=== PATIENT | male | born 1975 | race Caucasian/White ===

== ENCOUNTER → 2020-03-12 18:41 | Outpatient (CLI) | payer OTHER, MEDICAID, SELFPAY ==
[2020-03-12 19:58] LABS: Basophils # 0.1 K/mm3 (0-0.2); Basophils % 0.8 % (0.1-2.0); Eosinophils # 0.2 K/mm3 (0.0-0.4); Eosinophils % 2.4 % (0.1-12.0); Hematocrit 49.5 % (42.0-52.0); Hemoglobin 16.1 g/dL (14.1-18.0); Lymphocytes # 1.9 K/mm3 (0.7-4.5); Lymphocytes % 19.6 % (10-50); Mean Corpuscular HGB Conc 32.4 g/dL (31.8-35.4); Mean Corpuscular Hemoglobin 30.1 pg (27.0-31.2); Mean Corpuscular Volume 92.9 fl (80-94); Mean Platelet Volume 9.6 fl (7.4-10.4); Monocytes # 0.4 K/mm3 (0.1-1.0); Monocytes % 4.1 % (1.7-9.3); Neutrophils # 6.9 K/mm3 (1.8-7.8); Neutrophils % 73.1 % (37.0-80.0); Platelet Count 373 K/mm3 (142-424); Red Blood Count 5.33 M/mm3 (4.60-6.20); Red Cell Distribution Width 14.4 % (11.5-17.5); White Blood Count 9.5 K/mm3 (4.8-10.8)
[2020-03-12 20:03] LABS: Alanine Aminotransferase 24 U/L (12-78); Albumin Level 4.4 g/dl (3.5-5.0); Albumin/Globulin Ratio 1.6 (1.1-1.8); Alkaline Phosphatase 79 U/L (38-126); Anion Gap 11.3 mEq/L (5-15); Aspartate Amino Transferase 31 U/L (17-59); Bilirubin,Total 0.5 mg/dl (0.2-1.3); Blood Urea Nitrogen 9 mg/dl (9-20); Calcium 9.7 mg/dl (8.4-10.2); Carbon Dioxide 27 mmol/L (22.0-30.0); Chloride 104 mmol/L (98-107); Chol/HDL Ratio 4.8 (1-3.5); Cholesterol 191 mg/dl (140-200); Estimated Glomerular Filt Rate 91 ml/min (>60); GFR (African American) 110 ML/MIN (>60); Globulin 2.8 g/dL (1.3-3.2); Glucose 129 mg/dl (74-100); HDL Cholesterol 40 mg/dl (40-60); Potassium 4.3 mmoL/L (3.5-5.1); Sodium 138 mmol/L (136-145); Total Protein,Serum 7.2 g/dl (6.3-8.2); Triglycerides 129 mg/dl (30-150); VLDL Cholesterol 26 mg/dL (0-40)
[2020-03-12 20:14] LABS: Direct LDL Cholesterol 137.99 mg/dL (100-129)
[2020-03-12 20:18] LABS: Free T4 (Free Thyroxine) 1.16 ng/dl (0.78-2.19)
[2020-03-12 20:20] LABS: 25-OH Vitamin D, Total 34.6 ng/mL (30-100)
[2020-03-12 20:35] LABS: Thyroid Stimulating Hormone 1.43 uIU/mL (0.465-4.68)
== END ==
PROVIDERS: Visit Provider Family Medicine
DX: Z00.00 Encounter for general adult medical examination without abnormal findings (principal)
CPT/HCPCS: 80053; 80061; 82306; 84439; 84443; 85025

== ENCOUNTER 2020-05-27 08:25 | Emergency (ER) | payer OTHER, MEDICAID, SELFPAY ==
[2020-05-27 08:26] VITALS: BP 165/99; PULSE 78; RESP 16; TEMP 36.8; O2SAT 98; BMI 36.6
--- NOTE | 2020-05-27 08:36 | XR_ITS ---
PROCEDURE: XR ACUTE ABDOMEN SERIES CLINICAL INDICATION: epigastric pain, free air? COMPARISON: CT CT ABDOMEN PELVIS WO CON from 05/27/2020 FINDINGS: Frontal view of the chest shows no acute finding. Upright and supine views of the abdomen show a nonspecific bowel gas. No obstruction or free air. There is a mild amount of retained colonic feces. The joint spaces are well-preserved. No significant degenerative/arthritic changes. No erosive changes evident. Other findings:None. IMPRESSION: No acute findings. Dictated by: Hudson Hyde MD 05/27/2020 12:30 Hudson Hyde MD in [place] 05/27/2020 12:30
--- NOTE | 2020-05-27 08:39 | HMH.EDABDPAI ---
ED Disposition Clinical Impression: Acute pancreatitis Qualifiers: Pancreatitis type: unspecified pancreatitis type Acute pancreatitis complication: no infection or necrosis Qualified Code(s): K85.90 - Acute pancreatitis without necrosis or infection, unspecified Disposition: Home, Self-Care Condition on Discharge: Good Instructions: DI for Pancreatitis Prescriptions: Hydrocodone/Acetaminophen [Hydrocodone-Acetamin 5-325 mg] 1 each PO Q4-6H PRN #15 tablet PRN Reason: pain Transmission Status: Received by [facility] 1960 Ondansetron [Zofran 4mg ODT] 4 mg PO TID PRN #15 tab PRN Reason: Nausea Transmission Status: Pending to [facility] 1960 Referrals: Isidro Roberts MD [Primary Care Provider] - 3 days - Critical Care Critical Care Time: No Attestation: On , the high probability of a clinically significant, sudden or life threatening deterioration of the following system(s) required my full and direct attention, intervention and personal management. The time I documented below is in addition to time spent performing reported procedures but includes the following listed in this critical care notation. Medical Decision Making - Medical Records Medical records reviewed: Yes: I reviewed the patient's medical records. - Adalberto Inquiry Pt receiving controlled substance: Yes Adalberto was queried for this patient: No Risks and benefits of using a controlled substance: were discussed with pt by me Vital Signs: 05/27/20 08:26 05/27/20 11:10 Temperature 98.2 F Temperature Source Oral Pulse Rate [Right] 78 86 Respiratory Rate 16 Blood Pressure [Right Arm] 165/99 H 139/69 Blood Pressure Mean [Right Arm] 121 92 Blood Pressure Source [Right Arm] Automatic Cuff Automatic Cuff Blood Pressure Position [Right Arm] Sitting Sitting 02 Sat by Pulse Oximetry 98 97 Oxygen Delivery Method Room Air Room Air - Lab Data Lab results reviewed: Yes: I reviewed the patient's lab results. Lab Results 05/27/20 10:01: Urine Color Yellow, Urine Appearance Clear, Urine pH 7.0, Ur Specific [place] 1.010, Urine Protein Negative, Urine Glucose (UA) Negative, Urine Ketones Negative, Urine Blood 1+, Urine Nitrate Negative, Urine Bilirubin Negative, Urine Urobilinogen 0.2, Ur Leukocyte Esterase Negative, Urine RBC 5-10, Urine WBC 3-5, Ur Squamous Epith Cells 3-5 05/27/20 10:01: WBC 15.2 H, RBC 5.36, Hgb 15.2, Hct 47.7 H, MCV 88.9, MCH 28.4, MCHC 32.0, RDW 13.4, Plt Count 332, MPV 7.3 L, Neut % (Auto) 74.3, Lymph % (Auto) 17.5, [place] % (Auto) 5.8, Eos % (Auto) 1.8, Baso % (Auto) 0.7, Neut # (Auto) 11.3 H, Lymph # (Auto) 2.7, [place] # (Auto) 0.9, Eos # (Auto) 0.3, Baso # (Auto) 0.1, Total Counted 100, Neutrophils % (Manual) 76, Lymphocytes % (Manual) 21, Monocytes % (Manual) 3, Platelet Estimate Normal, RBC Morphology Normal 05/27/20 10:01: Urine HCG, Qual Negative 05/27/20 10:01: Sodium 137, Potassium 4.0, Chloride 101, Carbon Dioxide 29, Anion Gap 11.0, BUN 13, Creatinine 0.80, Estimated Creat Clear 126, Estimated GFR 77, Est GFR ( Amer) 93, Glucose 127 H, Calcium 10.3 H, Total Bilirubin 0.4, AST 21, ALT 20, Alkaline Phosphatase 68, Troponin I < 0.01, Total Protein 7.9, Albumin 4.6, Globulin 3.3 H, Albumin/Globulin Ratio 1.4, Lipase 169 Result diagrams: 05/27/20 10:01 05/27/20 10:01 Orders (Tests/Meds): ED MEDICATIONS Discontinued Medications Generic Name Dose Route Start Last Admin Trade Name Aaron PRN Reason Stop Dose Admin Famotidine 20 mg 05/27/20 08:36 05/27/20 09:29 Famotidine 20mg/2ml Vial IV 05/27/20 08:37 20 mg ONCE ONE Administration Sodium Chloride 1,000 mls @ 999 mls/hr 05/27/20 10:45 05/27/20 10:53 Sod Chlor 0.9% 1000ml Bag IV 05/27/20 11:45 999 mls/hr .Q1H1M NADYA Administration Ketorolac Tromethamine 30 mg 05/27/20 08:36 05/27/20 09:29 Ketorolac 30mg/Ml Vial IV 05/27/20 08:37 30 mg ONCE ONE Administration - CT Data CT Scan: Abdomen, Pelvis Time Received: 12:35 E
--- NOTE | 2020-05-27 10:14 | ECG_ITS ---
APPROVED REPORT Exam: Resting ECG HR:89 bpm ECG Measurements Heart Rate 89 AXES IN 130 P 50 QRSd 86 QRS 79 QT 386 T 3 QTc 469 Conclusion Normal sinus rhythm Prolonged QT Abnormal ECG Electronically signed by : Daryl Moran, 05/28/2020 06:24:30
[2020-05-27 10:17] LABS: Appearance,Urine CLEAR (Clear); Bilirubin,Urine Negative (Negative); Blood, Urine 1+ (Negative); Color,Urine YELLOW (Yellow); Glucose,Urine (UA) Negative (Negative); Ketones,Urine Negative (Negative); Leukocyte Esterase,Urine Negative (Negative); Microscopic, Urine URINE MICROSCOPIC (MICROSCOPIC); Nitrate,Urine Negative (Negative); Protein,Urine Negative (Negative); Urobilinogen,Urine 0.2 EU/dl (0.2)
[2020-05-27 10:20] LABS: Urine Pregnancy, HCG Qual. Negative (Negative)
[2020-05-27 10:26] LABS: Basophils # 0.1 K/mm3 (0-0.2); Basophils % 0.7 % (0.1-2.0); Eosinophils # 0.3 K/mm3 (0.0-0.4); Eosinophils % 1.8 % (0.1-12.0); Hematocrit 47.7 % (37.0-47.0); Hemoglobin 15.2 g/dL (12.2-16.2); Lymphocytes # 2.7 K/mm3 (0.7-4.5); Lymphocytes % 17.5 % (10-50); Mean Corpuscular Hemoglobin 28.4 pg (27.0-31.2); Mean Corpuscular Volume 88.9 fl (81-99); Mean Platelet Volume 7.3 fl (7.4-10.4); Monocytes # 0.9 K/mm3 (0.1-1.0); Monocytes % 5.8 % (1.7-9.3); Neutrophils # 11.3 K/mm3 (1.8-7.8); Neutrophils % 74.3 % (37.0-80.0); Platelet Count 332 K/mm3 (142-424); Red Blood Count 5.36 M/mm3 (4.20-5.40); Red Cell Distribution Width 13.4 % (11.5-17.5); White Blood Count 15.2 K/mm3 (4.8-10.8)
[2020-05-27 10:27] LABS: MANUAL DIFFERENTIAL MANUAL DIFFERENTIAL (MANUAL DIFF)
[2020-05-27 10:28] LABS: Chloride 101 mmol/L (98-107); Sodium 137 mmol/L (136-145)
[2020-05-27 10:30] LABS: Alanine Aminotransferase 20 U/L (12-78); Aspartate Amino Transferase 21 U/L (14-36); Blood Urea Nitrogen 13 mg/dl (7-17); Creatinine Clearance Estimated 126 mL/min (50-200); Estimated Glomerular Filt Rate 77 ml/min (>60); GFR (African American) 93 ML/MIN (>60)
[2020-05-27 10:31] LABS: Albumin Level 4.6 g/dl (3.5-5.0); Albumin/Globulin Ratio 1.4 (1.1-1.8); Alkaline Phosphatase 68 U/L (38-126); Bilirubin,Total 0.4 mg/dl (0.2-1.3); Calcium 10.3 mg/dl (8.4-10.2); Carbon Dioxide 29 mmol/L (22.0-30.0); Globulin 3.3 g/dL (1.3-3.2); Glucose 127 mg/dl (74-100); Lipase 169 U/L (23-300); Total Protein,Serum 7.9 g/dl (6.3-8.2)
--- NOTE | 2020-05-27 10:46 | CT_ITS ---
PROCEDURE: CT ABDOMEN PELVIS WO CON CLINICAL INDICATION: epigastric pain COMPARISON: No exams were available for comparison TECHNIQUE: Axial images obtained with sagittal and coronal reformats. All CT scans at the facility use one or more dose reduction, viz: automated exposure control, ma/kV adjustment per patient size (including targeted exams where dose is matched to indication, i.e. head), or iterative reconstruction technique. FINDINGS: LOWER THORAX: No acute finding ABDOMEN & PELVIS: Fatty liver. The gallbladder, spleen, adrenal glands, and kidneys show no acute finding. There is mild haziness around the pancreatic head which appears slightly prominent raising the suspicion of mild acute pancreatitis. Please correlate with clinical and laboratory values. No intestinal obstruction or free air. No evidence of appendicitis. There are few colonic diverticula but no evidence of diverticulitis. There are few scattered small nodes in the inguinal regions. No acute bony findings. There is a small umbilical hernia containing fat and 2 tiny abdominal wall defects just superior to the umbilicus consistent with small hernias both containing fat. IMPRESSION: Suspect acute pancreatitis with mild stranding of the peripancreatic fat at the head of the pancreas and some low-density changes of the pancreatic head with fullness of the pancreatic head. Please correlate with clinical and laboratory parameters Dictated by: Hudson Hyde MD 05/27/2020 12:28 Hudson Hyde MD in [place] 05/27/2020 12:28
[2020-05-27 10:49] LABS: Troponin I < 0.01 ng/ml (0.00-0.034)
[2020-05-27 10:54] LABS: Lymphocytes % 21 % (10-50); Monocytes % 3 % (2-9); Neutrophils % 76 % (42-76); Platelet Estimate Normal; RBC Morphology Normal; Total Cells Counted 100
--- NOTE | 2020-05-27 11:04 | PC.NURSE ---
radiology notified of ct abd and pelvis
[2020-05-27 11:10] VITALS: BP 139/69; PULSE 86; O2SAT 97
[2020-05-27 12:00] VITALS: BP 136/69; PULSE 75; O2SAT 96
[2020-05-27 12:30] VITALS: BP 124/70; PULSE 76; O2SAT 96
[2020-05-27 13:06] VITALS: BP 124/73; PULSE 77; RESP 20; TEMP 36.8; O2SAT 97
== END 2020-05-27 13:06 | disposition home or self-care (01) ==
PROVIDERS: Emergency Provider Emergency Medicine; PCP Family Medicine
DX: K85.90 Acute pancreatitis without necrosis or infection, unspecified (principal); K21.9 Gastro-esophageal reflux disease without esophagitis; F41.8 Other specified anxiety disorders
CPT/HCPCS: 74021; 74176; 80053; 81001; 81025; 83690; 84484; 85007; 85025; 93005; 96365; 96375; 99283

== ENCOUNTER → 2020-05-29 07:40 | Outpatient (CLI) | payer OTHER, MEDICAID, SELFPAY ==
--- NOTE | 2020-05-29 07:40 | US_ITS ---
PROCEDURE: US ABDOMEN LIMITED CLINICAL INDICATION: pancreatitis COMPARISON: CT CT ABDOMEN PELVIS WO CON from 05/27/2020 FINDINGS: PANCREAS: Unremarkable. No obvious mass or abnormal fluid collection. No ductal dilatation LIVER: No focal liver lesions demonstrated. Homogeneous echogenicity. No intrahepatic biliary ductal dilatation evident. There is appropriate direction of blood flow within a non dilated portal vein RIGHT KIDNEY: Unremarkable. Normal size and echogenicity. No hydronephrosis GALLBLADDER: No gallstones, gallbladder wall thickening, pericholecystic fluid, or biliary dilatation. IMPRESSION: Unremarkable limited abdominal ultrasound as detailed above disc Dictated by: Hduson Hyde MD 05/29/2020 17:35 Hudson Hyde MD in [place] 05/29/2020 17:35
== END ==
PROVIDERS: PCP Family Medicine; Visit Provider Family Medicine
DX: R10.9 Unspecified abdominal pain (principal); K85.90 Acute pancreatitis without necrosis or infection, unspecified
CPT/HCPCS: 76705

== ENCOUNTER → 2020-10-01 18:03 | Outpatient (CLI) | payer OTHER, MEDICAID, SELFPAY | PROVIDERS: Visit Provider Family Medicine | DX: R05 Cough (principal) ==

== ENCOUNTER → 2020-10-06 12:18 | Outpatient (CLI) | payer OTHER, MEDICAID, SELFPAY ==
--- NOTE | 2020-10-06 12:28 | XR_ITS ---
PROCEDURE: XR COCCYX 2V CLINICAL INDICATION: pain COMPARISON: No exams were available for comparison FINDINGS: Normal alignment. No fracture or dislocation. No lytic or blastic change. SI joints have an unremarkable appearance. IMPRESSION: Negative coccyx Dictated by: Hudson Hyde MD 10/06/2020 13:51 Hudson Hyde MD in [place] 10/06/2020 13:51
--- NOTE | 2020-10-06 12:28 | XR_ITS ---
PROCEDURE: XR LUMBAR SPINE MIN 4V CLINICAL INDICATION: pain COMPARISON: No exams were available for comparison FINDINGS: There is normal alignment. There is minimal lumbar curvature convex right. The disc spaces are well preserved. No acute fracture or dislocation. Mild facet sclerosis L5-S1. SI joints are unremarkable. There is a mild amount retained colonic feces. No lytic or blastic change. IMPRESSION: No acute findings. Dictated by: Hudson Hyde MD 10/06/2020 13:50 Hudson Hyde MD in [place] 10/06/2020 13:50
--- NOTE | 2020-10-06 12:28 | XR_ITS ---
PROCEDURE: XR CHEST 2V CLINICAL HISTORY: cough COMPARISON: CT CT ABDOMEN PELVIS WO CON from 05/27/2020 FINDINGS: The cardiomediastinal silhouette and pulmonary vascularity are within normal limits. The lungs are clear without infiltrates, suspicious nodules, or pleural effusions. There is some hyper lucency in the lung apices consistent with paraseptal emphysematous changes or blebs. No acute bony abnormalities. IMPRESSION: COPD with emphysematous changes. No acute finding. Dictated by: Hudson Hyde MD 10/06/2020 14:01 Hudson Hyde MD in [place] 10/06/2020 14:01
== END ==
PROVIDERS: PCP Family Medicine; Visit Provider Family Medicine
DX: R05 Cough (principal); M54.9 Dorsalgia, unspecified; M54.5 Low back pain
CPT/HCPCS: 71046; 72110; 72220

== ENCOUNTER → 2020-11-05 14:02 | Outpatient (CLI) | payer OTHER, MEDICAID, SELFPAY ==
[2020-11-05 14:33] LABS: Lipase 126 U/L (23-300)
== END ==
PROVIDERS: Visit Provider Family Medicine
DX: K86.1 Other chronic pancreatitis (principal)
CPT/HCPCS: 83690

== ENCOUNTER 2020-11-06 13:28 | Observation (INO) | payer OTHER, MEDICAID, SELFPAY ==
[2020-11-06 13:29] VITALS: BP 100/66; PULSE 111; RESP 16; TEMP 36.7; O2SAT 98; BMI 36.2
--- NOTE | 2020-11-06 13:49 | ECG_ITS ---
APPROVED REPORT Exam: Resting ECG HR:101 bpm ECG Measurements Heart Rate 101 AXES [place] 124 P 51 QRSd 72 QRS 65 QT 326 T -36 QTc 422 Conclusion Sinus tachycardia with fusion complexes Possible Left atrial enlargement T wave abnormality, consider inferolateral ischemia Abnormal ECG Electronically signed by : Daryl Moran, 11/08/2020 13:50:58
[2020-11-06 13:54] LABS: Microscopic, Urine URINE MICROSCOPIC (MICROSCOPIC)
[2020-11-06 14:00] LABS: Appearance,Urine CLEAR (Clear); Blood, Urine 3+ (Negative); Color,Urine DK YELLOW (Yellow); Glucose,Urine (UA) Negative (Negative); Ketones,Urine Negative (Negative); Leukocyte Esterase,Urine Negative (Negative); Nitrate,Urine Negative (Negative); PH,Urine 5.5 (5.0-8.5); Protein,Urine 2+ (Negative); Specific Gravity, Urine >= 1.030 (1.005-1.030); Urobilinogen,Urine 0.2 EU/dl (0.2)
--- NOTE | 2020-11-06 14:00 | CT_ITS ---
PROCEDURE: CT ABDOMEN PELVIS W CON CLINICAL INDICATION: pancreatitis COMPARISON: CT CT ABDOMEN PELVIS WO CON from 05/27/2020 TECHNIQUE: IV Contrast: 75ML Isovue 370 Oral Contrast None Axial images obtained with sagittal and coronal reformats. All CT scans at the facility use one or more dose reduction, viz: automated exposure control, ma/kV adjustment per patient size (including targeted exams where dose is matched to indication, i.e. head), or iterative reconstruction technique. FINDINGS: Lung bases are clear. Mild fatty liver. No focal liver lesion evident. The spleen, and adrenal glands are unremarkable. No renal or ureteral calculi or hydronephrosis. There is mild scarring involving the left kidney superiorly and the right kidney inferiorly. The body and head of the pancreas are enlarged with stranding of the peripancreatic fat consistent with acute pancreatitis. No evidence of pancreatic necrosis. No abscess or peripancreatic fluid collection apparent. There is some slight increased density in the gallbladder may be related to small stones or sludge No intestinal obstruction or free air. Unremarkable appendix. Colonic diverticulosis noted. No evidence of diverticulitis. Low-density changes of the endometrium are somewhat prominent and is nonspecific. No acute bony findings.. Probable small bone island right femoral neck. IMPRESSION: Acute pancreatitis. No evidence of pancreatic necrosis or peripancreatic fluid collection. Possible cholelithiasis Dictated by: Hudson Hyde MD 11/06/2020 14:45 Hudson Hyde MD in [place] 11/06/2020 14:45
--- NOTE | 2020-11-06 14:03 | HMH.EDGENADL ---
ED Disposition Clinical Impression: Pancreatitis, acute Qualifiers: Pancreatitis type: unspecified pancreatitis type Acute pancreatitis complication: unspecified Qualified Code(s): K85.90 - Acute pancreatitis without necrosis or infection, unspecified Disposition: Admitted as Observation Condition on Discharge: Patient admitted to the hospital. - Critical Care Critical Care Time: No Attestation: On 11/06/20, the high probability of a clinically significant, sudden or life threatening deterioration of the following system(s) required my full and direct attention, intervention and personal management. The time I documented below is in addition to time spent performing reported procedures but includes the following listed in this critical care notation. Medical Decision Making - Medical Records Medical records reviewed: Yes: I reviewed the patient's medical records. - Adalberto Inquiry Pt receiving controlled substance: Yes Adalberto was queried for this patient: Yes Risks and benefits of using a controlled substance: were discussed with pt by me Vital Signs: 11/06/20 13:29 11/06/20 16:37 11/06/20 16:46 Temperature 98.1 F 98.3 F 98 F Temperature Source Oral Oral Oral Pulse Rate 75 Pulse Rate [Radial] 111 H 77 Respiratory Rate 16 19 16 Blood Pressure 123/85 Blood Pressure [Right Arm] 100/66 L 142/84 H Blood Pressure Mean [Right Arm] 77 103 Blood Pressure Source [Right Arm] Automatic Cuff Blood Pressure Position Sitting Blood Pressure Position [Right Arm] Sitting 02 Sat by Pulse Oximetry 98 95 Oxygen Delivery Method Room Air Room Air Room Air - Lab Data Lab results reviewed: Yes: I reviewed the patient's lab results. Lab Results 11/06/20 13:35: Urine Color Dk yellow, Urine Appearance Clear, Urine pH 5.5, Ur Specific [place] >= 1.030, Urine Protein 2+, Urine Glucose (UA) Negative, Urine Ketones Negative, Urine Blood 3+, Urine Nitrate Negative, Urine Bilirubin 1+ A, Urine Urobilinogen 0.2, Ur Leukocyte Esterase Negative, Urine RBC 10-20, Urine WBC 3-5, Ur Squamous Epith Cells 5-10, Amorphous Sediment 1+ 11/06/20 13:58: WBC 15.6 H, RBC 5.27, Hgb 16.0, Hct 45.2, MCV 85.8, MCH 30.4, MCHC 35.4, RDW 14.6, Plt Count 333, MPV 7.9, Neut % (Auto) 77.5, Lymph % (Auto) 14.9, [place] % (Auto) 4.5, Eos % (Auto) 2.3, Baso % (Auto) 0.8, Neut # (Auto) 12.0 H, Lymph # (Auto) 2.3, [place] # (Auto) 0.7, Eos # (Auto) 0.4, Baso # (Auto) 0.1, Total Counted 100, Neutrophils % (Manual) 71, Lymphocytes % (Manual) 20, Monocytes % (Manual) 8, Eosinophils % (Manual) 1, Platelet Estimate Normal, RBC Morphology Normal 11/06/20 13:58: Sodium 138, Potassium 4.2, Chloride 102, Carbon Dioxide 27, Anion Gap 13.2, BUN 9, Creatinine 0.90, Estimated Creat Clear 110, Estimated GFR 67, Est GFR ( Amer) 81, Glucose 145 H, Calcium 9.3, Total Bilirubin 0.6, AST 20, ALT 18, Alkaline Phosphatase 83, Troponin I < 0.01, Total Protein 7.7, Albumin 4.4, Globulin 3.3 H, Albumin/Globulin Ratio 1.3, Lipase 76 11/06/20 13:58: Serum HCG, Qual Negative Result diagrams: 11/06/20 13:58 11/06/20 13:58 Orders (Tests/Meds): ED MEDICATIONS Generic Name Dose Route Start Last Admin Trade Name Freq PRN Reason Stop Dose Admin Acetaminophen 650 mg 11/06/20 16:24 Acetaminophen 325mg Tab PO 12/06/20 16:23 Q4HP PRN Fever or Mild Pain Hydrocodone Bitart/Acetaminophen 2 tab 11/06/20 16:24 Hydrocodone/Apap 5/325 Mg Tablet PO 12/06/20 16:23 Q4HP PRN Moderate to Severe Pain Albuterol Sulfate puffs 11/06/20 16:24 Albuterol-Hfa 90mcg/Puff Inhaler 8gm IH 12/06/20 16:23 QID PRN cough Amitriptyline HCl 25 mg 11/06/20 16:24 Amitriptyline 25mg Tablet PO 12/06/20 16:23 DAILY NADYA Atorvastatin Calcium 20 mg 11/06/20 16:24 Atorvastatin 20mg Tablet PO 12/06/20 16:23 DAILY NADYA Lactated Ringer's 1,000 mls @ 100 mls/hr 11/06/20 16:24 Lactated Ringer's 1000 Ml Bag IV 12/06/20 16:23 .Q10H NADYA [place]
[2020-11-06 14:12] LABS: Basophils # 0.1 K/mm3 (0-0.2); Basophils % 0.8 % (0.1-2.0); Eosinophils # 0.4 K/mm3 (0.0-0.4); Eosinophils % 2.3 % (0.1-12.0); Hematocrit 45.2 % (37.0-47.0); Lymphocytes # 2.3 K/mm3 (0.7-4.5); Lymphocytes % 14.9 % (10-50); Mean Corpuscular HGB Conc 35.4 g/dL (31.8-35.4); Mean Corpuscular Hemoglobin 30.4 pg (27.0-31.2); Mean Corpuscular Volume 85.8 fl (81-99); Mean Platelet Volume 7.9 fl (7.4-10.4); Monocytes # 0.7 K/mm3 (0.1-1.0); Monocytes % 4.5 % (1.7-9.3); Neutrophils % 77.5 % (37.0-80.0); Platelet Count 333 K/mm3 (142-424); Red Blood Count 5.27 M/mm3 (4.20-5.40); Red Cell Distribution Width 14.6 % (11.5-17.5); White Blood Count 15.6 K/mm3 (4.8-10.8)
[2020-11-06 14:14] LABS: Chloride 102 mmol/L (98-107); MANUAL DIFFERENTIAL MANUAL DIFFERENTIAL (MANUAL DIFF)
[2020-11-06 14:15] LABS: Potassium 4.2 mmoL/L (3.5-5.1); Sodium 138 mmol/L (136-145)
[2020-11-06 14:17] LABS: Alanine Aminotransferase 18 U/L (12-78); Alkaline Phosphatase 83 U/L (38-126); Aspartate Amino Transferase 20 U/L (14-36); Bilirubin,Total 0.6 mg/dl (0.2-1.3); Blood Urea Nitrogen 9 mg/dl (7-17); Creatinine Clearance Estimated 110 mL/min (50-200); Estimated Glomerular Filt Rate 67 ml/min (>60); GFR (African American) 81 ML/MIN (>60)
[2020-11-06 14:18] LABS: Albumin Level 4.4 g/dl (3.5-5.0); Albumin/Globulin Ratio 1.3 (1.1-1.8); Anion Gap 13.2 mEq/L (5-15); Calcium 9.3 mg/dl (8.4-10.2); Carbon Dioxide 27 mmol/L (22.0-30.0); Globulin 3.3 g/dL (1.3-3.2); Glucose 145 mg/dl (74-100); Lipase 76 U/L (23-300); Total Protein,Serum 7.7 g/dl (6.3-8.2)
[2020-11-06 14:23] LABS: Eosinophils % 1 % (0-3); Lymphocytes % 20 % (10-50); Monocytes % 8 % (2-9); Neutrophils % 71 % (42-76); Platelet Estimate Normal; RBC Morphology Normal; Total Cells Counted 100
[2020-11-06 14:35] LABS: Troponin I < 0.01 ng/ml (0.00-0.034)
[2020-11-06 14:47] LABS: Bilirubin,Urine 1+ (Negative)
[2020-11-06 14:54] LABS: Amorphous Sediment,Urine 1+ /lpf
--- NOTE | 2020-11-06 15:01 | US_ITS ---
PROCEDURE: US GALLBLADDER CLINICAL INDICATION: cholelithiasis COMPARISON: CT CT ABDOMEN PELVIS W CON from 11/06/2020 FINDINGS: Pancreas: Mildly prominent pancreas with ill-defined margins consistent with acute pancreatitis. No peripancreatic fluid collections. Liver: Diffuse increased echogenicity of the liver with poor through transmission of sound consistent with hepatic steatosis. No focal liver lesion demonstrated. There is appropriate direction of blood flow within non dilated portal vein.There is appropriate direction of blood flow within a non dilated portal vein. Right kidney: Unremarkable appearing. No hydronephrosis. Gallbladder: No gallstones were demonstrated. IMPRESSION: No gallstones apparent. Mildly prominent pancreas with ill-defined margins consistent with acute pancreatitis Dictated by: Hudson Hyde MD 11/06/2020 15:59 Hudson Hyde MD in [place] 11/06/2020 15:59
[2020-11-06 15:10] LABS: HCG Qualitative, Serum Negative (Negative)
--- NOTE | 2020-11-06 15:15 | PC.NURSE ---
pt to ultrasound
--- NOTE | 2020-11-06 15:33 | HMH.PHAINT ---
MEDICATION RECONCILIATION COMPLETE USING EXTERNAL PHARMACY FILL HISTORY.
[2020-11-06 15:49] LABS: Coronavirus 19, PCR Not Detected (NotDetected); Influenza A, PCR Not Detected (NotDetected); Influenza B, PCR Not Detected (NotDetected)
[2020-11-06 16:37] VITALS: BP 142/84; PULSE 77; RESP 19; TEMP 36.8; O2SAT 95; BMI 34.7
--- NOTE | 2020-11-06 16:45 | PC.NURSE ---
REPORT CALLED TO FLOOR
[2020-11-06 16:46] VITALS: BP 123/85; PULSE 75; RESP 16; TEMP 36.6; O2SAT 94
[2020-11-06 17:12] VITALS: O2SAT 95
--- NOTE | 2020-11-06 18:43 | HMH.HP ---
*Admission Date: 11/06/20 *Chief complaint: pancreatitis *History of present illness: Patient is a 45-year-old white female, known to me from the office. She was seen yesterday with mid epigastric abdominal pain that had worsened over the last 3 to 4 days. Labs were drawn in the office, lipase was normal. The called and relayed that her pain was ongoing, in fact worsening, and this prompted her visit to the emergency room. A CT of the abdomen was performed, this showed some stranding and inflammatory changes of the pancreas distant with pancreatitis. Her repeat lipase was still normal. CT report suggested Pres density in the gallbladder. An ultrasound of the gallbladder was ordered, the final reading is pending. Patient has a dyslipidemia, is on a statin but has not been taking it currently. We will measure fasting n.p.o. lipids, specifically looking at triglyceride elevation. Patient drank a single glass of wine over the holiday weekend. She is otherwise a nondrinker. Patient is accompanied by her . She is employed full-time and concerned about losing points at work. She actually tried to work but felt like she was unable to maintain adequate hydration, and the escalation of her pain precluded her full participation. [facility] History Medical History: Reports:: Anxiety, Hyperlipidemia, Myocardial Infarction Denies:: Cancer, Diabetes Mellitus Type 1, Diabetes Mellitus Type 2, MRSA *Have you ever received a pneumonia vaccine?: No *Have you received a flu vaccine this season?: No Other Medical History: Reports: Arthritis Laterality Cases: Bilateral: Carpal Tunnel Release Other Surgeries: Yes: , Other (ORAL SURGERY) Amputation: No Fractures: No - *Social History Last grade of school completed: High school graduate Smoking Status: Current every day smoker Tobacco Type: cigarettes # Packs/Day (cigarettes): 1 Alcohol Intake: never Alcohol Intake Frequency:: holidays/special occasions only Substance Use Type: denies use *Occupational Status:: employed Household Members: spouse *Travel in the last 8 weeks: None - Psychiatric History Pschychiatric History:: Reports:: Anxiety Family Hx:: Cancer, Diabetes, Heart Attack, Hypertension, Stroke, Mental illness Review of Systems - Constitutional Reports anorexia, Reports lack of energy, Reports weakness - Eyes Denies change in vision - ENT Denies abnormal hearing - *Cardiovascular Denies chest pain - *Respiratory Denies chest congestion - *Gastrointestinal Reports abdominal pain, Reports bloating, Reports cramping, Reports feeling full early, Reports heartburn, Reports nausea - *Genitourinary Denies painful urination - *Musculoskeletal Reports muscle weakness - Integumentary/Breasts Denies yellowing of the skin - *Neurologic Reports headache(s), Denies behavioral changes - Psychiatric Reports change in appetite - Endocrine Reports increased thirst - Hematologic/Lymphatic Denies easy bleeding - Allergic/Immunologic Denies hives Meds Home Medications Medication Instructions Recorded Confirmed Type albuterol sulfate 90 mcg/actuation 2 puff INHALATION QID PRN #8.5 g 10/01/20 11/06/20 Rx aerosol inhaler hydrocodone 5 mg-acetaminophen 325 1 tab PO Q4-6H PRN #15 tab 11/05/20 11/06/20 Rx mg tablet Amitriptyline HCl [Elavil 25mg 25 mg PO DAILY 11/06/20 11/06/20 History tablet] Atorvastatin Calcium [Lipitor 20mg 20 mg PO DAILY 11/06/20 11/06/20 History Tab] Fluticasone/Salmeterol [Advair 1 inh IH BID 11/06/20 11/06/20 History 250/50mcg Diskus] Ondansetron [Zofran 4mg ODT] 4 mg PO TIDP PRN 11/06/20 11/06/20 History Sertraline HCl [Zoloft] 100 mg PO BID 11/06/20 11/06/20 History Allergies Allergy/AdvReac Type Severity Reaction Status Date / Time No Known Allergies Allergy Unverified 11/05/20 10:00 Exam Vital signs and Labs for Last 24 Hours: Temp Pulse Resp BP Pulse Ox 98 F 75
--- NOTE | 2020-11-06 19:01 | XR_ITS ---
PROCEDURE INFORMATION: Exam: XR Chest Exam date and time: 11/06/20 07:01 PM Age: 45 years old Clinical indication: Other: Pancreatitis; Patient HX: No chest symptoms, smoker TECHNIQUE: Imaging protocol: XR of the chest. Views: 1 view. COMPARISON: CR XR CHEST 2V 10/06/20 12:46 PM FINDINGS: Lungs: Unremarkable. No consolidation. Pleural spaces: Unremarkable. No pleural effusion. No pneumothorax. Heart/Mediastinum: Unremarkable. No cardiomegaly. Bones/joints: Unremarkable. IMPRESSION: No acute findings.
[2020-11-06 23:59] VITALS: BP 104/68; PULSE 80; RESP 18; TEMP 36.7; O2SAT 90
--- NOTE | 2020-11-07 03:13 | PC.NURSE ---
shift summary pt is alert and oriented X4. pts lung sounds are clear with sats maintained 90% or above on room air. pt has complained of pain once during the shift which was relieved with prn pain meds. pt also had a complaint of nausea once that was that was relieved with prn antiemetic. pt is able to ambulate to restroom unassisted urine is clear and yellow in color. no acute changes will continue to monitor.
[2020-11-07 04:00] VITALS: BP 141/68; PULSE 81; RESP 18; TEMP 37; O2SAT 97
[2020-11-07 07:57] VITALS: BP 155/88; PULSE 89; RESP 16; TEMP 36.7; O2SAT 100
[2020-11-07 08:00] VITALS: PULSE 89; RESP 16; O2SAT 100
--- NOTE | 2020-11-07 08:40 | HMH.PHAVTE ---
[facility] Pharm[facility] VTE Monitoring - Patient Demographics Admission date: 11/07/20 Report Date: 11/07/20 Time: 08:40 Allergies/Adverse Reactions: Patient Allergies No Known Allergies Allergy (Unverified 11/05/20 10:00) Height: 1.57 m Weight: 86.296 kg Patient Problems: Current Active Problems Pancreatitis, acute (Acute) Hyperlipidemia (Chronic) COPD (chronic obstructive pulmonary disease) case management patient (Chronic) Tobacco abuse (Chronic) History of HI (myocardial infarction) (Chronic) History of stroke (Chronic) Mood disorder (Chronic) Migraine syndrome (Chronic) Erosive osteoarthritis of multiple sites (Chronic) - VTE Risk Labs: VTE Related Lab Results Hgb 16.0 g/dL (12.2-16.2) 11/06/20 13:58 Hct 45.2 % (37.0-47.0) 11/06/20 13:58 Plt Count 333 K/mm3 (142-424) 11/06/20 13:58 BUN 9 mg/dl (7-17) 11/06/20 13:58 Creatinine 0.90 mg/dl (0.52-1.04) 11/06/20 13:58 Estimated Creat Clear 110 mL/min (50-200) 11/06/20 13:58 Was VTE Risk Assessment Performed: Yes VTE Score: 2 VTE Risk Level: Low Risk Clinical Trial Participant: No - Prophylaxis VTE Prophylaxis Ordered?: Yes Types of VTE Prophylaxis: TEDS Knee High Location of Applied Device: Bilateral Lower Extremeties
--- NOTE | 2020-11-07 09:27 | HMH.ACPN2 ---
Internal Medicine - PN: Subj *Date: 11/08/20 *Time: 08:28 Interval history: doing better - still with some abd pain and labs pending and gb u/s report pending Exam Vital signs and Labs for Last 24 Hours: Temp Pulse Resp BP Pulse Ox 98.0 F 89 16 155/88 H 100 11/07/20 07:57 11/07/20 07:57 11/07/20 07:57 11/07/20 07:57 11/07/20 07:57 Laboratory Results - last 24 hr 11/06/20 13:35: Urine Color Dk yellow, Urine Appearance Clear, Urine pH 5.5, Ur Specific [place] >= 1.030, Urine Protein 2+, Urine Glucose (UA) Negative, Urine Ketones Negative, Urine Blood 3+, Urine Nitrate Negative, Urine Bilirubin 1+ A, Urine Urobilinogen 0.2, Ur Leukocyte Esterase Negative, Urine RBC 10-20, Urine WBC 3-5, Ur Squamous Epith Cells 5-10, Amorphous Sediment 1+ 11/06/20 13:58: WBC 15.6 H, RBC 5.27, Hgb 16.0, Hct 45.2, MCV 85.8, MCH 30.4, MCHC 35.4, RDW 14.6, Plt Count 333, MPV 7.9, Neut % (Auto) 77.5, Lymph % (Auto) 14.9, [place] % (Auto) 4.5, Eos % (Auto) 2.3, Baso % (Auto) 0.8, Neut # (Auto) 12.0 H, Lymph # (Auto) 2.3, [place] # (Auto) 0.7, Eos # (Auto) 0.4, Baso # (Auto) 0.1, Total Counted 100, Neutrophils % (Manual) 71, Lymphocytes % (Manual) 20, Monocytes % (Manual) 8, Eosinophils % (Manual) 1, Platelet Estimate Normal, RBC Morphology Normal 11/06/20 13:58: Sodium 138, Potassium 4.2, Chloride 102, Carbon Dioxide 27, Anion Gap 13.2, BUN 9, Creatinine 0.90, Estimated Creat Clear 110, Estimated GFR 67, Est GFR ( Amer) 81, Glucose 145 H, Calcium 9.3, Total Bilirubin 0.6, AST 20, ALT 18, Alkaline Phosphatase 83, Troponin I < 0.01, Total Protein 7.7, Albumin 4.4, Globulin 3.3 H, Albumin/Globulin Ratio 1.3, Lipase 76 11/06/20 13:58: Serum HCG, Qual Negative 11/06/20 15:40: SARS-CoV-2 (PCR) Not detected, Influenza A Untype (PCR) Not detected, Influenza Type B (PCR) Not detected I & O for Last 24 hours: Intake & Output 11/04/20 11/05/20 11/06/20 11/07/20 11:59 11:59 11:59 11:59 Intake Total 240 / 240 Balance 240 / 240 Weight 190 lb 4 oz - Constitutional no acute distress, obese - *Routine HEENT Exam Head: Present: normocephalic Eye: Present: EOMI, PERRL ENT: Present: mucous membranes dry - *Routine Neck Exam Present: supple. Absent: JVD - *Routine Respiratory Exam Present: CTA bilaterally - *Routine Cardiovascular Exam Present: RRR, murmur - *Routine Abdominal Exam Present: soft, tenderness - *Routine Extremities Exam Absent: calf tenderness - *Routine Skin Exam Present: intact - *Routine Neurological Exam Present: alert, CN II-XII intact - Routine Psychiatric Exam Present: normal affect Assessment and Plan (1) Pancreatitis, acute Status: Acute Qualifiers: Pancreatitis type: unspecified pancreatitis type Acute pancreatitis complication: unspecified Qualified Code(s): K85.90 - Acute pancreatitis without necrosis or infection, unspecified Category: Medical Code(s): K85.90 - Acute pancreatitis without necrosis or infection, unspecified (2) COPD (chronic obstructive pulmonary disease) case management patient Status: Chronic Category: Medical Code(s): J44.9 - Chronic obstructive pulmonary disease, unspecified (3) Erosive osteoarthritis of multiple sites Status: Chronic Category: Medical Code(s): M15.4 - Erosive (osteo)arthritis (4) History of MA (myocardial infarction) Status: Chronic Category: Medical Code(s): I25.2 - Old myocardial infarction (5) History of stroke Status: Chronic Category: Medical Code(s): Z86.73 - Personal history of transient ischemic attack (TIA), and cerebral infarction without residual deficits (6) Migraine syndrome Status: Chronic Category: Medical Code(s): G43.909 - Migraine, unspecified, not intractable, without status migrainosus (7) Mood disorder Status: Chronic Category: Medical Code(s): F39 - Unspecified mood [affective] disorder (8) Tobacco abuse Status: Chronic Category: Medical Code(s): Z72.0 - Tobac
[2020-11-07 11:03] LABS: Basophils # 0.1 K/mm3 (0-0.2); Basophils % 0.6 % (0.1-2.0); Eosinophils # 0.3 K/mm3 (0.0-0.4); Eosinophils % 2.9 % (0.1-12.0); Hematocrit 39.4 % (37.0-47.0); Lymphocytes # 2.4 K/mm3 (0.7-4.5); Mean Corpuscular HGB Conc 33.6 g/dL (31.8-35.4); Mean Corpuscular Hemoglobin 29.4 pg (27.0-31.2); Mean Corpuscular Volume 87.4 fl (81-99); Mean Platelet Volume 7.9 fl (7.4-10.4); Monocytes # 0.4 K/mm3 (0.1-1.0); Monocytes % 3.5 % (1.7-9.3); Neutrophils # 8.1 K/mm3 (1.8-7.8); Platelet Count 276 K/mm3 (142-424); Red Blood Count 4.51 M/mm3 (4.20-5.40); Red Cell Distribution Width 14.4 % (11.5-17.5); White Blood Count 11.3 K/mm3 (4.8-10.8)
[2020-11-07 11:10] LABS: Chloride 103 mmol/L (98-107); Sodium 136 mmol/L (136-145)
[2020-11-07 11:12] LABS: Blood Urea Nitrogen 10 mg/dl (7-17); Creatinine Clearance Estimated 118 mL/min (50-200); Estimated Glomerular Filt Rate 77 ml/min (>60); GFR (African American) 93 ML/MIN (>60)
[2020-11-07 11:13] LABS: Alanine Aminotransferase 16 U/L (12-78); Albumin Level 3.5 g/dl (3.5-5.0); Albumin/Globulin Ratio 1.2 (1.1-1.8); Alkaline Phosphatase 62 U/L (38-126); Aspartate Amino Transferase 22 U/L (14-36); Bilirubin,Total 0.5 mg/dl (0.2-1.3); Calcium 8.7 mg/dl (8.4-10.2); Carbon Dioxide 29 mmol/L (22.0-30.0); Chol/HDL Ratio 4.2 (1-3.5); Cholesterol 142 mg/dl (140-200); Globulin 2.9 g/dL (1.3-3.2); Glucose 151 mg/dl (74-100); HDL Cholesterol 34 mg/dl (40-60); Magnesium 1.7 mg/dl (1.6-2.3); Total Protein,Serum 6.4 g/dl (6.3-8.2); Triglycerides 112 mg/dl (30-150); VLDL Cholesterol 22 mg/dL (0-40)
[2020-11-07 11:15] LABS: Lipase 53 U/L (23-300)
[2020-11-07 11:22] LABS: Hemoglobin 13.2 g/dL (12.2-16.2)
[2020-11-07 11:24] LABS: Direct LDL Cholesterol 74.39 mg/dL (100-129)
[2020-11-07 16:00] VITALS: BP 126/75; PULSE 74; RESP 16; TEMP 36.9; O2SAT 96
--- NOTE | 2020-11-07 16:38 | PC.NURSE ---
Pt has been pleasant and cooperative this shift. A&O X4. No complaints of pain. Pt is on room air with sats. >90%. Lungs CTA. No edema noted. Abdomen is flat, soft, and tender. Appetite is good and pt eats the majority of all meals. Pt ambulates independently to/from the bathroom and throughout the room. Urine is clear and yellow. No BM this shift. 20 G peripheral IV in the RT AC is patent and infusing LR @ 175 ML/HR. VSS. Call light within reach. Will continue to monitor.
[2020-11-07 20:00] VITALS: BP 143/80; PULSE 86; RESP 16; TEMP 36.8; O2SAT 96
[2020-11-08 04:00] VITALS: BP 158/78; PULSE 80; RESP 18; TEMP 36.6; O2SAT 97
--- NOTE | 2020-11-08 04:37 | PC.NURSE ---
shift summary pt is alert and oriented X4. pts lung sounds are clear with sats maintained 90% or above on room air. pt denies pain, nausea, vomiting, and diarrhea pt has rested comfortably with no complaints. pt is able to ambulate to restroom unassisted urine is clear and yellow in color. no acute changes will continue to monitor.
[2020-11-08 05:23] VITALS: BMI 36.8
[2020-11-08 08:00] VITALS: BP 144/93; PULSE 74; RESP 15; TEMP 36.9; O2SAT 95
--- NOTE | 2020-11-08 09:52 | HMH.DCSUM ---
General - General Admission date:: 11/06/20 Discharge date: 11/08/20 HPI HPI: Patient is a 45-year-old white female, known to me from the office. She was seen yesterday with mid epigastric abdominal pain that had worsened over the last 3 to 4 days. Labs were drawn in the office, lipase was normal. The called and relayed that her pain was ongoing, in fact worsening, and this prompted her visit to the emergency room. A CT of the abdomen was performed, this showed some stranding and inflammatory changes of the pancreas distant with pancreatitis. Her repeat lipase was still normal. CT report suggested Pres density in the gallbladder. An ultrasound of the gallbladder was ordered, the final reading is pending. Patient has a dyslipidemia, is on a statin but has not been taking it currently. We will measure fasting n.p.o. lipids, specifically looking at triglyceride elevation. Patient drank a single glass of wine over the holiday weekend. She is otherwise a nondrinker. Patient is accompanied by her . She is employed full-time and concerned about losing points at work. She actually tried to work but felt like she was unable to maintain adequate hydration, and the escalation of her pain precluded her full participation. Hospital Course Hospital Course: pt has slowly improved with fluids and iv pain meds and bowel rest - gb u/s without stones but showed inflam--ed pancreas- pt has improved with stable labs and tolerating diet and activity - will d/c and continue eval as out pt Objective Vital signs: Temp Pulse Resp BP Pulse Ox 98.4 F 74 15 144/93 H 95 11/08/20 08:00 11/08/20 08:00 11/08/20 08:00 11/08/20 08:00 11/08/20 08:00 no acute distress, obese - *Routine HEENT Exam Head: Present: normocephalic Eye: Present: EOMI, PERRL ENT: Present: mucous membranes moist - *Routine Neck Exam Present: supple - *Routine Respiratory Exam Present: CTA bilaterally - *Routine Cardiovascular Exam Present: RRR - *Routine Abdominal Exam Present: soft. Absent: tenderness - *Routine Extremities Exam Absent: calf tenderness - *Routine Skin Exam Present: intact - *Routine Neurological Exam Present: alert, oriented X3, CN II-XII intact - Routine Psychiatric Exam Present: normal affect Results Labs on day of discharge: Labs from last 24 hours 11/07/20 11/07/20 11/07/20 10:55 10:55 10:55 WBC 11.3 H D RBC 4.51 Hgb 13.2 D Hct 39.4 MCV 87.4 MCH 29.4 MCHC 33.6 RDW 14.4 Plt Count 276 MPV 7.9 Neut % (Auto) 72.0 Lymph % (Auto) 21.0 [place] % (Auto) 3.5 Eos % (Auto) 2.9 Baso % (Auto) 0.6 Neut # (Auto) 8.1 H Lymph # (Auto) 2.4 [place] # (Auto) 0.4 Eos # (Auto) 0.3 Baso # (Auto) 0.1 Sodium 136 Potassium 4.0 Chloride 103 Carbon Dioxide 29 Anion Gap 8.0 BUN 10 Creatinine 0.80 Estimated Creat Clear 118 Estimated GFR 77 Est GFR ( Amer) 93 Glucose 151 H Calcium 8.7 Magnesium 1.7 Total Bilirubin 0.5 AST 22 ALT 16 Alkaline Phosphatase 62 Total Protein 6.4 Albumin 3.5 D Globulin 2.9 Albumin/Globulin Ratio 1.2 Triglycerides 112 Cholesterol 142 LDL Cholesterol Direct 74.39 L VLDL Cholesterol 22 HDL Cholesterol 34 L Cholesterol/HDL Ratio 4.2 H Lipase 53 DS: Diagnosis - Discharge Diagnosis (1) Pancreatitis, acute Status: Acute (2) COPD (chronic obstructive pulmonary disease) case management patient Status: Chronic (3) Erosive osteoarthritis of multiple sites Status: Chronic (4) History of CA (myocardial infarction) Status: Chronic (5) History of stroke Status: Chronic (6) Migraine syndrome Status: Chronic (7) Mood disorder Status: Chronic (8) Tobacco abuse Status: Chronic (9) Hyperlipidemia Status: Chronic (10) Obesity (BMI 30-39.9) Status: Acute Discha
== END 2020-11-08 10:45 | disposition home or self-care (01) ==
LOC: ER 14:07 → 2ND 11-07 08:03
PROVIDERS: Admitting Provider Family Medicine; Emergency Provider Emergency Medicine; PCP Family Medicine; Visit Provider Family Medicine
DX: K85.90 Acute pancreatitis without necrosis or infection, unspecified (principal); E86.0 Dehydration; F17.210 Nicotine dependence, cigarettes, uncomplicated; Z20.822 Contact with and (suspected) exposure to COVID-19; J44.9 Chronic obstructive pulmonary disease, unspecified; M15.4 Erosive (osteo)arthritis; G43.909 Migraine, unspecified, not intractable, without status migrainosus; F39 Unspecified mood [affective] disorder; I25.2 Old myocardial infarction; E78.5 Hyperlipidemia, unspecified; Z79.899 Other long term (current) drug therapy
CPT/HCPCS: 71045; 74177; 76705; 80053; 80061; 81001; 83690; 83735; 84484; 84703; 85007; 85025; 93005; 96365; 96375; 99284; 99291; G0378; J2405; Q9967; U0003

== ENCOUNTER → 2020-12-15 18:46 | Outpatient (CLI) | payer OTHER, MEDICAID, SELFPAY ==
[2020-12-15 19:43] LABS: Lipase 36 U/L (23-300)
== END ==
PROVIDERS: Visit Provider Family Medicine
DX: K85.90 Acute pancreatitis without necrosis or infection, unspecified (principal)
CPT/HCPCS: 83690

== ENCOUNTER → 2021-01-18 14:09 | Outpatient (CLI) | payer OTHER, MEDICAID, SELFPAY ==
[2021-01-18 14:30] LABS: Lipase 45 U/L (23-300)
== END ==
PROVIDERS: Visit Provider Family Medicine
DX: K85.90 Acute pancreatitis without necrosis or infection, unspecified (principal)
CPT/HCPCS: 83690

== ENCOUNTER → 2021-02-01 13:38 | Outpatient (CLI) | payer OTHER, MEDICAID, SELFPAY ==
[2021-02-01 13:55] LABS: Lipase 72 U/L (23-300)
[2021-02-01 15:06] LABS: Hemoglobin A1C 6.8 % (4.0-6.0)
== END ==
PROVIDERS: Visit Provider Family Medicine
DX: K85.90 Acute pancreatitis without necrosis or infection, unspecified (principal)
CPT/HCPCS: 83036; 83690

== ENCOUNTER → 2021-04-15 17:39 | Outpatient (CLI) | payer OTHER, MEDICAID, SELFPAY ==
[2021-04-15 19:33] LABS: Hemoglobin A1C 6.3 % (4.0-6.0)
== END ==
PROVIDERS: Visit Provider Family Medicine
DX: E11.9 Type 2 diabetes mellitus without complications (principal); B37.49 Other urogenital candidiasis
CPT/HCPCS: 83036; 87086

== ENCOUNTER 2021-04-30 03:56 | Emergency (ER) | payer OTHER, MEDICAID, SELFPAY ==
[2021-04-30 03:57] VITALS: BP 124/74; PULSE 95; RESP 16; TEMP 36.9; O2SAT 97; BMI 37.6
--- NOTE | 2021-04-30 04:12 | CT_ITS ---
PROCEDURE INFORMATION: Exam: CT Abdomen And Pelvis With Contrast Exam date and time: 04/30/2021 4:12 AM Age: 45 years old Clinical indication: Abdominal pain; Epigastric; Additional info: Abdominal pain epigastric TECHNIQUE: Imaging protocol: Computed tomography of the abdomen and pelvis with contrast. Radiation optimization: All CT scans at this facility use at least one of these dose optimization techniques: automated exposure control; mA and/or kV adjustment per patient size (includes targeted exams where dose is matched to clinical indication); or iterative reconstruction. Contrast material: ISOVUE; Contrast volume: 75 ml; Contrast route: IV; COMPARISON: CT ABDOMEN PELVIS W CON 11/06/2020 2:23 PM FINDINGS: Lungs: Minimal atelectasis/scarring. 0.3 cm RIGHT middle lobe nodule. Liver: Fatty infiltration. Gallbladder and bile ducts: No calcified stones. No ductal dilation. Pancreas: Unremarkable. No ductal dilation. Spleen: No splenomegaly. Adrenal glands: No mass. Kidneys and ureters: Unremarkable. No significant hydronephrosis. Stomach and bowel: Fluid/mild mucosal enhancement of small bowel. Few diverticula within sigmoid colon. No associated inflammatory stranding. No definite mural thickening. No obstruction. Appendix: Normal caliber. No inflammation. Intraperitoneal space: No significant fluid collection. No definite free air. Vasculature: Unremarkable. No aneurysm. Lymph nodes: No pathologically enlarged lymph nodes. Urinary bladder: Unremarkable. Reproductive: Unremarkable as visualized. Bones/joints: Probable bone islands. No acute fracture. Soft tissues: Unremarkable. IMPRESSION: 1. Possible mild enteritis. Clinical correlation is needed. 2. Pulmonary nodule. For patients at low risk (minimal or absent history of smoking and of other known risk factors), no routine follow-up is indicated. For patients at high risk (history of smoking or of other known risk factors), consider optional CT at 12 months. (anabella Cohen al., Fleischner Society, 2017)
--- NOTE | 2021-04-30 04:20 | HMH.EDABDPAI ---
ED Disposition Clinical Impression: UTI (urinary tract infection) Disposition: Home, Self-Care Condition on Discharge: Good Instructions: DI for Acute Abdominal Pain Additional Instructions: Finish the entire course of antibiotics and follow up with your primary care for further evaluation. Return to the ED for any new or worsening symptoms. Prescriptions: Cefdinir [Omnicef 300mg Capsule] 300 mg PO BID 10 Days #20 cap Transmission Status: Pending to [facility] 1960 Ondansetron [Zofran 4mg ODT] 4 mg PO TIDP PRN 3 Days #9 tab PRN Reason: Nausea Transmission Status: Pending to [facility] 1960 Referrals: Isidro Roberts MD [Primary Care Provider] - - Critical Care Critical Care Time: No Attestation: On 04/30/21, the high probability of a clinically significant, sudden or life threatening deterioration of the following system(s) required my full and direct attention, intervention and personal management. The time I documented below is in addition to time spent performing reported procedures but includes the following listed in this critical care notation. Medical Decision Making - Medical Records Medical records reviewed: Yes: I reviewed the patient's medical records. - Adalberto Inquiry Pt receiving controlled substance: No Vital Signs: 04/30/21 03:57 Temperature 98.4 F Temperature Source Oral Pulse Rate [Left] 95 H Respiratory Rate 16 Blood Pressure [Right Arm] 124/74 Blood Pressure Mean [Right Arm] 90 02 Sat by Pulse Oximetry 97 - Lab Data Lab Results 04/30/21 04:07: Urine Color Yellow, Urine Appearance Sl cloudy, Urine pH 6.0, Ur Specific [place] 1.020, Urine Protein Negative, Urine Glucose (UA) 3+, Urine Ketones Negative, Urine Blood 1+, Urine Nitrate Negative, Urine Bilirubin Negative, Urine Urobilinogen 0.2, Ur Leukocyte Esterase Negative, Urine RBC 3-5, Urine WBC 3-5, Ur Squamous Epith Cells 3-5, Urine Bacteria 1+, Urine Mucus 1+ 04/30/21 04:07: WBC 11.1 H, RBC 5.24, Hgb 15.5, Hct 48.5 H, MCV 92.4, MCH 29.6, MCHC 32.0, RDW 13.7, Plt Count 346, MPV 8.3, Neut % (Auto) 84.3 H, Lymph % (Auto) 6.1 L, [place] % (Auto) 5.1, Eos % (Auto) 2.7, Baso % (Auto) 1.8, Neut # (Auto) 9.4 H, Lymph # (Auto) 0.7, [place] # (Auto) 0.6, Eos # (Auto) 0.3, Baso # (Auto) 0.2 04/30/21 04:07: Urine HCG, Qual Negative 04/30/21 04:07: Sodium 135 L, Potassium 4.3, Chloride 98, Carbon Dioxide 28, Anion Gap 13.3, BUN 16, Creatinine 0.90, Estimated GFR 67, Est GFR ( Amer) 81, Glucose 106 H, Calcium 9.3, Total Bilirubin 0.3, AST 41 H, ALT 36, Alkaline Phosphatase 55, Total Protein 7.5, Albumin 4.5, Globulin 3.0, Albumin/Globulin Ratio 1.5, Amylase 52, Lipase 33 Result diagrams: 04/30/21 04:07 04/30/21 04:07 Orders (Tests/Meds): ED MEDICATIONS Generic Name Dose Route Start Last Admin Trade Name Freq PRN Reason Stop Dose Admin Sodium Chloride 1,000 mls @ 999 mls/hr 04/30/21 04:15 04/30/21 04:37 Sod Chlor 0.9% 1000ml Bag IV 04/30/21 05:15 999 mls/hr .Q1H1M NADYA Administration Morphine Sulfate 4 mg 04/30/21 04:13 Morphine 4mg/Ml Syringe IV 05/30/21 04:12 Q4HP PRN Mild to Moderate Pain Discontinued Medications Generic Name Dose Route Start Last Admin Trade Name Freq PRN Reason Stop Dose Admin Belladonna Alkaloids 60 ml 04/30/21 04:13 04/30/21 04:37 Gi Cocktail 60ml Udc PO 04/30/21 04:14 60 ml ONCE ONE Administration Iopamidol 75 ml 04/30/21 05:03 04/30/21 05:04 Iopamidol-370 (76%);100ml Bottle IV 04/30/21 05:04 75 ml ONCE ONE Administration Ondansetron HCl 4 mg 04/30/21 04:13 04/30/21 04:37 Ondansetron 4mg/2ml Vial IV 04/30/21 04:14 4 mg ONCE ONE Administration Simethicone 160 mg 04/30/21 04:13 04/30/21 04:37 Simethicone 80mg Chewable Tablet PO 04/30/21 04:14 160 mg ONCE ONE Administration Sodium Chloride 10 ml 04/30/21 05:03 04/30/21 05:04 Sodium Chloride 0.9% 10ml Syr (Rad Only) IV 04/30/21 05:04 10 ml ONCE ONE Ad
[2021-04-30 04:23] LABS: Microscopic, Urine URINE MICROSCOPIC (MICROSCOPIC)
[2021-04-30 04:25] LABS: Appearance,Urine SL CLOUDY (Clear); Basophils # 0.2 K/mm3 (0-0.2); Basophils % 1.8 % (0.1-2.0); Bilirubin,Urine Negative (Negative); Blood, Urine 1+ (Negative); Color,Urine YELLOW (Yellow); Eosinophils # 0.3 K/mm3 (0.0-0.4); Eosinophils % 2.7 % (0.1-12.0); Glucose,Urine (UA) 3+ (Negative); Hematocrit 48.5 % (37.0-47.0); Hemoglobin 15.5 g/dL (12.2-16.2); Ketones,Urine Negative (Negative); Leukocyte Esterase,Urine Negative (Negative); Lymphocytes # 0.7 K/mm3 (0.7-4.5); Lymphocytes % 6.1 % (10-50); Mean Corpuscular Hemoglobin 29.6 pg (27.0-31.2); Mean Corpuscular Volume 92.4 fl (81-99); Mean Platelet Volume 8.3 fl (7.4-10.4); Monocytes # 0.6 K/mm3 (0.1-1.0); Monocytes % 5.1 % (1.7-9.3); Neutrophils # 9.4 K/mm3 (1.8-7.8); Neutrophils % 84.3 % (37.0-80.0); Nitrate,Urine Negative (Negative); Platelet Count 346 K/mm3 (142-424); Protein,Urine Negative (Negative); Red Blood Count 5.24 M/mm3 (4.20-5.40); Red Cell Distribution Width 13.7 % (11.5-17.5); Urobilinogen,Urine 0.2 EU/dl (0.2); White Blood Count 11.1 K/mm3 (4.8-10.8)
[2021-04-30 04:27] LABS: Urine Pregnancy, HCG Qual. Negative (Negative)
[2021-04-30 04:32] LABS: Alanine Aminotransferase 36 U/L (12-78); Albumin Level 4.5 g/dl (3.5-5.0); Albumin/Globulin Ratio 1.5 (1.1-1.8); Alkaline Phosphatase 55 U/L (38-126); Amylase 52 U/L (30-110); Anion Gap 13.3 mEq/L (5-15); Aspartate Amino Transferase 41 U/L (14-36); Bilirubin,Total 0.3 mg/dl (0.2-1.3); Blood Urea Nitrogen 16 mg/dl (7-17); Calcium 9.3 mg/dl (8.4-10.2); Carbon Dioxide 28 mmol/L (22.0-30.0); Chloride 98 mmol/L (98-107); Estimated Glomerular Filt Rate 67 ml/min (>60); GFR (African American) 81 ML/MIN (>60); Glucose 106 mg/dl (74-100); Lipase 33 U/L (23-300); Potassium 4.3 mmoL/L (3.5-5.1); Sodium 135 mmol/L (136-145); Total Protein,Serum 7.5 g/dl (6.3-8.2)
[2021-04-30 04:34] LABS: Bacteria,Urine 1+ /lpf; Mucus,Urine 1+ /lpf
[2021-04-30 06:35] VITALS: BP 121/73; PULSE 90; RESP 16; TEMP 36.9; O2SAT 97
== END 2021-04-30 06:36 | disposition home or self-care (01) ==
PROVIDERS: Emergency Provider Student in an Organized Health Care Education/Training Program; PCP Family Medicine
DX: N30.00 Acute cystitis without hematuria (principal); E11.9 Type 2 diabetes mellitus without complications; E78.5 Hyperlipidemia, unspecified; I10 Essential (primary) hypertension; I25.2 Old myocardial infarction; F41.9 Anxiety disorder, unspecified; Z87.891 Personal history of nicotine dependence; Z79.899 Other long term (current) drug therapy
CPT/HCPCS: 74177; 80053; 81001; 81025; 82150; 83690; 85025; 96365; 96375; 99283; J2405; Q9967

== ENCOUNTER → 2021-09-28 11:46 | Outpatient (CLI) | payer MEDICAID, SELFPAY | PROVIDERS: PCP Family Medicine; Visit Provider Surgery | DX: Z01.812 Encounter for preprocedural laboratory examination (principal); Z20.822 Contact with and (suspected) exposure to COVID-19; L91.8 Other hypertrophic disorders of the skin | CPT/HCPCS: C9803; U0003; U0005 ==

== ENCOUNTER 2021-09-30 06:02 | Day surgery (SDC) | payer MEDICAID, SELFPAY ==
[2021-09-28 13:19] VITALS: BMI 35.8
[2021-09-30 06:24] VITALS: BP 142/86; PULSE 109; RESP 18; TEMP 36.2; O2SAT 98
--- NOTE | 2021-09-30 07:26 | HMH.OPNOTE ---
Date of procedure: 09/30/21 Pre-op Diagnosis:: Left lower back skin tags (5 mm and 9 mm) Post-op Diagnosis:: Same Procedure performed:: Excision of left lower back skin tags Surgeon:: Amauri Williamson MD Anesthesia: local Estimated blood loss (mL): 1 Operative findings:: 5 mm and 9 mm tags excised with cautery Operative note:: After informed consent was obtained the patient was taken to the procedure room and placed in the right lateral decubitus position. Her left lower back was prepped and draped in a sterile fashion. After infiltration with local anesthetic the 5 mm tag was carefully elevated and transected with electrocautery at its base. The 9 mm tag was then excised in the same manner. Dressings were applied and the patient was discharged in stable condition. Condition: stable Disposition: no change Specimens:: Left lower back skin tags (x2) Complications:: No immediate
[2021-09-30 07:31] VITALS: BP 146/78; PULSE 92; RESP 16; TEMP 36.7; O2SAT 95
[2021-09-30 07:40] VITALS: BP 146/78; PULSE 92; RESP 16; TEMP 36.7; O2SAT 95
[2021-10-01 14:05] LABS: POC Glucose,Bedside 119 (70-110)
== END 2021-09-30 07:40 | disposition home or self-care (01) ==
LOC: OUTP 06:04
PROVIDERS: PCP Family Medicine; Visit Provider Surgery
PROC: (CPT 11200; principal; 2021-09-30 07:30)
DX: D23.5 Other benign neoplasm of skin of trunk (principal); E11.9 Type 2 diabetes mellitus without complications; I10 Essential (primary) hypertension; E78.5 Hyperlipidemia, unspecified; Z79.84 Long term (current) use of oral hypoglycemic drugs; Z79.899 Other long term (current) drug therapy
CPT/HCPCS: 11200; 82962

== ENCOUNTER → 2021-11-05 13:59 | Outpatient (CLI) | payer MEDICAID, SELFPAY ==
[2021-11-05 13:12] LABS: Chloride 105 mmol/L (98-107); Potassium 4.4 mmoL/L (3.5-5.1); Sodium 138 mmol/L (136-145)
[2021-11-05 13:14] LABS: Blood Urea Nitrogen 15 mg/dl (7-17)
[2021-11-05 13:15] LABS: Alanine Aminotransferase 21 U/L (12-78); Albumin Level 4.2 g/dl (3.5-5.0); Albumin/Globulin Ratio 1.8 (1.1-1.8); Alkaline Phosphatase 61 U/L (38-126); Anion Gap 11.4 mEq/L (5-15); Aspartate Amino Transferase 28 U/L (14-36); Bilirubin,Total 0.3 mg/dl (0.2-1.3); Calcium 9.8 mg/dl (8.4-10.2); Carbon Dioxide 26 mmol/L (22.0-30.0); Estimated Glomerular Filt Rate 77 ml/min (>60); GFR (African American) 93 ML/MIN (>60); Globulin 2.4 g/dL (1.3-3.2); Glucose 90 mg/dl (74-100); Total Protein,Serum 6.6 g/dl (6.3-8.2)
== END ==
PROVIDERS: PCP Family Medicine; Visit Provider Family Medicine
DX: E16.2 Hypoglycemia, unspecified (principal)
CPT/HCPCS: 80053; 83036

== ENCOUNTER → 2022-02-21 11:12 | Outpatient (CLI) | payer MEDICAID, SELFPAY ==
[2022-02-21 15:37] LABS: Creatinine,Urine Random 24 mg/dL (Not Estab.)
[2022-02-21 15:41] LABS: Microalbumin/Creatinine Ratio 25.8
== END ==
PROVIDERS: PCP Family Medicine; Visit Provider Family Medicine
DX: M54.50 Low back pain, unspecified (principal)
CPT/HCPCS: 82043; 82570

== ENCOUNTER → 2022-03-09 15:01 | Outpatient (CLI) | payer MEDICAID, SELFPAY ==
--- NOTE | 2022-03-09 15:01 | CT_ITS ---
FINAL REPORT TECHNIQUE: Axial images were obtained through the chest without contrast. CLINICAL HISTORY: Shortness of air FINDINGS: The heart size is normal. There is a calcified right hilar lymph node. There is no pericardial or pleural effusion. There are moderate changes from central lobular and paraseptal emphysema. There is a calcified granuloma in the right upper lobe. Limited images of the upper abdomen demonstrate moderate fatty infiltration of the liver. IMPRESSION: No acute process. Moderate changes from central lobular and paraseptal emphysema. Moderate fatty liver. Reviewed, Interpreted and Dictated by Luis Barron MD Transcribed by Erma Mullen Authenticated and [facility]
== END ==
PROVIDERS: PCP Family Medicine; Visit Provider Family Medicine
DX: R06.02 Shortness of breath (principal)
CPT/HCPCS: 71250

== ENCOUNTER → 2022-03-15 12:57 | Outpatient (CLI) | payer MEDICAID, SELFPAY ==
--- NOTE | 2022-03-15 12:57 | MM_ITS ---
PROCEDURE INFORMATION: Exam: MG Bilateral Screening 3D Mammography Exam date and time: 03/15/2022 1:16 PM Age: 46 years old Clinical indication: Screening examination. Note related to right breast pain on her clinical history form. Her mother had breast cancer at age 70. TECHNIQUE: Imaging protocol: Bilateral Screening tomosynthesis and 2D mammography including computer-aided detection (CAD) when performed. COMPARISON: 1. MG MM MOBILE MAMMO DIGITAL SCREEN W CAD SUDEEP 03/02/2016 12:21 PM 2. MG MM MOBILE MAMMO DIGITAL SCREEN W CAD SUDEEP 03/05/2015 8:46 AM 3. MG MM MAMMO DIGITAL DIAGNOSTIC RIGHT 03/10/2014 1:48 PM 4. MG MM MOBILE MAMMO DIGITAL SCREEN W CAD SUDEEP 03/03/2014 9:08 AM FINDINGS: MAMMOGRAPHY: Breast composition: There are scattered areas of fibroglandular density. Mass: No suspicious mass. Architectural distortion: None. Calcifications: No suspicious calcifications. Asymmetric density: None. Skin thickening: None. Axillary adenopathy: None. IMPRESSION: See comment Note right breast pain, if focal or of clinical concern, sonography can be added.Further evaluation of a painful abnormality should be based on clinical grounds regardless of radiographic findings or lack thereof. No mammographic evidence of malignancy. Annual screening is recommended unless otherwise clinically indicated. ASSESSMENT: BI-RADS Category 1: Negative
== END ==
PROVIDERS: PCP Family Medicine; Visit Provider Family Medicine
DX: Z12.31 Encounter for screening mammogram for malignant neoplasm of breast (principal)
CPT/HCPCS: 77063; 77067

== ENCOUNTER 2022-03-15 14:05 | Emergency (ER) | payer MEDICAID, SELFPAY ==
[2022-03-15 14:08] VITALS: BP 157/90; PULSE 115; RESP 20; TEMP 36.8; O2SAT 97; BMI 42.0
--- NOTE | 2022-03-15 14:18 | ECG_ITS ---
APPROVED REPORT Exam: Resting ECG HR:99 bpm ECG Measurements Heart Rate 99 AXES MO 138 P 69 QRSd 83 QRS 91 QT 329 T -42 QTc 385 Conclusion SINUS RHYTHM BORDERLINE RIGHT AXIS DEVIATION [QRS AXIS > 90] MODERATE T-WAVE ABNORMALITY, CONSIDER LATERAL ISCHEMIA [-0.1+ mV T-WAVE IN I/aVL/V5/V6] MODERATE T-WAVE ABNORMALITY, CONSIDER INFERIOR ISCHEMIA [-0.1+ mV T-WAVE IN II/aVF] ABNORMAL ECG UNCONFIRMED REPORT Electronically signed by : Daryl Moran MD 03/15/2022 19:41:58
--- NOTE | 2022-03-15 14:30 | XR_ITS ---
FINAL REPORT CLINICAL HISTORY: syncope COMPARISON: 11/06/2020 FINDINGS: SINGLE-VIEW CHEST The heart is normal in size. The mediastinum is unremarkable. The lungs are clear. There is no pneumothorax. IMPRESSION: No acute process. Reviewed, Interpreted and Dictated by Luis Barron MD Transcribed by Corine Pollard Authenticated and [facility]
--- NOTE | 2022-03-15 14:30 | XR_ITS ---
FINAL REPORT CLINICAL HISTORY: fall, inj to left orbit/cheek FINDINGS: FACIAL BONES 3 views were obtained. No acute fracture or malalignment. The paranasal sinuses are symmetric. The patient is edentulous. IMPRESSION: No acute fracture or malalignment. Reviewed, Interpreted and Dictated by Luis Barron MD Transcribed by Corine Pollard Authenticated and . [facility]
[2022-03-15 14:38] LABS: Basophils # 0.2 K/mm3 (0-0.2); Basophils % 1.6 % (0.1-2.0); Eosinophils # 0.4 K/mm3 (0.0-0.4); Eosinophils % 3.5 % (0.1-12.0); Hematocrit 45.1 % (37.0-47.0); Lymphocytes # 2.5 K/mm3 (0.7-4.5); Lymphocytes % 21.6 % (10-50); Mean Corpuscular HGB Conc 33.1 g/dL (31.8-35.4); Mean Corpuscular Hemoglobin 30.5 pg (27.0-31.2); Mean Platelet Volume 7.6 fl (7.4-10.4); Monocytes # 0.4 K/mm3 (0.1-1.0); Monocytes % 3.4 % (1.7-9.3); Neutrophils # 7.9 K/mm3 (1.8-7.8); Neutrophils % 69.8 % (37.0-80.0); Platelet Count 394 K/mm3 (142-424); White Blood Count 11.4 K/mm3 (4.8-10.8)
--- NOTE | 2022-03-15 14:41 | HMH.EDGENADL ---
Discharge Plan Disposition Patient Disposition: Home, Self-Care Condition: Good Prescriptions Prescriptions: New azithromycin [Zithromax Z-Jairo] 250 mg tablet 250 mg PO DAILY 5 Days Qty: 5 0RF No Action hydrocodone-acetaminophen 5-325 mg tablet 1 tab PO BID PRN (Reason: pain) Qty: 20 0RF cyclobenzaprine 10 mg tablet 10 mg PO TID PRN (Reason: muscle spasm) Qty: 90 0RF amitriptyline 25 mg tablet 25 mg PO DAILY Qty: 90 3RF albuterol sulfate 90 mcg/actuation HFA aerosol inhaler 2 puff IH QID PRN (Reason: cough) Qty: 8.5 10RF torsemide 20 mg tablet 20 mg PO QD-BID PRN (Reason: edema) Qty: 60 3RF pantoprazole 40 mg tablet,delayed release (DR/EC) 40 mg PO DAILY Qty: 90 3RF fluticasone propion-salmeterol 28 PUFFS blister with device 1 inh IH BID ondansetron 4 MG tablet,disintegrating 4 mg PO TIDP PRN (Reason: Nausea) 3 Days Qty: 9 0RF sertraline 100 MG tablet 100 mg PO DAILY potassium chloride 10 MEQ tablet extended release 10 meq PO DAILY PRN (Reason: as needed with Torsemide) Rx Instructions: one with each torsemide losartan 100 MG tablet 100 mg PO DAILY Referrals Follow up/Referrals: Isidro Roberts MD [Primary Care Provider] - See instructions Activity Restrictions/Add. Instructions Additional Instructions/Restrictions: Apply ice to the areas of soreness as needed. Clinical Impressions Clinical Impression: Contusion of face, Acute bronchitis Discharge ED Provider: William Osorio General Adult HPI General Chief complaint: Syncope Stated complaint: syncope Time Seen by Provider: 03/15/22 14:40 Mode of Arrival: Wheelchair Source of Information: Patient Limitations: No Limitations Description of Symptoms (Recalled from ER Triage Doc. by RN): pt to ed as a rapid response. radiology staff states pt stood up for mamogram, started coughing and passed out. staff reports she fell face first and hit the left side of her face. pt states she does not recall the incident. History of Present Illness HPI narrative: Patient presents status post fall. She was in the hospital radiology department when after having completed a mammogram and was awaiting a right breast ultrasound she had a coughing episode and subsequently fainted. She fell striking her face. She denies additional injuries. She describes her pain as moderate to severe. She denies exacerbating or alleviating factors. Related Data Home Medications Medication Instructions Recorded Confirmed fluticasone 250 mcg-salmeterol 50 1 inh inhalation BID Breathing 11/06/20 02/21/22 mcg/dose blistr powdr for problems inhalation losartan 100 mg tablet 100 mg PO DAILY BP 09/28/21 02/21/22 potassium chloride 10 mEq 10 meq PO DAILY PRN as needed 09/28/21 02/21/22 tablet,extended release with Torsemide sertraline 100 mg tablet 100 mg PO DAILY mood 09/28/21 02/21/22 Previous Rx's Medication Instructions Recorded albuterol sulfate 90 mcg/actuation 2 puff inhalation QID PRN cough 10/01/20 aerosol inhaler #8.5 grams torsemide 20 mg tablet 20 mg PO QD-BID PRN edema #60 tabs 02/26/21 ondansetron 4 mg disintegrating 4 mg PO TIDP PRN Nausea 3 days #9 04/30/21 tablet tabs pantoprazole 40 mg tablet,delayed 40 mg PO DAILY acid reflux #90 tabs 11/05/21 release amitriptyline 25 mg tablet 25 mg PO DAILY migraines #90 tabs 02/21/22 cyclobenzaprine 10 mg tablet 10 mg PO TID PRN muscle spasm #90 02/21/22 tabs hydrocodone 5 mg-acetaminophen 325 1 tab PO BID PRN pain #20 tabs 02/21/22 mg tablet azithromycin 250 mg tablet 250 mg PO DAILY 5 days #5 tabs 03/15/22 (Zithromax Z-Jairo) Allergies Allergy/AdvReac Type Severity Reaction Status Date / Time glimepiride [From Amaryl] AdvReac Severe Verified 02/21/22 11:04 [facility] Social History Smoking Status: Never smoker alcohol intake: never substance use type: denies use current oc
[2022-03-15 14:49] LABS: Chloride 99 mmol/L (98-107); Sodium 137 mmol/L (136-145)
--- NOTE | 2022-03-15 14:49 | CT_ITS ---
FINAL REPORT TECHNIQUE: Axial imaging of the head was obtained without contrast. This study was performed with techniques to keep radiation doses as low as reasonably achievable, (ALARA). Individualized dose reduction techniques using automated exposure control or adjustment of mA and/or kV according to the patient''s size were employed. CLINICAL HISTORY: fall FINDINGS: The ventricles are normal in size. There is no evidence of hemorrhage. No masses are identified. No extra-axial fluid is seen. The sinuses are normal. There is no acute osseous abnormality. IMPRESSION: No acute intracranial abnormality. Reviewed, Interpreted and Dictated by Luis Barron MD Transcribed by Arturo Dc Authenticated and [facility]
--- NOTE | 2022-03-15 14:49 | CT_ITS ---
FINAL REPORT CLINICAL HISTORY: fall FINDINGS: CT CERVICAL SPINE Axial CT images were performed through the cervical spine. Coronal and sagittal reformats were submitted and reviewed. This study was performed with techniques to keep radiation doses as low as reasonably achievable (ALARA). Individualized dose reduction techniques using automated exposure control or adjustment of mA and/or kV according to the patient's size were employed. FINDINGS: There is no acute fracture or subluxation. The vertebral alignment is normal. The prevertebral soft tissues are unremarkable. There is mild anterior osteophyte formation at C4-5 and C5-6. There are posterior osteophytes at C2-C3. There is calcification or ossification of the posterior longitudinal ligament at C3-C4. A minimal disc bulge is seen at C5-C6. No significant spinal or neural foraminal canal stenosis is seen. The facets are normally aligned. Limited images of the lung apices are unremarkable. IMPRESSION: No acute fracture. Reviewed, Interpreted and Dictated by Luis Barron MD Transcribed by Arturo Dc Authenticated and [facility]
--- NOTE | 2022-03-15 14:49 | CT_ITS ---
FINAL REPORT TECHNIQUE: Axial CT images were obtained through the facial bones/sinuses. Coronal reformats were obtained. This study was performed with techniques to keep radiation doses as low as reasonably achievable (ALARA). Individualized dose reduction techniques using automated exposure control or adjustment of mA and/or kV according to the patient's size were employed. CLINICAL HISTORY: fall in to left side FINDINGS: There is no acute fracture. The orbits are intact. The globes are unremarkable. The visualized sinuses are clear. There is no soft tissue abnormality. IMPRESSION: No acute process. Reviewed, Interpreted and Dictated by Luis Barron MD Transcribed by Arturo Dc Authenticated and [facility]
[2022-03-15 14:50] LABS: Potassium 3.8 mmoL/L (3.5-5.1)
[2022-03-15 14:52] LABS: Alanine Aminotransferase 29 U/L (12-78); Alkaline Phosphatase 90 U/L (38-126); Anion Gap 11.8 mEq/L (5-15); Aspartate Amino Transferase 32 U/L (14-36); Bilirubin,Total 0.3 mg/dl (0.2-1.3); Blood Urea Nitrogen 13 mg/dl (7-17); Carbon Dioxide 30 mmol/L (22.0-30.0); Creatinine Clearance Estimated 68 mL/min (50-200); Estimated Glomerular Filt Rate 77 ml/min (>60); GFR (African American) 93 ML/MIN (>60)
[2022-03-15 14:53] LABS: Albumin Level 4.4 g/dl (3.5-5.0); Albumin/Globulin Ratio 1.4 (1.1-1.8); Calcium 9.7 mg/dl (8.4-10.2); Globulin 3.1 g/dL (1.3-3.2); Glucose 125 mg/dl (74-100); Total Protein,Serum 7.5 g/dl (6.3-8.2)
[2022-03-15 15:04] VITALS: BP 155/80; PULSE 90; RESP 14; O2SAT 95
[2022-03-15 15:07] LABS: Troponin I < 0.01 ng/ml (0.00-0.034)
[2022-03-15 15:30] VITALS: BP 148/87; PULSE 92; RESP 16; O2SAT 93
[2022-03-15 16:30] VITALS: BP 152/88; PULSE 100; O2SAT 96
[2022-03-15 17:32] VITALS: BP 114/75; PULSE 91; RESP 16; TEMP 36.8; O2SAT 95
== END 2022-03-15 17:34 | disposition home or self-care (01) ==
PROVIDERS: Emergency Provider Emergency Medicine; PCP Family Medicine
DX: J20.9 Acute bronchitis, unspecified (principal); S00.83XA Contusion of other part of head, initial encounter; W19.XXXA Unspecified fall, initial encounter; R55 Syncope and collapse; Z79.899 Other long term (current) drug therapy; Z88.8 Allergy status to other drugs, medicaments and biological substances
CPT/HCPCS: 70140; 70450; 70486; 71045; 72125; 80053; 84484; 85025; 93005; 96365; 99285

== ENCOUNTER → 2022-03-25 13:47 | Outpatient (CLI) | payer MEDICAID, SELFPAY ==
--- NOTE | 2022-03-25 13:47 | US_ITS ---
PROCEDURE INFORMATION: Exam: US Right Breast, Complete Exam date and time: 03/25/2022 2:30 PM Age: 46 years old Clinical indication: Right lateral breast pain. TECHNIQUE: Imaging protocol: Complete ultrasound of all four quadrants of the Right breast and the retroareolar regions, including ultrasound of the axilla when performed. COMPARISON: MG MM DIG SCREENING MAMM BI W/CAD 03/15/2022 1:16 PM FINDINGS: Breast: Sonography of all 4 quadrants, retroarolar and axilla, demonstrates no cystic or solid masses with particular attention to the area of pain at 8 o'clock. Sonographically unremarkable right axillary lymph node. IMPRESSION: No sonographic evidence of malignancy. No sonographic findings at area of patient's Further evaluation of a painful abnormality should be based on clinical grounds regardless of radiographic findings or lack thereof. Annual mammographic screening is recommended unless otherwise clinically indicated. ASSESSMENT: BI-RADS Category 1: Negative
== END ==
PROVIDERS: PCP Family Medicine; Visit Provider Family Medicine
DX: N64.4 Mastodynia (principal)
CPT/HCPCS: 76641

== ENCOUNTER → 2022-04-19 11:09 | Outpatient (CLI) | payer MEDICAID, SELFPAY ==
--- NOTE | 2022-04-19 11:34 | CT_ITS ---
FINAL REPORT TECHNIQUE: Thin section axial CT images were obtained from the lung apices to the upper abdomen. IV contrast was administered. MIP 3-D reformats were obtained. This study was performed with techniques to keep radiation doses as low as reasonably achievable (ALARA). Individualized dose reduction techniques using automated exposure control or adjustment of mA and/or kV according to the patient's size were employed. CLINICAL HISTORY: rule out PE, soa, cough COMPARISON: March 2022 FINDINGS: The heart size is normal. There is no adenopathy. There is no filling defect to suggest PE. There is no aortic dissection. There is no pericardial effusion. There is no suspicious infiltrate or nodule. There are moderate changes of emphysema. No pleural effusion. Limited images of the upper abdomen demonstrate the liver to be fatty infiltrated. The pancreatic neck and body are somewhat indistinct of uncertain significance. There is mild scarring of the left kidney. IMPRESSION: No pulmonary embolism or aortic dissection. Somewhat indistinct pancreatic neck and body of uncertain significance may be inflammatory or neoplastic. Follow-up pancreatic protocol CT may be helpful. Reviewed, Interpreted and Dictated by Nelson Jose III, MD Transcribed by Arturo Dc Authenticated and [facility]
[2022-04-19 11:39] LABS: Basophils # 0.2 K/mm3 (0-0.2); Basophils % 1.5 % (0.1-2.0); Eosinophils # 0.3 K/mm3 (0.0-0.4); Eosinophils % 3.1 % (0.1-12.0); Hematocrit 40.2 % (37.0-47.0); Hemoglobin 13.3 g/dL (12.2-16.2); Lymphocytes # 2.5 K/mm3 (0.7-4.5); Lymphocytes % 22.8 % (10-50); Mean Corpuscular HGB Conc 33.1 g/dL (31.8-35.4); Mean Corpuscular Hemoglobin 29.5 pg (27.0-31.2); Mean Corpuscular Volume 89.1 fl (81-99); Mean Platelet Volume 8.2 fl (7.4-10.4); Monocytes # 0.3 K/mm3 (0.1-1.0); Monocytes % 2.9 % (1.7-9.3); Neutrophils # 7.7 K/mm3 (1.8-7.8); Neutrophils % 69.7 % (37.0-80.0); Platelet Count 400 K/mm3 (142-424); Red Blood Count 4.51 M/mm3 (4.20-5.40); Red Cell Distribution Width 13.5 % (11.5-17.5); White Blood Count 11.1 K/mm3 (4.8-10.8)
[2022-04-19 11:57] LABS: Chloride 99 mmol/L (98-107)
[2022-04-19 11:58] LABS: Potassium 4.3 mmoL/L (3.5-5.1); Sodium 135 mmol/L (136-145)
[2022-04-19 12:00] LABS: Alanine Aminotransferase 37 U/L (12-78); Albumin Level 4.1 g/dl (3.5-5.0); Alkaline Phosphatase 85 U/L (38-126); Anion Gap 9.3 mEq/L (5-15); Aspartate Amino Transferase 37 U/L (14-36); Bilirubin,Direct 0.2 mg/dl (0.0-0.4); Bilirubin,Total 0.2 mg/dl (0.2-1.3); Blood Urea Nitrogen 16 mg/dl (7-17); Carbon Dioxide 31 mmol/L (22.0-30.0); Cholesterol 202 mg/dl (140-200); Estimated Glomerular Filt Rate 67 ml/min (>60); GFR (African American) 81 ML/MIN (>60); Glucose 277 mg/dl (74-100); Total Protein,Serum 6.9 g/dl (6.3-8.2); Triglycerides 263 mg/dl (30-150); VLDL Cholesterol 53 mg/dL (0-40)
[2022-04-19 12:01] LABS: Calcium 10.1 mg/dl (8.4-10.2); Chol/HDL Ratio 5.9 (1-3.5); HDL Cholesterol 34 mg/dl (40-60)
[2022-04-19 12:12] LABS: Direct LDL Cholesterol 115.59 mg/dL (100-129)
[2022-04-19 12:19] LABS: Free T4 (Free Thyroxine) 1.03 ng/dl (0.78-2.19)
[2022-04-19 12:34] LABS: Thyroid Stimulating Hormone 1.82 uIU/mL (0.465-4.68)
== END ==
PROVIDERS: PCP Family Medicine; Visit Provider Nurse Practitioner
DX: R06.00 Dyspnea, unspecified (principal); R55 Syncope and collapse; R00.0 Tachycardia, unspecified; I25.2 Old myocardial infarction; I11.9 Hypertensive heart disease without heart failure; E11.9 Type 2 diabetes mellitus without complications; E78.5 Hyperlipidemia, unspecified; E66.9 Obesity, unspecified; J44.9 Chronic obstructive pulmonary disease, unspecified; R05.9 Cough, unspecified; R94.31 Abnormal electrocardiogram [ECG] [EKG]; I63.9 Cerebral infarction, unspecified; Z72.0 Tobacco use; Z79.84 Long term (current) use of oral hypoglycemic drugs; Z68.41 Body mass index [BMI] 40.0-44.9, adult
CPT/HCPCS: 36415; 71275; 80048; 80061; 80076; 84439; 84443; 85025; 93225; Q9967

== ENCOUNTER → 2022-05-05 06:56 | Outpatient (CLI) | payer MEDICAID, SELFPAY ==
--- NOTE | 2022-05-05 06:58 | CA_ITS ---
APPROVED REPORT EXAM: Comprehensive 2D, Doppler, and color-flow Echocardiogram Art History Professor: Marleen Posada, RCS, RVS Ht: 5 ft 2 in Wt: 219lbs BSA: 1.99 BP: 133/85 mmHg Indications: CP, HLD, Smoker, DM, Syncope, Abn EKG-tachycardia,Obesity 2D Dimensions IVSd 0.94 cm F: 0.6-1.0 LVEF (Visual) 52.60 % PWd 0.91 cm F: 0.6 - 1.0 LA Volume 47.40 mL LVDd 5.05 cm F: 3.9 - 5.3 LA Volume Index 23.82 mL/m2 (M/F) 16-34 LVDs 3.68 cm F: 2.2 - 3.5 Aortic Root 3.05 cm F: 2.7 - 3.3 Left Atrium 2.68 cm F: 2.7 - 3.8 LVOT 2.11 cm (M/F) 1.5-2.5 M-Mode Dimensions RVDd 1.52 cm (0.9-2.6) LA Diam 3.27 cm (1.9-4.0) LVDd 5.66 cm (3.5-5.7) Ao Diam 2.86 cm (2.0-3.7) LVDs 4.51 cm (3.5-5.7) IVSd 0.95 cm (0.6-1.1) PWd 1.10 cm (0.6-1.1) EF (Teich) 38.80% EPSs 1.37 cm FS 19.00% EDV (Teich) 151.80 mL TAPSE 2.17 (<1.7) ESV (Teich) 92.90 mL LV Diastology E Decel Time 203.00 (160-240 msec) E/A Ratio 1.01 MED E' 9.10 (< 7 cm/sec) MED A' 7.40 cm/s E'/MED E' Ratio 8.15 (>14) LAT E' 7.90 (<10 cm/sec) LAT A' 6.50 cm/s E/LAT E' Ratio 9.39 (>14) Aortic Valve LVOT Max 89.00 (70-110 cm/s) LVOT VTI 18.38 cm AoV Peak Shahram. 145.00 (50-130 cm/s) AO Peak GR. 8.40 mmHg AO Mean GR. 4.20 (<5 mmHg) AO VTI 26.38 (18-25 cm) ANSELMO (VTI) 2.44 (2.5-4.5 cm2) Mitral Valve MV A Velocity 74.00 (40-130 cm/s) E/A Ratio 1.01 MV Decel. Time 203.00 (160-240 ms) MV PHT 57.00 ms Pulmonary Valve PV Peak Velocity 64.00 (50-150 cm/s) NY End VMAX 97.00 cm/s Tricuspid Valve TR P. Velocity 148.00 cm/s RAP Estimate 10.00 mmHg RVSP 18.80 mmHg Left Ventricle Left atrium is normal size, left ventricle is normal size, estimated ejection fraction 55% with no regional wall motion abnormality, diastolic parameters are within normal range. Right Ventricle Right atrium and right ventricle are normal size and contractility. Aortic Valve Aortic valve is grossly normal there is no aortic stenosis aortic insufficiency. Mitral Valve Mitral valve is grossly normal, there is trace mitral regurgitation. Tricuspid Valve Tricuspid grossly normal, there is trace tricuspid regurgitation, tricuspid regurgitation jet velocity is inadequate for calculation of the right ventricular systolic pressure. Pulmonic Valve Pulmonic valve is poorly visualized. Great Vessels Aortic root is normal size. Inferior vena cava is poorly visualized. Conclusion 1. Normal left ventricular size, estimated ejection fraction 55% with no regional wall motion abnormality, diastolic parameters are within normal range. 2. Trace mitral and tricuspid regurgitation. 3. No significant pericardial effusion. 4. Inferior vena cava is poorly visualized. Electronically signed by : Jorgito Parekh MD 05/06/2022 15:21:03
== END ==
PROVIDERS: PCP Family Medicine; Visit Provider Nurse Practitioner
DX: R55 Syncope and collapse (principal); R00.0 Tachycardia, unspecified; I25.2 Old myocardial infarction; E78.5 Hyperlipidemia, unspecified; E11.9 Type 2 diabetes mellitus without complications; E66.9 Obesity, unspecified; J44.9 Chronic obstructive pulmonary disease, unspecified; R05.9 Cough, unspecified; R94.31 Abnormal electrocardiogram [ECG] [EKG]; Z72.0 Tobacco use; Z68.41 Body mass index [BMI] 40.0-44.9, adult
CPT/HCPCS: 93306

== ENCOUNTER → 2022-05-12 12:47 | Outpatient (CLI) | payer MEDICAID, SELFPAY ==
--- NOTE | 2022-05-12 12:47 | US_ITS ---
FINAL REPORT CLINICAL HISTORY: cough/choking/syncope FINDINGS: THYROID ULTRASOUND Sonographic images of the thyroid was obtained. The right lobe of the thyroid measures 4.5 x 1.7 x 1.3 cm. The left lobe of the thyroid measures 4.3 x 1.9 x 1.6 cm. The isthmus measures 4 mm. There are nodules bilaterally as follows: 1. 13 x 8 x 7 mm right lobe nodule which is mostly solid and isoechoic, TI-RADS 3. 2. 3 x 3 x 2 mm right lobe nodule which is mostly cystic, TI-RADS 1. 3. 10 x 6 post 6 mm left lobe nodule which is solid and isoechoic, TI-RADS 3. IMPRESSION: Thyroid measures at the upper limits of normal with nodules as above. No follow-up is recommended. Reviewed, Interpreted and Dictated by Nelson Jose III, MD Transcribed by Corine Pollard Authenticated and [facility]
== END ==
PROVIDERS: PCP Family Medicine; Visit Provider Physician Assistant
DX: R55 Syncope and collapse (principal); R05.9 Cough, unspecified; R00.0 Tachycardia, unspecified; R09.89 Other specified symptoms and signs involving the circulatory and respiratory systems
CPT/HCPCS: 76536

== ENCOUNTER → 2022-05-16 07:13 | Outpatient (CLI) | payer MEDICAID, SELFPAY ==
[2022-05-16 07:39] LABS: Blood Urea Nitrogen 13 mg/dl (7-17); Estimated Glomerular Filt Rate 67 ml/min (>60); GFR (African American) 81 ML/MIN (>60)
== END ==
PROVIDERS: PCP Family Medicine; Visit Provider Family Medicine
DX: E11.9 Type 2 diabetes mellitus without complications (principal)
CPT/HCPCS: 36415; 82565; 84520

== ENCOUNTER → 2022-06-24 08:07 | Outpatient (CLI) | payer MEDICAID, SELFPAY ==
[2022-06-24 09:04] LABS: Blood Urea Nitrogen 19 mg/dl (7-17); Estimated Glomerular Filt Rate 67 ml/min (>60); GFR (African American) 81 ML/MIN (>60)
[2022-06-24 09:20] VITALS: BP 135/84; PULSE 72; RESP 18; O2SAT 95
[2022-06-24 09:55] VITALS: BP 123/72; PULSE 73; RESP 18; O2SAT 98
[2022-06-24 10:20] VITALS: BP 136/94; PULSE 73; RESP 18; O2SAT 99
[2022-06-24 10:30] VITALS: BP 137/84; PULSE 72; RESP 18; O2SAT 98
== END ==
PROVIDERS: PCP Family Medicine; Visit Provider Nurse Practitioner
DX: R55 Syncope and collapse (principal); E11.9 Type 2 diabetes mellitus without complications
CPT/HCPCS: 36415; 75574; 82565; 84520; Q9967

== ENCOUNTER 2022-07-03 18:18 | Observation (INO) | payer MEDICAID, SELFPAY ==
[2022-07-03] VITALS (7 sets, daily range): BP systolic 139–173; BP diastolic 78–103; PULSE 75–87; RESP 16–20; TEMP 36.7–37; O2SAT 90–97; BMI 38.3; BMI 35.5
--- NOTE | 2022-07-03 18:36 | ECG_ITS ---
APPROVED REPORT Exam: Resting ECG HR:83 bpm ECG Measurements Heart Rate 83 AXES NJ 157 P 60 QRSd 85 QRS 71 QT 408 T 31 QTc 447 Conclusion SINUS RHYTHM NONSPECIFIC T-WAVE ABNORMALITY BORDERLINE ECG UNCONFIRMED REPORT Electronically signed by : Daryl Moran MD 07/04/2022 21:03:27
--- NOTE | 2022-07-03 18:36 | CT_ITS ---
PROCEDURE INFORMATION: Exam: CT Abdomen And Pelvis With Contrast Exam date and time: 07/03/2022 7:24 PM Age: 46 years old Clinical indication: Abdominal pain; Additional info: Possible pancreatitis TECHNIQUE: Imaging protocol: Computed tomography of the abdomen and pelvis with contrast. Radiation optimization: All CT scans at this facility use at least one of these dose optimization techniques: automated exposure control; mA and/or kV adjustment per patient size (includes targeted exams where dose is matched to clinical indication); or iterative reconstruction. Contrast material: ISOVUE; Contrast volume: 75 ml; Contrast route: IV; REPORTING DATA: Count of CT and Cardiac NM exams in prior 12 months: This patient has received 6 known CTs and 0 known cardiac nuclear medicine studies in the 12 months prior to the current study. COMPARISON: CT ABDOMEN PELVIS W CON 04/30/2021 4:55 AM FINDINGS: Liver: Diffuse low-attenuation of the liver. No mass. Gallbladder and bile ducts: No calcified stones. No ductal dilation. Pancreas: Normal enhancement. No ductal dilation. Spleen: No splenomegaly. Adrenal glands: No mass. Kidneys and ureters: No hydronephrosis. Stomach and bowel: Diverticulosis coli without evidence for diverticulitis. Appendix: No evidence of appendicitis. Intraperitoneal space: No significant fluid collection. No free air. Vasculature: No abdominal aortic aneurysm. Lymph nodes: No enlarged lymph nodes. Urinary bladder: No acute abnormality. Reproductive: 2.1 cm left ovarian follicle. Bones/joints: No acute fracture. Soft tissues: Inflammatory stranding surrounding the head of the pancreas. IMPRESSION: Inflammatory stranding surrounding the head of the pancreas which would be compatible with the provided history of pancreatitis.
--- NOTE | 2022-07-03 18:40 | PC.NURSE ---
PT AMBULATED TO BR
--- NOTE | 2022-07-03 18:40 | HMH.EDGENADL ---
Discharge Plan Disposition Patient Disposition: Admitted As Inpatient Condition: Fair Clinical Impressions Clinical Impression: Acute pancreatitis Discharge ED Provider: Isauro Hi General Adult HPI General Chief complaint: Abdominal Pain Stated complaint: abd and back pain Time Seen by Provider: 07/03/22 18:30 Mode of Arrival: Ambulatory Source of Information: Patient and Spouse Limitations: No Limitations Description of Symptoms (Recalled from ER Triage Doc. by RN): pt comes in with c/o pancreatitis . pt states she has epigastric area that radiates into back and all over abdomen. symptoms began yesterday evening. pt reports having an episode like this before. History of Present Illness HPI narrative: Chief complaint is my pancreas . Patient states that she has epigastric pain in the subxiphoid area that started yesterday. Denies other symptoms. No vomiting, diarrhea, fever, urinary symptoms. States that she has had pancreatitis multiple times and the symptoms now are the same. She says the last time she had it was a few months ago. She is a nondrinker. She says they have not been able to figure out why she gets pancreatitis. She did see a specialist in [facility]. It is noted that she does have hyperlipidemia. No prior abdominal surgeries. Related Data Home Medications Medication Instructions Recorded Confirmed sertraline 100 mg tablet 100 mg PO DAILY mood 09/28/21 07/03/22 azelastine 137 mcg (0.1 %) nasal 2 spray intranasal HS allergies 06/24/22 07/03/22 spray aerosol fluticasone propionate 50 2 spray intranasal DAILY allergies 06/24/22 07/03/22 mcg/actuation nasal spray,suspension (Flonase Allergy Relief) montelukast 10 mg tablet 10 mg PO DAILY allergies 06/24/22 07/03/22 propranolol 60 mg capsule,24 60 mg PO DAILY heart rate 06/24/22 07/03/22 hr,extended release valsartan 160 1 tab PO DAILY High blood pressure 06/24/22 07/03/22 mg-hydrochlorothiazide 12.5 mg tablet fluticasone 250 mcg-salmeterol 50 1 inh inhalation BID COPD 07/03/22 07/03/22 mcg/dose blistr powdr for inhalation (Advair Diskus) hydrocodone 5 mg-acetaminophen 325 1 tab PO BID PRN pain/pancreatitis 03/05/23 03/05/23 mg tablet Previous Rx's Medication Instructions Recorded pantoprazole 40 mg tablet,delayed 40 mg PO DAILY acid reflux #90 tabs 11/05/21 release amitriptyline 25 mg tablet 25 mg PO DAILY migraines #90 tabs 02/21/22 meloxicam 15 mg tablet 15 mg PO DAILY PRN pain #30 tabs 04/04/22 Allergies Allergy/AdvReac Type Severity Reaction Status Date / Time glimepiride [From Amaryl] AdvReac Severe Verified 07/03/22 19:06 [facility] Disclaimer: The information contained in this section may have been updated after the patient was seen, as this information can be updated by other users. Medical History (Updated 07/03/22 @ 20:32 by Luis Conway DNP) Allergic rhinitis Arthritis Cough syncope CVA (cerebral vascular accident) Dyspnea on exertion History of COPD History of myocardial infarction History of smoking 30 or more pack years Hyperlipidemia Hypertension Syncope Surgical History History of section Family History Other Asthma Diabetes Emphysema of lung Family history of CVA Family history of myocardial infarction Hypertension Social History Smoking Status: Current every day smoker tobacco type: cigarettes packs per day: 1 alcohol intake: never substance use type: denies use current occupational status: unemployed Travel in the last 8 weeks: None household members: spouse caffeine: Yes ROS Obtained: Yes Systems reviewed as appropriate & no additional complaints except as documented Constitutional Constitutional: Denies fever(s), Denies headache(s) and Denies weakness EN
[2022-07-03 18:51] LABS: Microscopic, Urine URINE MICROSCOPIC (MICROSCOPIC)
[2022-07-03 18:54] LABS: Appearance,Urine SL CLOUDY (Clear); Bilirubin,Urine Negative (Negative); Blood, Urine 2+ (Negative); Color,Urine YELLOW (Yellow); Glucose,Urine (UA) Negative (Negative); Ketones,Urine Negative (Negative); Leukocyte Esterase,Urine Negative (Negative); Nitrate,Urine Negative (Negative); PH,Urine 6.5 (5.0-8.5); Protein,Urine Negative (Negative); Specific Gravity, Urine 1.025 (1.005-1.030); Urobilinogen,Urine 0.2 EU/dl (0.2)
[2022-07-03 18:56] LABS: Basophils # 0.2 K/mm3 (0-0.2); Eosinophils # 0.7 K/mm3 (0.0-0.4); Eosinophils % 4.1 % (0.1-12.0); Hematocrit 43.7 % (37.0-47.0); Hemoglobin 14.2 g/dL (12.2-16.2); Lymphocytes # 2.1 K/mm3 (0.7-4.5); Lymphocytes % 11.7 % (10-50); Mean Corpuscular HGB Conc 32.5 g/dL (31.8-35.4); Mean Corpuscular Hemoglobin 29.4 pg (27.0-31.2); Mean Corpuscular Volume 90.6 fl (81-99); Mean Platelet Volume 7.8 fl (7.4-10.4); Monocytes # 0.7 K/mm3 (0.1-1.0); Monocytes % 4.1 % (1.7-9.3); Neutrophils # 13.8 K/mm3 (1.8-7.8); Platelet Count 333 K/mm3 (142-424); Red Blood Count 4.82 M/mm3 (4.20-5.40); Red Cell Distribution Width 14.2 % (11.5-17.5); White Blood Count 17.4 K/mm3 (4.8-10.8)
[2022-07-03 18:57] LABS: MANUAL DIFFERENTIAL MANUAL DIFFERENTIAL (MANUAL DIFF)
[2022-07-03 19:00] LABS: Chloride 97 mmol/L (98-107); Potassium 4.1 mmoL/L (3.5-5.1); Sodium 134 mmol/L (136-145)
[2022-07-03 19:02] LABS: Alanine Aminotransferase 58 U/L (12-78); Alkaline Phosphatase 82 U/L (38-126); Aspartate Amino Transferase 37 U/L (14-36); Bilirubin,Total 0.5 mg/dl (0.2-1.3); Blood Urea Nitrogen 10 mg/dl (7-17); Creatinine Clearance Estimated 172 mL/min (50-200); Estimated Glomerular Filt Rate 89 ml/min (>60); GFR (African American) 108 ML/MIN (>60)
[2022-07-03 19:03] LABS: Albumin Level 4.1 g/dl (3.5-5.0); Albumin/Globulin Ratio 1.4 (1.1-1.8); Anion Gap 9.1 mEq/L (5-15); Calcium 8.8 mg/dl (8.4-10.2); Carbon Dioxide 32 mmol/L (22.0-30.0); Glucose 196 mg/dl (74-100); Lipase 239 U/L (23-300); Total Protein,Serum 7.1 g/dl (6.3-8.2)
[2022-07-03 19:15] LABS: Troponin I < 0.01 ng/ml (0.00-0.034)
[2022-07-03 19:16] LABS: Squamous Epithelial Cell,Urine 50-100 #/hpf (0-5); WBC,Urine Occasional #/hpf (0-3)
[2022-07-03 19:17] LABS: Bacteria,Urine 1+ /lpf
--- NOTE | 2022-07-03 19:20 | PC.NURSE ---
Pt gone to RAD via wheelchair
[2022-07-03 19:25] LABS: Eosinophils % 2 % (0-3); Lymphocytes % 17 % (10-50); Monocytes % 1 % (2-9); Neutrophils % 80 % (42-76); Platelet Estimate Normal; RBC Morphology Normal; Total Cells Counted 100
--- NOTE | 2022-07-03 19:32 | PC.NURSE ---
Pt back from RAD
--- NOTE | 2022-07-03 19:38 | PC.NURSE ---
Rounded on pt. Pt advised she was still in pain. RN notified. No other needs voiced. Call light within reach.
--- NOTE | 2022-07-03 20:02 | PC.NURSE ---
Dr. Hi at to update pt on scan results
--- NOTE | 2022-07-03 20:05 | PC.NURSE ---
Dr. Hi s/w hospitalist for admission
--- NOTE | 2022-07-03 20:07 | PC.NURSE ---
House notified for bed assignment
[2022-07-03 20:12] LABS: Coronavirus 19, PCR Not Detected (NotDetected); Influenza A, PCR Not Detected (NotDetected); Influenza B, PCR Not Detected (NotDetected)
--- NOTE | 2022-07-03 20:14 | PC.NURSE ---
Hospitalist, Luis, at BS
--- NOTE | 2022-07-03 20:23 | EXP.HP ---
History of Present Illness *Admission Date: 07/03/22 *Reason for visit:: Abdominal Pain *History of present illness: Ms. Pineda is a 46-year-old female with a past medical history of COPD, not home oxygen dependent, chronic tobacco use, Hyperlipidemia, HTN and reports borderline Diabetes Mellitus. She presents to [facility] through the ER due to a 1-day history of epigastric pain associated with back pain. She denies nausea, vomiting, diarrhea, fevers, body aches, chills or urinary frequency or urgency. She reports a history of prior Pancreatitis with similar pain and symptoms. In the ER she underwent a CT of the abdomen and pelvis that showed stranding around the pancreas with no definite abscess or fluid collections. Lipase was within normal range at 239. Total Bili was 0.5. AST was 37. Glucose on CMP was elevated at 196. The patient will be admitted with initial impression: Acute Pancreatitis She will be made NPO, given iv fluids, analgesics and antiemetics if needed. The plan of care was discussed with the patient and at bedside on admission. Both verbalized understanding and agreement with the plan of care. [facility] Disclaimer: The information contained in this section may have been updated after the patient was seen, as this information can be updated by other users. Medical History (Updated 07/03/22 @ 20:32 by Luis Conway DNP) Allergic rhinitis Arthritis Cough syncope CVA (cerebral vascular accident) Dyspnea on exertion History of COPD History of myocardial infarction History of smoking 30 or more pack years Hyperlipidemia Hypertension Syncope Surgical History History of section Family History Other Asthma Diabetes Emphysema of lung Family history of CVA Family history of myocardial infarction Hypertension Social History Smoking Status: Current every day smoker tobacco type: cigarettes packs per day: 1 alcohol intake: never substance use type: denies use current occupational status: unemployed Travel in the last 8 weeks: None household members: spouse caffeine: Yes Review of Systems Review of Systems Review of systems:: pertinent systems reviewed and negative unless documented below Constitutional Constitutional: Reports system reviewed and no additional complaints, except as documented Eyes Eyes: Reports system reviewed and no additional complaints, except as documented ENT Ears, Nose, Mouth, and Throat: Reports system reviewed and no additional complaints, except as documented *Cardiovascular Cardiovascular: Reports system reviewed and no additional complaints, except as documented *Respiratory Respiratory: Reports system reviewed and no additional complaints, except as documented *Gastrointestinal Gastrointestinal: Reports abdominal pain *Genitourinary Genitourinary: Reports system reviewed and no additional complaints, except as documented *Musculoskeletal Musculoskeletal: Reports back pain Integumentary/Breasts Skin/Breast: Reports system reviewed and no additional complaints, except as documented *Neurologic Neurologic: Reports system reviewed and no additional complaints, except as documented Psychiatric Psychiatric: Reports system reviewed and no additional complaints, except as documented Endocrine Endocrine: Reports system reviewed and no additional complaints, except as documented Hematologic/Lymphatic Hematologic/Lymphatic: Reports system reviewed and no additional complaints, except as documented Allergic/Immunologic Allergic/Immunologic: Reports system reviewed and no additional complaints, except as documented Meds Home Medications and Allergies Home Medications Medication Instructions Recorded Confirmed Type sertraline 100 mg tablet 100 mg PO DAILY mood 05
--- NOTE | 2022-07-03 20:27 | PC.NURSE ---
Attempted to call report, receiving RN will need to call back shortly.
[2022-07-03 20:30] LABS: Hemoglobin A1C 8.3 % (4.0-6.0)
--- NOTE | 2022-07-03 20:46 | PC.NURSE ---
called report to Lexy White RN on 2nd floor.
--- NOTE | 2022-07-03 20:56 | PC.NURSE ---
Pt arrived to floor wheelchair @ 2053
[2022-07-03 21:42] LABS: POC Glucose,Bedside 184 (70-110)
[2022-07-04 03:44] LABS: POC Glucose,Bedside 192 (70-110)
[2022-07-04 04:00] VITALS: BP 149/84; PULSE 83; RESP 20; TEMP 36.7; O2SAT 91; BMI 35.5
--- NOTE | 2022-07-04 06:23 | PC.NURSE ---
PT HAS RESTED INTERMITTENTLY SINCE ARRIVING TO THE FLOOR. PAIN TREATED PER MAR WITH ADEQUATE RELIEF. VSS. CALL [place] WITHIN REACH.
--- NOTE | 2022-07-04 07:19 | HMH.PHAINT1 ---
Pharmacy Intervention Comments: Medication reconciliation completed using external fill history
[2022-07-04 07:28] VITALS: BP 151/96; PULSE 78; RESP 18; TEMP 36.7; O2SAT 92
[2022-07-04 07:36] VITALS: BMI 35.5
[2022-07-04 09:40] LABS: POC Glucose,Bedside 188 (70-110)
--- NOTE | 2022-07-04 09:54 | EXP.DC.SUM ---
General Admission date:: 07/03/22 Discharge date: 07/04/22 HPI HPI HPI: Ms. Pineda is a 46-year-old female with a past medical history of COPD, not home oxygen dependent, chronic tobacco use, Hyperlipidemia, HTN and reports borderline Diabetes Mellitus. She presents to [facility] through the ER due to a 1-day history of epigastric pain associated with back pain. She denies nausea, vomiting, diarrhea, fevers, body aches, chills or urinary frequency or urgency. She reports a history of prior Pancreatitis with similar pain and symptoms. In the ER she underwent a CT of the abdomen and pelvis that showed stranding around the pancreas with no definite abscess or fluid collections. Lipase was within normal range at 239. Total Bili was 0.5. AST was 37. Glucose on CMP was elevated at 196. The patient will be admitted with initial impression: Acute Pancreatitis She will be made NPO, given iv fluids, analgesics and antiemetics if needed. The plan of care was discussed with the patient and at bedside on admission. Both verbalized understanding and agreement with the plan of care. Hospital Course Hospital Course Hospital Course: The patient was admitted to the Medr unit with IV fluid resuscitation, antiemetics and opioid therapy. CT abdomen identified fatty liver with normal enhancement of the pancreas with no ductal dilatation and inflammatory stranding surrounding the head of the pancreas. Her admission lipase was normal and her CBC identified a mild leukocytosis with a normal hemoglobin and platelet count. Her electrolytes and creatinine were normal. Her hemoglobin A1c was 8.3%. She identified improvement and inquired about discharge home. We will discharge the patient home to follow-up with her PCP and specialist as scheduled. We have recommended a few days of oral antibiotic therapy and continue antiemetic therapy as needed. She should advance her diet as tolerated. We have recommended a follow-up with a GI specialist to discuss her previous history of pancreatitis and current findings on CT scan of the abdomen. I spent 35 minutes in [id number] time with the patient and nursing staff concerning the discharge process. We discussed the admitting diagnoses and hospital course. We discussed identified improvement and the patient's desire to be discharged. We reviewed inpatient studies and imaging. The patient voiced understanding on the importance of follow-up with her primary care provider and GI specialist(s). The patient plans to be compliant with the medication regimen prescribed and follow-up appointments. She understands that she can return to the emergency department with any sudden changes or concerns. Exam Data for Last 24 hours Vital signs and Labs for Last 24 Hours: Temp Pulse Resp BP Pulse Ox 98.0 F 78 18 151/96 H 92 L 07/04/22 07:28 07/04/22 07:28 07/04/22 07:28 07/04/22 07:28 07/04/22 07:28 Laboratory Results - last 24 hr 07/03/22 18:40: Urine Color Yellow, Urine Appearance Sl cloudy, Urine pH 6.5, Ur Specific [place] 1.025, Urine Protein Negative, Urine Glucose (UA) Negative, Urine Ketones Negative, Urine Blood 2+, Urine Nitrate Negative, Urine Bilirubin Negative, Urine Urobilinogen 0.2, Ur Leukocyte Esterase Negative, Urine RBC 10-20, Urine WBC Occasional, Ur Squamous Epith Cells 50-100, Urine Bacteria 1+ 07/03/22 18:40: WBC 17.4 H, RBC 4.82, Hgb 14.2, Hct 43.7, MCV 90.6, MCH 29.4, MCHC 32.5, RDW 14.2, Plt Count 333, MPV 7.8, Neut % (Auto) 79.0, Lymph % (Auto) 11.7, [place] % (Auto) 4.1, Eos % (Auto) 4.1, Baso % (Auto) 1.0, Neut # (Auto) 13.8 H, Lymph # (Auto) 2.1, [place] # (Auto) 0.7, Eos # (Auto) 0.7 H, Baso # (Auto) 0.2, Total Counted 100, Neutrophils % (Manual) 80 H, Lymphocytes % (Manual) 17, Monocytes % (Manual) 1 L, Eosinophils % (Manual) 2, Platelet Estimate Normal, RBC Morphology Normal 07/03/22 18:40: Sodium 134 L, Potassium 4.1, Chloride 97 L, Carbon Dioxide 32 H, Anion
[2022-07-04 12:07] LABS: Amphetamine/Metha Screen,Urine Negative ng/ml (<1000)
[2022-07-04 12:08] LABS: Barbiturates Screen,Urine Negative ng/ml (<200); Benzodiazepines Screen,Urine Negative ng/ml (<200)
[2022-07-04 12:09] LABS: Cannabinoid Screen,Urine Negative ng/ml (<50)
[2022-07-04 12:10] LABS: Cocaine Screen,Urine Negative ng/ml (<300); Methadone Screen,Urine Negative ng/ml (<300)
[2022-07-04 12:11] LABS: Opiate Screen,Urine Positive ng/ml (<300)
[2022-07-04 12:12] LABS: Phencyclidine Screen,Urine Negative ng/ml (<25)
--- NOTE | 2022-07-05 14:57 | CARE MANAGER ---
Called and spoke with patient regarding recent discharge. She has started new medication and saw her PCP today. No concerns or complaints at time of call.
== END 2022-07-04 10:20 | disposition home or self-care (01) ==
LOC: ER 18:27 → 2ND 20:13
PROVIDERS: Nurse Practitioner Family; Admitting Provider Family Medicine; Emergency Provider Emergency Medicine; PCP Family Medicine; Visit Provider Family Medicine
DX: K85.90 Acute pancreatitis without necrosis or infection, unspecified (principal); R73.9 Hyperglycemia, unspecified; J44.9 Chronic obstructive pulmonary disease, unspecified; E78.5 Hyperlipidemia, unspecified; F17.210 Nicotine dependence, cigarettes, uncomplicated; Z79.899 Other long term (current) drug therapy; I10 Essential (primary) hypertension; E11.9 Type 2 diabetes mellitus without complications
CPT/HCPCS: 74177; 80053; 80305; 81001; 82962; 83036; 83690; 84484; 85007; 85025; 93005; 99285; C9803; G0378; J2405; Q9967; U0003; U0005

== ENCOUNTER 2022-08-01 19:36 | Inpatient (IN) | payer MEDICAID, SELFPAY ==
[2022-08-01 19:55] VITALS: BP 145/82; PULSE 101; RESP 22; TEMP 36.8; O2SAT 97; BMI 41.1
[2022-08-01 20:11] VITALS: BMI 41.1
[2022-08-01 20:21] VITALS: BP 141/83; PULSE 100; O2SAT 96
[2022-08-01 20:24] LABS: Microscopic, Urine URINE MICROSCOPIC (MICROSCOPIC)
--- NOTE | 2022-08-01 20:29 | PC.NURSE ---
Rounded on pt. Pt complains of severe pain. RN notified.
[2022-08-01 20:30] VITALS: BP 132/87; PULSE 100; O2SAT 94
--- NOTE | 2022-08-01 20:30 | HMH.EDABDPAI ---
Discharge Plan Disposition Patient Disposition: Admitted As Inpatient Chief Complaint: Abdominal Pain Prescriptions Prescriptions: No Action pantoprazole 40 mg tablet,delayed release (DR/EC) 40 mg PO DAILY Qty: 90 3RF meloxicam 15 mg tablet 15 mg PO DAILY PRN (Reason: pain) Qty: 30 3RF sertraline 100 mg tablet 100 mg PO BID amitriptyline 25 mg tablet 25 mg PO DAILY oxycodone 10 mg tablet 10 mg PO Q6H PRN (Reason: pancreatitis) Qty: 60 0RF torsemide 20 mg tablet 20 mg PO DAILY PRN (Reason: edema) Qty: 30 2RF propranolol 60 mg capsule,extended release 24 hr 60 mg PO DAILY valsartan-hydrochlorothiazide 160-12.5 mg tablet 1 tab PO DAILY montelukast 10 mg tablet 10 mg PO DAILY azelastine 137 mcg (0.1 %) aerosol,spray 2 spray intranasal HS Rx Instructions: administer into each nostril fluticasone propionate [Flonase Allergy Relief] 50 mcg/actuation spray,suspension 2 spray intranasal DAILY Rx Instructions: administer into each nostril fluticasone propion-salmeterol [Advair Diskus] 250-50 mcg/dose blister with device 1 inh INHALATION BID Label Comments: INHALE 1 DOSE BY MOUTH TWICE A DAY FOR 90 DAYS bupropion HCl 150 mg tablet extended release 24 hr 150 mg PO DAILY Label Comments: TAKE 1 TABLET BY MOUTH DAILY ondansetron 4 mg tablet,disintegrating 4 mg PO Q8H Qty: 20 0RF amoxicillin-pot clavulanate 875-125 mg tablet 1 tab PO BID Qty: 20 0RF Referrals Follow up/Referrals: Isidro Roberts MD [Primary Care Provider] - See instructions Clinical Impressions Clinical Impression: Pancreatitis Discharge ED Provider: Kalani (ED)Dano Abdominal Pain HPI General Chief Complaint: Abdominal Pain Stated Complaint: pain below chest bone Time Seen by Provider: 08/01/22 20:30 Mode of Arrival: Family Vehicle Source of Information: Patient, Spouse and Medical Record Limitations: No Limitations Description of Symptoms (Recalled from ER Triage Doc. by RN): Pt c/o upper abd pain that began suddenly after dinner @ 1800. She was recently admitted for pancreatitis. She denies any n/v/d. She is has a GI appt at in a few weeks to have them scope it all out . She does not know the name of the provider. History of Present Illness HPI narrative: pt with acute abd pain which started last pm with nausea - pt has hx of pancreatitis - has pending appt at gi- no fever MD complaint: abdominal pain Onset (ago): day(s) Consistency: constant Location: epigastric Severity: moderate Associated symptoms: denies other symptoms Related Data Home Medications Medication Instructions Recorded Confirmed azelastine 137 mcg (0.1 %) nasal 2 spray intranasal HS allergies 06/24/22 07/13/22 spray aerosol fluticasone propionate 50 2 spray intranasal DAILY allergies 06/24/22 07/13/22 mcg/actuation nasal spray,suspension (Flonase Allergy Relief) montelukast 10 mg tablet 10 mg PO DAILY allergies 06/24/22 07/13/22 propranolol 60 mg capsule,24 60 mg PO DAILY heart rate 06/24/22 07/13/22 hr,extended release valsartan 160 1 tab PO DAILY High blood pressure 06/24/22 07/13/22 mg-hydrochlorothiazide 12.5 mg tablet fluticasone 250 mcg-salmeterol 50 1 inh inhalation BID COPD 07/03/22 07/13/22 mcg/dose blistr powdr for inhalation (Advair Diskus) bupropion HCl 150 mg 24 hr tablet, 150 mg PO DAILY mood 07/04/22 07/13/22 extended release amitriptyline 25 mg tablet 25 mg PO DAILY 07/05/22 07/13/22 sertraline 100 mg tablet 100 mg PO BID 07/05/22 07/13/22 Previous Rx's Medication Instructions Recorded pantoprazole 40 mg tablet,delayed 40 mg PO DAILY acid reflux #90 tabs 11/05/21 release meloxicam 15 mg tablet 15 mg PO DAILY PRN pain #30 tabs 04/04/22 amoxicillin 875 mg-potassium 1 tab PO BID #20 tabs 07/04/22 clavulanate 125 mg tablet ondansetron 4 mg disintegrating 4 mg PO Q8H #20 tabs 07/04/22 tablet ox
[2022-08-01 20:33] LABS: Appearance,Urine CLEAR (Clear); Bilirubin,Urine Negative (Negative); Blood, Urine 2+ (Negative); Color,Urine YELLOW (Yellow); Glucose,Urine (UA) Negative (Negative); Ketones,Urine TRACE (Negative); Leukocyte Esterase,Urine Negative (Negative); Nitrate,Urine Negative (Negative); PH,Urine 6.5 (5.0-8.5); Protein,Urine TRACE (Negative); Specific Gravity, Urine 1.015 (1.005-1.030); Urobilinogen,Urine 0.2 EU/dl (0.2)
[2022-08-01 20:35] LABS: Acetone, Serum (Rapid) None Detected (None Detect); Urine Pregnancy, HCG Qual. Negative (Negative)
--- NOTE | 2022-08-01 20:38 | CT_ITS ---
PROCEDURE INFORMATION: Exam: CT Abdomen And Pelvis With Contrast Exam date and time: 08/01/2022 9:05 PM Age: 47 years old Clinical indication: Abdominal pain; Additional info: Upper abd pain, HX pancreatitis TECHNIQUE: Imaging protocol: Computed tomography of the abdomen and pelvis with contrast. Radiation optimization: All CT scans at this facility use at least one of these dose optimization techniques: automated exposure control; mA and/or kV adjustment per patient size (includes targeted exams where dose is matched to clinical indication); or iterative reconstruction. Contrast material: ISOVUE; Contrast volume: 75 ml; Contrast route: IV; REPORTING DATA: Count of CT and Cardiac NM exams in prior 12 months: This patient has received 7 known CTs and 0 known cardiac nuclear medicine studies in the 12 months prior to the current study. COMPARISON: CT ABDOMEN PELVIS W CON 07/03/2022 7:24 PM FINDINGS: Liver: Diffuse fatty liver infiltration. Liver measures 21 cm. Gallbladder and bile ducts: Normal. No calcified stones. No ductal dilation. Pancreas: Worsening diffuse perihepatic fat stranding with poorly defined pancreatic contour now affecting pancreatic body and tail. No ductal dilatation. No peripancreatic fluid collection. Spleen: Normal. No splenomegaly. Adrenal glands: Normal. No mass. Kidneys and ureters: Normal. No hydronephrosis. Stomach and bowel: Scattered sigmoid colonic diverticula without pericolonic fat stranding. Appendix: No evidence of appendicitis. Intraperitoneal space: See Pancreas finding. Vasculature: Unremarkable. No abdominal aortic aneurysm. Lymph nodes: Unremarkable. No enlarged lymph nodes. Urinary bladder: Unremarkable as visualized. Reproductive: Unremarkable as visualized. Bones/joints: Unremarkable. No acute fracture. Soft tissues: Periumbilical fascial defect measuring 1.8 cm with fat containing hernia. IMPRESSION: 1. Worsening diffuse pancreatitis without abscess or peripancreatic fluid collection. 2. Hepatomegaly with fatty liver infiltration. THIS REPORT CONTAINS FINDINGS THAT MAY BE CRITICAL TO PATIENT CARE. The findings were verbally communicated via telephone conference with Dano Uriarte (ED) at 9:58 PM EDT on 08/01/2022. The findings were acknowledged and understood.
[2022-08-01 20:40] LABS: Amylase 124 U/L (30-110); Lactic Acid 1.9 mmol/L (0.7-2.1)
[2022-08-01 20:41] LABS: Alanine Aminotransferase 35 U/L (12-78); Albumin Level 4.4 g/dl (3.5-5.0); Albumin/Globulin Ratio 1.4 (1.1-1.8); Alkaline Phosphatase 93 U/L (38-126); Anion Gap 12.9 mEq/L (5-15); Aspartate Amino Transferase 32 U/L (14-36); Bilirubin,Total 0.6 mg/dl (0.2-1.3); Blood Urea Nitrogen 11 mg/dl (7-17); Calcium 9.1 mg/dl (8.4-10.2); Carbon Dioxide 29 mmol/L (22.0-30.0); Chloride 95 mmol/L (98-107); Creatinine Clearance Estimated 157 mL/min (50-200); Estimated Glomerular Filt Rate 89 ml/min (>60); GFR (African American) 108 ML/MIN (>60); Globulin 3.1 g/dL (1.3-3.2); Glucose 220 mg/dl (74-100); Potassium 3.9 mmoL/L (3.5-5.1); Sodium 133 mmol/L (136-145); Total Protein,Serum 7.5 g/dl (6.3-8.2)
[2022-08-01 20:46] LABS: C-Reactive Protein 56.7 mg/L (0-4)
[2022-08-01 20:48] LABS: Lipase 656 U/L (23-300)
--- NOTE | 2022-08-01 20:48 | PC.NURSE ---
Lab called and reported lipase of 656, repeated and verified and notified MD. No new orders.
[2022-08-01 20:52] LABS: Basophils # 0.1 K/mm3 (0-0.2); Basophils % 0.5 % (0.1-2.0); Eosinophils # 0.2 K/mm3 (0.0-0.4); Eosinophils % 0.9 % (0.1-12.0); Hematocrit 46.8 % (37.0-47.0); Hemoglobin 14.9 g/dL (12.2-16.2); Lymphocytes # 1.8 K/mm3 (0.7-4.5); Lymphocytes % 8.4 % (10-50); Mean Corpuscular HGB Conc 31.9 g/dL (31.8-35.4); Mean Corpuscular Volume 90.8 fl (81-99); Mean Platelet Volume 7.6 fl (7.4-10.4); Monocytes % 4.6 % (1.7-9.3); Neutrophils # 17.7 K/mm3 (1.8-7.8); Neutrophils % 85.6 % (37.0-80.0); Platelet Count 360 K/mm3 (142-424); Red Blood Count 5.16 M/mm3 (4.20-5.40); White Blood Count 20.7 K/mm3 (4.8-10.8)
[2022-08-01 20:56] LABS: MANUAL DIFFERENTIAL MANUAL DIFFERENTIAL (MANUAL DIFF)
[2022-08-01 20:59] LABS: Procalcitonin 0.095 ng/mL (0.0-2.0)
[2022-08-01 21:47] LABS: Anisocytosis 1+; Lymphocytes % 10 % (10-50); Monocytes % 14 % (2-9); Neutrophils % 76 % (42-76); Platelet Estimate Normal; Total Cells Counted 100
[2022-08-01 21:48] LABS: Erythrocyte Sedimentation Rate 17 mm/hr (0-20); Hypochromasia 1+
--- NOTE | 2022-08-01 22:06 | PC.NURSE ---
Notified House of admission
[2022-08-01 22:14] VITALS: BP 114/71; PULSE 92; O2SAT 92
[2022-08-01 22:20] LABS: Coronavirus 19, PCR Not Detected (NotDetected); Influenza A, PCR Not Detected (NotDetected); Influenza B, PCR Not Detected (NotDetected)
[2022-08-01 22:24] VITALS: BP 114/71; PULSE 81; RESP 17; TEMP 36.6; O2SAT 95
--- NOTE | 2022-08-01 22:45 | EXP.HP ---
History of Present Illness *Admission Date: 08/01/22 *Reason for visit:: Abdominal Pain *History of present illness: This is a 47-year-old female with past medical history of HLD, COPD, migraines, tobacco abuse who presents emergency department today with recurrent pancreatitis. She reports epigastric pain started last night after dinner and had immediate severe pain of her epigastrium. She reports prior history of this. She has been worked up outpatient with her primary care doctor and now with a GI specialist at . She reports no known cause of her pancreatitis at this time. Prior triglycerides in the 200s, denies any alcohol abuse. She also reports multiple evaluations of her gallbladder without evidence of stone or biliary duct dilatation. She reports having follow-up with GI specialist at in a few weeks. She endorses nausea but no vomiting. She denies fever. Emergency department work-up significant for elevated lipase of 656, Mildly elevated amylase at 124, lactic acid negative. White blood cell count of 20. CT abdomen pelvis without pseudocyst or abscess but notable for worsening diffuse pancreatitis. Patient was medicated with IV fluids in the emergency department and parenteral pain medication with moderate leaf of pain. Admission discussed with emergency room physician and agree with admission and hospitalization. Spoke with patient prior to admission in regards to lack of GI services here. She is in agreement with hospitalization for pain management with the intent to discharge home for follow-up with later this month [facility] Disclaimer: The information contained in this section may have been updated after the patient was seen, as this information can be updated by other users. Medical History Allergic rhinitis Arthritis Chronic cough Cough syncope CVA (cerebral vascular accident) Dyspnea on exertion History of COPD History of myocardial infarction History of smoking 30 or more pack years Hyperlipidemia Hypertension Syncope Surgical History History of section Family History Other Asthma Diabetes Emphysema of lung Family history of CVA Family history of cancer Family history of myocardial infarction Hypertension Social History Smoking Status: Current every day smoker tobacco type: cigarettes packs per day: 1 alcohol intake: never substance use type: denies use current occupational status: unemployed Travel in the last 8 weeks: None household members: spouse caffeine: Yes Review of Systems Review of Systems Review of systems:: pertinent systems reviewed and negative unless documented below *Gastrointestinal Gastrointestinal: Reports as per [facility] Meds Home Medications and Allergies Home Medications Medication Instructions Recorded Confirmed Type pantoprazole 40 mg tablet,delayed 40 mg PO DAILY acid reflux #90 tabs 11/05/21 07/13/22 Rx release meloxicam 15 mg tablet 15 mg PO DAILY PRN pain #30 tabs 04/04/22 07/13/22 Rx azelastine 137 mcg (0.1 %) nasal 2 spray intranasal HS allergies 06/24/22 07/13/22 History spray aerosol fluticasone propionate 50 2 spray intranasal DAILY allergies 06/24/22 07/13/22 History mcg/actuation nasal spray,suspension (Flonase Allergy Relief) montelukast 10 mg tablet 10 mg PO DAILY allergies 06/24/22 07/13/22 History propranolol 60 mg capsule,24 60 mg PO DAILY heart rate 06/24/22 07/13/22 History hr,extended release valsartan 160 1 tab PO DAILY High blood pressure 06/24/22 07/13/22 History mg-hydrochlorothiazide 12.5 mg tablet fluticasone 250 mcg-salmeterol 50 1 inh inhalation BID COPD 07/03/22 07/13/22 History mcg/dose blistr powdr for inhalation (Advair Diskus) amoxicillin 875 mg-martha
--- NOTE | 2022-08-01 22:58 | PC.NURSE ---
PT ARRIVED TO FLOOR AT THIS TIME
--- NOTE | 2022-08-01 23:00 | PC.NURSE ---
pt admitted to 208 from ER via wheelchair, pt's at bedside with pt
[2022-08-01 23:05] VITALS: BP 124/78; PULSE 86; RESP 18; TEMP 36.6; O2SAT 96; BMI 41.5
--- NOTE | 2022-08-01 23:24 | PC.NURSE ---
pt's went home for the night, will come back tomorrow
--- NOTE | 2022-08-02 01:17 | EXP.PN ---
Subjective *Date: 08/02/22 *Time: 08:30 Interval history: No acute events overnight. Continues to have abdominal pain. She denies any history of alcoholism. She has never had a cholecystectomy. Exam Data for Last 24 hours Vital signs and Labs for Last 24 Hours: Temp Pulse Resp BP Pulse Ox 97.9 F 86 18 124/78 96 08/01/22 23:05 08/01/22 23:05 08/01/22 23:05 08/01/22 23:05 08/01/22 23:05 Laboratory Results - last 24 hr 08/01/22 20:00: ESR 17 08/01/22 20:00: C-Reactive Protein 56.7 H, Amylase 124 H, Procalcitonin 0.095 08/01/22 20:00: Urine Color Yellow, Urine Appearance Clear, Urine pH 6.5, Ur Specific [place] 1.015, Urine Protein Trace, Urine Glucose (UA) Negative, Urine Ketones Trace, Urine Blood 2+, Urine Nitrate Negative, Urine Bilirubin Negative, Urine Urobilinogen 0.2, Ur Leukocyte Esterase Negative, Urine RBC 10-20, Ur Squamous Epith Cells 10-20, Urine Bacteria None 08/01/22 20:00: WBC 20.7 H*, RBC 5.16, Hgb 14.9, Hct 46.8, MCV 90.8, MCH 29.0, MCHC 31.9, RDW 14.0, Plt Count 360, MPV 7.6, Neut % (Auto) 85.6 H, Lymph % (Auto) 8.4 L, [place] % (Auto) 4.6, Eos % (Auto) 0.9, Baso % (Auto) 0.5, Neut # (Auto) 17.7 H, Lymph # (Auto) 1.8, Nash # (Auto) 1.0, Eos # (Auto) 0.2, Baso # (Auto) 0.1, Total Counted 100, Neutrophils % (Manual) 76, Lymphocytes % (Manual) 10, Monocytes % (Manual) 14 H, Platelet Estimate Normal, Hypochromasia 1+, Anisocytosis 1+ 08/01/22 20:00: Sodium 133 L, Potassium 3.9, Chloride 95 L, Carbon Dioxide 29, Anion Gap 12.9, BUN 11, Creatinine 0.70, Estimated Creat Clear 157, Estimated GFR 89, Est GFR ( Amer) 108, Glucose 220 H, Calcium 9.1, Total Bilirubin 0.6, AST 32, ALT 35, Alkaline Phosphatase 93, Total Protein 7.5, Albumin 4.4, Globulin 3.1, Albumin/Globulin Ratio 1.4, Lipase 656 H 08/01/22 20:00: Lactate 1.9 08/01/22 20:00: Urine HCG, Qual Negative 08/01/22 20:00: Acetone Level None detected 08/01/22 21:15: SARS-CoV-2 (PCR) Not detected, Influenza A Untype (PCR) Not detected, Influenza Type B (PCR) Not detected I & O for Last 24 hours: Intake & Output 07/30/22 07/31/22 08/01/22 08/02/22 23:59 23:59 23:59 23:59 Intake Total 2024 Output Total 0 / 0 Balance 2024 Weight 102.421 kg Constitutional Constitutional: no acute distress *Routine HEENT Exam Head: Present normocephalic Eye: Present EOMI and PERRL ENT: Present mucous membranes moist *Routine Neck Exam Neck: Present supple; Absent lymphadenopathy *Routine Respiratory Exam Respiratory: Present CTA bilaterally *Routine Cardiovascular Exam Cardiovascular: Present RRR *Routine Abdominal Exam Abdominal: Present soft, tenderness (in epigastrium and periumbilical areas. ) and obese; Absent rebound *Routine Extremities Exam Extremities: Absent cyanosis, clubbing or edema *Routine Skin Exam Skin: Present warm; Absent rash *Routine Neurological Exam Neurological: Present alert and oriented X3 Assessment and Plan *Assessment and plan (1) Pancreatitis: Status: Acute Category: Medical Code(s): K85.90 - Acute pancreatitis without necrosis or infection, unspecified (2) COPD (chronic obstructive pulmonary disease): Status: Acute Qualifiers: COPD type: unspecified COPD Qualified Code(s): J44.9 - Chronic obstructive pulmonary disease, unspecified Category: Medical Code(s): J44.9 - Chronic obstructive pulmonary disease, unspecified (3) Tobacco abuse: Status: Chronic Category: Medical Code(s): Z72.0 - Tobacco use (4) Hyperlipidemia: Status: Acute Qualifiers: Hyperlipidemia type: unspecified Qualified Code(s): E78.5 - Hyperlipidemia, unspecified Category: Medical Code(s): E78.5 - Hyperlipidemia, unspecified Plan Ms. Pineda is a 47 year old female with a past medical history of obesity, HTN, HLD, T2DM, COPD who presented with abdominal pain and admitted on 08/01 with recurrent pancreatitis. Initial workup included
[2022-08-02 04:00] VITALS: BP 136/82; PULSE 86; RESP 22; TEMP 37; O2SAT 91; BMI 41.5
[2022-08-02 06:37] LABS: Chloride 102 mmol/L (98-107)
[2022-08-02 06:38] LABS: Potassium 3.7 mmoL/L (3.5-5.1); Sodium 135 mmol/L (136-145)
[2022-08-02 06:40] LABS: Alanine Aminotransferase 27 U/L (12-78); Alkaline Phosphatase 87 U/L (38-126); Anion Gap 7.7 mEq/L (5-15); Aspartate Amino Transferase 26 U/L (14-36); Bilirubin,Total 0.4 mg/dl (0.2-1.3); Blood Urea Nitrogen 11 mg/dl (7-17); Calcium 7.9 mg/dl (8.4-10.2); Carbon Dioxide 29 mmol/L (22.0-30.0); Creatinine Clearance Estimated 73 mL/min (50-200); Estimated Glomerular Filt Rate 89 ml/min (>60); GFR (African American) 108 ML/MIN (>60); Glucose 186 mg/dl (74-100)
[2022-08-02 06:41] LABS: Albumin Level 3.5 g/dl (3.5-5.0); Albumin/Globulin Ratio 1.3 (1.1-1.8); Chol/HDL Ratio 5.4 (1-3.5); Cholesterol 146 mg/dl (140-200); Globulin 2.7 g/dL (1.3-3.2); HDL Cholesterol 27 mg/dl (40-60); Magnesium 1.6 mg/dl (1.6-2.3); Total Protein,Serum 6.2 g/dl (6.3-8.2); Triglycerides 194 mg/dl (30-150); VLDL Cholesterol 39 mg/dL (0-40)
[2022-08-02 06:49] LABS: Lipase 2151 U/L (23-300)
--- NOTE | 2022-08-02 06:50 | PC.NURSE ---
notified TRISTAN Kee of pt's lipase of 2150, no new orders at this time
[2022-08-02 06:52] LABS: Direct LDL Cholesterol 88.45 mg/dL (100-129)
[2022-08-02 07:40] VITALS: BP 137/76; PULSE 85; RESP 17; TEMP 36.9; O2SAT 94
[2022-08-02 07:44] LABS: Basophils # 0.1 K/mm3 (0-0.2); Basophils % 0.5 % (0.1-2.0); Eosinophils # 0.3 K/mm3 (0.0-0.4); Hematocrit 41.4 % (37.0-47.0); Lymphocytes # 2.2 K/mm3 (0.7-4.5); Lymphocytes % 14.9 % (10-50); Mean Corpuscular HGB Conc 31.4 g/dL (31.8-35.4); Mean Corpuscular Hemoglobin 28.8 pg (27.0-31.2); Mean Corpuscular Volume 91.8 fl (81-99); Mean Platelet Volume 7.6 fl (7.4-10.4); Monocytes # 0.6 K/mm3 (0.1-1.0); Monocytes % 4.1 % (1.7-9.3); Neutrophils # 11.8 K/mm3 (1.8-7.8); Neutrophils % 78.5 % (37.0-80.0); Platelet Count 321 K/mm3 (142-424); Red Blood Count 4.51 M/mm3 (4.20-5.40); Red Cell Distribution Width 14.2 % (11.5-17.5)
[2022-08-02 07:46] LABS: MANUAL DIFFERENTIAL MANUAL DIFFERENTIAL (MANUAL DIFF)
[2022-08-02 08:07] LABS: Lymphocytes % 19 % (10-50); Monocytes % 3 % (2-9); Neutrophils % 78 % (42-76); Platelet Estimate Normal; RBC Morphology Normal; Total Cells Counted 100
--- NOTE | 2022-08-02 08:46 | HMH.PHAINT1 ---
Pharmacy Intervention Comments: Reconciled patient's home medications using pharmacy fill history.
--- NOTE | 2022-08-02 12:48 | PC.NURSE ---
Patient discharged to [place] with son. CPAP and dentures sent with son
[2022-08-02 14:35] VITALS: BP 117/77; PULSE 85; RESP 20; TEMP 37; O2SAT 92
--- NOTE | 2022-08-02 14:40 | PC.NURSE ---
Pt with continued complaints of abdominal pain despite prn morphine. Minimal oral intake of water only. Order received for IVP dilaudid.
--- NOTE | 2022-08-02 15:04 | DIET.NUTRFU ---
RD saw patient post lunch, she did not receive clear liquids. She reported she continues to be in too much pain to start liquids. She did have a menu and she felt like she might be ready tomorrow. This RD did review clear liquids items that are up on the floor at any point she could have. She did report she has had multiple episodes of pancreatitis over the past 2 years but does feel it has effecting her overall health. Wt has maintained over that time frame. Will continue to monitor diet tolerance.
[2022-08-02 15:08] VITALS: BMI 41.3
[2022-08-02 17:29] VITALS: BP 142/67; PULSE 87; RESP 16; TEMP 36.6; O2SAT 97
--- NOTE | 2022-08-02 17:34 | PC.NURSE ---
Patient alert and oriented. VSS. Minimal clear liquid intake with increase in discomfort with intake. Dilaudid IVP for abdominal pain. Up ad radha to BR for voids. IV fluids infusing per orders. Spouse at bedside throughout shift
[2022-08-02 19:49] VITALS: BP 130/76; PULSE 90; RESP 16; TEMP 37.1; O2SAT 91
[2022-08-03 04:00] VITALS: BP 142/85; PULSE 87; RESP 16; TEMP 37.2; O2SAT 93; BMI 41.7
[2022-08-03 05:57] LABS: POC Glucose,Bedside 158 (70-110)
--- NOTE | 2022-08-03 05:59 | PC.NURSE ---
Upon rounding patient noticed to be diaphoretic. Blood sugar checked, 158. Vital signs stable, pain controlled with prn dilaudid. Remains on continuous normal saline running at 150mL/hr. Cool washcloth offered and accepted, no further needs expressed. Patient resting with eyes closed, call light in reach.
[2022-08-03 06:05] LABS: Basophils # 0.1 K/mm3 (0-0.2); Basophils % 0.5 % (0.1-2.0); Eosinophils # 0.5 K/mm3 (0.0-0.4); Eosinophils % 2.9 % (0.1-12.0); Hematocrit 41.4 % (37.0-47.0); Hemoglobin 12.8 g/dL (12.2-16.2); Lymphocytes # 1.6 K/mm3 (0.7-4.5); Lymphocytes % 8.4 % (10-50); Mean Corpuscular HGB Conc 30.9 g/dL (31.8-35.4); Mean Corpuscular Hemoglobin 28.9 pg (27.0-31.2); Mean Corpuscular Volume 93.5 fl (81-99); Mean Platelet Volume 8.1 fl (7.4-10.4); Monocytes # 0.7 K/mm3 (0.1-1.0); Monocytes % 3.8 % (1.7-9.3); Neutrophils # 15.9 K/mm3 (1.8-7.8); Neutrophils % 84.4 % (37.0-80.0); Platelet Count 329 K/mm3 (142-424); Red Blood Count 4.43 M/mm3 (4.20-5.40); White Blood Count 18.9 K/mm3 (4.8-10.8)
[2022-08-03 06:07] LABS: Chloride 105 mmol/L (98-107); Sodium 135 mmol/L (136-145)
[2022-08-03 06:08] LABS: Potassium 3.8 mmoL/L (3.5-5.1)
[2022-08-03 06:09] LABS: MANUAL DIFFERENTIAL MANUAL DIFFERENTIAL (MANUAL DIFF)
[2022-08-03 06:10] LABS: Alanine Aminotransferase 24 U/L (12-78); Alkaline Phosphatase 73 U/L (38-126); Anion Gap 9.8 mEq/L (5-15); Aspartate Amino Transferase 27 U/L (14-36); Bilirubin,Total 0.5 mg/dl (0.2-1.3); Blood Urea Nitrogen 5 mg/dl (7-17); Calcium 8.1 mg/dl (8.4-10.2); Carbon Dioxide 24 mmol/L (22.0-30.0); Creatinine Clearance Estimated 86 mL/min (50-200); Estimated Glomerular Filt Rate 106 ml/min (>60); GFR (African American) 129 ML/MIN (>60); Glucose 160 mg/dl (74-100)
[2022-08-03 06:11] LABS: Albumin Level 3.6 g/dl (3.5-5.0); Albumin/Globulin Ratio 1.2 (1.1-1.8); Globulin 2.9 g/dL (1.3-3.2); Total Protein,Serum 6.5 g/dl (6.3-8.2)
[2022-08-03 06:16] LABS: C-Reactive Protein 142.1 mg/L (0-4)
[2022-08-03 06:20] LABS: Lipase 627 U/L (23-300)
--- NOTE | 2022-08-03 06:22 | PC.NURSE ---
Critical result recieved from Meme Pantoja in lab, lipase 627. Resulted called to Lexy Kee APRN.
[2022-08-03 07:01] LABS: Lymphocytes % 9 % (10-50); Monocytes % 3 % (2-9); Neutrophils % 88 % (42-76); Platelet Estimate Normal; RBC Morphology Normal; Total Cells Counted 100
[2022-08-03 07:31] VITALS: BP 131/73; PULSE 83; RESP 19; TEMP 37; O2SAT 90
--- NOTE | 2022-08-03 08:24 | EXP.PN ---
Subjective *Date: 08/03/22 *Time: 13:40 Interval history: She is saturating 90% on 2L NC. WBC count is 18.9K, up from 15K. Lipase is down from 2151 to 627. CRP is 142 She has barely had anything to drink She denies dyspnea but overnight was placed on NC. Her abdominal pain is subsiding but she continues to require IV narcotics frequently Exam Data for Last 24 hours Vital signs and Labs for Last 24 Hours: Temp Pulse Resp BP Pulse Ox 98.6 F 83 19 131/73 90 L 08/03/22 07:31 08/03/22 07:31 08/03/22 07:31 08/03/22 07:31 08/03/22 07:31 Laboratory Results - last 24 hr 08/03/22 05:48: POC Glucose 158 H 08/03/22 05:50: WBC 18.9 H D, RBC 4.43, Hgb 12.8, Hct 41.4, MCV 93.5, MCH 28.9, MCHC 30.9 L, RDW 14.0, Plt Count 329, MPV 8.1, Neut % (Auto) 84.4 H, Lymph % (Auto) 8.4 L, [place] % (Auto) 3.8, Eos % (Auto) 2.9, Baso % (Auto) 0.5, Neut # (Auto) 15.9 H, Lymph # (Auto) 1.6, [place] # (Auto) 0.7, Eos # (Auto) 0.5 H, Baso # (Auto) 0.1, Total Counted 100, Neutrophils % (Manual) 88 H, Lymphocytes % (Manual) 9 L, Monocytes % (Manual) 3, Platelet Estimate Normal, RBC Morphology Normal 08/03/22 05:50: Sodium 135 L, Potassium 3.8, Chloride 105, Carbon Dioxide 24, Anion Gap 9.8, BUN 5 L D, Creatinine 0.60, Estimated Creat Clear 86, Estimated GFR 106, Est GFR ( Amer) 129, Glucose 160 H, Calcium 8.1 L, Total Bilirubin 0.5, AST 27, ALT 24, Alkaline Phosphatase 73, C-Reactive Protein 142.1 H, Total Protein 6.5, Albumin 3.6, Globulin 2.9, Albumin/Globulin Ratio 1.2, Lipase 627 H I & O for Last 24 hours: Intake & Output 07/31/22 08/01/22 08/02/22 08/03/22 23:59 23:59 23:59 23:59 Intake Total 2024 Output Total 0 / 0 0 / 0 0 / 0 Balance 2024 Weight 102.421 kg 102 kg 102.875 kg Constitutional Constitutional: no acute distress *Routine HEENT Exam Head: Present normocephalic Eye: Present EOMI and PERRL ENT: Present mucous membranes moist *Routine Neck Exam Neck: Present supple; Absent lymphadenopathy *Routine Respiratory Exam Respiratory: Present CTA bilaterally *Routine Cardiovascular Exam Cardiovascular: Present RRR *Routine Abdominal Exam Abdominal: Present soft, tenderness (in epigastrium and periumbilical areas. ) and obese; Absent rebound *Routine Extremities Exam Extremities: Absent cyanosis, clubbing or edema *Routine Skin Exam Skin: Present warm; Absent rash *Routine Neurological Exam Neurological: Present alert and oriented X3 Assessment and Plan *Assessment and plan (1) Pancreatitis: Status: Acute Category: Medical Code(s): K85.90 - Acute pancreatitis without necrosis or infection, unspecified (2) COPD (chronic obstructive pulmonary disease): Status: Acute Qualifiers: COPD type: unspecified COPD Qualified Code(s): J44.9 - Chronic obstructive pulmonary disease, unspecified Category: Medical Code(s): J44.9 - Chronic obstructive pulmonary disease, unspecified (3) Tobacco abuse: Status: Chronic Category: Medical Code(s): Z72.0 - Tobacco use (4) Hyperlipidemia: Status: Acute Qualifiers: Hyperlipidemia type: unspecified Qualified Code(s): E78.5 - Hyperlipidemia, unspecified Category: Medical Code(s): E78.5 - Hyperlipidemia, unspecified Plan Ms. Pineda is a 47 year old female with a past medical history of obesity, HTN, HLD, T2DM, COPD who presented with abdominal pain and admitted on 08/01 with recurrent pancreatitis. Initial workup included lipase 656, amylase 124, 20K WBCs; CT abd/pel with worsening diffuse pancreatitis. #acute pancreatitis, recurrent #obesity #hypertension #type 2 diabetes mellitus #copd Obtain CXR Continue supplemental oxygen if it is needed Continue treating pain as needed Unclear etiology of pancreatitis; she is seeing Gastroenterology at [facility]. DVT ppx: Lovenox Full code CLD with NS @ 100mL/hr
--- NOTE | 2022-08-03 10:13 | XR_ITS ---
FINAL REPORT CLINICAL HISTORY: hypoxia COMPARISON: 03/15/2022 FINDINGS: The heart size is normal. The mediastinum is normal. The lungs are slightly underinflated. There is no focal infiltrate or edema. There are no pleural effusions. There is no pneumothorax. There is no osseous abnormality. IMPRESSION: No acute cardiopulmonary process Reviewed, Interpreted and Dictated by Luis Barron MD Transcribed by Kassandra Bryan Authenticated and [facility]
--- NOTE | 2022-08-03 13:16 | DIET.NUTRFU ---
Addendum entered by Marielle Harp RD, LD 08/03/22 13:18: diet is tolerated and able to discharge and follow-up with [facility] GI specialist as outpatient Original Note: Patient continues to have poor intake, continues to have abdominal pain with pain meds in place. Just taking sips in mainly for med pass. Will continue diet as tolerated. IVF in place for hydration. Lipase is improving at 627. goal is to manage pain until better
--- NOTE | 2022-08-03 14:18 | PC.NURSE ---
PT IS RESTING IN BED WITH FAMILY AT BEDSIDE. ALERT AND ORIENTED X4. AMBULATES TO THE BATHROOM. MEDICATED PER MAR FOR UPPER ABDOMINAL DISCOMFORT. PT IS TAKING IN VERY MINIMAL AMOUNT OF CLEAR LIQUIDS DUE TO ABDOMINAL PAIN. WILL CONTINUE TO MONITOR.
[2022-08-03 15:24] VITALS: BP 128/78; PULSE 93; RESP 18; TEMP 36.8; O2SAT 92
[2022-08-03 19:49] VITALS: BP 135/79; PULSE 102; RESP 20; TEMP 37.9; O2SAT 92
[2022-08-03 20:00] VITALS: O2SAT 92
[2022-08-04 04:00] VITALS: BP 100/76; PULSE 85; RESP 20; TEMP 37; O2SAT 93; BMI 41.7
--- NOTE | 2022-08-04 06:22 | PC.NURSE ---
NO ACUTE CHANGES SINCE PREVIOUS ASSESSMENT. PT HAS RESTED WELL. PT C/O PAIN X3 THIS SHIFT AND NAUSEA X1. MEDICATED WITH PRN MEDICATIONS WITH ADEQUATE RELIEF. STILL USING 2L NASAL CANNULA FOR COMFORT PRN. VSS.
[2022-08-04 06:24] LABS: Basophils # 0.1 K/mm3 (0-0.2); Basophils % 0.5 % (0.1-2.0); Eosinophils # 0.4 K/mm3 (0.0-0.4); Eosinophils % 1.6 % (0.1-12.0); Hematocrit 41.1 % (37.0-47.0); Lymphocytes # 1.6 K/mm3 (0.7-4.5); Mean Corpuscular HGB Conc 31.5 g/dL (31.8-35.4); Mean Corpuscular Hemoglobin 29.4 pg (27.0-31.2); Mean Corpuscular Volume 93.3 fl (81-99); Monocytes # 0.8 K/mm3 (0.1-1.0); Monocytes % 3.6 % (1.7-9.3); Neutrophils # 19.9 K/mm3 (1.8-7.8); Neutrophils % 87.2 % (37.0-80.0); Platelet Count 366 K/mm3 (142-424); Red Cell Distribution Width 14.2 % (11.5-17.5); White Blood Count 22.8 K/mm3 (4.8-10.8)
[2022-08-04 06:32] LABS: MANUAL DIFFERENTIAL MANUAL DIFFERENTIAL (MANUAL DIFF)
[2022-08-04 06:45] LABS: Chloride 98 mmol/L (98-107); Potassium 3.6 mmoL/L (3.5-5.1); Sodium 136 mmol/L (136-145)
[2022-08-04 06:48] LABS: Alanine Aminotransferase 27 U/L (12-78); Albumin Level 3.7 g/dl (3.5-5.0); Albumin/Globulin Ratio 1.2 (1.1-1.8); Alkaline Phosphatase 94 U/L (38-126); Anion Gap 10.6 mEq/L (5-15); Aspartate Amino Transferase 30 U/L (14-36); Bilirubin,Total 0.7 mg/dl (0.2-1.3); Blood Urea Nitrogen 4 mg/dl (7-17); Calcium 8.4 mg/dl (8.4-10.2); Carbon Dioxide 31 mmol/L (22.0-30.0); Creatinine Clearance Estimated 86 mL/min (50-200); Estimated Glomerular Filt Rate 106 ml/min (>60); GFR (African American) 129 ML/MIN (>60); Globulin 3.1 g/dL (1.3-3.2); Glucose 141 mg/dl (74-100); Lipase 190 U/L (23-300); Total Protein,Serum 6.8 g/dl (6.3-8.2)
[2022-08-04 06:53] LABS: C-Reactive Protein 214.2 mg/L (0-4)
[2022-08-04 07:53] VITALS: BP 154/95; PULSE 86; RESP 16; TEMP 37; O2SAT 92
[2022-08-04 07:57] LABS: Lymphocytes % 9 % (10-50); Monocytes % 3 % (2-9); Neutrophils % 88 % (42-76); Platelet Estimate Normal; RBC Morphology Normal; Total Cells Counted 100
--- NOTE | 2022-08-04 08:28 | PC.NURSE ---
RA O2 SAT 86%
--- NOTE | 2022-08-04 08:57 | EXP.PN ---
Subjective *Date: 08/04/22 *Time: 11:00 Interval history: She's saturating 92% on 2 L NC WBC count is trending up 15K -> 19K -> 23K CRP is trending up 142 ->214 Lipase is 190 cxr with no acute cardiopulmonary process She barely had anything to drink yesterday. She believes her abdominal pain is subsiding but she continues to need high doses of pain medications. Exam Data for Last 24 hours Vital signs and Labs for Last 24 Hours: Temp Pulse Resp BP Pulse Ox 98.6 F 86 16 154/95 H 92 L 08/04/22 07:53 08/04/22 07:53 08/04/22 07:53 08/04/22 07:53 08/04/22 07:53 Laboratory Results - last 24 hr 08/04/22 05:41: WBC 22.8 H*, RBC 4.40, Hgb 13.0, Hct 41.1, MCV 93.3, MCH 29.4, MCHC 31.5 L, RDW 14.2, Plt Count 366, MPV 8.0, Neut % (Auto) 87.2 H, Lymph % (Auto) 7.0 L, [place] % (Auto) 3.6, Eos % (Auto) 1.6, Baso % (Auto) 0.5, Neut # (Auto) 19.9 H, Lymph # (Auto) 1.6, [place] # (Auto) 0.8, Eos # (Auto) 0.4, Baso # (Auto) 0.1, Total Counted 100, Neutrophils % (Manual) 88 H, Lymphocytes % (Manual) 9 L, Monocytes % (Manual) 3, Platelet Estimate Normal, RBC Morphology Normal 08/04/22 05:41: Sodium 136, Potassium 3.6, Chloride 98, Carbon Dioxide 31 H, Anion Gap 10.6, BUN 4 L, Creatinine 0.60, Estimated Creat Clear 86, Estimated GFR 106, Est GFR ( Amer) 129, Glucose 141 H, Calcium 8.4, Total Bilirubin 0.7, AST 30, ALT 27, Alkaline Phosphatase 94, C-Reactive Protein 214.2 H, Total Protein 6.8, Albumin 3.7, Globulin 3.1, Albumin/Globulin Ratio 1.2, Lipase 190 I & O for Last 24 hours: Intake & Output 04/0308/02/22 08/03/22 08/04/22 23:59 23:59 23:59 23:59 Intake Total 2024 2433 / 4435 3553 / 3553 1593 / 1593 Output Total 0 / 0 0 / 0 300 / 300 0 / 0 Balance 2024 2433 / 4435 3253 / 3253 1593 / 1593 Weight 102.421 kg 102 kg 102.875 kg 102.8 kg Constitutional Constitutional: no acute distress *Routine HEENT Exam Head: Present normocephalic Eye: Present EOMI and PERRL ENT: Present mucous membranes moist *Routine Neck Exam Neck: Present supple; Absent lymphadenopathy *Routine Respiratory Exam Respiratory: Present CTA bilaterally *Routine Cardiovascular Exam Cardiovascular: Present RRR *Routine Abdominal Exam Abdominal: Present soft, tenderness (in epigastrium and periumbilical areas. ) and obese; Absent rebound *Routine Extremities Exam Extremities: Absent cyanosis, clubbing or edema *Routine Skin Exam Skin: Present warm; Absent rash *Routine Neurological Exam Neurological: Present alert and oriented X3 Assessment and Plan *Assessment and plan (1) Pancreatitis: Status: Acute Category: Medical Code(s): K85.90 - Acute pancreatitis without necrosis or infection, unspecified (2) COPD (chronic obstructive pulmonary disease): Status: Acute Qualifiers: COPD type: unspecified COPD Qualified Code(s): J44.9 - Chronic obstructive pulmonary disease, unspecified Category: Medical Code(s): J44.9 - Chronic obstructive pulmonary disease, unspecified (3) Tobacco abuse: Status: Chronic Category: Medical Code(s): Z72.0 - Tobacco use (4) Hyperlipidemia: Status: Acute Qualifiers: Hyperlipidemia type: unspecified Qualified Code(s): E78.5 - Hyperlipidemia, unspecified Category: Medical Code(s): E78.5 - Hyperlipidemia, unspecified Plan Ms. Pineda is a 47 year old female with a past medical history of obesity, HTN, HLD, COPD who presented with abdominal pain and admitted on 08/01 with recurrent pancreatitis. Initial workup included lipase 656, amylase 124, 20K WBCs; CT abd/pel with worsening diffuse pancreatitis. #acute pancreatitis, recurrent #obesity #hypertension #type 2 diabetes mellitus #copd Continue supplemental oxygen if it is needed Continue treating pain as needed Unclear etiology of pancreatitis; she will establish care with Gastroenterology at soon. She states her recurrent episodes of pancreatitis
--- NOTE | 2022-08-04 09:01 | US_ITS ---
FINAL REPORT CLINICAL HISTORY: pancreatitis unkn etiology, choledocholithiasis? COMPARISON: CT abdomen and pelvis 07/03/2022 and 08/03/2019 FINDINGS: Sonographic images of the right upper quadrant were obtained. The pancreas is partially obscured. The liver is fatty infiltrated. There is sludge seen in the gallbladder. There is no evidence of biliary ductal dilatation.The common duct measures 4mm, within normal limits. Limited images of the right kidney are unremarkable. IMPRESSION: Fatty infiltrated liver. Sludge in gallbladder. Reviewed, Interpreted and Dictated by Luis Barron MD Transcribed by Kassandra Bryan Authenticated and [facility]
[2022-08-04 15:29] VITALS: BP 116/73; PULSE 83; RESP 18; TEMP 37.3; O2SAT 94
--- NOTE | 2022-08-04 17:07 | PC.NURSE ---
PT IS RESTING IN BED. ALERT AND ORIENTED X4. PT CONTINUES TO HAVE UPPER ABDOMINAL PAIN. PT STATES ONCE SHE THINKS THE PAIN IS TOLERABLE SHE DRINKS SOME LIQUIDS AND PAIN AGAIN BECOMES UNBEARABLE. MEDICATED PER MAR WITH NORCO AND DILAUDID. PT WAS UNABLE TO BE WEANED OFF O2 THIS SHIFT. AMBULATES TO THE BATHROOM. WILL CONTINUE TO MONITOR.
[2022-08-04 20:00] VITALS: BP 136/72; PULSE 88; RESP 18; TEMP 36.3; O2SAT 94
[2022-08-05] VITALS: O2SAT 94
[2022-08-05 04:00] VITALS: BP 133/70; PULSE 78; RESP 18; TEMP 36.7; O2SAT 97; BMI 42.2
--- NOTE | 2022-08-05 05:56 | PC.NURSE ---
pt is alert and oriented x4, no acute distress, vss, no changes from previous assessment, 02 at 3L pnc with o2 sats 94-97%, lung sounds diminished, abd distended and tender, I/S in use.
[2022-08-05 06:56] LABS: Basophils # 0.1 K/mm3 (0-0.2); Basophils % 0.4 % (0.1-2.0); Eosinophils # 0.5 K/mm3 (0.0-0.4); Eosinophils % 2.6 % (0.1-12.0); Hematocrit 39.4 % (37.0-47.0); Hemoglobin 12.6 g/dL (12.2-16.2); Lymphocytes # 1.7 K/mm3 (0.7-4.5); Lymphocytes % 9.3 % (10-50); Mean Corpuscular Hemoglobin 29.4 pg (27.0-31.2); Mean Corpuscular Volume 91.8 fl (81-99); Mean Platelet Volume 8.1 fl (7.4-10.4); Monocytes # 0.8 K/mm3 (0.1-1.0); Monocytes % 4.3 % (1.7-9.3); Neutrophils % 83.5 % (37.0-80.0); Platelet Count 370 K/mm3 (142-424); Red Blood Count 4.29 M/mm3 (4.20-5.40); White Blood Count 17.9 K/mm3 (4.8-10.8)
[2022-08-05 07:01] LABS: MANUAL DIFFERENTIAL MANUAL DIFFERENTIAL (MANUAL DIFF)
[2022-08-05 07:09] LABS: Chloride 98 mmol/L (98-107); Potassium 3.4 mmoL/L (3.5-5.1); Sodium 138 mmol/L (136-145)
[2022-08-05 07:11] LABS: Alanine Aminotransferase 29 U/L (12-78); Aspartate Amino Transferase 37 U/L (14-36); Blood Urea Nitrogen 7 mg/dl (7-17); Creatinine Clearance Estimated 73 mL/min (50-200); Estimated Glomerular Filt Rate 89 ml/min (>60); GFR (African American) 108 ML/MIN (>60)
[2022-08-05 07:12] LABS: Albumin Level 3.5 g/dl (3.5-5.0); Albumin/Globulin Ratio 1.1 (1.1-1.8); Alkaline Phosphatase 117 U/L (38-126); Anion Gap 13.4 mEq/L (5-15); Bilirubin,Total 0.7 mg/dl (0.2-1.3); Calcium 8.6 mg/dl (8.4-10.2); Carbon Dioxide 30 mmol/L (22.0-30.0); Globulin 3.3 g/dL (1.3-3.2); Glucose 140 mg/dl (74-100); Total Protein,Serum 6.8 g/dl (6.3-8.2)
[2022-08-05 07:18] LABS: C-Reactive Protein 222.7 mg/L (0-4)
[2022-08-05 07:43] LABS: Lymphocytes % 15 % (10-50); Monocytes % 2 % (2-9); Neutrophils % 83 % (42-76); Platelet Estimate Normal; RBC Morphology Normal; Total Cells Counted 100
[2022-08-05 08:00] VITALS: BP 135/78; PULSE 78; RESP 18; TEMP 36.8; O2SAT 98
--- NOTE | 2022-08-05 08:12 | EXP.PN ---
Subjective *Date: 08/05/22 *Time: 10:17 Interval history: This morning she is saturating 97% on 3L NC Her WBC count has gone down from 22.8K to 17.9K Potassium level is 3.4 CRP continues to go up 142 -> 214 ->222 LFTs are within normal limits Abd US with sludge in the gallbladder and fatty liver. Her abdominal pain has decreased significantly. She has had nearly nothing to drink. Exam Data for Last 24 hours Vital signs and Labs for Last 24 Hours: Temp Pulse Resp BP Pulse Ox 98.1 F 78 18 133/70 97 08/05/22 04:00 08/05/22 04:00 08/05/22 04:00 08/05/22 04:00 08/05/22 04:00 Laboratory Results - last 24 hr 08/05/22 06:11: WBC 17.9 H, RBC 4.29, Hgb 12.6, Hct 39.4, MCV 91.8, MCH 29.4, MCHC 32.0, RDW 14.0, Plt Count 370, MPV 8.1, Neut % (Auto) 83.5 H, Lymph % (Auto) 9.3 L, [place] % (Auto) 4.3, Eos % (Auto) 2.6, Baso % (Auto) 0.4, Neut # (Auto) 15.0 H, Lymph # (Auto) 1.7, [place] # (Auto) 0.8, Eos # (Auto) 0.5 H, Baso # (Auto) 0.1, Total Counted 100, Neutrophils % (Manual) 83 H, Lymphocytes % (Manual) 15, Monocytes % (Manual) 2, Platelet Estimate Normal, RBC Morphology Normal 08/05/22 06:11: Sodium 138, Potassium 3.4 L, Chloride 98, Carbon Dioxide 30, Anion Gap 13.4, BUN 7 D, Creatinine 0.70, Estimated Creat Clear 73, Estimated GFR 89, Est GFR ( Amer) 108, Glucose 140 H, Calcium 8.6, Total Bilirubin 0.7, AST 37 H, ALT 29, Alkaline Phosphatase 117, C-Reactive Protein 222.7 H, Total Protein 6.8, Albumin 3.5, Globulin 3.3 H, Albumin/Globulin Ratio 1.1 I & O for Last 24 hours: Intake & Output 08/02/22 08/03/22 08/04/22/07/23 23:59 23:59 23:59 23:59 Intake Total 2432 / 35 3553 / 3553 2544 / 3766 1222 / 1222 Output Total 0 / 0 300 / 300 0 / 0 0 / 0 Balance 2433 / 4435 3253 / 3253 2544 / 3766 1222 / 1222 Weight 102 kg 102.875 kg 102.8 kg 103.986 kg Constitutional Constitutional: no acute distress *Routine HEENT Exam Head: Present normocephalic Eye: Present EOMI and PERRL ENT: Present mucous membranes moist *Routine Neck Exam Neck: Present supple; Absent lymphadenopathy *Routine Respiratory Exam Respiratory: Present CTA bilaterally *Routine Cardiovascular Exam Cardiovascular: Present RRR *Routine Abdominal Exam Abdominal: Present soft and obese; Absent tenderness (milin epigastrium and periumbilical areas. ) or rebound *Routine Extremities Exam Extremities: Absent cyanosis, clubbing or edema *Routine Skin Exam Skin: Present warm; Absent rash *Routine Neurological Exam Neurological: Present alert and oriented X3 Assessment and Plan *Assessment and plan (1) Pancreatitis: Status: Acute Category: Medical Code(s): K85.90 - Acute pancreatitis without necrosis or infection, unspecified (2) COPD (chronic obstructive pulmonary disease): Status: Acute Qualifiers: COPD type: unspecified COPD Qualified Code(s): J44.9 - Chronic obstructive pulmonary disease, unspecified Category: Medical Code(s): J44.9 - Chronic obstructive pulmonary disease, unspecified (3) Tobacco abuse: Status: Chronic Category: Medical Code(s): Z72.0 - Tobacco use (4) Hyperlipidemia: Status: Acute Qualifiers: Hyperlipidemia type: unspecified Qualified Code(s): E78.5 - Hyperlipidemia, unspecified Category: Medical Code(s): E78.5 - Hyperlipidemia, unspecified Plan Ms. Pineda is a 47 year old female with a past medical history of obesity, HTN, HLD, COPD who presented with abdominal pain and admitted on 08/01 with recurrent pancreatitis. Initial workup included lipase 656, amylase 124, 20K WBCs; CT abd/pel with worsening diffuse pancreatitis. #acute pancreatitis, recurrent #obesity #hypertension #type 2 diabetes mellitus #copd Discontinued PRN Dilaudid Continue supplemental oxygen if it is needed Continue treating pain as needed Unclear etiology of pancreatitis; she will establish care with Gastroenterology at soon. She states he
--- NOTE | 2022-08-05 11:29 | DIET.NUTRFU ---
Patient restarted on clear liquids this morning, was given some clear by nursing this morning only took sips. Patient reports pain is improving. Labs improving. IVF continues for hydration, labs reviewed. Will continue to tolerate diet tolerance
--- NOTE | 2022-08-05 14:23 | PC.NURSE ---
PT 98 ON ROOM AIR AT THIS TIME.
[2022-08-05 15:43] VITALS: BP 137/71; PULSE 83; RESP 18; TEMP 36.8; O2SAT 95
--- NOTE | 2022-08-05 18:01 | PC.NURSE ---
no acute changes this shift. she has not c/o pain this shift. tolerating diet well (clears). has rested in bed for most of shift. o2 per nc successfully weaned. pt tolerating room air well at this time.
[2022-08-05 20:00] VITALS: BP 141/69; PULSE 74; RESP 18; TEMP 37.2; O2SAT 90
[2022-08-06 04:00] VITALS: BP 140/86; PULSE 88; RESP 16; TEMP 36.8; O2SAT 96; BMI 40.6
[2022-08-06 07:40] LABS: Basophils # 0.1 K/mm3 (0-0.2); Basophils % 0.5 % (0.1-2.0); Eosinophils # 0.5 K/mm3 (0.0-0.4); Eosinophils % 3.6 % (0.1-12.0); Hematocrit 40.7 % (37.0-47.0); Hemoglobin 13.2 g/dL (12.2-16.2); Lymphocytes # 1.9 K/mm3 (0.7-4.5); Lymphocytes % 14.3 % (10-50); Mean Corpuscular HGB Conc 32.5 g/dL (31.8-35.4); Mean Corpuscular Volume 89.3 fl (81-99); Mean Platelet Volume 8.3 fl (7.4-10.4); Monocytes # 0.6 K/mm3 (0.1-1.0); Monocytes % 4.5 % (1.7-9.3); Neutrophils # 10.2 K/mm3 (1.8-7.8); Neutrophils % 77.1 % (37.0-80.0); Platelet Count 429 K/mm3 (142-424); Red Blood Count 4.56 M/mm3 (4.20-5.40); Red Cell Distribution Width 13.9 % (11.5-17.5); White Blood Count 13.3 K/mm3 (4.8-10.8)
[2022-08-06 07:49] VITALS: BP 115/78; PULSE 84; RESP 17; TEMP 36.7; O2SAT 95
[2022-08-06 07:50] LABS: Chloride 98 mmol/L (98-107); Sodium 139 mmol/L (136-145)
[2022-08-06 07:51] LABS: Potassium 3.1 mmoL/L (3.5-5.1)
[2022-08-06 07:53] LABS: Alanine Aminotransferase 36 U/L (12-78); Albumin Level 3.6 g/dl (3.5-5.0); Albumin/Globulin Ratio 1.1 (1.1-1.8); Alkaline Phosphatase 141 U/L (38-126); Anion Gap 11.1 mEq/L (5-15); Aspartate Amino Transferase 47 U/L (14-36); Bilirubin,Total 0.6 mg/dl (0.2-1.3); Blood Urea Nitrogen 8 mg/dl (7-17); Carbon Dioxide 33 mmol/L (22.0-30.0); Creatinine Clearance Estimated 73 mL/min (50-200); Estimated Glomerular Filt Rate 89 ml/min (>60); GFR (African American) 108 ML/MIN (>60); Globulin 3.4 g/dL (1.3-3.2); Glucose 164 mg/dl (74-100); Magnesium 2.3 mg/dl (1.6-2.3)
--- NOTE | 2022-08-06 08:22 | EXP.PN ---
Subjective *Date: 08/06/22 *Time: 08:22 Interval history: She's on room air this morning, saturating well. Leukocytosis is resolving with 13.3K WBCs on her CBC. K is 3.1 Exam Data for Last 24 hours Vital signs and Labs for Last 24 Hours: Temp Pulse Resp BP Pulse Ox 98.1 F 84 17 115/78 95 08/06/22 07:49 08/06/22 07:49 08/06/22 07:49 08/06/22 07:49 08/06/22 07:49 Laboratory Results - last 24 hr 08/06/22 06:59: WBC 13.3 H D, RBC 4.56, Hgb 13.2, Hct 40.7, MCV 89.3, MCH 29.0, MCHC 32.5, RDW 13.9, Plt Count 429 H, MPV 8.3, Neut % (Auto) 77.1, Lymph % (Auto) 14.3, [place] % (Auto) 4.5, Eos % (Auto) 3.6, Baso % (Auto) 0.5, Neut # (Auto) 10.2 H, Lymph # (Auto) 1.9, [place] # (Auto) 0.6, Eos # (Auto) 0.5 H, Baso # (Auto) 0.1 08/06/22 06:59: Sodium 139, Potassium 3.1 L, Chloride 98, Carbon Dioxide 33 H, Anion Gap 11.1, BUN 8, Creatinine 0.70, Estimated Creat Clear 73, Estimated GFR 89, Est GFR ( Amer) 108, Glucose 164 H, Calcium 9.0, Magnesium 2.3, Total Bilirubin 0.6, AST 47 H D, ALT 36, Alkaline Phosphatase 141 H, Total Protein 7.0, Albumin 3.6, Globulin 3.4 H, Albumin/Globulin Ratio 1.1 I & O for Last 24 hours: Intake & Output 08/03/22 08/04/22 08/05/22 08/06/22 23:59 23:59 23:59 23:59 Intake Total 3553 / 3553 2544 / 3766 2061 620 / 620 Output Total 300 / 300 0 / 0 0 / 0 Balance 3253 / 3253 2544 / 3766 2061 620 / 620 Weight 102.875 kg 102.8 kg 103.986 kg 100.062 kg Assessment and Plan *Assessment and plan (1) Pancreatitis: Status: Acute Category: Medical Code(s): K85.90 - Acute pancreatitis without necrosis or infection, unspecified (2) COPD (chronic obstructive pulmonary disease): Status: Acute Qualifiers: COPD type: unspecified COPD Qualified Code(s): J44.9 - Chronic obstructive pulmonary disease, unspecified Category: Medical Code(s): J44.9 - Chronic obstructive pulmonary disease, unspecified (3) Tobacco abuse: Status: Chronic Category: Medical Code(s): Z72.0 - Tobacco use (4) Hyperlipidemia: Status: Acute Qualifiers: Hyperlipidemia type: unspecified Qualified Code(s): E78.5 - Hyperlipidemia, unspecified Category: Medical Code(s): E78.5 - Hyperlipidemia, unspecified Plan Replace potassium Ms. Pineda is a 47 year old female with a past medical history of obesity, HTN, HLD, COPD who presented with abdominal pain and admitted on 08/01 with recurrent pancreatitis. Initial workup included lipase 656, amylase 124, 20K WBCs; CT abd/pel with worsening diffuse pancreatitis. #acute pancreatitis, recurrent #obesity #hypertension #type 2 diabetes mellitus #copd Discontinued PRN Dilaudid Continue supplemental oxygen if it is needed Continue treating pain as needed Unclear etiology of pancreatitis; she will establish care with Gastroenterology at soon. She states her recurrent episodes of pancreatitis started after taking Chantix a couple years ago. US of the abdomen revealed a fatty liver and sludge in the gallbladder. I will continue her antihypertensive medications and antidepressant for now. She states that she has been on her antidepressant for many years. Her blood pressure medications were changed in May or June but she cannot recall their names. DVT ppx: Lovenox Full code CLD with NS @ 100mL/hr
--- NOTE | 2022-08-06 08:57 | PC.NURSE ---
courtesy tech note; rounded on pt, pt sleeping at this time, pt denied the need for assistance with anything at this time. call light within reach K MORENA Carvalho
--- NOTE | 2022-08-06 10:46 | EXP.DC.SUM ---
General Admission date:: 08/01/22 Discharge date: 08/06/22 Hospital Course Hospital Course Hospital Course: Ms. Pineda is a 47 year old female with a past medical history of obesity, HTN, HLD, COPD who presented with abdominal pain and admitted on 08/01 with recurrent pancreatitis. Initial workup included lipase 656, amylase 124, 20K WBCs; CT abd/pel with worsening diffuse pancreatitis. The patient was given IV fluids and pain was treated as needed. By the day of discharge the patient was able to drink liquids and pain had resolved without needing narcotics over 24 hrs. Unclear etiology of pancreatitis, could be drug-induced. She states her recurrent episodes of pancreatitis started after taking Chantix a couple years ago. She states that she had been on her antidepressant for many years. Her blood pressure medications were changed in May or June but she cannot recall their names. I continued her antihypertensive medications and antidepressant. US of the abdomen revealed a fatty liver and sludge in the gallbladder. She has no history of alcoholism and her triglycerides were 194. She will establish care with Gastroenterology at later this month. #acute pancreatitis, recurrent #obesity #hypertension #type 2 diabetes mellitus #copd Exam Data for Last 24 hours Vital signs and Labs for Last 24 Hours: Temp Pulse Resp BP Pulse Ox 98.1 F 84 17 115/78 95 08/06/22 07:49 08/06/22 07:49 08/06/22 07:49 08/06/22 07:49 08/06/22 07:49 Laboratory Results - last 24 hr 08/06/22 06:59: WBC 13.3 H D, RBC 4.56, Hgb 13.2, Hct 40.7, MCV 89.3, MCH 29.0, MCHC 32.5, RDW 13.9, Plt Count 429 H, MPV 8.3, Neut % (Auto) 77.1, Lymph % (Auto) 14.3, [place] % (Auto) 4.5, Eos % (Auto) 3.6, Baso % (Auto) 0.5, Neut # (Auto) 10.2 H, Lymph # (Auto) 1.9, [place] # (Auto) 0.6, Eos # (Auto) 0.5 H, Baso # (Auto) 0.1 08/06/22 06:59: Sodium 139, Potassium 3.1 L, Chloride 98, Carbon Dioxide 33 H, Anion Gap 11.1, BUN 8, Creatinine 0.70, Estimated Creat Clear 73, Estimated GFR 89, Est GFR ( Amer) 108, Glucose 164 H, Calcium 9.0, Magnesium 2.3, Total Bilirubin 0.6, AST 47 H D, ALT 36, Alkaline Phosphatase 141 H, Total Protein 7.0, Albumin 3.6, Globulin 3.4 H, Albumin/Globulin Ratio 1.1 I & O for Last 24 hours: Intake & Output 08/03/22 08/04/22 08/05/22 08/06/22 23:59 23:59 23:59 23:59 Intake Total 3553 / 3553 2544 / 3766 2061 620 / 620 Output Total 300 / 300 0 / 0 0 / 0 0 / 0 Balance 3253 / 3253 2544 / 3766 2061 620 / 620 Weight 102.875 kg 102.8 kg 103.986 kg 100.062 kg Constitutional Constitutional: no acute distress *Routine HEENT Exam Head: Present normocephalic Eye: Present EOMI and PERRL ENT: Present mucous membranes moist *Routine Neck Exam Neck: Present supple; Absent lymphadenopathy *Routine Respiratory Exam Respiratory: Present CTA bilaterally *Routine Cardiovascular Exam Cardiovascular: Present RRR *Routine Abdominal Exam Abdominal: Present soft and obese; Absent tenderness or rebound *Routine Extremities Exam Extremities: Absent cyanosis, clubbing or edema *Routine Skin Exam Skin: Present warm; Absent rash *Routine Neurological Exam Neurological: Present alert and oriented X3 Results Data Completed and Pending Labs on day of discharge: Labs from last 24 hours 08/06/22 08/06/22 06:59 06:59 WBC 13.3 H D RBC 4.56 Hgb 13.2 Hct 40.7 MCV 89.3 MCH 29.0 MCHC 32.5 RDW 13.9 Plt Count 429 H MPV 8.3 Neut % (Auto) 77.1 Lymph % (Auto) 14.3 [place] % (Auto) 4.5 Eos % (Auto) 3.6 Baso % (Auto) 0.5 Neut # (Auto) 10.2 H Lymph # (Auto) 1.9 [place] # (Auto) 0.6 Eos # (Auto) 0.5 H Baso # (Auto) 0.1 Sodium 139 Potassium 3.1 L Chloride 98 Carbon Dioxide 33 H Anion Gap 11.1 BUN 8 Creatinine 0.70 Estimated Creat Clear 73 Estimated GFR 89 Est GFR ( Amer) 108 Glucose 164 H Calcium 9.0 Magnesium 2.3 Total Bilirubin 0.6 AST 47 H D ALT 3
--- NOTE | 2022-08-06 11:14 | PC.NURSE ---
DR SUAREZ WANTS PT TO RECIEVE 3 RUNS OF K BEFORE LEAVING.
--- NOTE | 2022-08-06 15:33 | PC.NURSE ---
courtesy tech note; rounded on pt, pt denied the need for snack, drink, need to use the restroom, and need to reposition in bed. call light within reach, no further requests at this time. Osiel Carvalho, SRNA
--- NOTE | 2022-08-08 14:28 | CARE MANAGER ---
Called and spoke with Sarita regarding recent discharge. She had no complaints or concerns at time of call. She is aware of need for 1 week f/u appt with Dr. Roberts, but has not called to schedule it yet.
== END 2022-08-06 16:15 | disposition home or self-care (01) | DRG 439 ==
LOC: ER 22:05 → 2ND 22:13
PROVIDERS: Nurse Practitioner Acute Care; Admitting Provider Internal Medicine; Emergency Provider Emergency Medicine; PCP Family Medicine; Visit Provider Internal Medicine
DX: K85.90 Acute pancreatitis without necrosis or infection, unspecified (principal); Z68.41 Body mass index [BMI] 40.0-44.9, adult; J44.9 Chronic obstructive pulmonary disease, unspecified; E78.5 Hyperlipidemia, unspecified; E66.9 Obesity, unspecified; I10 Essential (primary) hypertension; E11.9 Type 2 diabetes mellitus without complications
CPT/HCPCS: 36415; 71045; 74177; 76705; 80053; 80061; 81001; 81025; 82009; 82150; 82962; 83605; 83690; 83735; 84145; 85007; 85025; 85651; 86140; 94640; 94761; 99285; C9803; J2405; Q9967; U0003; U0005

== ENCOUNTER → 2022-08-18 23:15 | Outpatient (CLI) | payer MEDICAID, SELFPAY | PROVIDERS: PCP Nurse Practitioner Family; Visit Provider Nurse Practitioner Family | DX: R35.0 Frequency of micturition (principal) | CPT/HCPCS: 87086 ==

== ENCOUNTER → 2022-10-05 14:15 | Outpatient (CLI) | payer MEDICAID, SELFPAY ==
[2022-10-05 16:44] LABS: Basophils # 0.1 K/mm3 (0-0.2); Basophils % 0.6 % (0.1-2.0); Eosinophils # 0.3 K/mm3 (0.0-0.4); Eosinophils % 2.7 % (0.1-12.0); Hematocrit 45.1 % (37.0-47.0); Hemoglobin 14.3 g/dL (12.2-16.2); Lymphocytes # 3.1 K/mm3 (0.7-4.5); Lymphocytes % 31.6 % (10-50); Mean Corpuscular HGB Conc 31.6 g/dL (31.8-35.4); Mean Corpuscular Hemoglobin 27.8 pg (27.0-31.2); Mean Corpuscular Volume 87.9 fl (81-99); Monocytes # 0.5 K/mm3 (0.1-1.0); Monocytes % 5.2 % (1.7-9.3); Neutrophils # 5.9 K/mm3 (1.8-7.8); Neutrophils % 59.9 % (37.0-80.0); Platelet Count 380 K/mm3 (142-424); Red Blood Count 5.13 M/mm3 (4.20-5.40); Red Cell Distribution Width 14.8 % (11.5-17.5); White Blood Count 9.8 K/mm3 (4.8-10.8)
[2022-10-12 14:37] LABS: D001-IgE D pteronyssinus <0.10 kU/L (Class 0); D002-IgE D farinae <0.10 kU/L (Class 0); E001-IgE Cat Dander <0.10 kU/L (Class 0); E005-IgE Dog Dander <0.10 kU/L (Class 0); E072-IgE Mouse Urine <0.10 kU/L (Class 0); G002-IgE Bermuda Grass <0.10 kU/L (Class 0); G006-IgE Timothy Grass <0.10 kU/L (Class 0); I006-IgE Cockroach, German <0.10 kU/L (Class 0); Immunoglobulin E, Total 27 IU/mL (6-495); M001-IgE Penicillium chrysogen <0.10 kU/L (Class 0); M002-IgE Cladosporium herbarum <0.10 kU/L (Class 0); M003-IgE Aspergillus fumigatus <0.10 kU/L (Class 0); M006-IgE Alternaria alternata <0.10 kU/L (Class 0); T001-IgE Maple/Box Elder <0.10 kU/L (Class 0); T003-IgE Common Silver Birch <0.10 kU/L (Class 0); T006-IgE Cedar, Mountain <0.10 kU/L (Class 0); T007-IgE Oak, White <0.10 kU/L (Class 0); T008-IgE Elm, American <0.10 kU/L (Class 0); T010-IgE Walnut <0.10 kU/L (Class 0); T011-IgE Maple Leaf Sycamore <0.10 kU/L (Class 0); T014-IgE Cottonwood <0.10 kU/L (Class 0); T015-IgE Ash, White <0.10 kU/L (Class 0); T022-IgE Pecan, Hickory <0.10 kU/L (Class 0); T070-IgE White Mulberry <0.10 kU/L (Class 0); W001-IgE Ragweed, Short <0.10 kU/L (Class 0); W011-IgE Thistle, Russian <0.10 kU/L (Class 0); W014-IgE Pigweed, Common <0.10 kU/L (Class 0); W018-IgE Sheep Sorrel <0.10 kU/L (Class 0)
== END ==
PROVIDERS: PCP Family Medicine; Visit Provider Internal Medicine Pulmonary Disease
DX: J30.9 Allergic rhinitis, unspecified (principal); F17.210 Nicotine dependence, cigarettes, uncomplicated
CPT/HCPCS: 36415; 82785; 85025; 86003

== ENCOUNTER → 2022-10-10 23:38 | Outpatient (CLI) | payer MEDICAID, SELFPAY ==
[2022-10-10 19:35] LABS: Alanine Aminotransferase 35 U/L (12-78); Albumin Level 4.4 g/dl (3.5-5.0); Albumin/Globulin Ratio 1.6 (1.1-1.8); Alkaline Phosphatase 79 U/L (38-126); Anion Gap 17.3 mEq/L (5-15); Aspartate Amino Transferase 36 U/L (14-36); Bilirubin,Total 0.6 mg/dl (0.2-1.3); Blood Urea Nitrogen 14 mg/dl (7-17); Calcium 9.8 mg/dl (8.4-10.2); Carbon Dioxide 29 mmol/L (22.0-30.0); Chloride 96 mmol/L (98-107); Estimated Glomerular Filt Rate 76 ml/min (>60); GFR (African American) 92 ML/MIN (>60); Globulin 2.8 g/dL (1.3-3.2); Glucose 170 mg/dl (74-100); Potassium 4.3 mmoL/L (3.5-5.1); Sodium 138 mmol/L (136-145); Total Protein,Serum 7.2 g/dl (6.3-8.2)
[2022-10-10 20:04] LABS: Thyroid Stimulating Hormone 1.24 uIU/mL (0.465-4.68)
[2022-10-10 20:19] LABS: Hemoglobin A1C 8.6 % (4.0-6.0)
== END ==
PROVIDERS: PCP Family Medicine; Visit Provider Family Medicine
DX: E11.9 Type 2 diabetes mellitus without complications (principal); E04.1 Nontoxic single thyroid nodule; Z79.4 Long term (current) use of insulin
CPT/HCPCS: 80053; 83036; 84443

== ENCOUNTER → 2022-12-15 23:35 | Outpatient (CLI) | payer MEDICAID, SELFPAY ==
[2022-12-15 19:16] LABS: Alanine Aminotransferase 39 U/L (12-78); Albumin Level 4.4 g/dl (3.5-5.0); Albumin/Globulin Ratio 1.5 (1.1-1.8); Alkaline Phosphatase 77 U/L (38-126); Anion Gap 13.9 mEq/L (5-15); Aspartate Amino Transferase 31 U/L (14-36); Bilirubin,Total 0.4 mg/dl (0.2-1.3); Blood Urea Nitrogen 18 mg/dl (7-17); Calcium 9.6 mg/dl (8.4-10.2); Carbon Dioxide 30 mmol/L (22.0-30.0); Chloride 101 mmol/L (98-107); Chol/HDL Ratio 6.6 (1-3.5); Cholesterol 191 mg/dl (140-200); Estimated Glomerular Filt Rate 67 ml/min (>60); GFR (African American) 81 ML/MIN (>60); Globulin 2.9 g/dL (1.3-3.2); Glucose 134 mg/dl (74-100); HDL Cholesterol 29 mg/dl (40-60); Potassium 4.9 mmoL/L (3.5-5.1); Sodium 140 mmol/L (136-145); Total Protein,Serum 7.3 g/dl (6.3-8.2); Triglycerides 175 mg/dl (30-150); VLDL Cholesterol 35 mg/dL (0-40)
[2022-12-15 19:27] LABS: Direct LDL Cholesterol 128.79 mg/dL (100-129)
[2022-12-15 20:11] LABS: Hemoglobin A1C 7.2 % (4.0-6.0)
== END ==
PROVIDERS: PCP Family Medicine; Visit Provider Family Medicine
DX: E11.9 Type 2 diabetes mellitus without complications (principal); Z79.4 Long term (current) use of insulin; Z79.899 Other long term (current) drug therapy
CPT/HCPCS: 80053; 80061; 83036

== ENCOUNTER → 2023-01-05 12:40 | Outpatient (CLI) | payer MEDICAID, SELFPAY ==
--- NOTE | 2023-01-05 13:24 | PC.NURSE ---
PFT and 6 Minute Walk Test completed without incident. Albuterol 0.083% given via HHN, per written protocol, Pt tolerated tx well.
== END ==
PROVIDERS: PCP Family Medicine; Visit Provider Internal Medicine Pulmonary Disease
DX: R06.09 Other forms of dyspnea (principal)
CPT/HCPCS: 94060; 94618; 94726; 94729

== ENCOUNTER → 2023-01-20 12:22 | Outpatient (CLI) | payer MEDICAID, SELFPAY ==
[2023-01-20 13:02] LABS: Basophils # 0.1 K/mm3 (0-0.2); Basophils % 0.6 % (0.1-2.0); Eosinophils # 0.5 K/mm3 (0.0-0.4); Eosinophils % 4.5 % (0.1-12.0); Hematocrit 46.6 % (37.0-47.0); Hemoglobin 14.8 g/dL (12.2-16.2); Lymphocytes % 28.5 % (10-50); Mean Corpuscular HGB Conc 31.7 g/dL (31.8-35.4); Mean Corpuscular Hemoglobin 28.1 pg (27.0-31.2); Mean Corpuscular Volume 88.7 fl (81-99); Mean Platelet Volume 7.8 fl (7.4-10.4); Monocytes # 0.3 K/mm3 (0.1-1.0); Monocytes % 3.2 % (1.7-9.3); Neutrophils # 6.6 K/mm3 (1.8-7.8); Neutrophils % 63.2 % (37.0-80.0); Platelet Count 333 K/mm3 (142-424); Red Blood Count 5.25 M/mm3 (4.20-5.40); Red Cell Distribution Width 14.5 % (11.5-17.5); White Blood Count 10.5 K/mm3 (4.8-10.8)
[2023-01-20 13:03] LABS: Urine Pregnancy, HCG Qual. Negative (Negative)
[2023-01-20 13:53] LABS: Anion Gap 11.1 mEq/L (5-15); Blood Urea Nitrogen 13 mg/dl (7-17); Calcium 9.1 mg/dl (8.4-10.2); Carbon Dioxide 29 mmol/L (22.0-30.0); Chloride 103 mmol/L (98-107); Estimated Glomerular Filt Rate 67 ml/min (>60); GFR (African American) 81 ML/MIN (>60); Glucose 197 mg/dl (74-100); Potassium 4.1 mmoL/L (3.5-5.1); Sodium 139 mmol/L (136-145)
== END ==
PROVIDERS: PCP Surgery; Visit Provider Internal Medicine Pulmonary Disease
DX: L98.9 Disorder of the skin and subcutaneous tissue, unspecified (principal); N60.89 Other benign mammary dysplasias of unspecified breast; R06.02 Shortness of breath; Z01.818 Encounter for other preprocedural examination
CPT/HCPCS: 36415; 80048; 81025; 85025; 94762

== ENCOUNTER 2023-02-02 07:57 | Day surgery (SDC) | payer MEDICAID, SELFPAY ==
[2023-01-31 12:11] VITALS: BMI 38.0
[2023-02-02 08:36] VITALS: BP 137/54; PULSE 82; RESP 16; TEMP 36.5; O2SAT 96
--- NOTE | 2023-02-02 09:20 | EXP.ANES.CKL ---
[facility] Disclaimer: The information contained in this section may have been updated after the patient was seen, as this information can be updated by other users. Medical History Allergic rhinitis Arthritis Asthma Chronic cough Cough syncope Cough syncope CVA (cerebral vascular accident) Daytime somnolence Dyspnea on exertion Headache History of COPD History of myocardial infarction History of smoking 30 or more pack years Hyperlipidemia Hypertension Pancreatitis Syncope Witnessed episode of apnea Surgical History History of section Family History Other Asthma Diabetes Emphysema of lung Family history of CVA Family history of cancer Family history of myocardial infarction Hypertension Social History Smoking Status: Current every day smoker tobacco type: cigarettes packs per day: 1 alcohol intake: never substance use type: denies use current occupational status: unemployed Travel in the last 8 weeks: None household members: spouse caffeine: Yes [facility] Anesthesia Checklist Patient Identification Patient Identification: Arm Band and Verbal (Name & ) Structural Data Admitted From: Home Planned Operative Procedure/s: REmoval of multiple cysts Consent for Planned Operative Procedure(s) Verified: Yes NPO Status Verified Time NPO: 00:00 Additional verifications Anesthesia Reactions: No Hx Blood Transfusions: No Blood Transfusion Reaction: No Airway Assessment Mallampati Score:: Class II C-Spine Mobility Assessed: Yes TMJ Mobility Assessed: Yes Dentition: Edentulous Neurological Assessment Level of Consciousness: Awake Hx Seizures: No Numbness or tingling in extremities: No Anesthesia Plan Anesthesia Risk discussed: Yes Anesthesia Plan: Verified ASA Class: III Anesthesia Type: General
--- NOTE | 2023-02-02 10:25 | P.OP_ITS ---
Date of procedure: 02/02/23 Pre-op Diagnosis:: 1.5 cm right medial breast cyst 5 mm mid upper back skin neoplasm Post-op Diagnosis:: Same Procedure performed:: Excision of 1.5 cm right breast cyst Excision of 5 mm mid upper back skin neoplasm Surgeon:: Amauri Williamson MD GEOGRAPHICAL HISTORIAN:: Joshua Camp Anesthesia: MAC and local Estimated blood loss (mL): 15 Operative findings:: Skin neoplasm excised with 1-2 mm margin Operative note:: After informed consent was obtained the patient was taken to the operating room and placed in the right lateral decubitus position. Monitored anesthesia care ensued. Her right medial breast and her mid upper back were prepped and draped in a sterile fashion. After infiltration with local anesthetic an elliptical incision was made around the 1.5 cm right breast cyst. The lesion was excised in toto sharply into the deep subcutaneous tissue. The lesion was passed off for pathologic evaluation. Skin was closed with interrupted 4-0 nylon in a mattress fashion to facilitate hemostasis. The mid upper back lesion was excised in a similar manner with a 1-2 mm margin. Closure with 4-0 nylon in a mattress fashion was also completed. Dressings were applied and the patient was transferred to recovery in stable condition. Condition: stable Disposition: PACU Specimens:: 1.5 cm right breast cysts 5 mm mid upper back skin neoplasm Complications:: No immediate
[2023-02-02 10:30] VITALS: BP 125/74; PULSE 87; RESP 16; TEMP 36.1; O2SAT 97
[2023-02-02 10:31] LABS: POC Glucose,Bedside 161 (70-110)
[2023-02-02 11:00] VITALS: BP 111/78; PULSE 76; RESP 18; O2SAT 92
== END 2023-02-02 11:05 | disposition home or self-care (01) ==
PROVIDERS: PCP Family Medicine; Visit Provider Surgery
PROC: (CPT 19120; principal; 2023-02-02 09:45)
DX: L72.0 Epidermal cyst (principal); L57.0 Actinic keratosis; E11.9 Type 2 diabetes mellitus without complications
CPT/HCPCS: 19120; 11400; 82962; 96374

== ENCOUNTER → 2023-04-14 15:42 | Outpatient (CLI) | payer MEDICAID, SELFPAY ==
--- NOTE | 2023-04-14 15:43 | MM_ITS ---
PROCEDURE INFORMATION: Exam: MG Bilateral Screening 3D Mammography Exam date and time: 04/14/2023 3:52 PM Age: 47 years old Clinical indication: Screening examination; Additional info: Breast cancer screening. Strong family history of premenopausal breast carcinoma TECHNIQUE: Imaging protocol: Bilateral Screening tomosynthesis and 2D mammography including computer-aided detection (CAD) when performed. COMPARISON: 1. MG MM DIG SCREENING MAMM BI W/CAD 03/15/2022 1:16 PM 2. MG MM MOBILE MAMMO DIGITAL SCREEN W CAD SUDEEP 03/02/2016 12:21 PM 3. MG MM MOBILE MAMMO DIGITAL SCREEN W CAD SUDEEP 03/05/2015 8:46 AM FINDINGS: MAMMOGRAPHY: Breast composition: The breasts are heterogeneously dense, which may obscure small masses. Mass: No suspicious masses. Architectural distortion: No suspicious distortion. Calcifications: No suspicious calcifications. Asymmetric density: None. Skin thickening: None. Axillary adenopathy: None. IMPRESSION: 1. No mammographic evidence of malignancy. Annual screening is recommended unless otherwise clinically indicated. 2. Given the reported risk factors for this patient, a breast cancer risk assessment may prove useful for further evaluation. ASSESSMENT: BI-RADS Category 1: Negative
== END ==
PROVIDERS: PCP Family Medicine; Visit Provider Family Medicine
DX: Z12.31 Encounter for screening mammogram for malignant neoplasm of breast (principal)
CPT/HCPCS: 77063; 77067

== ENCOUNTER 2023-05-09 21:47 | Emergency (ER) | payer MEDICAID, SELFPAY ==
[2023-05-09 21:48] VITALS: BP 141/90; PULSE 99; RESP 20; TEMP 36.6; O2SAT 97; BMI 39.3
[2023-05-09 22:18] LABS: Basophils # 0.2 K/mm3 (0-0.2); Eosinophils # 0.5 K/mm3 (0.0-0.4); Eosinophils % 2.9 % (0.1-12.0); Hematocrit 51.9 % (37.0-47.0); Hemoglobin 17.1 g/dL (12.2-16.2); Lymphocytes # 3.7 K/mm3 (0.7-4.5); Lymphocytes % 20.1 % (10-50); Mean Corpuscular Hemoglobin 29.9 pg (27.0-31.2); Mean Corpuscular Volume 90.7 fl (81-99); Mean Platelet Volume 7.6 fl (7.4-10.4); Monocytes # 0.7 K/mm3 (0.1-1.0); Monocytes % 3.8 % (1.7-9.3); Neutrophils # 13.1 K/mm3 (1.8-7.8); Neutrophils % 72.2 % (37.0-80.0); Platelet Count 397 K/mm3 (142-424); Red Blood Count 5.72 M/mm3 (4.20-5.40); Red Cell Distribution Width 14.7 % (11.5-17.5); White Blood Count 18.2 K/mm3 (4.8-10.8)
[2023-05-09 22:19] LABS: MANUAL DIFFERENTIAL MANUAL DIFFERENTIAL (MANUAL DIFF)
[2023-05-09 22:23] LABS: Chloride 96 mmol/L (98-107); Sodium 134 mmol/L (136-145)
[2023-05-09 22:24] LABS: Potassium 4.3 mmoL/L (3.5-5.1)
[2023-05-09 22:26] LABS: Alanine Aminotransferase 24 U/L (12-78); Alkaline Phosphatase 81 U/L (38-126); Amylase 48 U/L (30-110); Anion Gap 11.3 mEq/L (5-15); Aspartate Amino Transferase 27 U/L (14-36); Bilirubin,Total 0.5 mg/dl (0.2-1.3); Blood Urea Nitrogen 18 mg/dl (7-17); Carbon Dioxide 31 mmol/L (22.0-30.0); Creatinine Clearance Estimated 105 mL/min (50-200); Estimated Glomerular Filt Rate 59 ml/min (>60); GFR (African American) 71 ML/MIN (>60); Lipase 109 U/L (23-300)
[2023-05-09 22:27] LABS: Albumin Level 4.2 g/dl (3.5-5.0); Albumin/Globulin Ratio 1.3 (1.1-1.8); Calcium 9.3 mg/dl (8.4-10.2); Eosinophils % 2 % (0-3); Globulin 3.2 g/dL (1.3-3.2); Glucose 285 mg/dl (74-100); Lymphocytes % 17 % (10-50); Monocytes % 6 % (2-9); Neutrophils % 75 % (42-76); Total Cells Counted 100; Total Protein,Serum 7.4 g/dl (6.3-8.2)
[2023-05-09 22:28] LABS: Platelet Estimate Normal; RBC Morphology Normal
[2023-05-09 22:30] VITALS: BP 130/90; PULSE 90; O2SAT 90
[2023-05-09 22:33] LABS: Microscopic, Urine URINE MICROSCOPIC (MICROSCOPIC)
[2023-05-09 22:37] LABS: Appearance,Urine CLEAR (Clear); Bilirubin,Urine Negative (Negative); Blood, Urine 2+ (Negative); Color,Urine YELLOW (Yellow); Glucose,Urine (UA) 2+ (Negative); Ketones,Urine Negative (Negative); Leukocyte Esterase,Urine Negative (Negative); Nitrate,Urine Negative (Negative); PH,Urine 6.5 (5.0-8.5); Protein,Urine Negative (Negative); Specific Gravity, Urine 1.015 (1.005-1.030); Urobilinogen,Urine 0.2 EU/dl (0.2)
[2023-05-09 22:39] LABS: Troponin I < 0.01 ng/ml (0.00-0.034)
--- NOTE | 2023-05-09 22:50 | ED_ITS ---
Discharge Plan Disposition Patient Disposition: Home, Self-Care Prescriptions Prescriptions: New ondansetron HCl 4 mg tablet 4 mg PO Q8H PRN (Reason: nausea and vomiting) 5 Days Qty: 30 0RF No Action ipratropium-albuterol 0.5 mg-3 mg(2.5 mg base)/3 mL solution for nebulization 3 ml inhalation Q6H PRN (Reason: shortness of breath or wheezing) Qty: 90 3RF albuterol sulfate [Ventolin HFA] 90 mcg/actuation HFA aerosol inhaler 2 inh inhalation Q6H PRN (Reason: shortness of breath or wheezing) 90 Days Qty: 18 3RF All Day Allergy (cetirizine) 10 mg capsule 10 mg PO DAILY PRN (Reason: allergy symptoms) Qty: 30 0RF meloxicam 15 mg tablet 15 mg PO DAILY PRN (Reason: pain) Qty: 30 3RF (DME) blood-glucose meter [Ecociclusuch Ultra2 Meter] Misc See Rx Instructions .Route Qty: 1 0RF Rx Instructions: As directed tramadol 50 mg tablet 50 mg PO Q8H PRN (Reason: pain) Qty: 45 1RF methylprednisolone [Medrol ([place])] 4 mg tablets,dose pack See Rx Instructions PO PER PKG DIR Qty: 21 0RF Rx Instructions: PO PER PKG DIR valsartan-hydrochlorothiazide 160-12.5 mg tablet 1 tab PO DAILY Qty: 90 3RF (DME) Dexcom G6 Recovery Operator Helper Misc See Rx Instructions .Route Qty: 1 0RF Rx Instructions: As directed (DME) lancets [OneTouch Delica Plus Lancet] 33 gauge misc See Rx Instructions .Route Qty: 100 0RF Rx Instructions: As directed (DME) pen needle, diabetic 32 gauge x 5/32 needle See Rx Instructions .Route Qty: 1200 3RF Rx Instructions: As directed levothyroxine [Synthroid] 25 mcg tablet 25 mcg PO DAILY Qty: 90 0RF pantoprazole 40 mg tablet,delayed release (DR/EC) See Rx Instructions .ROUTE .COMPLEX Qty: 90 3RF Dose Instruction: TAKE 1 TABLET BY MOUTH DAILY FOR ACID REFLUX. Rx Instructions: TAKE 1 TABLET BY MOUTH DAILY FOR ACID REFLUX. (DME) Dexcom G6 Sensor Device See Rx Instructions .ROUTE .COMPLEX Qty: 3 0RF Dose Instruction: USE DIRECTED Rx Instructions: USE DIRECTED (DME) Dexcom G6 Transmitter Device See Rx Instructions .ROUTE .COMPLEX Qty: 1 0RF Dose Instruction: USE DIRECTED Rx Instructions: USE DIRECTED amitriptyline 25 mg tablet See Rx Instructions .ROUTE .COMPLEX Qty: 90 0RF Dose Instruction: TAKE 1 TABLET BY MOUTH DAILY FOR MIGRAINES Rx Instructions: TAKE 1 TABLET BY MOUTH DAILY FOR MIGRAINES azelastine 137 mcg (0.1 %) aerosol,spray 2 spray intranasal HS Rx Instructions: administer into each nostril fluticasone propionate [Flonase Allergy Relief] 50 mcg/actuation spray,suspension 2 spray intranasal DAILY Rx Instructions: administer into each nostril torsemide 20 mg tablet 20 mg PO DAILY PRN (Reason: Swelling) propranolol 60 mg capsule,extended release 24 hr See Rx Instructions .ROUTE .COMPLEX Rx Instructions: Take 1 capsule by mouth once daily sertraline 100 mg tablet 100 mg PO DAILY fluticasone propion-salmeterol [Advair Diskus] 500-50 mcg/dose blister with device 1 inh inhalation BID insulin aspart U-100 [Novolog FlexPen U-100 Insulin] 100 unit/mL (3 mL) insulin pen 5 unit SQ TID Rx Instructions: please take 1/2 hour before eating Levemir FlexPen 100 unit/mL (3 mL) insulin pen 30 unit SQ HS Referrals Follow up/Referrals: Isidro Roberts MD [Primary Care Provider] - See instructions Activity Restrictions/Add. Instructions Additional Instructions/Restrictions: Please follow-up with your primary care provider. Please return to the emergency department if you develop any new or worsening symptoms or become concerned for your health. Please take oxycodone at home as needed for pain. Please take Zofran as needed for nausea and vomiting. Clinical Impressions Clinical Impression: Epigastric abdominal pain Acute pancreatitis Qualifiers: Pancreatitis type: unspecified pancreatitis type Acute pancreatitis complication: no infection or necrosis Qualified Code(s): K85.90 - Acute pancreatitis without necrosis or infection, unspecified Instructions Patient Instructions: DI for Acute Abdominal Pain Discharge ED Provider: Joseph Love General Adult HPI <Joseph Love MD - Last Filed: 05/09/23 23:00> General Chief complaint: Abdominal Pain Stated complaint: abd pain Time Seen by Provider: 05/09/23 22:45 Mode of Arrival: Ambulatory Source of Information: Patient Limitations: No Limitations Description of Symptoms (Recalled from ER Triage Doc. by RN): pt believes she is having a pancreatitis flare up, has had it a few times in the past. pt states it started on Monday and has had some nausea History of Present Illness HPI narrative: Patient is a 47-year-old female with a known history of acute pancreatitis in the past who presents today with what she believes to be the same. Historically she has had elevations in her lipase presents today with several days of epigastric abdominal pain which he states is severe. No exertional chest pain radiation diaphoresis dyspnea etc. Denies any urinary symptoms etc. Related Data Home Medications Medication Instructions Recorded Confirmed azelastine 137 mcg (0.1 %) nasal 2 spray intranasal HS allergies 06/24/22 05/04/23 spray aerosol fluticasone propionate 50 2 spray intranasal DAILY allergies 06/24/22 05/04/23 mcg/actuation nasal spray,suspension (Flonase Allergy Relief) torsemide 20 mg tablet 20 mg PO DAILY PRN Swelling 08/02/22 05/04/23 fluticasone 500 mcg-salmeterol 50 1 inh inhalation BID Asthma 01/31/23 05/04/23 mcg/dose blistr powdr for inhalation (Advair Diskus) insulin aspart U-100 100 unit/mL 5 unit SQ TID Diabetes 01/31/23 05/04/23 (3 mL) subcutaneous pen (Novolog FlexPen U-100 Insulin aspart) insulin detemir U-100 100 unit/mL 30 unit SQ HS Diabetes 01/31/23 05/04/23 (3 mL) subcutaneous pen (Levemir FlexPen) propranolol 60 mg capsule,24 See Rx Instructions .Route 01/31/23 05/04/23 hr,extended release .COMPLEX bp sertraline 100 mg tablet 100 mg PO DAILY Depression 01/31/23 05/04/23 Previous Rx's Medication Instructions Recorded meloxicam 15 mg tablet 15 mg PO DAILY PRN pain #30 tabs 04/04/22 blood-glucose meter (OneTouch #1 ea 08/18/22 Ultra2 Meter) valsartan 160 1 tab PO DAILY High blood pressure 08/22/22 mg-hydrochlorothiazide 12.5 mg #90 tabs tablet Dexcom G6 Recovery Operator Helper (blood-glucose #1 ea 10/24/22 meter,continuous) lancets 33 gauge (OneTouch Delica #100 ea 10/24/22 Plus Lancet) pen needle, diabetic 32 gauge x #1,200 ea 10/24/22 albuterol sulfate 90 mcg/actuation 2 inh inhalation Q6H PRN shortness 01/05/23 aerosol inhaler (Ventolin HFA) of breath or wheezing 90 days #18 grams ipratropium 0.5 mg-albuterol 3 mg 3 ml inhalation Q6H PRN shortness 01/05/23 (2.5 mg base)/3 mL nebulization of breath or wheezing #90 mL soln levothyroxine 25 mcg tablet 25 mcg PO DAILY thyroid #90 tabs 02/10/23 (Synthroid) pantoprazole 40 mg tablet,delayed See Rx Instructions .Route 03/01/23 release .COMPLEX #90 tabs Dexcom G6 Sensor (blood-glucose #3 ea 04/03/23 sensor) cetirizine 10 mg capsule (All Day 10 mg PO DAILY PRN allergy 04/06/23 Allergy (cetirizine)) symptoms #30 caps Dexcom G6 Transmitter #1 ea 04/25/23 (blood-glucose transmitter) amitriptyline 25 mg tablet See Rx Instructions .Route 04/25/23 .COMPLEX #90 tabs methylprednisolone 4 mg tablets in See Rx Instructions PO PER PKG DIR 05/04/23 a dose pack (Medrol (Jairo)) #21 tabs tramadol 50 mg tablet 50 mg PO Q8H PRN pain #45 tabs 05/04/23 ondansetron HCl 4 mg tablet 4 mg PO Q8H PRN nausea and 05/10/23 vomiting 5 days #30 tabs Allergies Allergy/AdvReac Type Severity Reaction Status Date / Time glimepiride [From Amaryl] AdvReac Severe Verified 05/04/23 08:28 [facility] <Joseph Love MD - Last Filed: 05/09/23 23:00> [facility] Disclaimer: The information contained in this section may have been updated after the patient was seen, as this information can be updated by other users. Medical History Allergic rhinitis Arthritis Asthma Chronic cough Cough syncope Cough syncope CVA (cerebral vascular accident) Daytime somnolence Dyspnea on exertion Headache History of COPD History of myocardial infarction History of smoking 30 or more pack years Hyperlipidemia Hypertension Pancreatitis Sebaceous cyst of breast Skin lesion of back Syncope Witnessed episode of apnea Surgical History History of section Family History Other Asthma Diabetes Emphysema of lung Family history of CVA Family history of cancer Family history of myocardial infarction Hypertension Social History Smoking Status: Current every day smoker tobacco type: cigarettes packs per day: 1 alcohol intake: never substance use type: denies use current occupational status: unemployed Travel in the last 8 weeks: None household members: spouse caffeine: Yes <Joseph Love MD - Last Filed: 05/09/23 23:00> ROS Obtained: Yes All systems reviewed & no additional complaints except as documented Physical Exam <Joseph Love MD - Last Filed: 05/09/23 23:00> General General appearance: alert Respiratory Respiratory exam: Present normal lung sounds bilaterally Cardiovascular Cardiovascular exam: Present regular rate Neurological Exam Neurological exam: Present alert Medical Decision Making <Joseph Love MD - Last Filed: 05/09/23 23:00> Adalberto Inquiry Pt receiving controlled substance: No Vital Signs: 05/09/23 21:48 05/09/23 22:30 05/09/23 23:00 Temperature 97.8 F Temperature Source Oral Pulse Rate 90 108 H Pulse Rate [Right Radial] 99 H Respiratory Rate 20 Blood Pressure 130/90 Blood Pressure [Right Arm] 141/90 H Blood Pressure Mean [Right Arm] 107 02 Sat by Pulse Oximetry 97 90 L 93 L Oxygen Delivery Method Room Air Nasal Cannula Nasal Cannula Oxygen Flow Rate (LPM) 3 2 05/09/23 23:30 05/10/23 00:00 05/10/23 00:30 Temperature Temperature Source Pulse Rate 96 H 92 H 91 H Pulse Rate [Right Radial] Respiratory Rate Blood Pressure 119/79 112/75 120/76 Blood Pressure [Right Arm] Blood Pressure Mean [Right Arm] 02 Sat by Pulse Oximetry 93 L 89 L 95 Oxygen Delivery Method Nasal Cannula Nasal Cannula Nasal Cannula Oxygen Flow Rate (LPM) 2 2 2 05/10/23 01:00 05/10/23 01:30 05/10/23 02:00 Temperature Temperature Source Pulse Rate 73 80 78 Pulse Rate [Right Radial] Respiratory Rate Blood Pressure 112/62 115/69 115/71 Blood Pressure [Right Arm] Blood Pressure Mean [Right Arm] 02 Sat by Pulse Oximetry 95 95 97 Oxygen Delivery Method Nasal Cannula Nasal Cannula Nasal Cannula Oxygen Flow Rate (LPM) 2 2 2 05/10/23 02:35 Temperature Temperature Source Pulse Rate 82 Pulse Rate [Right Radial] Respiratory Rate Blood Pressure 144/94 H Blood Pressure [Right Arm] Blood Pressure Mean [Right Arm] 02 Sat by Pulse Oximetry 94 L Oxygen Delivery Method Nasal Cannula Oxygen Flow Rate (LPM) 2 Lab Data Lab results reviewed: Yes I reviewed the patient's lab results. Lab Results 05/09/23 21:55: Urine Color Yellow, Urine Appearance Clear, Urine pH 6.5, Ur Specific [place] 1.015, Urine Protein Negative, Urine Glucose (UA) 2+, Urine Ketones Negative, Urine Blood 2+, Urine Nitrate Negative, Urine Bilirubin Negative, Urine Urobilinogen 0.2, Ur Leukocyte Esterase Negative, Urine RBC 3-5, Urine WBC None, Ur Squamous Epith Cells 3-5, Urine Bacteria None 05/09/23 22:00: WBC 18.2 H, RBC 5.72 H, Hgb 17.1 H, Hct 51.9 H, MCV 90.7, MCH 29.9, MCHC 33.0, RDW 14.7, Plt Count 397, MPV 7.6, Neut % (Auto) 72.2, Lymph % (Auto) 20.1, [place] % (Auto) 3.8, Eos % (Auto) 2.9, Baso % (Auto) 1.0, Neut # (A uto) 13.1 H, Lymph # (Auto) 3.7, [place] # (Auto) 0.7, Eos # (Auto) 0.5 H, Baso # (Auto) 0.2, Total Counted 100, Neutrophils % (Manual) 75, Lymphocytes % (Manual) 17, Monocytes % (Manual) 6, Eosinophils % (Manual) 2, Platelet Estimate Normal, RBC Morphology Normal, Sodium 134 L, Potassium 4.3, Chloride 96 L, Carbon Dioxide 31 H, Anion Gap 11.3, BUN 18 H, Creatinine 1.00, Estimated Creat Clear 105, Estimated GFR 59, Est GFR ( Amer) 71, Glucose 285 H, Calcium 9.3, Total Bilirubin 0.5, AST 27, ALT 24, Alkaline Phosphatase 81, Troponin I < 0.01, Total Protein 7.4, Albumin 4.2, Globulin 3.2, Albumin/Globulin Ratio 1.3, Amylase 48, Lipase 109 05/09/23 22:00 05/09/23 22:00 Orders (Tests/Meds): ED MEDICATIONS Generic Name Dose Route Start Last Admin Trade Name Freq PRN Reason Stop Dose Admin Sodium Chloride 10 ml 05/09/23 23:57 05/09/23 23:58 Sodium Chloride 0.9% 10ml Syr (Rad Only) IV 06/08/23 23:56 10 ml NEEDED PRN Administration Maintain IV Site Discontinued Medications Generic Name Dose Route Start Last Admin Trade Name Freq PRN Reason Stop Dose Admin Belladonna Alkaloids 60 ml 05/09/23 22:49 05/09/23 22:56 Belladonna Alkaloids 60 Ml Ml PO 05/09/23 22:50 60 ml ONCE ONE Administration Lactated Ringer's 1,000 mls @ 999 mls/hr 05/09/23 23:45 05/10/23 00:14 Lactated Ringer's 1000 Ml Bag IV 05/10/23 00:45 999 mls/hr .Q1H1M NADYA Administration Iopamidol 75 ml 05/09/23 23:57 05/09/23 23:58 Iopamidol-370 (76%);100ml Bottle IV 05/09/23 23:58 75 ml ONCE ONE Administration Morphine Sulfate 4 mg 05/09/23 22:49 05/09/23 22:57 Morphine 4mg/Ml Syringe IV 05/09/23 22:50 4 mg ONCE ONE Administration Morphine Sulfate 4 mg 05/10/23 01:35 05/10/23 01:42 Morphine 2mg/Ml Syringe IV 05/10/23 01:36 4 mg ONCE ONE Administration Ondansetron HCl 4 mg 05/09/23 22:49 05/09/23 22:57 Ondansetron 4mg/2ml Vial IV 05/09/23 22:50 4 mg ONCE ONE Administration ORDERS Category Date Time Status CT abdomen pelvis w con Stat Cat Scan 05/09/23 22:57 Completed Amylase Stat Lab 05/09/23 22:00 Completed Complete Blood Count Auto Diff Stat Lab 05/09/23 22:00 Completed Comprehensive Metabolic Panel Stat Lab 05/09/23 22:00 Completed Lipase Stat Lab 05/09/23 22:00 Completed Troponin I Stat Lab 05/09/23 22:00 Completed UA [Urinalysis and Microscopic] Stat Lab 05/09/23 21:55 Completed Medical Decision Narrative: Patient is a 47-year-old female presents today with above history and physical differential includes bowel obstruction intra-abdominal pathology such as acute pancreatitis necrotizing pancreatitis pseudocyst formation and infection associated with that bowel gas gastroenteritis etc. Will get a contrasted CT scan given the fact that her lipase not elevated to look for alternative pathologies. IV fluids pain medicine GI cocktail been administered will beatriz ssess. Care will be transitioned to Dr. Parker Barajas for final evaluation and treatment. <Parker Barajas MD - Last Filed: 05/10/23 05:09> Vital Signs: 05/09/23 21:48 05/09/23 22:30 05/09/23 23:00 Temperature 97.8 F Temperature Source Oral Pulse Rate 90 108 H Pulse Rate [Right Radial] 99 H Respiratory Rate 20 Blood Pressure 130/90 Blood Pressure [Right Arm] 141/90 H Blood Pressure Mean [Right Arm] 107 02 Sat by Pulse Oximetry 97 90 L 93 L Oxygen Delivery Method Room Air Nasal Cannula Nasal Cannula Oxygen Flow Rate (LPM) 3 2 05/09/23 23:30 05/10/23 00:00 05/10/23 00:30 Temperature Temperature Source Pulse Rate 96 H 92 H 91 H Pulse Rate [Right Radial] Respiratory Rate Blood Pressure 119/79 112/75 120/76 Blood Pressure [Right Arm] Blood Pressure Mean [Right Arm] 02 Sat by Pulse Oximetry 93 L 89 L 95 Oxygen Delivery Method Nasal Cannula Nasal Cannula Nasal Cannula Oxygen Flow Rate (LPM) 2 2 2 05/10/23 01:00 05/10/23 01:30 05/10/23 02:00 Temperature Temperature Source Pulse Rate 73 80 78 Pulse Rate [Right Radial] Respiratory Rate Blood Pressure 112/62 115/69 115/71 Blood Pressure [Right Arm] Blood Pressure Mean [Right Arm] 02 Sat by Pulse Oximetry 95 95 97 Oxygen Delivery Method Nasal Cannula Nasal Cannula Nasal Cannula Oxygen Flow Rate (LPM) 2 2 2 05/10/23 02:35 Temperature Temperature Source Pulse Rate 82 Pulse Rate [Right Radial] Respiratory Rate Blood Pressure 144/94 H Blood Pressure [Right Arm] Blood Pressure Mean [Right Arm] 02 Sat by Pulse Oximetry 94 L Oxygen Delivery Method Nasal Cannula Oxygen Flow Rate (LPM) 2 Lab Data Lab Results 05/09/23 21:55: Urine Color Yellow, Urine Appearance Clear, Urine pH 6.5, Ur Specific [place] 1.015, Urine Protein Negative, Urine Glucose (UA) 2+, Urine Ketones Negative, Urine Blood 2+, Urine Nitrate Negative, Urine Bilirubin Negative, Urine Urobilinogen 0.2, Ur Leukocyte Esterase Negative, Urine RBC 3-5, Urine WBC None, Ur Squamous Epith Cells 3-5, Urine Bacteria None 05/09/23 22:00: WBC 18.2 H, RBC 5.72 H, Hgb 17.1 H, Hct 51.9 H, MCV 90.7, MCH 29.9, MCHC 33.0, RDW 14.7, Plt Count 397, MPV 7.6, Neut % (Auto) 72.2, Lymph % (Auto) 20.1, [place] % (Auto) 3.8, Eos % (Auto) 2.9, Baso % (Auto) 1.0, Neut # (Auto) 13.1 H, Lymph # (Auto) 3.7, [place] # (Auto) 0.7, Eos # (Auto) 0.5 H, Baso # (Auto) 0.2, Total Counted 100, Neutrophils % (Manual) 75, Lymphocytes % (Manual) 17, Monocytes % (Manual) 6, Eosinophils % (Manual) 2, Platelet Estimate Normal, RBC Morphology Normal, Sodium 134 L, Potassium 4.3, Chloride 96 L, Carbon Dioxide 31 H, Anion Gap 11.3, BUN 18 H, Creatinine 1.00, Estimated Creat Clear 105, Estimated GFR 59, Est GFR ( Amer) 71, Glucose 285 H, Calcium 9.3, Total Bilirubin 0.5, AST 27, ALT 24, Alkaline Phosphatase 81, Troponin I < 0.01, Total Protein 7.4, Albumin 4.2, Globulin 3.2, Albumin/Globulin Ratio 1.3, Amylase 48, Lipase 109 Orders (Tests/Meds): ED MEDICATIONS Generic Name Dose Route Start Last Admin Trade Name Freq PRN Reason Stop Dose Admin Sodium Chloride 10 ml 05/09/23 23:57 05/09/23 23:58 Sodium Chloride 0.9% 10ml Syr (Rad Only) IV 06/08/23 23:56 10 ml NEEDED PRN Administration Maintain IV Site Discontinued Medications Generic Name Dose Route Start Last Admin Trade Name Freq PRN Reason Stop Dose Admin Belladonna Alkaloids 60 ml 05/09/23 22:49 05/09/23 22:56 Belladonna Alkaloids 60 Ml Ml PO 05/09/23 22:50 60 ml ONCE ONE Administration Lactated Ringer's 1,000 mls @ 999 mls/hr 05/09/23 23:45 05/10/23 00:14 Lactated Ringer's 1000 Ml Bag IV 05/10/23 00:45 999 mls/hr .Q1H1M NADYA Administration Iopamidol 75 ml 05/09/23 23:57 05/09/23 23:58 Iopamidol-370 (76%);100ml Bottle IV 05/09/23 23:58 75 ml ONCE ONE Administration Morphine Sulfate 4 mg 05/09/23 22:49 05/09/23 22:57 Morphine 4mg/Ml Syringe IV 05/09/23 22:50 4 mg ONCE ONE Administration Morphine Sulfate 4 mg 05/10/23 01:35 05/10/23 01:42 Morphine 2mg/Ml Syringe IV 05/10/23 01:36 4 mg ONCE ONE Administration Ondansetron HCl 4 mg 05/09/23 22:49 05/09/23 22:57 Ondansetron 4mg/2ml Vial IV 05/09/23 22:50 4 mg ONCE ONE Administration ORDERS Category Date Time Status CT abdomen pelvis w con Stat Cat Scan 05/09/23 22:57 Completed Amylase Stat Lab 05/09/23 22:00 Completed Complete Blood Count Auto Diff Stat Lab 05/09/23 22:00 Completed Comprehensive Metabolic Panel Stat Lab 05/09/23 22:00 Completed Lipase Stat Lab 05/09/23 22:00 Completed Troponin I Stat Lab 05/09/23 22:00 Completed UA [Urinalysis and Microscopic] Stat Lab 05/09/23 21:55 Completed Medical Decision Narrative: Patient is a 47-year-old female presents today with above history and physical differential includes bowel obstruction intra-abdominal pathology such as acute pancreatitis necrotizing pancreatitis pseudocyst formation and infection associated with that bowel gas gastroenteritis etc. Will get a contrasted CT scan given the fact that her lipase not elevated to look for alternative pathologies. IV fluids pain medicine GI cocktail been administered will reasses s. Care will be transitioned to Dr. Parker Barajas for final evaluation and treatment. Jenn GUARDADO: I assumed care of the patient at the time of handoff from the prior provider. On reassessment patient reports persistent pain. Given additional dose of morphine. CT was obtained and interpreted by me. It shows peripancreatic stranding consistent with acute pancreatitis, no evidence of pseudocyst or other significant intra-abdominal pathology. I had extensive discussion with patient regarding symptoms. At 12:30 AM patient was placed in ED observation status for continued IV pain management and reassessment to avoid potentially unnecessary admission for symptom control of pancreatitis. After multiple reassessments, at 0500, was taken out of observation status. Total time in observation 4 hours and 30 minutes. She reports her pain is sufficiently controlled for home management. She is tolerating p.o. she already has oxycodone at home that has been previously prescribed for pancreatitis. I prescribed additional Zofran for nausea and vomiting. Patient discharged in stable condition. Return precautions given. Critical Care <Joseph Love MD - Last Filed: 05/09/23 23:00> Critical Care Time Critical Care Time: No
[2023-05-09] MEDS: BELLADONNA ALKALOIDS 60 ML ML PO (22:56)
[2023-05-09] MEDS: ONDANSETRON 4MG/2ML VIAL 4 MG IV (22:57)
[2023-05-09] MEDS: MORPHINE 4MG/ML SYRINGE 4 MG IV (22:57)
--- NOTE | 2023-05-09 22:57 | CT_ITS ---
PROCEDURE INFORMATION: Exam: CT Abdomen And Pelvis With Contrast Exam date and time: 05/09/2023 11:35 PM Age: 47 years old Clinical indication: Abdominal pain; Additional info: Diffuse abd pain TECHNIQUE: Imaging protocol: Computed tomography of the abdomen and pelvis with contrast. Radiation optimization: All CT scans at this facility use at least one of these dose optimization techniques: automated exposure control; mA and/or kV adjustment per patient size (includes targeted exams where dose is matched to clinical indication); or iterative reconstruction. Contrast material: ISOVUE; Contrast volume: 75 ml; Contrast route: IV; COMPARISON: 1. CT ABDOMEN PELVIS W CON 08/01/2022 9:[address] ABDOMEN PELVIS W CON 07/03/2022 7:[address] ABDOMEN PELVIS W CON 04/30/2021 4:55 AM FINDINGS: Lungs: Scattered areas of bronchial wall thickening which are likely chronic inflammatory. A few areas of subpleural reticulation are noted, nonspecific. Liver: Normal. No mass. Gallbladder and bile ducts: Normal. No calcified stones. No ductal dilation. Pancreas: There is moderate peripancreatic stranding consistent with acute pancreatitis. Spleen: The spleen is normal in size and attenuation. No splenic masses or cysts are observed. Adrenal glands: The adrenal glands appear normal. Kidneys and ureters: Both kidneys are of normal size and show uniform attenuation. There are no renal masses, cysts, or calculi. The adrenal glands appear normal. Stomach and bowel: There are scattered colonic diverticula without evidence for active diverticulitis. There is large volume stool throughout the colon. Appendix: No evidence of appendicitis. Intraperitoneal space: Unremarkable. No free air. No significant fluid collection. Vasculature: There is atherosclerotic disease of the visualized aorta and its major branch vessels. Lymph nodes: No enlarged or pathological lymph nodes are identified in the abdomen or pelvis. Urinary bladder: Unremarkable as visualized. Reproductive: No significant pathology. Bones/joints: There is diffuse degenerative disease of the visualized osseous structures. Soft tissues: There is a fat containing right inguinal hernia. There is a fat containing supraumbilical hernia. IMPRESSION: There is moderate peripancreatic stranding consistent with acute pancreatitis.
[2023-05-09 23:00] VITALS: PULSE 108; O2SAT 93
[2023-05-09 23:30] VITALS: BP 119/79; PULSE 96; O2SAT 93
[2023-05-09] MEDS: SODIUM CHLORIDE 0.9% 10ML SYR (RAD ONLY) 10 ML IV (23:58)
[2023-05-09] MEDS: IOPAMIDOL-370 (76%);100ML BOTTLE 75 ML IV (23:58)
[2023-05-10] VITALS (7 sets, daily range): BP systolic 112–144; BP diastolic 62–94; PULSE 73–92; RESP 16; TEMP 36.6; O2SAT 89–97
[2023-05-10] MEDS: LACTATED RINGERS 1000ML 1,000 ML 999 ML IV (00:14)
[2023-05-10] MEDS: MORPHINE 2MG/ML SYRINGE 4 MG IV (01:42)
--- NOTE | 2023-05-10 03:56 | PC.NURSE ---
Pt oxygen sat dropping into 80's with sleep, pt walked around nurses station o2 95% at this time. Dr Barajas aware.
== END 2023-05-10 05:15 | disposition home or self-care (01) ==
PROVIDERS: Emergency Provider Student in an Organized Health Care Education/Training Program; PCP Family Medicine
DX: K85.90 Acute pancreatitis without necrosis or infection, unspecified (principal); R10.13 Epigastric pain; J44.9 Chronic obstructive pulmonary disease, unspecified; I25.2 Old myocardial infarction; I10 Essential (primary) hypertension; E78.5 Hyperlipidemia, unspecified; F17.210 Nicotine dependence, cigarettes, uncomplicated
CPT/HCPCS: 74177; 80053; 81001; 82150; 83690; 84484; 85007; 85025; 96361; 96374; 96375; 96376; 99285; J2405; Q9967

== ENCOUNTER 2023-07-04 13:37 | Outpatient (CLI) | payer MEDICAID, SELFPAY ==
[2023-07-04 14:03] LABS: Basophils # 0.2 K/mm3 (0-0.2); Basophils % 1.2 % (0.1-2.0); Eosinophils # 0.5 K/mm3 (0.0-0.4); Eosinophils % 3.5 % (0.1-12.0); Hematocrit 45.4 % (37.0-47.0); Hemoglobin 14.5 g/dL (12.2-16.2); Lymphocytes # 4.3 K/mm3 (0.7-4.5); Lymphocytes % 33.1 % (10-50); Mean Corpuscular Hemoglobin 29.9 pg (27.0-31.2); Mean Corpuscular Volume 93.4 fl (81-99); Mean Platelet Volume 7.9 fl (7.4-10.4); Monocytes # 0.5 K/mm3 (0.1-1.0); Monocytes % 3.9 % (1.7-9.3); Neutrophils # 7.6 K/mm3 (1.8-7.8); Neutrophils % 58.2 % (37.0-80.0); Platelet Count 305 K/mm3 (142-424); Red Blood Count 4.86 M/mm3 (4.20-5.40); Red Cell Distribution Width 14.8 % (11.5-17.5); White Blood Count 13.1 K/mm3 (4.8-10.8)
[2023-07-04 14:48] LABS: Alanine Aminotransferase 21 U/L (12-78); Albumin Level 4.2 g/dl (3.5-5.0); Albumin/Globulin Ratio 1.8 (1.1-1.8); Alkaline Phosphatase 69 U/L (38-126); Anion Gap 10.2 mEq/L (5-15); Aspartate Amino Transferase 23 U/L (14-36); Bilirubin,Total 0.2 mg/dl (0.2-1.3); Blood Urea Nitrogen 12 mg/dl (7-17); Calcium 9.3 mg/dl (8.4-10.2); Carbon Dioxide 27 mmol/L (22.0-30.0); Chloride 105 mmol/L (98-107); Chol/HDL Ratio 4.1 (1-3.5); Cholesterol 179 mg/dl (140-200); Estimated Glomerular Filt Rate 89 ml/min (>60); GFR (African American) 108 ML/MIN (>60); Globulin 2.3 g/dL (1.3-3.2); Glucose 174 mg/dl (74-100); HDL Cholesterol 44 mg/dl (40-60); Potassium 4.2 mmoL/L (3.5-5.1); Sodium 138 mmol/L (136-145); Total Protein,Serum 6.5 g/dl (6.3-8.2); Triglycerides 166 mg/dl (30-150); VLDL Cholesterol 33 mg/dL (0-40)
[2023-07-04 14:55] LABS: Hemoglobin A1C 7.7 % (4.0-6.0)
[2023-07-04 15:04] LABS: Direct LDL Cholesterol 100.02 mg/dL (100-129)
[2023-07-04 15:13] LABS: 25-OH Vitamin D, Total 34.1 ng/mL (30-100)
[2023-07-04 15:14] LABS: T4 (Thyroxine) 9.8 ug/dl (5.53-11.0)
[2023-07-04 15:28] LABS: Thyroid Stimulating Hormone 2.32 uIU/mL (0.465-4.68)
== END 2023-07-04 23:59 ==
LOC: LAB 13:37
PROVIDERS: PCP Family Medicine; Visit Provider Family Medicine
DX: E11.9 Type 2 diabetes mellitus without complications (principal); E78.5 Hyperlipidemia, unspecified; E66.9 Obesity, unspecified; Z68.38 Body mass index [BMI] 38.0-38.9, adult; Z79.899 Other long term (current) drug therapy
CPT/HCPCS: 36415; 80053; 80061; 82306; 83036; 84436; 84443; 85025

== ENCOUNTER 2023-07-04 14:37 | Outpatient (CLI) | payer MEDICAID, SELFPAY ==
--- NOTE | 2023-07-04 14:38 | MR_ITS ---
FINAL REPORT CLINICAL HISTORY: severe lbp assoc c bilateral LEQ weakness 21 ml prohance given FINDINGS: Multiplanar MR imaging of the lumbar spine was performed without and with contrast. On the sagittal T2-weighted images, abnormal decreased signal is seen at several levels. There are multiple hemangiomas. The vertebral alignment is normal. There is no evidence of fracture. The conus is seen at approximately the L1 level and has an unremarkable appearance. L1-2: No significant canal stenosis or neuroforaminal narrowing is seen. L2-3: No significant canal stenosis or neuroforaminal narrowing is seen. L3-4: Annular disc bulge without significant canal stenosis or neuroforaminal narrowing is seen. L4-5: Annular disc bulge without significant central canal stenosis or neuroforaminal narrowing. L5-S1: Annular disc bulge and facet arthropathy with mild bilateral neuroforaminal narrowing. No abnormal contrast enhancement is identified. IMPRESSION: Multilevel mild degenerative disc disease and spondylosis with areas of neural foraminal narrowing as described. Reviewed, Interpreted and Dictated by Nelson Jose III, MD Transcribed by Thu Szymanski Authenticated and [facility]
[2023-07-04] MEDS: GADOTERIDOL INJ 17ML SYRINGE 21 ML IV (16:32)
[2023-07-04] MEDS: SODIUM CHLORIDE 0.9% 10ML SYR (RAD ONLY) 10 ML IV (16:32)
== END 2023-07-04 23:59 ==
LOC: RAD 14:38
PROVIDERS: PCP Family Medicine; Visit Provider Family Medicine
DX: M54.50 Low back pain, unspecified (principal)
CPT/HCPCS: 72158; A9576

== ENCOUNTER 2023-07-12 09:19 | Outpatient (CLI) | payer MEDICAID, SELFPAY ==
--- NOTE | 2023-07-12 09:20 | US_ITS ---
FINAL REPORT CLINICAL HISTORY: Follow up thyroid nodule COMPARISON: 05/12/2022 FINDINGS: THYROID ULTRASOUND: The right lobe of the thyroid measures 4.9 x 2 x 1.6 cm in size. There is a small 5 x 4 x 3 mm cystic nodule present, a TI-RADS category 1 nodule. There is a second nodule in the right lobe, 7 x 6 x 3 mm in size, was previously 13 x 8 x 7 mm in size in 2022. This is a solid and hypoechoic nodule, a TI-RADS category 4 nodule. The left lobe of the thyroid measures 4.4 x 2.1 x 1.7 cm in size. There is a nodule in the left lobe measuring 8 x 6 x 4 mm in size, was previously 10 x 6 x 6 cm in size on the prior exam. This nodule is solid, isoechoic, a TI-RADS category 3 nodule. The isthmus of the thyroid is unremarkable in appearance and measures 4 mm in thickness. IMPRESSION: The dominant nodules in the right and left lobes of the thyroid gland have decreased in size since the prior exam of 2022. No new masses or nodules are identified. Reviewed, Interpreted and Dictated by Nelson Jose III, MD Transcribed by Gisselle Gibson Authenticated and [facility]
== END 2023-07-12 23:59 ==
LOC: RAD 09:20
PROVIDERS: PCP Family Medicine; Visit Provider Otolaryngology
DX: E04.1 Nontoxic single thyroid nodule (principal)
CPT/HCPCS: 76536

== ENCOUNTER 2023-07-27 09:00 | Outpatient (RCR) | payer MEDICAID, SELFPAY ==
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
--- NOTE | 2023-06-20 11:49 | HMH.RHREAS ---
Rehab Reassessment Rehab OP Re-assessment Start: 05/25/23 07:51 Freq: Status: Active Protocol: Document 06/20/23 11:39 PHORMAGALIS (Rec: 06/20/23 11:49 PHORNE [id number]) E-signed By Dom Adkins, PT Oswestry Index Section 1 Pain Intensity The pain comes and goes and is moderate Section 2 Personal Care (Washing,Dresing) change my way of washing or dressing in order to avoid pain Section 3 Lifting lifting heavy weights off the floor, but I can manage light to medium Section 4 Walking I cannot walk more than 1/4 mile without increasing pain Section 5 Sitting Pain prevents me from sitting for more than one hour Section 6 Standing I cannot stand more than 1 hour without increasing pain Section 7 Sleeping Because of my pain, my normal night's sleep is less than 6 hours sleep Section 8 Social Life My social life is normal but increases the degree of pain Section 9 Traveling I get extra pain while traveling, but it does not compel me to seek al Section 10 Changing Degreee of Pain My pain seems to be getting better, but improvement is slow Score and Risk Level Oswestry Sc 21 Oswestry Risk Level Moderate Disability Rehab Re-assessment Subjective Subjective Pt continues to reports intermittent severe pain rated 10/10, but these episodes seem to be fewer than previous . Overall typical pain levels are decreased. Objective Objective Notes MMT B LE: HIP FLEX 4-/5, HIP ABD 4-/5, KNEE EXT 4-/5, KNEE FLEX 4-/5. Lumbar AROM (in deg): FLEX= 0- 50, EXT= 0-10, R SB= 0-10, L SB= 0-10. TTP: 2/4 B posterior SI ligaments. Assessment Progress Assessment Slower Than Expected Assessment Notes Pt has shown imporvements in functional mobilityand AROM of the lumbar spine, but no increased strength and continued severe pain. Neural tension remains significant in the sacral area B. She continues to need skilled intervention to return to prior level of function. Patient goals met ST,5,[address] Go[address] Not Met ST,3,4,6 LT,2,3,4,5 ,7,8 Plan Plan Continue per initial POC. Decrease neural tension as pt tolerates. Frequency of Therapy 2 x/wk Duration of therapy 4 wks Time and Billing Re-Eval Time 12 Re-Eval Billing Units 1 PHYSICIAN CERTIFICATION: I certify the specified therapy services for Sarita Pineda are required, authorized, and reviewed every 30 days.
--- NOTE | 2023-07-25 09:26 | HMH.RHREAS ---
Rehab Reassessment Rehab OP Re-assessment Start: 05/25/23 07:51 Freq: Status: Active Protocol: Document 07/25/23 09:15 MORENO (Rec: 07/25/23 09:26 PHORMAGALIS [id number]) E-signed By Dom Adkins, PT Oswestry Index Section 1 Pain Intensity The pain comes and goes and is moderate Section 2 Personal Care (Washing,Dresing) my way of washing or dressing even though it causes some pain Section 3 Lifting Pain prevents me from lifting weights off the floor Section 4 Walking I cannot walk more than 1/4 mile without increasing pain Section 5 Sitting Pain prevents me from sitting for more than one hour Section 6 Standing I cannot stand more than 1/2 hour without increasing pain Section 7 Sleeping Because of my pain, my normal night's sleep is less than 4 hours Section 8 Social Life My social life is normal but increases the degree of pain Section 9 Traveling I get some pain when traveling , but none of my usual forms of travel m Section 10 Changing Degreee of Pain My pain seems to be getting better, but improvement is slow Score and Risk Level Oswestry Sc 21 Oswestry Risk Level Moderate Disability Rehab Re-assessment Subjective Subjective Patient reports that she believes that she has improved 50% since beginning PT. The patient reports that her pain today is a 3/10 and her pain at worst remains a 10/10. The patient reports that she is able to do things around her house, such as cleaning, laundry and cooking with more ease and less rest breaks. The patient reports that cupping has helped a lot and she would like to continue with therapy . Objective Objective Notes AROM: Lumbar Flexion: 35 Lumbar Extension: 15 RSB: 12 LSB: 14 B LLE MMT: Hip Flexion: 4-/5 Hip abduction 4-/5 Hip adduction 4-/5 Knee extension 4/5 Knee flexion 4-/5 Palpation: TTP 2/4 to BL sacrospinous ligs Assessment Progress Assessment Slower Than Expected Assessment Notes Patient continues to demonstrate severe pain intermittently, but the time between episodes becomes increased. The patient continues to demonstrate decrements in LE strength, Lumbar ROM and TTP. The patient does report subjective improvements of functionality at home. Skilled PT remains indicated for this patient. Patient goals met ST,5,[address] Not Met ST,3,4,6 LT,2,3,4,5 ,7,8 Plan Plan Continue per initial POC. Cupping to BL paraspinals reduces pain. Frequency of Therapy 2 x/wk Duration of therapy 4 wks Time and Billing Re-Eval Time 11 Re-Eval Billing Units 1 PHYSICIAN CERTIFICATION: I certify the specified therapy services for Sarita Pineda are required, authorized, and reviewed every 30 days.
== END 2023-07-27 10:10 | disposition home or self-care (01) ==
LOC: PT 09:00
PROVIDERS: PCP Family Medicine; Visit Provider Family Medicine
DX: M54.50 Low back pain, unspecified (principal)
CPT/HCPCS: 97010; 97014; 97110; 97140; 97163; 97164; 97530; G0283

== ENCOUNTER 2023-09-26 16:40 | Emergency (ER) | payer MEDICAID, SELFPAY ==
[2023-09-26 16:41] VITALS: BP 138/86; PULSE 102; RESP 18; TEMP 36.7; O2SAT 96; BMI 37.3
--- NOTE | 2023-09-26 16:59 | [facility].EDGENADL ---
Discharge Plan Disposition Patient Disposition: Home, Self-Care Condition: Good Prescriptions Prescriptions: New doxycycline hyclate 100 mg tablet 100 mg PO BID 10 Days Qty: 20 0RF No Action ipratropium-albuterol 0.5 mg-3 mg(2.5 mg base)/3 mL solution for nebulization 3 ml inhalation Q6H PRN (Reason: shortness of breath or wheezing) Qty: 90 3RF albuterol sulfate [Ventolin HFA] 90 mcg/actuation HFA aerosol inhaler 2 inh inhalation Q6H PRN (Reason: shortness of breath or wheezing) 90 Days Qty: 18 3RF fluticasone propion-salmeterol [Advair Diskus] 500-50 mcg/dose blister with device 1 inh inhalation BID Qty: 180 2RF oxycodone-acetaminophen [Percocet] 5-325 mg tablet 1 tab PO TID PRN (Reason: pain) Qty: 45 0RF alprazolam 2 mg tablet 2 mg PO DAILY Qty: 1 0RF Rx Instructions: take 1-2 hours before mri, on an empty stomach cetirizine 10 mg tablet PO Patient Comments: TAKE 1 TABLET BY MOUTH ONCE DAILY NEEDED FOR ALLERGY SYMPTOMS gabapentin 300 mg capsule PO TID Patient Comments: TAKE 1 CAPSULE BY MOUTH THREE TIMES DAILY meloxicam 15 mg tablet 15 mg PO DAILY PRN (Reason: pain) Qty: 30 3RF (DME) blood-glucose meter [Saplo Ultra2 Meter] Misc See Rx Instructions .Route Qty: 1 0RF Rx Instructions: As directed tramadol 50 mg tablet 50 mg PO Q8H PRN (Reason: pain) Qty: 45 1RF montelukast 10 mg tablet 10 mg PO DAILY 90 Days Qty: 90 3RF valsartan-hydrochlorothiazide 160-12.5 mg tablet 1 tab PO DAILY Qty: 90 3RF (DME) Dexcom G6 [address] Reporter Misc See Rx Instructions .Route Qty: 1 0RF Rx Instructions: As directed (DME) lancets [OneTouch Delica Plus Lancet] 33 gauge misc See Rx Instructions .Route Qty: 100 0RF Rx Instructions: As directed (DME) pen needle, diabetic 32 gauge x 5/32 needle See Rx Instructions .Route Qty: 1200 3RF Rx Instructions: As directed pantoprazole 40 mg tablet,delayed release (DR/EC) See Rx Instructions .ROUTE .COMPLEX Qty: 90 3RF Dose Instruction: TAKE 1 TABLET BY MOUTH DAILY FOR ACID REFLUX. Rx Instructions: TAKE 1 TABLET BY MOUTH DAILY FOR ACID REFLUX. azelastine 137 mcg (0.1 %) aerosol,spray 2 spray intranasal HS 90 Days Qty: 30 3RF Rx Instructions: administer into each nostril All Day Allergy (cetirizine) 10 mg capsule 10 mg PO DAILY PRN (Reason: allergy symptoms) Qty: 30 0RF fluticasone propionate [Flonase Allergy Relief] 50 mcg/actuation spray,suspension 2 spray intranasal DAILY 90 Days Qty: 16 3RF Rx Instructions: administer into each nostril levothyroxine [Synthroid] 25 mcg tablet 25 mcg PO DAILY Qty: 90 0RF amitriptyline 25 mg tablet See Rx Instructions .ROUTE .COMPLEX Qty: 90 0RF Dose Instruction: TAKE 1 TABLET BY MOUTH ONCE DAILY FOR MIGRAINE HEADACHE Rx Instructions: TAKE 1 TABLET BY MOUTH ONCE DAILY FOR MIGRAINE HEADACHE (DME) Dexcom G6 Transmitter Device See Rx Instructions .ROUTE .COMPLEX Qty: 1 0RF Dose Instruction: USE DIRECTED Rx Instructions: USE DIRECTED (DME) Dexcom G6 Sensor Device See Rx Instructions .ROUTE .COMPLEX Qty: 3 0RF Dose Instruction: USE DIRECTED TO MONITOR CONTINUOUS BLOOD SUGAR AND CHANGE SENSOR EVERY 10 DAYS Rx Instructions: USE DIRECTED TO MONITOR CONTINUOUS BLOOD SUGAR AND CHANGE SENSOR EVERY 10 DAYS cephalexin 500 mg capsule 500 mg PO Q8H 10 Days Qty: 30 0RF azelastine 137 mcg (0.1 %) aerosol,spray 2 spray intranasal HS Rx Instructions: administer into each nostril fluticasone propionate [Flonase Allergy Relief] 50 mcg/actuation spray,suspension 2 spray intranasal DAILY Rx Instructions: administer into each nostril ondansetron HCl 4 mg tablet 4 mg PO Q8H PRN (Reason: nausea and vomiting) 5 Days Qty: 30 0RF torsemide 20 mg tablet 20 mg PO DAILY PRN (Reason: Swelling) propranolol 60 mg capsule,extended release 24 hr See Rx Instructions .ROUTE .COMPLEX Rx Instructions: Take 1 capsule by mouth once daily sertraline 100 mg tablet 100 mg PO DAILY insulin aspart U-100 [Novolog FlexPen U-100 Insulin] 100 unit/mL (3 mL) insulin pen 5 unit SQ TID Rx Instructions: please take 1/2 hour before eating Levemir FlexPen 100 unit/mL (3 mL) insulin pen 30 unit SQ HS Referrals Follow up/Referrals: Isidro Roberts MD [Primary Care Provider] - See instructions Activity Restrictions/Add. Instructions Additional Instructions/Restrictions: Follow-up closely with your PCP for continued resolution. Return to ER for any worsening signs or symptoms including increasing pain increasing redness drainage etc. as needed Clinical Impressions Clinical Impression: Cellulitis of left thigh Instructions Patient Instructions: DI for Skin Abscess Discharge ED Provider: William Aparicio General Adult HPI <HARMONY De Anda - Last Filed: 09/26/23 23:13> General Chief complaint: Skin/Abscess/Foreign Body Stated complaint: poss sting LT hip Time Seen by Provider: 09/26/23 16:42 Mode of Arrival: Ambulatory Limitations: No Limitations Description of Symptoms (Recalled from ER Triage Doc. by RN): PT REPORTS INSECT STING TO LEFT THIGH, UNKNOWN INSECT. SITE RED AND PAINFUL. PT REPORTS DECREASED APPETITE AND NAUSEA. PT STARTED ON KEFLEX BY PCP YESTERDAY History of Present Illness HPI narrative: Patient presents for evaluation of an insect bite/sting. Patient was stung or bit 2 days ago in her yard by an unknown insect. Patient reports that it was immediately extremely painful and has continued to be so since. Patient has developed a significant area of redness along her left lateral thigh. Patient denies chest pain fever chills nausea vomiting. Related Data Home Medications Medication Instructions Recorded Confirmed azelastine 137 mcg (0.1 %) nasal 2 spray intranasal HS allergies 06/24/22 09/12/23 spray aerosol fluticasone propionate 50 2 spray intranasal DAILY allergies 06/24/22 09/12/23 mcg/actuation nasal spray,suspension (Flonase Allergy Relief) torsemide 20 mg tablet 20 mg PO DAILY PRN Swelling 08/02/22 09/12/23 insulin aspart U-100 100 unit/mL 5 unit SQ TID Diabetes 01/31/23 09/12/23 (3 mL) subcutaneous pen (Novolog FlexPen U-100 Insulin aspart) insulin detemir U-100 100 unit/mL 30 unit SQ HS Diabetes 01/31/23 09/12/23 (3 mL) subcutaneous pen (Levemir FlexPen) propranolol 60 mg capsule,24 See Rx Instructions .Route 01/31/23 09/12/23 hr,extended release .COMPLEX bp sertraline 100 mg tablet 100 mg PO DAILY Depression 01/31/23 09/12/23 cetirizine 10 mg tablet mg PO 07/19/23 09/12/23 gabapentin 300 mg capsule mg PO TID 07/19/23 09/12/23 Previous Rx's Medication Instructions Recorded meloxicam 15 mg tablet 15 mg PO DAILY PRN pain #30 tabs 04/04/22 blood-glucose meter (OneTouch #1 ea 08/18/22 Ultra2 Meter) valsartan 160 1 tab PO DAILY High blood pressure 08/22/22 mg-hydrochlorothiazide 12.5 mg #90 tabs tablet Dexcom G6 [address] Reporter (blood-glucose #1 ea 10/24/22 meter,continuous) lancets 33 gauge (OneTouch Delica #100 ea 10/24/22 Plus Lancet) pen needle, diabetic 32 gauge x #1,200 ea 10/24/22 albuterol sulfate 90 mcg/actuation 2 inh inhalation Q6H PRN shortness 01/05/23 aerosol inhaler (Ventolin HFA) of breath or wheezing 90 days #18 grams ipratropium 0.5 mg-albuterol 3 mg 3 ml inhalation Q6H PRN shortness 01/05/23 (2.5 mg base)/3 mL nebulization of breath or wheezing #90 mL soln pantoprazole 40 mg tablet,delayed See Rx Instructions .Route 03/01/23 release .COMPLEX #90 tabs tramadol 50 mg tablet 50 mg PO Q8H PRN pain #45 tabs 05/04/23 ondansetron HCl 4 mg tablet 4 mg PO Q8H PRN nausea and 05/10/23 vomiting 5 days #30 tabs montelukast 10 mg tablet 10 mg PO DAILY 90 days #90 tabs 05/30/23 alprazolam 2 mg tablet 2 mg PO DAILY #1 tab 06/07/23 oxycodone-acetaminophen 5 mg-325 1 tab PO TID PRN pain #45 tabs 06/07/23 mg tablet (Percocet) azelastine 137 mcg (0.1 %) nasal 2 spray intranasal HS 90 days #30 06/12/23 spray aerosol mL cetirizine 10 mg capsule (All Day 10 mg PO DAILY PRN allergy 06/13/23 Allergy (cetirizine)) symptoms #30 caps fluticasone propionate 50 2 spray intranasal DAILY 90 days 06/13/23 mcg/actuation nasal #16 grams spray,suspension (Flonase Allergy Relief) levothyroxine 25 mcg tablet 25 mcg PO DAILY thyroid #90 tabs 07/17/23 (Synthroid) amitriptyline 25 mg tablet See Rx Instructions .Route 07/21/23 .COMPLEX #90 tabs Dexcom G6 Transmitter #1 ea 08/03/23 (blood-glucose transmitter) Dexcom G6 Sensor (blood-glucose #3 ea 09/04/23 sensor) fluticasone 500 mcg-salmeterol 50 1 inh inhalation BID #180 ea 09/12/23 mcg/dose blistr powdr for inhalation (Advair Diskus) cephalexin 500 mg capsule 500 mg PO Q8H 10 days #30 caps 09/25/23 doxycycline hyclate 100 mg tablet 100 mg PO BID 10 days #20 tabs 09/26/23 Allergies Allergy/AdvReac Type Severity Reaction Status Date / Time glimepiride [From Amaryl] AdvReac Severe Verified 09/12/23 15:30 [facility] <HARMONY De Anda - Last Filed: 09/26/23 23:13> [facility] Disclaimer: The information contained in this section may have been updated after the patient was seen, as this information can be updated by other users. Medical History Hypothyroidism Asthma Witnessed episode of apnea Headache Daytime somnolence Skin lesion of back Sebaceous cyst of breast Cough syncope Pancreatitis Chronic cough Hypertension Hyperlipidemia Arthritis CVA (cerebral vascular accident) History of myocardial infarction Syncope Allergic rhinitis Cough syncope History of smoking 30 or more pack years History of COPD Dyspnea on exertion Surgical History History of section Family History Other Asthma Diabetes Emphysema of lung Family history of CVA Family history of cancer Family history of myocardial infarction Hypertension Social History Smoking Status: Current every day smoker tobacco type: cigarettes packs per day: 1 alcohol intake: never substance use type: denies use current occupational status: unemployed Travel in the last 8 weeks: None household members: spouse caffeine: Yes <HARMONY De Anda - Last Filed: 09/26/23 23:13> ROS Obtained: Yes Systems reviewed as appropriate & no additional complaints except as documented Physical Exam <HARMONY De Anda - Last Filed: 09/26/23 23:13> General General appearance: alert and in no apparent distress Respiratory Respiratory exam: Present normal lung sounds bilaterally Cardiovascular Cardiovascular exam: Present regular rate and normal rhythm Extremities Exam Extremities exam: Present full ROM and tenderness (Over the left lateral thigh); Absent normal inspection (Cellulitic area in the left lateral thigh) Neurological Exam Neurological exam: Present alert and oriented X3 Other Other exam information: Patient has a 10 cm wide by 8 and half centimeter tall area of erythema and induration in her left lateral thigh with a very small but very visible area of puncture. No palpable fluctuance. Area is exquisitely tender to palpation Medical Decision Making <HARMONY De Anda - Last Filed: 09/26/23 23:13> Medical Records Medical records reviewed: Yes I reviewed the patient's medical records. Adalberto Inquiry Pt receiving controlled substance: No Vital Signs: 09/26/23 16:41 09/26/23 19:57 Temperature 98.0 F 98.0 F Temperature Source Oral Pulse Rate 95 H Pulse Rate [Radial] 102 H Respiratory Rate 18 20 Blood Pressure 138/86 Blood Pressure [Left Arm] 138/86 Blood Pressure Mean [Left Arm] 103 Blood Pressure Source [Left Arm] Automatic Cuff Blood Pressure Position [Left Arm] Sitting 02 Sat by Pulse Oximetry 96 Oxygen Delivery Method Room Air Room Air Lab Data Lab results reviewed: Yes I reviewed the patient's lab results. Lab Results 09/26/23 17:40: WBC 13.1 H, RBC 5.21, Hgb 15.2, Hct 48.1 H, MCV 92.3, MCH 29.1, MCHC 31.6 L, RDW 14.6, Plt Count 394, MPV 8.1, Neut % (Auto) 88.7 H, Lymph % (Auto) 9.0 L, Lanier % (Auto) 0.8 L, Eos % (Auto) 0.8, Baso % (Auto) 0.6, Neut # (Auto) 11.6 H, Lymph # (Auto) 1.2, Lanier # (Auto) 0.1, Eos # (Auto) 0.1, Baso # (Auto) 0.1, Total Counted 100, Neutrophils % (Manual) 88 H, Band Neutrophils % 2.0, Lymphocytes % (Manual) 6 L, Atypical Lymphs % 2.0, Monocytes % (Manual) 2, Platelet Estimate Normal, RBC Morphology Normal, Sodium 138, Potassium 4.0, Chloride 105, Carbon Dioxide 23, Anion Gap 14.0, BUN 9, Creatinine 0.70, Estimated Creat Clear 140, Estimated GFR 89, Est GFR ( Amer) 107, Glucose 189 H, Hemoglobin A1c 6.7 H, Calcium 10.0, Total Bilirubin 0.4, AST 34, ALT 34, Alkaline Phosphatase 75, Total Creatine Kinase 100, C-Reactive Protein 11.3 H, Total Protein 7.6, Albumin 4.5, Globulin 3.1, Albumin/Globulin Ratio 1.5, Procalcitonin 0.038 09/26/23 17:40 09/26/23 17:40 Orders (Tests/Meds): ED MEDICATIONS Discontinued Medications Generic Name Dose Route Start Last Admin Trade Name Freq PRN Reason Stop Dose Admin Acetaminophen 1,000 mg 09/26/23 17:25 09/26/23 18:09 Acetaminophen 1,000mg/100ml Vial IV 09/26/23 17:26 1,000 mg ONCE ONE Administration Diphenhydramine HCl 50 mg 09/26/23 19:27 09/26/23 19:32 Diphenhydramine 50mg/Ml Vial IV 09/26/23 19:28 50 mg ONCE ONE Administration Lactated Ringer's 1,000 mls @ 999 mls/hr 09/26/23 17:25 09/26/23 18:09 Lactated Ringer's 1000 Ml Bag IV 09/26/23 18:25 999 mls/hr .Q1H1M ONE Administration Piperacillin Sod/Tazobactam 50 mls @ 100 mls/hr 09/26/23 17:29 09/26/23 19:22 Sod 3.375 gm/ Sodium Chloride IV 09/26/23 17:58 Not Given ONCE ONE Vancomycin HCl 2,250 mg/ 250 mls @ 125 mls/hr 09/26/23 17:45 09/26/23 19:57 Sodium Chloride IV 09/26/23 19:44 Not Given ONCE ONE Clindamycin Phosphate 900 mg in 50 mls @ 100 mls/hr 09/26/23 18:34 09/26/23 19:13 Clindamycin 900mg/50ml D5w Premix IV 09/26/23 19:03 100 mls/hr ONCE ONE Administration Piperacillin Sod/Tazobactam 50 mls @ 100 mls/hr 09/26/23 19:18 09/26/23 19:23 Sod 3.375 gm/ Sodium Chloride IV 09/26/23 19:47 100 mls/hr ONCE ONE Administration Iopamidol 120 ml 09/26/23 18:57 09/26/23 19:04 Iopamidol-370 (76%);100ml Bottle IV 09/26/23 18:58 120 ml ONCE ONE Administration Ketorolac Tromethamine 15 mg 09/26/23 17:25 09/26/23 18:09 Ketorolac 30mg/Ml Vial IV 09/26/23 17:26 15 mg ONCE ONE Administration Miscellaneous 1 each 09/26/23 17:30 09/26/23 17:45 Vancomycin Consult Request NOTAPPLIC 10/26/23 17:29 1 each CONSULT PHARMACY NADYA Administration Ondansetron HCl 4 mg 09/26/23 17:59 09/26/23 18:09 Ondansetron 4mg/2ml Vial IV 09/26/23 18:00 4 mg ONCE ONE Administration Oxycodone HCl 5 mg 09/26/23 17:25 09/26/23 18:09 Oxycodone 5mg Immediate Release Tablet PO 09/26/23 17:26 5 mg ONCE ONE Administration Sodium Chloride 50 ml 09/26/23 18:57 09/26/23 19:04 0.9 % Sodium Chloride 50 Ml Vial IV 09/26/23 18:58 50 ml ONCE ONE Administration Sodium Chloride 10 ml 09/26/23 18:57 09/26/23 19:04 Sodium Chloride 0.9% 10ml Syr (Rad Only) IV 09/26/23 18:58 10 ml ONCE ONE Administration ORDERS Category Date Time Status CT lower leg LT w con Stat Cat Scan 09/26/23 17:25 Completed POCUS Point of Care (ER Only) Stat Exams 09/26/23 17:17 Completed CBC w/Auto Diff [Complete Blood Count Auto Diff] Stat Lab 09/26/23 17:40 Completed CK [Creatine Kinase] Stat Lab 09/26/23 17:40 Completed CMP [Comprehensive Metabolic Panel] Stat Lab 09/26/23 17:40 Completed CRP [C-Reactive Protein] Stat Lab 09/26/23 17:40 Completed Hemoglobin A1C Stat Lab 09/26/23 17:40 Completed Procalcitonin Stat Lab 09/26/23 17:40 Completed Blood Culture Stat Micro 09/26/23 18:14 Received Medical Decision Narrative: In summary patient is a 48-year-old female who presents to the emergency department for evaluation of insect sting/bite. Patient is normotensive slightly elevated heart rate of 102 but otherwise with stable vital signs upon arrival, and afebrile. Physical exam is remarkable for a 10 x 8-1/2 cm area of induration and cellulitis in the left lateral thigh with a central area of sting/puncture/bite. No palpable fluctuance. The borders have been marked with an ink pen by myself. Differential diagnosis includes cellulitis versus abscess versus deep space infection. Initial workup will be conducted with [id number] ultrasound, hematologic labs, blood cultures, CT scan of the left lower extremity. Initial interventions include crystalloid bolus Toradol Tylenol and immediate release p.o. oxycodone. Initial workup reviewed by me [hematologic labs are remarkable for... Imaging remarkable for... Urinalysis remarkable for]. Upon repeat evaluation [patient had acceptable resolution of symptoms, had persistent pain for which additional interventions were conducted (describe interventions), tolerated p.o., was ambulatory, etc.]. Given this [patient is appropriate for discharge at this time and will be discharged with a prescription for... The case was discussed with hospital medicine regarding management and they will admit the patient their service for continued evaluation at this time... Etc.] <William Aparicio MD - Last Filed: 09/26/23 23:30> Vital Signs: 09/26/23 16:41 09/26/23 19:57 Temperature 98.0 F 98.0 F Temperature Source Oral Pulse Rate 95 H Pulse Rate [Radial] 102 H Respiratory Rate 18 20 Blood Pressure 138/86 Blood Pressure [Left Arm] 138/86 Blood Pressure Mean [Left Arm] 103 Blood Pressure Source [Left Arm] Automatic Cuff Blood Pressure Position [Left Arm] Sitting 02 Sat by Pulse Oximetry 96 Oxygen Delivery Method Room Air Room Air Lab Data Lab Results 09/26/23 17:40: WBC 13.1 H, RBC 5.21, Hgb 15.2, Hct 48.1 H, MCV 92.3, MCH 29.1, MCHC 31.6 L, RDW 14.6, Plt Count 394, MPV 8.1, Neut % (Auto) 88.7 H, Lymph % (Auto) 9.0 L, Lanier % (Auto) 0.8 L, Eos % (Auto) 0.8, Baso % (Auto) 0.6, Neut # (Auto) 11.6 H, Lymph # (Auto) 1.2, Lanier # (Auto) 0.1, Eos # (Auto) 0.1, Baso # (Auto) 0.1, Total Counted 100, Neutrophils % (Manual) 88 H, Band Neutrophils % 2.0, Lymphocytes % (Manual) 6 L, Atypical Lymphs % 2.0, Monocytes % (Manual) 2, Platelet Estimate Normal, RBC Morphology Normal, Sodium 138, Potassium 4.0, Chloride 105, Carbon Dioxide 23, Anion Gap 14.0, BUN 9, Creatinine 0.70, Estimated Creat Clear 140, Estimated GFR 89, Est GFR ( Amer) 107, Glucose 189 H, Hemoglobin A1c 6.7 H, Calcium 10.0, Total Bilirubin 0.4, AST 34, ALT 34, Alkaline Phosphatase 75, Total Creatine Kinase 100, C-Reactive Protein 11.3 H, Total Protein 7.6, Albumin 4.5, Globulin 3.1, Albumin/Globulin Ratio 1.5, Procalcitonin 0.038 Orders (Tests/Meds): ED MEDICATIONS Discontinued Medications Generic Name Dose Route Start Last Admin Trade Name Casaq PRN Reason Stop Dose Admin Acetaminophen 1,000 mg 09/26/23 17:25 09/26/23 18:09 Acetaminophen 1,000mg/100ml Vial IV 09/26/23 17:26 1,000 mg ONCE ONE Administration Diphenhydramine HCl 50 mg 09/26/23 19:27 09/26/23 19:32 Diphenhydramine 50mg/Ml Vial IV 09/26/23 19:28 50 mg ONCE ONE Administration Lactated Ringer's 1,000 mls @ 999 mls/hr 09/26/23 17:25 09/26/23 18:09 Lactated Ringer's 1000 Ml Bag IV 09/26/23 18:25 999 mls/hr .Q1H1M ONE Administration Piperacillin Sod/Tazobactam 50 mls @ 100 mls/hr 09/26/23 17:29 09/26/23 19:22 Sod 3.375 gm/ Sodium Chloride IV 09/26/23 17:58 Not Given ONCE ONE Vancomycin HCl 2,250 mg/ 250 mls @ 125 mls/hr 09/26/23 17:45 09/26/23 19:57 Sodium Chloride IV 09/26/23 19:44 Not Given ONCE ONE Clindamycin Phosphate 900 mg in 50 mls @ 100 mls/hr 09/26/23 18:34 09/26/23 19:13 Clindamycin 900mg/50ml D5w Premix IV 09/26/23 19:03 100 mls/hr ONCE ONE Administration Piperacillin Sod/Tazobactam 50 mls @ 100 mls/hr 09/26/23 19:18 09/26/23 19:23 Sod 3.375 gm/ Sodium Chloride IV 09/26/23 19:47 100 mls/hr ONCE ONE Administration Iopamidol 120 ml 09/26/23 18:57 09/26/23 19:04 Iopamidol-370 (76%);100ml Bottle IV 09/26/23 18:58 120 ml ONCE ONE Administration Ketorolac Tromethamine 15 mg 09/26/23 17:25 09/26/23 18:09 Ketorolac 30mg/Ml Vial IV 09/26/23 17:26 15 mg ONCE ONE Administration Miscellaneous 1 each 09/26/23 17:30 09/26/23 17:45 Vancomycin Consult Request NOTAPPLIC 10/26/23 17:29 1 each CONSULT PHARMACY NADYA Administration Ondansetron HCl 4 mg 09/26/23 17:59 09/26/23 18:09 Ondansetron 4mg/2ml Vial IV 09/26/23 18:00 4 mg ONCE ONE Administration Oxycodone HCl 5 mg 09/26/23 17:25 09/26/23 18:09 Oxycodone 5mg Immediate Release Tablet PO 09/26/23 17:26 5 mg ONCE ONE Administration Sodium Chloride 50 ml 09/26/23 18:57 09/26/23 19:04 0.9 % Sodium Chloride 50 Ml Vial IV 09/26/23 18:58 50 ml ONCE ONE Administration Sodium Chloride 10 ml 09/26/23 18:57 09/26/23 19:04 Sodium Chloride 0.9% 10ml Syr (Rad Only) IV 09/26/23 18:58 10 ml ONCE ONE Administration ORDERS Category Date Time Status CT lower leg LT w con Stat Cat Scan 09/26/23 17:25 Completed POCUS Point of Care (ER Only) Stat Exams 09/26/23 17:17 Completed CBC w/Auto Diff [Complete Blood Count Auto Diff] Stat Lab 09/26/23 17:40 Completed CK [Creatine Kinase] Stat Lab 09/26/23 17:40 Completed CMP [Comprehensive Metabolic Panel] Stat Lab 09/26/23 17:40 Completed CRP [C-Reactive Protein] Stat Lab 09/26/23 17:40 Completed Hemoglobin A1C Stat Lab 09/26/23 17:40 Completed Procalcitonin Stat Lab 09/26/23 17:40 Completed Blood Culture Stat Micro 09/26/23 18:14 Received Medical Decision Narrative: In summary patient is a 48-year-old female who presents to the emergency department for evaluation of insect sting/bite. Patient is normotensive slightly elevated heart rate of 102 but otherwise with stable vital signs upon arrival, and afebrile. Physical exam is remarkable for a 10 x 8-1/2 cm area of induration and cellulitis in the left lateral thigh with a central area of sting/puncture/bite. No palpable fluctuance. The borders have been marked with an ink pen by myself. Differential diagnosis includes cellulitis versus abscess versus deep space infection. Initial workup will be conducted with [id number] ultrasound, hematologic labs, blood cultures, CT scan of the left lower extremity. Initial interventions include crystalloid bolus Toradol Tylenol and immediate release p.o. oxycodone. Initial workup reviewed by me [hematologic labs are remarkable for... Imaging remarkable for... Urinalysis remarkable for]. Upon repeat evaluation [patient had acceptable resolution of symptoms, had persistent pain for which additional interventions were conducted (describe interventions), tolerated p.o., was ambulatory, etc.]. Given this [patient is appropriate for discharge at this time and will be discharged with a prescription for... The case was discussed with hospital medicine regarding management and they will admit the patient their service for continued evaluation at this time... Etc.] I was consulted by the BRITTNI, and we discussed the complexity of the problems being addressed. I approved the treatment and management plan for this patient?s care in the Emergency Department, thus performing a substantive portion of the medical decision making. William Aparicio MD Procedures <William Aparicio MD - Last Filed: 09/26/23 23:30> Limited Ultrasound Indication:: Limited soft tissue ultrasound Indication: Soft tissue pain and swelling Identified structures: Location: Lateral left thigh Findings: Cellulitis, concern for subcutaneous gas with obscuring distal rainey Impression: Cellulitis with concern for subcutaneous gas Images were saved to permanent archive The study was technically adequate Soft Tissue CPT Codes: CPT Neck: 39388-03 CPT Upper extremity: 20281-61 CPT Axilla: 20955-67 CPT Chest wall: 19384-59 CPT Breast: 88346-12-UD/LT (complete), 98005-02-ME/LT (limited), CPT Upper Back: 20760-25 CPT Lower Back: 03209-71 CPT Abdominal Wall: 31254-41 CPT Pelvic Wall: 11341-26 CPT Lower Extremity: 18269-81 CPT Other Soft Tissue: 55416-82 This study was performed by me, and I personally interpreted all images/videos. Based on my clinical judgement, these images were adequate and did necessitate further imaging. Critical Care <HARMONY De Anda - Last Filed: 09/26/23 23:13> Critical Care Time Critical Care Time: No
--- NOTE | 2023-09-26 17:25 | CT_ITS ---
PROCEDURE INFORMATION: Exam: CT Left Lower Extremity With Contrast; Lower Leg Exam date and time: 09/26/2023 6:34 PM Age: 48 years old Clinical indication: Injury or trauma; Other: Wasp sting on lateral thigh per PT. Other: Wasp sting per PT. ; Additional info: Cellulitis, rule out deep space infection TECHNIQUE: Imaging protocol: CT of the left lower extremity with intravenous contrast was performed. Exam focused on the lower leg. Radiation optimization: All CT scans at this facility use at least one of these dose optimization techniques: automated exposure control; mA and/or kV adjustment per patient size (includes targeted exams where dose is matched to clinical indication); or iterative reconstruction. Contrast material: ISOVUE; Contrast volume: 120 ml; Contrast route: IV; COMPARISON: No relevant prior studies available. FINDINGS: Bones/joints: Normal. No acute fracture or dislocation. Soft tissues: Left lateral thigh subcutaneous fat stranding and dermal opacities without rim enhancing collection to suggest deep space infection/abscess. IMPRESSION: Left lateral thigh subcutaneous fat stranding and dermal opacities confirming cellulitis without rim enhancing collection to suggest deep space infection/abscess.
[2023-09-26] MEDS: VANCOMYCIN CONSULT REQUEST 1 EACH NOTAPPLIC (17:45)
[2023-09-26 18:06] LABS: Basophils # 0.1 K/mm3 (0-0.2); Basophils % 0.6 % (0.1-2.0); Eosinophils # 0.1 K/mm3 (0.0-0.4); Eosinophils % 0.8 % (0.1-12.0); Hematocrit 48.1 % (37.0-47.0); Hemoglobin 15.2 g/dL (12.2-16.2); Lymphocytes # 1.2 K/mm3 (0.7-4.5); Mean Corpuscular HGB Conc 31.6 g/dL (31.8-35.4); Mean Corpuscular Hemoglobin 29.1 pg (27.0-31.2); Mean Corpuscular Volume 92.3 fl (81-99); Mean Platelet Volume 8.1 fl (7.4-10.4); Monocytes # 0.1 K/mm3 (0.1-1.0); Monocytes % 0.8 % (1.7-9.3); Neutrophils # 11.6 K/mm3 (1.8-7.8); Neutrophils % 88.7 % (37.0-80.0); Platelet Count 394 K/mm3 (142-424); Red Blood Count 5.21 M/mm3 (4.20-5.40); Red Cell Distribution Width 14.6 % (11.5-17.5); White Blood Count 13.1 K/mm3 (4.8-10.8)
[2023-09-26] MEDS: LACTATED RINGERS 1000ML 1,000 ML 999 ML IV (18:09)
[2023-09-26] MEDS: OXYCODONE 5MG IMMEDIATE RELEASE TABLET 5 MG PO (18:09)
[2023-09-26] MEDS: ACETAMINOPHEN 1,000MG/100ML VIAL 1000 MG IV (18:09)
[2023-09-26] MEDS: KETOROLAC 30MG/ML VIAL 15 MG IV (18:09)
[2023-09-26] MEDS: ONDANSETRON 4MG/2ML VIAL 4 MG IV (18:09)
[2023-09-26 18:10] LABS: MANUAL DIFFERENTIAL MANUAL DIFFERENTIAL (MANUAL DIFF)
[2023-09-26 18:16] LABS: Chloride 105 mmol/L (98-107); Sodium 138 mmol/L (136-145)
[2023-09-26 18:19] LABS: Alanine Aminotransferase 34 U/L (12-78); Alkaline Phosphatase 75 U/L (38-126); Aspartate Amino Transferase 34 U/L (14-36); Bilirubin,Total 0.4 mg/dl (0.2-1.3); Blood Urea Nitrogen 9 mg/dl (7-17); Carbon Dioxide 23 mmol/L (22.0-30.0); Creatine Kinase 100 U/L (30-135); Creatinine Clearance Estimated 140 mL/min (50-200); Estimated Glomerular Filt Rate 89 ml/min (>60); GFR (African American) 107 ML/MIN (>60); Glucose 189 mg/dl (74-100)
[2023-09-26 18:20] LABS: Albumin Level 4.5 g/dl (3.5-5.0); Albumin/Globulin Ratio 1.5 (1.1-1.8); Globulin 3.1 g/dL (1.3-3.2); Total Protein,Serum 7.6 g/dl (6.3-8.2)
[2023-09-26 18:31] LABS: Lymphocytes % 6 % (10-50); Monocytes % 2 % (2-9); Neutrophils % 88 % (42-76); Total Cells Counted 100
[2023-09-26 18:34] LABS: RBC Morphology Normal
[2023-09-26 18:35] LABS: Platelet Estimate Normal
[2023-09-26 18:39] LABS: Hemoglobin A1C 6.7 % (4.0-6.0)
[2023-09-26 18:49] LABS: C-Reactive Protein 11.3 mg/L (0-4)
[2023-09-26] MEDS: IOPAMIDOL-370 (76%);100ML BOTTLE 120 ML IV (19:04)
[2023-09-26] MEDS: 0.9 % SODIUM CHLORIDE 50 ML VIAL IV (19:04)
[2023-09-26] MEDS: SODIUM CHLORIDE 0.9% 10ML SYR (RAD ONLY) 10 ML IV (19:04)
[2023-09-26] MEDS: CLINDAMYCIN PHOSPHATE/D5W 900 MG/50 ML PIGGYBACK 100 MG IV (19:13)
[2023-09-26] MEDS: PIPERACILLIN/TAZO 3.375 GM in 0.9 % SODIUM CHLORIDE 50 ML IV (19:23)
[2023-09-26] MEDS: diphenhydrAMINE 50MG/ML VIAL 50 MG IV (19:32)
[2023-09-26 19:33] LABS: Procalcitonin 0.038 ng/mL (0.0-2.0)
[2023-09-26 19:57] VITALS: BP 138/86; PULSE 95; RESP 20; TEMP 36.7; O2SAT 95
== END 2023-09-26 20:01 | disposition home or self-care (01) ==
PROVIDERS: Physician Assistant; Emergency Provider Emergency Medicine; PCP Family Medicine
DX: L03.116 Cellulitis of left lower limb (principal); F17.210 Nicotine dependence, cigarettes, uncomplicated; J44.9 Chronic obstructive pulmonary disease, unspecified; E03.9 Hypothyroidism, unspecified; I10 Essential (primary) hypertension; E78.5 Hyperlipidemia, unspecified; E11.9 Type 2 diabetes mellitus without complications; Z79.4 Long term (current) use of insulin
CPT/HCPCS: 73701; 80053; 82550; 83036; 84145; 85007; 85025; 86140; 87040; 96365; 96366; 96375; 99285; J0131; J2405; J2543; J3370; J7120; Q9967

== ENCOUNTER 2023-10-05 10:33 | Outpatient (CLI) | payer MEDICAID, SELFPAY ==
[2023-10-05 14:26] VITALS: BMI 37.2
== END 2023-10-05 23:59 | disposition home or self-care (01) ==
LOC: DIETICIAN 10:33
PROVIDERS: PCP Family Medicine; Visit Provider Nurse Practitioner
DX: E11.649 Type 2 diabetes mellitus with hypoglycemia without coma (principal)
CPT/HCPCS: 97802

== ENCOUNTER 2023-10-12 18:00 | Outpatient (CLI) | payer MEDICAID, SELFPAY ==
[2023-10-12 20:41] LABS: Lipase 50 U/L (23-300)
== END 2023-10-12 23:59 | disposition home or self-care (01) ==
LOC: LAB.DROPOF 10-13 14:11
PROVIDERS: PCP Family Medicine; Visit Provider Family Medicine
DX: G47.00 Insomnia, unspecified (principal); E11.9 Type 2 diabetes mellitus without complications; F17.210 Nicotine dependence, cigarettes, uncomplicated; Z79.4 Long term (current) use of insulin; Z79.899 Other long term (current) drug therapy
CPT/HCPCS: 83690

== ENCOUNTER → 2023-10-18 20:14 | Outpatient (CLI) | payer MEDICAID, SELFPAY | PROVIDERS: PCP Family Medicine; Visit Provider Internal Medicine Pulmonary Disease | DX: G47.33 Obstructive sleep apnea (adult) (pediatric) (principal); G47.37 Central sleep apnea in conditions classified elsewhere; G47.36 Sleep related hypoventilation in conditions classified elsewhere | CPT/HCPCS: 95810 ==

== ENCOUNTER → 2023-10-26 20:22 | Outpatient (CLI) | payer MEDICAID, SELFPAY | PROVIDERS: PCP Family Medicine; Visit Provider Internal Medicine Pulmonary Disease | DX: G47.33 Obstructive sleep apnea (adult) (pediatric) (principal); G47.37 Central sleep apnea in conditions classified elsewhere; G47.36 Sleep related hypoventilation in conditions classified elsewhere | CPT/HCPCS: 95811 ==

== ENCOUNTER 2024-02-15 08:28 | Outpatient (CLI) | payer MEDICAID, SELFPAY ==
--- NOTE | 2024-02-15 08:47 | MR_ITS ---
FINAL REPORT TECHNIQUE: Multiplanar and multisequence MR imaging was performed through the abdomen before and after contrast administration utilizing an MR enterography protocol. CLINICAL HISTORY: recurrent acute pancreatitis/epigastric pain COMPARISON: None FINDINGS: LUNG BASES: Clear. LIVER: Normal signal intensity. No suspicious enhancing masses. No intrahepatic biliary dilation. GALLBLADDER: Normal. COMMON BILE DUCT: Normal. SPLEEN: Normal. ADRENAL GLANDS: Normal. PANCREAS: Normal signal intensity. No evidence of acute pancreatitis. No pancreatic ductal dilation. No pancreatic enhancement is identified, and no pancreatic mass is present. KIDNEYS: No mass. No hydronephrosis. BOWEL: Adequate filling of the small bowel loops. No suspicious bowel edema and no suspicious bowel wall thickening. No definite strictures. No bowel fistulas. No obstruction. The terminal ileum is unremarkable. PERITONEUM/RETROPERITONEUM: No free fluid or free air. LYMPH NODES: No adenopathy. BONES: No aggressive osseous lesion. SOFT TISSUES: Normal. IMPRESSION: No evidence of pancreatitis, pancreatic mass, or pancreatic enhancement. Reviewed, Interpreted and Dictated by Luis Barron MD Transcribed by Gisselle Gibson Authenticated and [facility]
[2024-02-15 08:54] LABS: Albumin Level 4.4 g/dl (3.5-5.0); Chloride 103 mmol/L (98-107); Potassium 4.3 mmoL/L (3.5-5.1); Sodium 139 mmol/L (136-145)
[2024-02-15 08:57] LABS: Alanine Aminotransferase 23 U/L (12-78); Albumin/Globulin Ratio 1.6 (1.1-1.8); Alkaline Phosphatase 57 U/L (38-126); Amylase 58 U/L (30-110); Anion Gap 9.3 mEq/L (5-15); Aspartate Amino Transferase 25 U/L (14-36); Bilirubin,Total 0.4 mg/dl (0.2-1.3); Blood Urea Nitrogen 15 mg/dl (7-17); Calcium 9.6 mg/dl (8.4-10.2); Carbon Dioxide 31 mmol/L (22.0-30.0); Estimated Glomerular Filt Rate 59 ml/min (>60); GFR (African American) 71 ML/MIN (>60); Globulin 2.7 g/dL (1.3-3.2); Glucose 168 mg/dl (74-100); Lipase 33 U/L (23-300); Total Protein,Serum 7.1 g/dl (6.3-8.2)
[2024-02-15] MEDS: GADOTERIDOL INJ 20ML SYRINGE 18 ML IV (10:29)
[2024-02-15] MEDS: SODIUM CHLORIDE 0.9% 10ML SYR (RAD ONLY) 10 ML IV (10:29)
[2024-02-15] MEDS: 0.9 % SODIUM CHLORIDE 50 ML VIAL 20 ML IV (10:29)
== END 2024-02-15 23:59 | disposition home or self-care (01) ==
LOC: RAD 08:29
PROVIDERS: PCP Nurse Practitioner Family; Visit Provider Nurse Practitioner Family
DX: K85.90 Acute pancreatitis without necrosis or infection, unspecified (principal); R10.13 Epigastric pain
CPT/HCPCS: 36415; 74183; 80053; 82150; 83690; A9576

== ENCOUNTER 2024-02-29 12:59 | Outpatient (POV) | payer MEDICAID, SELFPAY ==
[2024-02-29 13:48] VITALS: BP 129/83; PULSE 83; RESP 18; O2SAT 94; BMI 36.6
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
== END 2024-02-29 23:59 | disposition home or self-care (01) ==
LOC: SC.PAIN 13:00
PROVIDERS: PCP Family Medicine; Visit Provider Nurse Practitioner Family
DX: G89.4 Chronic pain syndrome (principal); M51.369 Other intervertebral disc degeneration, lumbar region without mention of lumbar back pain or lower extremity pain; M54.2 Cervicalgia; K86.1 Other chronic pancreatitis; F17.210 Nicotine dependence, cigarettes, uncomplicated; Z73.89 Other problems related to life management difficulty; Z79.899 Other long term (current) drug therapy
CPT/HCPCS: 99202; G0463

== ENCOUNTER 2024-03-04 18:13 | Observation (INO) | payer MEDICAID, SELFPAY ==
[2024-03-04] VITALS (11 sets, daily range): BP systolic 131–167; BP diastolic 62–111; PULSE 62–85; RESP 16–18; TEMP 36.6–36.8; O2SAT 91–99; BMI 36.6; BMI 35.4
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
--- NOTE | 2024-03-04 18:19 | ECG_ITS ---
APPROVED REPORT Exam: Resting ECG HR:74 bpm ECG Measurements Heart Rate 74 AXES NH 144 P 57 QRSd 91 QRS 86 QT 407 T 81 QTc 434 Conclusion SINUS RHYTHM WITH SINUS ARRHYTHMIA NONSPECIFIC T-WAVE ABNORMALITY No STEMI Electronically signed by : MICHELLE STEPHENSON, 03/06/2024 23:41:41
[2024-03-04] MEDS: SODIUM CHLORIDE 0.9% 25ML BAG 25 ML IV (18:44)
[2024-03-04] MEDS: 0.9 % SODIUM CHLORIDE 1000ML 1,000 ML 999 ML IV (18:44)
[2024-03-04] MEDS: PROMETHAZINE HCL 25MG/ML 1ML VIAL 25 MG IV (18:44)
[2024-03-04] MEDS: HYDROMORPHONE 2MG/ML SYRINGE 1 MG IV ×3 (18:44→23:04)
[2024-03-04] MEDS: ACETAMINOPHEN 1,000MG/100ML VIAL 1000 MG IV (18:44)
[2024-03-04 18:46] LABS: Basophils # 0.3 K/mm3 (0-0.2); Basophils % 1.6 % (0.1-2.0); Eosinophils # 0.4 K/mm3 (0.0-0.4); Hematocrit 48.1 % (37.0-47.0); Hemoglobin 16.1 g/dL (12.2-16.2); Lymphocytes # 2.6 K/mm3 (0.7-4.5); Lymphocytes % 13.2 % (10-50); Mean Corpuscular HGB Conc 33.4 g/dL (31.8-35.4); Mean Corpuscular Hemoglobin 29.8 pg (27.0-31.2); Mean Corpuscular Volume 89.3 fl (81-99); Mean Platelet Volume 7.5 fl (7.4-10.4); Monocytes # 0.7 K/mm3 (0.1-1.0); Monocytes % 3.5 % (1.7-9.3); Neutrophils # 15.9 K/mm3 (1.8-7.8); Neutrophils % 79.8 % (37.0-80.0); Platelet Count 320 K/mm3 (142-424); Red Blood Count 5.39 M/mm3 (4.20-5.40); Red Cell Distribution Width 14.3 % (11.5-17.5); White Blood Count 19.9 K/mm3 (4.8-10.8)
[2024-03-04 18:49] LABS: MANUAL DIFFERENTIAL MANUAL DIFFERENTIAL (MANUAL DIFF)
[2024-03-04 19:04] LABS: Albumin Level 4.4 g/dl (3.5-5.0); Chloride 99 mmol/L (98-107); Sodium 133 mmol/L (136-145)
[2024-03-04 19:05] LABS: Potassium 3.7 mmoL/L (3.5-5.1)
[2024-03-04 19:07] LABS: Alanine Aminotransferase 25 U/L (12-78); Albumin/Globulin Ratio 1.5 (1.1-1.8); Alkaline Phosphatase 72 U/L (38-126); Anion Gap 10.7 mEq/L (5-15); Aspartate Amino Transferase 26 U/L (14-36); Bilirubin,Total 0.5 mg/dl (0.2-1.3); Blood Urea Nitrogen 11 mg/dl (7-17); Carbon Dioxide 27 mmol/L (22.0-30.0); Creatinine Clearance Estimated 120 mL/min (50-200); Estimated Glomerular Filt Rate 76 ml/min (>60); GFR (African American) 92 ML/MIN (>60); Lipase 112 U/L (23-300); Total Protein,Serum 7.4 g/dl (6.3-8.2)
[2024-03-04 19:08] LABS: Calcium 9.3 mg/dl (8.4-10.2); Glucose 177 mg/dl (74-100)
--- NOTE | 2024-03-04 19:23 | PC.NURSE ---
patient assisted to bathroom
[2024-03-04 19:28] LABS: Eosinophils % 1 % (0-3); Lymphocytes % 19 % (10-50); Monocytes % 4 % (2-9); Neutrophils % 76 % (42-76); Total Cells Counted 100
[2024-03-04 19:29] LABS: Hypochromasia 2+; Microcytosis 1+; Platelet Estimate Normal; Stomatocytes 1+
--- NOTE | 2024-03-04 20:33 | CT_ITS ---
PROCEDURE INFORMATION: Exam: CT Abdomen And Pelvis With Contrast Exam date and time: 03/04/2024 9:28 PM Age: 48 years old Clinical indication: Abdominal pain; Acute; Additional info: Acute on chronic epigastric pain, pancreatitis TECHNIQUE: Imaging protocol: Computed tomography of the abdomen and pelvis with contrast. Radiation optimization: All CT scans at this facility use at least one of these dose optimization techniques: automated exposure control; mA and/or kV adjustment per patient size (includes targeted exams where dose is matched to clinical indication); or iterative reconstruction. Contrast material: ISOVUE; Contrast volume: 75 ml; Contrast route: IV; COMPARISON: MR ABDOMEN WO/W CON 02/15/2024 9:11 AM FINDINGS: Lungs: Bibasilar atelectasis versus parenchymal scarring. Diaphragm: Small hiatal hernia Liver: Decreased density throughout the liver compatible with hepatic steatosis. Findings suggestive of small hemangioma right lobe of the liver Gallbladder and biliary ducts: Gallbladder unremarkable Pancreas: Pancreas unremarkable Spleen: The spleen is unremarkable. Adrenal glands: Adrenal glands unremarkable. Kidneys and ureters: No hydronephrosis. Stomach and bowel: Mild gastric wall thickening. Findings may be secondary to incomplete distension versus gastritis. Apparent wall thickening in the colon may be secondary to incomplete filling versus mild colitis. Clinically correlate. Appendix: Appendix unremarkable Intraperitoneal space: Unremarkable. No free air. No significant fluid collection. Vasculature: Unremarkable. No abdominal aortic aneurysm. Lymph nodes: Unremarkable. No enlarged lymph nodes. Urinary bladder: Unremarkable as visualized. Reproductive: Unremarkable as visualized. Bones/joints: Unremarkable. No acute fracture. Soft tissues: Unremarkable. IMPRESSION: Apparent wall thickening in the colon may be secondary to incomplete filling versus mild colitis. Clinically correlate.
[2024-03-04] MEDS: SODIUM CHLORIDE 0.9% 10ML SYR (RAD ONLY) 10 ML IV (21:30)
[2024-03-04] MEDS: IOPAMIDOL-370 (76%);100ML BOTTLE 75 ML IV (21:30)
[2024-03-04 21:53] LABS: HIV (1&2) Antibody Rapid NONREACTIVE (NONREACTIVE)
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
[2024-03-05] VITALS: BP 132/78; PULSE 69; RESP 16; TEMP 36.6; O2SAT 91
[2024-03-05] MEDS: HYDROMORPHONE 2MG/ML SYRINGE 1 MG IV ×2 (03:17→06:05)
[2024-03-05] MEDS: HEPARIN SODIUM 5,000 UNIT/ML VIAL 5000 UNIT SUBCUT (03:53)
[2024-03-05 04:00] VITALS: BP 126/90; PULSE 88; RESP 16; TEMP 36.9; O2SAT 91; BMI 35.4
[2024-03-05] MEDS: 0.9 % SODIUM CHLORIDE 1000ML 1,000 ML 75 ML IV (06:04)
[2024-03-05] MEDS: FLUTICASONE/SALMETEROL 500/50MCG DISKUS 1 PUFF IH (06:24)
[2024-03-05 07:03] LABS: Basophils # 0.1 K/mm3 (0-0.2); Basophils % 0.8 % (0.1-2.0); Eosinophils # 0.3 K/mm3 (0.0-0.4); Eosinophils % 1.9 % (0.1-12.0); Hematocrit 45.2 % (37.0-47.0); Hemoglobin 15.1 g/dL (12.2-16.2); Lymphocytes # 3.3 K/mm3 (0.7-4.5); Lymphocytes % 20.2 % (10-50); Mean Corpuscular HGB Conc 33.5 g/dL (31.8-35.4); Mean Corpuscular Hemoglobin 29.3 pg (27.0-31.2); Mean Corpuscular Volume 87.4 fl (81-99); Mean Platelet Volume 7.7 fl (7.4-10.4); Monocytes # 0.8 K/mm3 (0.1-1.0); Neutrophils # 11.6 K/mm3 (1.8-7.8); Neutrophils % 72.2 % (37.0-80.0); Platelet Count 279 K/mm3 (142-424); Red Blood Count 5.17 M/mm3 (4.20-5.40); Red Cell Distribution Width 14.6 % (11.5-17.5); White Blood Count 16.1 K/mm3 (4.8-10.8)
[2024-03-05 07:05] LABS: MANUAL DIFFERENTIAL MANUAL DIFFERENTIAL (MANUAL DIFF)
[2024-03-05 07:15] LABS: Anion Gap 5.8 mEq/L (5-15); Blood Urea Nitrogen 9 mg/dl (7-17); Calcium 8.9 mg/dl (8.4-10.2); Carbon Dioxide 28 mmol/L (22.0-30.0); Chloride 103 mmol/L (98-107); Creatinine Clearance Estimated 116 mL/min (50-200); Estimated Glomerular Filt Rate 76 ml/min (>60); GFR (African American) 92 ML/MIN (>60); Glucose 135 mg/dl (74-100); Potassium 3.8 mmoL/L (3.5-5.1); Sodium 133 mmol/L (136-145)
[2024-03-05] MEDS: PROMETHAZINE HCL 25MG/ML 1ML VIAL 25 MG IV (07:41)
[2024-03-05 08:00] VITALS: BP 132/81; PULSE 86; RESP 20; TEMP 36.6; O2SAT 94
[2024-03-05] MEDS: LORATADINE 10MG TABLET 10 MG PO (08:14)
[2024-03-05] MEDS: IRBESARTAN 150MG TAB 150 MG PO (08:14)
[2024-03-05] MEDS: PROPRANOLOL 20MG TAB 30 MG PO (08:14)
[2024-03-05] MEDS: FLUTICASONE PROP 50MCG NASAL SPRAY 16GM 2 SPRAY NS (08:14)
[2024-03-05] MEDS: CITALOPRAM 40MG TABLET 40 MG PO (08:14)
[2024-03-05] MEDS: PANTOPRAZOLE 40MG VIAL 40 MG IV (08:14)
[2024-03-05] MEDS: BUSPIRONE HCL 10 MG TABLET PO ×2 (08:14→11:57)
[2024-03-05] MEDS: hydroCHLOROthiazide 12.5MG CAPSULE 12.5 MG PO (08:14)
[2024-03-05] MEDS: GABAPENTIN 300MG CAPSULE 300 MG PO ×2 (08:14→11:57)
[2024-03-05 08:50] LABS: Eosinophils % 3 % (0-3); Lymphocytes % 28 % (10-50); Monocytes % 3 % (2-9); Neutrophils % 66 % (42-76); Platelet Estimate Normal; RBC Morphology Normal; Total Cells Counted 100
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
[2024-03-05 10:16] LABS: POC Glucose,Bedside 152 (70-110)
[2024-03-05 10:53] LABS: POC Glucose,Bedside 156 (70-110)
[2024-03-05 11:53] VITALS: BP 122/67; PULSE 82; RESP 18; TEMP 36.7; O2SAT 93
[2024-03-05] MEDS: LIPASE/PROTEASE/AMYLASE 1 EACH CAPSULE.DR PO (11:57)
[2024-03-05] MEDS: BELLADONNA ALKALOIDS 60 ML ML PO (11:57)
--- NOTE | 2024-03-05 13:18 | PC.NURSE ---
pt had no c/o nausea with eating
--- NOTE | 2024-03-05 13:41 | PC.NURSE ---
Patient tolerated her lunch and had no nausea or vomiting.
--- NOTE | 2024-03-05 14:02 | P.DS_ITS ---
General Admission date:: 03/04/24 Discharge date: 03/05/24 HPI HPI HPI: Patient is a 48-year-old female with past medical history of idiopathic pancreatitis, asthma, hypothyroidism, hypertension hyperlipidemia patient presents to the hospital due to concern of nausea vomiting abdominal pain. Patient mentions her pain is 7/10 intensity, more in the epigastric area, radiates to back and lower abdomen. Patient mentions she has not been able to hold down any food, this is her typical pancreatitis episodes. Patient otherwise denied fevers chills diarrhea constipation dysuria. per admission This is a 48-year-old female who reports innumerable episodes of acute pancreatitis over the years. She has been through the ER here at [facility] 5 times with acute pancreatitis, CT confirmed since May 2020. She reports she has been to other hospitals as well. Sometimes she does not go to the hospital when she has these episodes. Most recently in May she had acute pancreat itis episode that lasted longer than 24 hours, went to the ER and CT showed acute pancreatitis with normal amylase and lipase. She does report that she has had multiple episodes since then but they involve epigastric pain that seems the same as her acute pancreatitis episodes but they may last 5 to 10 minutes and resolve. The patient drinks about 1 drink of alcohol every 2 weeks. She is on tramadol for the past year. She has triglycerides of 166. She is a daily smoker of about a pack of cigarettes per day. She denies any family history of pancreas cancer or pancreatic disease. She had an MRI a few years ago that was unremarkable. We just did an MRI/MRCP with no abnormalities of the pancreas. Her lipase was normal in the ER at 112. Liver enzymes were normal. She did have a mild elevation of white blood cell at 19.9 upon arrival down to 16.1. CT scan shows no evidence of acute pancreatitis, but did show some mild gastric wall thickening incomplete distention versus gastritis and wall thickening of the colon and incomplete filling versus mild colitis. Her abdominal pain is always mid epigastric. She is distended with gas bloat on exam. 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 She has had about 2 days of abdominal pain that she assumed was another pancreatitis episode. She has had an increase in bloating but no change in her bowel habits no melena hematochezia or mucus in her stool. No diarrhea or constipation. After being seen in the office recently we tried Creon with meals. She reports that she was weaned off the tramadol and started on Creon and had elimination of those intermittent 5 or 10- minute episodes of abdominal pain with that. The past couple days have been more significant with epigastric pain, a little more bloating, loss of appetite and a little nausea yesterday and today with 1 episode of vomiting this morning. Hospital Course Hospital Course Hospital Course: Ms. Pineda is a 48-year-old female with past medical history of idiopathic pancreatitis, asthma, hypothyroidism, hypertension hyperlipidemia patient presents to the hospital due to concern of nausea vomiting abdominal pain. Patient mentions her pain is 7/10 intensity, more in the epigastric area, radiates to back and lower abdomen. Patient mentions she has not been able to hold down any food, this is her typical pancreatitis episodes. Patient otherwise denied fevers chills diarrhea constipation dysuria. Admitted to medicine for treatment of her nausea vomiting and GI consult. Lipase remain normal. Concerned this is severe gastritis versus pancreatitis. P.o. challenged and addressed her symptoms with medical management. Patient tolerating full liquids. Stable to discharge home with close workup and management as an outpatient. Problems addressed as follows: Abdominal pain likely secondary to chronic pancreatitis Hyponatremia likely poor oral intake Leukocytosis likely reactive Intractable nausea and vomiting Gastritis -Labs on initial assessment with normal lipase. Imaging reviewed showed inflammation of stomach and portion of colon. Initially unable to tolerate p.o. intake. GI was consulted, assisted with care. Initiated on high-dose PPI. Advance diet, patient able to tolerate with antiemetics. Sodium improving along with normal kidney function on morning of discharge. GI also recommended MRI of pancreas. No inflammation, cyst, obstruction identified on MRI. Pancreas otherwise unremarkable. Given ability to tolerate p.o. intake and normal findings on MRI, stable to discharge home. Symptoms concerning for gastritis. Recommend continuing her Creon for pancreatic insufficiency. Current medical conditions Diabetes mellitus: Continue home regimen with 70/30 insulin Hypertension: Continue home regimen with propranolol 60 mg daily Hypothyroidism: Continue levothyroxine 25 mcg daily Asthma: Continue inhaler regimen. No exacerbation during admission; continue Singulair 10mg night Continue gabapentin 300 mg 3 times a day for neuropathy Continue Lexapro, BuSpar, amitriptyline for mood disorder Total time spent on discharge 32 minutes in counseling, documentation, chart review, and direct care with patient. Exam Data for Last 24 hours Vital signs and Labs for Last 24 Hours: Temp Pulse Resp BP Pulse Ox O2 Del Method 98.0 F 82 18 122/67 93 L Room Air 03/05/24 11:53 03/05/24 11:53 03/05/24 11:53 03/05/24 11:53 03/05/24 11:53 03/05/24 13:27 Laboratory Results - last 24 hr 03/04/24 18:31: WBC 19.9 H, RBC 5.39, Hgb 16.1, Hct 48.1 H, MCV 89.3, MCH 29.8, MCHC 33.4, RDW 14.3, Plt Count 320, MPV 7.5, Neut % (Auto) 79.8, Lymph % (Auto) 13.2, Carlton % (Auto) 3.5, Eos % (Auto) 2.0, Baso % (Auto) 1.6, Neut # (Auto) 15.9 H, Lymph # (Auto) 2.6, Carlton # (Auto) 0.7, Eos # (Auto) 0.4, Baso # (Auto) 0.3 H, Total Counted 100, Neutrophils % (Manual) 76, Lymphocytes % (Manual) 19, Monocytes % (Manual) 4, Eosinophils % (Manual) 1, Platelet Estimate Normal, Hypochromasia 2+, Microcytosis 1+, Stomatocytes 1+, Sodium 133 L, Potassium 3.7, Chloride 99, Carbon Dioxide 27, Anion Gap 10.7, BUN 11, Creatinine 0.80, Estimated Creat Clear 120, Estimated GFR 76, Est GFR ( Amer) 92, Glucose 177 H, Calcium 9.3, Total Bilirubin 0.5, AST 26, ALT 25, Alkaline Phosphatase 72, Total Protein 7.4, Albumin 4.4, Globulin 3.0, Albumin/Globulin Ratio 1.5, Lipase 112, HIV 1&2 Antibody Rapid Nonreactive 03/05/24 05:45: WBC 16.1 H, RBC 5.17, Hgb 15.1, Hct 45.2, MCV 87.4, MCH 29.3, MCHC 33.5, RDW 14.6, Plt Count 279, MPV 7.7, Neut % (Auto) 72.2, Lymph % (Auto) 20.2, Carlton % (Auto) 5.0, Eos % (Auto) 1.9, Baso % (Auto) 0.8, Neut # (Auto) 11.6 H, Lymph # (Auto) 3.3, Carlton # (Auto) 0.8, Eos # (Auto) 0.3, Baso # (Auto) 0.1, Total Counted 100, Neutrophils % (Manual) 66, Lymphocytes % (Manual) 28, Monocytes % (Manual) 3, Eosinophils % (Manual) 3, Platelet Estimate Normal, RBC Morphology Normal, Sodium 133 L, Potassium 3.8, Chloride 103, Carbon Dioxide 28, Anion Gap 5.8, BUN 9, Creatinine 0.80, Estimated Creat Clear 116, Estimated GFR 76, Est GFR ( Amer) 92, Glucose 135 H D, Calcium 8.9 03/05/24 06:11: POC Glucose 156 H 03/05/24 10:08: POC Glucose 152 H I & O for Last 24 hours: Intake & Output 03/02/24 03/03/24 03/04/24 03/05/24 23:59 22:59 23:59 23:59 Intake Total 540 / 540 Output Total 0 / 0 Balance 540 / 540 Weight 87.317 kg 87.271 kg Constitutional Constitutional: no acute distress, obese, chronically ill appearing and cooperative *Routine HEENT Exam Head: Present normocephalic Eye: Present EOMI and PERRL ENT: Present mucous membranes moist *Routine Neck Exam Neck: Present supple; Absent lymphadenopathy *Routine Respiratory Exam Respiratory: Present CTA bilaterally; Absent rhonchi, wheezes or crackles *Routine Cardiovascular Exam Cardiovascular: Present RRR *Routine Abdominal Exam Abdominal: Present soft, normoactive bowel sounds, tenderness (Epigastric) and obese; Absent distended or rebound *Routine Rectal Exam Patient deferred: visual exam *Routine Exam Patient deferred: external exam *Routine Extremities Exam Extremities: Absent cyanosis, clubbing or edema *Routine Skin Exam Skin: Present intact and warm; Absent rash *Routine Neurological Exam Neurological: Present alert, oriented X3 and moving all extremities; Absent altered mental status Results Data Completed and Pending Labs on day of discharge: Labs from last 24 hours 03/05/24 03/05/24 03/05/24 10:08 06:11 05:45 WBC 16.1 H RBC 5.17 Hgb 15.1 Hct 45.2 MCV 87.4 MCH 29.3 MCHC 33.5 RDW 14.6 Plt Count 279 MPV 7.7 Neut % (Auto) 72.2 Lymph % (Auto) 20.2 Carlton % (Auto) 5.0 Eos % (Auto) 1.9 Baso % (Auto) 0.8 Neut # (Auto) 11.6 H Lymph # (Auto) 3.3 Carlton # (Auto) 0.8 Eos # (Auto) 0.3 Baso # (Auto) 0.1 Total Counted 100 Neutrophils % (Manual) 66 Lymphocytes % (Manual) 28 Monocytes % (Manual) 3 Eosinophils % (Manual) 3 Platelet Estimate Normal RBC Morphology Normal Hypochromasia Microcytosis Stomatocytes Sodium 133 L Potassium 3.8 Chloride 103 Carbon Dioxide 28 Anion Gap 5.8 BUN 9 Creatinine 0.80 Estimated Creat Clear 116 Estimated GFR 76 Est GFR ( Amer) 92 Glucose 135 H D POC Glucose 152 H 156 H Calcium 8.9 Total Bilirubin AST ALT Alkaline Phosphatase Total Protein Albumin Globulin Albumin/Globulin Ratio Lipase HIV 1&2 Antibody Rapid 03/04/24 18:31 WBC 19.9 H RBC 5.39 Hgb 16.1 Hct 48.1 H MCV 89.3 MCH 29.8 MCHC 33.4 RDW 14.3 Plt Count 320 MPV 7.5 Neut % (Auto) 79.8 Lymph % (Auto) 13.2 Carlton % (Auto) 3.5 Eos % (Auto) 2.0 Baso % (Auto) 1.6 Neut # (Auto) 15.9 H Lymph # (Auto) 2.6 Carlton # (Auto) 0.7 Eos # (Auto) 0.4 Baso # (Auto) 0.3 H Total Counted 100 Neutrophils % (Manual) 76 Lymphocytes % (Manual) 19 Monocytes % (Manual) 4 Eosinophils % (Manual) 1 Platelet Estimate Normal RBC Morphology Hypochromasia 2+ Microcytosis 1+ Stomatocytes 1+ Sodium 133 L Potassium 3.7 Chloride 99 Carbon Dioxide 27 Anion Gap 10.7 BUN 11 Creatinine 0.80 Estimated Creat Clear 120 Estimated GFR 76 Est GFR ( Amer) 92 Glucose 177 H POC Glucose Calcium 9.3 Total Bilirubin 0.5 AST 26 ALT 25 Alkaline Phosphatase 72 Total Protein 7.4 Albumin 4.4 Globulin 3.0 Albumin/Globulin Ratio 1.5 Lipase 112 HIV 1&2 Antibody Rapid Nonreactive DS: Diagnosis Discharge Diagnosis (1) Recurrent acute pancreatitis: Status: Acute Code(s): K85.90 - Acute pancreatitis without necrosis or infection, unspecified (2) Epigastric abdominal pain: Status: Acute Code(s): R10.13 - Epigastric pain (3) Bloating: Status: Acute Code(s): R14.0 - Abdominal distension (gaseous) (4) Nausea: Status: Acute Code(s): R11.0 - Nausea Meds Home Medications and Allergies Home Medications ?Medication ?Instructions ?Recorded ?Confirmed ?Type gabapentin 300 mg capsule 300 mg PO TID Pain 07/19/23 03/04/24 History fluticasone 500 mcg-salmeterol 50 1 inh inhalation BID #180 ea 09/12/23 03/04/24 Rx mcg/dose blistr powdr for inhalation (Advair Diskus) buspirone 10 mg tablet 10 mg PO TID #90 tabs 12/19/23 03/04/24 Rx insulin NPH-regular 70-30 U-100 10 unit (0.1 mL) SQ BID #12 mL 01/18/24 03/04/24 Rx insulin 100 unit/mL subcutaneous pen (Humulin 70/30 U-100 KwikPen) [id number] 1 cap PO QID #360 caps 01/18/24 03/04/24 Rx 12,000-38,000-60,000 unit capsule,delayed rel (Creon) cetirizine 10 mg tablet 10 mg PO DAILYP PRN ALLERGIES 01/29/24 03/05/24 History montelukast 10 mg tablet 10 mg PO HS 01/29/24 03/05/24 History nicotine (polacrilex) 4 mg gum 4 mg buccal Q2H #50 ea 01/29/24 03/04/24 Rx escitalopram oxalate 20 mg tablet 20 mg PO DAILY #30 tabs 02/15/24 03/04/24 Rx (Lexapro) amitriptyline 25 mg tablet 25 mg PO DAILY 03/05/24 03/05/24 History levothyroxine 25 mcg tablet 25 mcg PO DAILYDM 03/05/24 03/05/24 History pantoprazole 40 mg tablet,delayed 40 mg PO DAILY #30 tabs 03/05/24 Rx release propranolol 60 mg capsule,24 60 mg PO DAILY 03/05/24 03/05/24 History hr,extended release New Prescriptions to Start Prescriptions: pantoprazole Kartik Escobar Allergies Allergy/AdvReac Type Severity Reaction Status Date / Time glimepiride [From Amaryl] AdvReac Severe Verified 01/30/24 08:47 Discharge Plan Disposition Patient Disposition: Home, Self-Care Condition: Fair Follow up Plan Follow up with: Chin Collier II, MD [Staff Physician] - 03/25/24 7:30 am (Please schedule outpatient EGD) Isidro Roberts MD [Primary Care Provider] - 03/11/24 1:15 pm Prescriptions/Medication Reconciliation: New pantoprazole 40 mg tablet,delayed release (DR/EC) 40 mg PO DAILY Qty: 30 0RF Continued fluticasone propion-salmeterol [Advair Diskus] 500-50 mcg/dose blister with device 1 inh inhalation BID Qty: 180 2RF gabapentin 300 mg capsule 300 mg PO TID Patient Comments: TAKE 1 CAPSULE BY MOUTH THREE TIMES DAILY buspirone 10 mg tablet 10 mg PO TID Qty: 90 2RF cetirizine 10 mg tablet 10 mg PO DAILYP PRN (Reason: ALLERGIES) Patient Comments: TAKE 1 TABLET BY MOUTH ONCE DAILY NEEDED FOR ALLERGIES montelukast 10 mg tablet 10 mg PO HS Patient Comments: TAKE 1 TABLET BY MOUTH ONCE DAILY nicotine (polacrilex) 4 mg gum 4 mg buccal Q2H Qty: 50 2RF Creon 12,000-38,000 -60,000 unit capsule,delayed release(DR/EC) 1 cap PO QID Qty: 360 3RF Rx Instructions: administer with meals and/or snacks Humulin 70/30 U-100 KwikPen 100 unit/mL (70-30) insulin pen 10 unit SQ BID Qty: 12 4RF escitalopram oxalate [Lexapro] 20 mg tablet 20 mg PO DAILY Qty: 30 2RF amitriptyline 25 mg tablet 25 mg PO DAILY Patient Comments: TAKE 1 TABLET BY MOUTH ONCE DAILY FOR MIGRAINE HEADACHE propranolol 60 mg capsule,extended release 24 hr 60 mg PO DAILY Patient Comments: TAKE 1 CAPSULE BY MOUTH ONCE DAILY levothyroxine 25 mcg tablet 25 mcg PO DAILYDM Patient Comments: TAKE 1 TABLET BY MOUTH ONCE DAILY FOR THYROID Problem Reconciliation Problems Reviewed?: Yes Patient Discharge Instructions ACTIVITY: Continue current activity DIET: continue same diet Patient Instructions: DI for Pancreatitis, DI for Abdominal Pain-Adult Print Language: Slovenian Providers Primary Care Provider: Isidro Roberts Admit Provider: Tang Obrien Attending Provider: Tang Obrien
--- NOTE | 2024-03-05 14:50 | PC.NURSE ---
Iv removed and meds to beds called.
[2024-03-06 09:39] LABS: HCV Ab Non Reactive (Non Reactive)
--- NOTE | 2024-03-06 14:45 | CARE MANAGER ---
Contacted patient related to hospital discharge. She got new medication and is aware of follow up appointments. Denies questions or concerns. [place] Daniel
== END 2024-03-05 15:50 | disposition home or self-care (01) ==
LOC: ER 21:37 → 2ND 21:39
PROVIDERS: Internal Medicine; Physician Assistant; Admitting Provider Student in an Organized Health Care Education/Training Program; Emergency Provider Student in an Organized Health Care Education/Training Program; PCP Family Medicine; Visit Provider Student in an Organized Health Care Education/Training Program
DX: K86.1 Other chronic pancreatitis (principal); E78.5 Hyperlipidemia, unspecified; G89.4 Chronic pain syndrome; E11.9 Type 2 diabetes mellitus without complications; J44.9 Chronic obstructive pulmonary disease, unspecified; F17.210 Nicotine dependence, cigarettes, uncomplicated; Z79.4 Long term (current) use of insulin; Z79.899 Other long term (current) drug therapy; E03.9 Hypothyroidism, unspecified; K85.90 Acute pancreatitis without necrosis or infection, unspecified; Z60.8 Other problems related to social environment; G47.00 Insomnia, unspecified; F33.8 Other recurrent depressive disorders
CPT/HCPCS: 36415; 74177; 80048; 80053; 82962; 83690; 85007; 85025; 86803; 87389; 93005; 94640; 99285; G0378; J0131; J1171; J1644; J2550; J7030; Q9967

== ENCOUNTER 2024-03-14 15:09 | Outpatient (CLI) | payer MEDICAID, SELFPAY ==
--- NOTE | 2024-03-14 15:10 | CT_ITS ---
FINAL REPORT CLINICAL HISTORY: lung screening current smoker 1 ppd x 35 years COMPARISON: 04/19/2022 FINDINGS: Axial images were obtained from the lung apex to the mid abdomen by computed tomography. Low-dose protocol was utilized. CTDl vol(mGy): 2.90 DLP (mGy-cm): 108.90 FINDINGS: There is no axillary adenopathy. There are borderline mediastinal lymph nodes. The heart size is normal. There is no pericardial or pleural effusion. There is moderate emphysema. Mild scarring is noted. A calcified granuloma is seen in the right midlung. There is a 3 mm nodule near the minor fissure which is stable and well-seen on series 3 image 47. Limited images of the upper abdomen are unremarkable. IMPRESSION: Lung RADS category 2. Recommend 12 month follow-up low-dose chest CT. Reviewed, Interpreted and Dictated by Nelson Jose III, MD Transcribed by Erma Mullen Authenticated and [facility]
== END 2024-03-14 23:59 | disposition home or self-care (01) ==
LOC: RAD 15:10
PROVIDERS: PCP Family Medicine; Visit Provider Internal Medicine Pulmonary Disease
DX: F17.210 Nicotine dependence, cigarettes, uncomplicated (principal)
CPT/HCPCS: 71271

== ENCOUNTER 2024-03-25 06:05 | Day surgery (SDC) | payer MEDICAID, SELFPAY ==
[2024-03-19 11:35] VITALS: BMI 36.6
[2024-03-25 06:26] VITALS: BP 127/79; PULSE 83; RESP 18; TEMP 36.3; O2SAT 100
[2024-03-25] MEDS: LACTATED RINGERS 1000ML 1,000 ML 25 ML IV (06:36)
[2024-03-25 06:56] LABS: HCG Qualitative, Serum Negative (Negative)
--- NOTE | 2024-03-25 07:20 | P.PNANES_ITS ---
[facility] Disclaimer: The information contained in this section may have been updated after the patient was seen, as this information can be updated by other users. Medical History CARMEN (obstructive sleep apnea) Breast cancer screening by mammogram History of TN (myocardial infarction) History of stroke Bulging lumbar disc Abdominal hernia Insomnia, unspecified Social anxiety disorder Chronic post-traumatic stress disorder (PTSD) MDD (major depressive disorder), recurrent, severe, with psychosis Generalized anxiety disorder with panic attacks Hypothyroidism Asthma Witnessed episode of apnea Headache Daytime somnolence Skin lesion of back Sebaceous cyst of breast Cough syncope Pancreatitis Chronic cough Hypertension Hyperlipidemia Arthritis CVA (cerebral vascular accident) History of myocardial infarction Syncope Allergic rhinitis Cough syncope History of smoking 30 or more pack years History of COPD Dyspnea on exertion Surgical History (Updated 03/25/24 @ 06:35 by Bebe Gunn RN) History of carpal tunnel surgery History of section Family History Other Asthma Diabetes Emphysema of lung Family history of CVA Family history of cancer Family history of myocardial infarction Hypertension Social History (Updated 03/25/24 @ 06:34 by Bebe Gunn RN) Smoking Status: Current every day smoker tobacco type: cigarettes packs per day: 1 alcohol intake: never substance use type: denies use current occupational status: unemployed Travel in the last 8 weeks: None household members: spouse number of children: 2 caffeine: Yes [facility] Anesthesia Checklist Patient Identification Patient Identification: Verbal (Name & ) Structural Data Admitted From: Home Planned Operative Procedure/s: egd NPO Status Verified Time NPO: 00:00 Additional verifications Anesthesia Reactions: No Hx Blood Transfusions: No Blood Transfusion Reaction: No Airway Assessment Mallampati Score:: Class II C-Spine Mobility Assessed: Yes TMJ Mobility Assessed: Yes Dentition: Edentulous Neurological Assessment Level of Consciousness: Awake, Alert and Appropriate Anesthesia Plan Anesthesia Risk discussed: Yes Anesthesia Plan: Verified ASA Class: III Anesthesia Type: MAC
[2024-03-25 07:32] VITALS: O2SAT 98
--- NOTE | 2024-03-25 07:36 | HMH.PROCNOTE ---
[facility] Procedure Note Date: 03/25/24 Time: 07:36 Procedure Note:: Upper Endoscopy Procedure Report: Esophagogastroduodenoscopy with cold biopsies Endoscopost: Chin Collier II, MD Referring Physician: Isidro Roberts MD Date of Procedure: March 25, 2024 Equipment: Olympus GIF 190 standard upper endoscope Sedation: MAC sedation Indications: Mrs. Pineda is a 48-year-old female with a history of idiopathic pancreatitis. She has had numerous episodes of recurrent pancreatitis of the years. She has been to several hospitals including [facility]. Her most recent admission however showed normal amylase and lipase. Her triglycerides were normal. She was having epigastric abdominal pain. She also reports bloating and intermittent dysphagia. She has been seen during recent hospitalization by Marilynn MAYBERRY as well as in the office. Procedure: Prior to the procedure, a history and physical exam was performed, and patient's medications and allergies were reviewed. The risks, benefits and alternatives of the sedation and procedure were discussed with the patient. All questions were answered and informed consent was obtained. The patient was brought to the procedure room. Patient identification and proposed procedure were verified by the physician and the nurse. The patient was placed in a left lateral decubitus position and the scope was passed under direct vision. Throughout the procedure, the patient's blood pressure, pulse, and oxygen saturations were monitored continuously. The upper GI endoscopy was accomplished without difficulty. The patient tolerated the procedure well. Findings: The scope was passed directly into the upper esophagus and advanced to the third portion of the duodenum. The post bulbar duodenum and duodenal bulb were normal with normal mucosa and conniventes. Cold biopsies were taken from the first portion of the duodenum to rule out celiac disease. There was no scalloping of the conniventes. The scope was withdrawn through a normal bulb and pylorus into the stomach. There was evidence of linear reactive gastropathy of the antrum. The body and fundus of the stomach were normal. Upon retroflexion there was no hiatal hernia. Biopsies were taken from the antrum. The scope was then withdrawn into the esophagus. There was no evidence of reflux esophagitis or Harvey's. The remainder of the esophageal mucosa was normal. Impression: 1. Linear reactive gastropathy of antrum Plan: I will follow-up the biopsies. The patient does have dyspepsia. We will discuss additional treatment options. I would consider doing gastric emptying study. I would continue Creon. Her imaging of the Pancreas does not show any calcifications or ductal dilation. There is no evidence of any interstitial pancreatitis or chronic pancreatitis on her recent CAT scan from 03/04/2024.
[2024-03-25 07:50] VITALS: BP 109/79; PULSE 88; RESP 16; TEMP 36.6; O2SAT 94
[2024-03-25 07:56] VITALS: BP 134/80; PULSE 85; RESP 18; O2SAT 94
[2024-03-25 08:06] VITALS: BP 132/93; PULSE 78; RESP 18; O2SAT 95
[2024-03-25 08:16] VITALS: BP 121/77; PULSE 83; RESP 18; O2SAT 96
[2024-03-25 08:19] LABS: POC Glucose,Bedside 141 (70-110)
== END 2024-03-25 08:43 | disposition home or self-care (01) ==
PROVIDERS: PCP Internal Medicine; Visit Provider Internal Medicine Gastroenterology
PROC: 0DJ08ZZ Inspection of Upper Intestinal Tract, Via Natural or Artificial Opening Endoscopic (ICD-10-PCS; CPT 43235; principal; 2024-03-25 07:30)
DX: K30 Functional dyspepsia (principal); K31.9 Disease of stomach and duodenum, unspecified
CPT/HCPCS: 43239; 82962; 84703; J7120

== ENCOUNTER 2024-04-01 14:30 | Outpatient (CLI) | payer MEDICAID, SELFPAY ==
[2024-04-01 18:18] LABS: Coronavirus 19, PCR Not Detected (NotDetected); Influenza A, PCR Not Detected (NotDetected); Influenza B, PCR Not Detected (NotDetected)
== END 2024-04-01 23:59 | disposition home or self-care (01) ==
LOC: LAB.DROPOF 04-02 15:26
PROVIDERS: PCP Nurse Practitioner; Visit Provider Nurse Practitioner
DX: J06.9 Acute upper respiratory infection, unspecified (principal)
CPT/HCPCS: 87636

== ENCOUNTER 2024-04-15 08:24 | Outpatient (POV) | payer MEDICAID, SELFPAY ==
[2024-04-15 08:46] VITALS: BP 146/87; PULSE 83; RESP 16; O2SAT 97; BMI 36.2
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
== END 2024-04-15 23:59 | disposition home or self-care (01) ==
LOC: SC.PAIN 08:25
PROVIDERS: PCP Family Medicine; Visit Provider Nurse Practitioner Family
DX: M51.369 Other intervertebral disc degeneration, lumbar region without mention of lumbar back pain or lower extremity pain (principal); K86.1 Other chronic pancreatitis; G89.4 Chronic pain syndrome; F17.210 Nicotine dependence, cigarettes, uncomplicated; Z79.899 Other long term (current) drug therapy
CPT/HCPCS: 99212; G0463

== ENCOUNTER 2024-04-29 09:39 | Outpatient (CLI) | payer MEDICAID, SELFPAY ==
--- NOTE | 2024-04-29 09:40 | NM_ITS ---
FINAL REPORT TECHNIQUE: Sequential anterior images were obtained after the ingestion of 2 whole eggs, 2 pieces of toast, and water radiolabeled with 0.55 mCi technetium 99M sulfur colloid. CLINICAL HISTORY: Functional dyspepsia 9:50am 0.55 mci tc sulfur colloid 2 whole eggs, 2 toast, water FINDINGS: GASTRIC EMPTYING SCAN Static images show normal emptying of the stomach into the small bowel. Based on the time activity curve, the estimated half-emptying time is 33 minutes. IMPRESSION: Normal gastric emptying study. Reviewed, Interpreted and Dictated by Lisa Morgan MD Transcribed by Kassandra Bryan Authenticated and [facility]
[2024-04-29] MEDS: TC99M SULF.COLLOID;1 DOSE (UP TO 20 MCI) IV (09:55)
== END 2024-04-29 23:59 | disposition home or self-care (01) ==
LOC: RAD 09:40
PROVIDERS: PCP Family Medicine; Visit Provider Family Medicine
DX: K30 Functional dyspepsia (principal)
CPT/HCPCS: 78264; A9541

== ENCOUNTER 2024-05-02 13:30 | Outpatient (POV) | payer MEDICAID, SELFPAY ==
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
== END 2024-05-02 23:59 | disposition home or self-care (01) ==
LOC: SC.PAIN 13:30
PROVIDERS: Visit Provider Nurse Practitioner Family
DX: M54.9 Dorsalgia, unspecified (principal); G89.4 Chronic pain syndrome; M51.369 Other intervertebral disc degeneration, lumbar region without mention of lumbar back pain or lower extremity pain; K86.1 Other chronic pancreatitis; F17.210 Nicotine dependence, cigarettes, uncomplicated; Z79.899 Other long term (current) drug therapy
CPT/HCPCS: 99212; G0463

== ENCOUNTER 2024-05-08 18:11 | Inpatient (IN) | payer MEDICAID, SELFPAY ==
[2024-05-08] VITALS (7 sets, daily range): BP systolic 114–148; BP diastolic 85–92; PULSE 77–93; RESP 15–19; TEMP 36.6–36.9; O2SAT 94–98; BMI 35.8; BMI 36.6
--- NOTE | 2024-05-08 18:37 | HMH.EDGENADL ---
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 plan for this patient?s care in the Emergency Department, thus performing a substantive portion of the medical decision making.Signed, Jose Farmer MD Critical Care <HARMONY Calhoun - Last Filed: 05/08/24 21:10> Critical Care Time Critical Care Time: No
--- NOTE | 2024-05-08 18:53 | CT_ITS ---
PROCEDURE INFORMATION: Exam: CT Abdomen And Pelvis With Contrast Exam date and time: 05/08/2024 7:27 PM Age: 48 years old Clinical indication: Abdominal pain; Generalized; Additional info: Abdominal pain, nausea, history of pancreatitis TECHNIQUE: Imaging protocol: Computed tomography of the abdomen and pelvis with contrast. Radiation optimization: All CT scans at this facility use at least one of these dose optimization techniques: automated exposure control; mA and/or kV adjustment per patient size (includes targeted exams where dose is matched to clinical indication); or iterative reconstruction. Contrast material: ISOVUE; Contrast volume: 75 ml; Contrast route: IV; COMPARISON: CT ABDOMEN PELVIS W CON 03/04/2024 9:28 PM FINDINGS: Liver: Decreased density throughout the liver compatible with hepatic steatosis. Gallbladder and biliary ducts: Normal. No calcified stones. No ductal dilation. Pancreas: Subtle peripancreatic fat stranding. Findings compatible with pancreatitis. Spleen: The spleen is unremarkable. Adrenal glands: Adrenal glands unremarkable. Kidneys and ureters: No hydronephrosis. Stomach and bowel: Mild-moderate stool burden. Colonic diverticulosis. No evidence of diverticulitis. Appendix: No evidence of appendicitis. Intraperitoneal space: Unremarkable. No free air. No significant fluid collection. Vasculature: Unremarkable. No abdominal aortic aneurysm. Lymph nodes: Unremarkable. No enlarged lymph nodes. Urinary bladder: Unremarkable as visualized. Reproductive: Unremarkable as visualized. Bones/joints: Unremarkable. No acute fracture. Soft tissues: Unremarkable. IMPRESSION: Subtle peripancreatic fat stranding. Findings compatible with pancreatitis.
--- NOTE | 2024-05-08 18:53 | XR_ITS ---
PROCEDURE INFORMATION: Exam: XR Chest Exam date and time: 05/08/2024 7:33 PM Age: 48 years old Clinical indication: Shortness of breath; Additional info: SOA TECHNIQUE: Imaging protocol: Radiologic exam of the chest. Views: 1 view. COMPARISON: CT LUNG SCREENING 03/14/2024 3:13 PM FINDINGS: Lungs: Regions of parenchymal scarring right lung base. Similar findings present on the previous study. Pleural spaces: Unremarkable. No pleural effusion. No pneumothorax. Heart/Mediastinum: Unremarkable. No cardiomegaly. Bones/joints: Unremarkable. IMPRESSION: No evidence of acute cardiopulmonary disease.
[2024-05-08 18:58] LABS: Microscopic, Urine URINE MICROSCOPIC (MICROSCOPIC)
[2024-05-08 18:59] LABS: Basophils # 0.1 K/mm3 (0-0.2); Basophils % 0.6 % (0.1-2.0); Eosinophils # 0.4 K/mm3 (0.0-0.4); Eosinophils % 1.7 % (0.1-12.0); Hematocrit 45.7 % (37.0-47.0); Hemoglobin 15.5 g/dL (12.2-16.2); Lymphocytes # 3.7 K/mm3 (0.7-4.5); Lymphocytes % 18.2 % (10-50); Mean Corpuscular HGB Conc 33.9 g/dL (31.8-35.4); Mean Corpuscular Hemoglobin 29.6 pg (27.0-31.2); Mean Corpuscular Volume 87.4 fl (81-99); Mean Platelet Volume 9.7 fl (7.4-10.4); Monocytes # 1.1 K/mm3 (0.1-1.0); Monocytes % 5.4 % (1.7-9.3); Neutrophils # 15.1 K/mm3 (1.8-7.8); Neutrophils % 73.7 % (37.0-80.0); Platelet Count 372 K/mm3 (142-424); Red Blood Count 5.23 M/mm3 (4.20-5.40); Red Cell Distribution Width 13.9 % (11.5-17.5); White Blood Count 20.4 K/mm3 (4.8-10.8)
[2024-05-08 19:03] LABS: Appearance,Urine CLEAR (Clear); Bilirubin,Urine Negative (Negative); Blood, Urine 1+ (Negative); Color,Urine YELLOW (Yellow); Glucose,Urine (UA) Negative (Negative); Ketones,Urine Negative (Negative); Leukocyte Esterase,Urine Negative (Negative); Nitrate,Urine Negative (Negative); Protein,Urine TRACE (Negative); Specific Gravity, Urine 1.015 (1.005-1.030); Urobilinogen,Urine 0.2 EU/dl (0.2)
[2024-05-08] MEDS: 0.9 % SODIUM CHLORIDE 1000ML 1,000 ML 999 ML IV (19:05)
[2024-05-08] MEDS: ONDANSETRON 4MG/2ML VIAL 4 MG IV (19:05)
[2024-05-08] MEDS: MORPHINE 4MG/ML SYRINGE 4 MG IV (19:05)
[2024-05-08 19:08] LABS: Albumin Level 4.4 g/dl (3.5-5.0); Chloride 99 mmol/L (98-107); Potassium 3.8 mmoL/L (3.5-5.1); Sodium 136 mmol/L (136-145)
[2024-05-08 19:10] LABS: Blood Urea Nitrogen 10 mg/dl (7-17); Creatinine Clearance Estimated 135 mL/min (50-200); Estimated Glomerular Filt Rate 89 ml/min (>60); GFR (African American) 107 ML/MIN (>60)
[2024-05-08 19:11] LABS: Alanine Aminotransferase 35 U/L (12-78); Albumin/Globulin Ratio 1.5 (1.1-1.8); Alkaline Phosphatase 81 U/L (38-126); Anion Gap 13.8 mEq/L (5-15); Aspartate Amino Transferase 26 U/L (14-36); Bilirubin,Total 0.5 mg/dl (0.2-1.3); Calcium 9.6 mg/dl (8.4-10.2); Carbon Dioxide 27 mmol/L (22.0-30.0); Glucose 154 mg/dl (74-100); Magnesium 1.6 mg/dl (1.6-2.3); Total Protein,Serum 7.4 g/dl (6.3-8.2)
[2024-05-08 19:12] LABS: Lipase 1126 U/L (23-300)
--- NOTE | 2024-05-08 19:12 | ECG_ITS ---
APPROVED REPORT Exam: Resting ECG HR:88 bpm ECG Measurements Heart Rate 88 AXES FL 137 P 61 QRSd 90 QRS 83 QT 386 T 46 QTc 431 Conclusion SINUS RHYTHM NONSPECIFIC T-WAVE ABNORMALITY BORDERLINE ECG UNCONFIRMED REPORT Electronically signed by : SHAHZAD CHAVIRA, 05/10/2024 05:42:39
[2024-05-08 19:20] LABS: RBC,Urine 20-50 #/hpf (0-3)
[2024-05-08 19:20] LABS: NT Pro Brain Natriuretic Pep. 355 pg/mL (0-125)
[2024-05-08 19:21] LABS: Bacteria,Urine 2+ /lpf; Squamous Epithelial Cell,Urine 20-50 #/hpf (0-5)
--- NOTE | 2024-05-08 19:21 | PC.NURSE ---
Jenny ANTUNEZ notified of critical lipase, lactic sent
[2024-05-08 19:26] LABS: MANUAL DIFFERENTIAL MANUAL DIFFERENTIAL (MANUAL DIFF)
--- NOTE | 2024-05-08 19:26 | HMH.ITSTN ---
per Jenny nicole in ED, proceed without preg test
[2024-05-08 19:33] LABS: Troponin I < 0.01 ng/ml (0.00-0.034)
[2024-05-08] MEDS: IOPAMIDOL-370 (76%);100ML BOTTLE 75 ML IV (19:33)
[2024-05-08] MEDS: SODIUM CHLORIDE 0.9% 10ML SYR (RAD ONLY) 10 ML IV (19:33)
[2024-05-08 19:48] LABS: Lactic Acid 0.9 mmol/L (0.7-2.1)
[2024-05-08 20:18] LABS: Anisocytosis 2+; Eosinophils % 3 % (0-3); Lymphocytes % 27 % (10-50); Macrocytosis 1+; Microcytosis 1+; Monocytes % 3 % (2-9); Neutrophils % 64 % (42-76); Platelet Estimate Normal; Stomatocytes 1+; Total Cells Counted 100
[2024-05-08] MEDS: MORPHINE 2MG/ML SYRINGE 2 MG IV (20:55)
[2024-05-08 21:02] LABS: Chol/HDL Ratio 4.7 (1-3.5); Cholesterol 183 mg/dl (140-200); HDL Cholesterol 39 mg/dl (40-60); Triglycerides 197 mg/dl (30-150); VLDL Cholesterol 39 mg/dL (0-40)
[2024-05-08 21:13] LABS: Direct LDL Cholesterol 120.03 mg/dL (100-129)
--- NOTE | 2024-05-08 21:14 | PC.NURSE ---
Patient arrived to floor via wheelchair from ED at 21:13.
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
[2024-05-08] MEDS: KETOROLAC 30MG/ML VIAL 30 MG IV (22:27)
[2024-05-08 22:46] LABS: Troponin I < 0.01 ng/ml (0.00-0.034)
[2024-05-08] MEDS: 0.9 % SODIUM CHLORIDE 1000ML 1,000 ML 100 ML IV (22:46)
[2024-05-09 01:23] LABS: Troponin I < 0.01 ng/ml (0.00-0.034)
[2024-05-09] MEDS: HYDROCODONE/APAP 5/325 MG TABLET 1 TAB PO (01:57)
[2024-05-09] MEDS: HYDROCODONE/APAP 5/325 MG TABLET 2 TAB PO ×2 (02:58→23:22)
[2024-05-09 04:00] VITALS: BP 109/70; PULSE 85; RESP 17; TEMP 36.7; O2SAT 95; BMI 36.6
[2024-05-09] MEDS: KETOROLAC 30MG/ML VIAL 30 MG IV ×3 (04:28→18:24)
[2024-05-09] MEDS: humaLOG 100 UNITS/ML 10ML VIAL (SSI) SUBCUT (06:04)
[2024-05-09 06:09] LABS: POC Glucose,Bedside 159 (70-110)
[2024-05-09 06:42] LABS: Basophils # 0.1 K/mm3 (0-0.2); Basophils % 0.4 % (0.1-2.0); Eosinophils # 0.4 K/mm3 (0.0-0.4); Eosinophils % 2.1 % (0.1-12.0); Hematocrit 41.2 % (37.0-47.0); Lymphocytes # 2.2 K/mm3 (0.7-4.5); Lymphocytes % 11.9 % (10-50); Mean Corpuscular Hemoglobin 29.3 pg (27.0-31.2); Mean Corpuscular Volume 88.8 fl (81-99); Mean Platelet Volume 9.7 fl (7.4-10.4); Monocytes # 1.2 K/mm3 (0.1-1.0); Monocytes % 6.7 % (1.7-9.3); Neutrophils # 14.4 K/mm3 (1.8-7.8); Neutrophils % 78.4 % (37.0-80.0); Platelet Count 303 K/mm3 (142-424); Red Blood Count 4.64 M/mm3 (4.20-5.40); Red Cell Distribution Width 14.1 % (11.5-17.5); White Blood Count 18.4 K/mm3 (4.8-10.8)
[2024-05-09 06:59] LABS: Alanine Aminotransferase 26 U/L (12-78); Albumin Level 3.7 g/dl (3.5-5.0); Albumin/Globulin Ratio 1.4 (1.1-1.8); Alkaline Phosphatase 71 U/L (38-126); Anion Gap 8.7 mEq/L (5-15); Aspartate Amino Transferase 25 U/L (14-36); Bilirubin,Total 0.5 mg/dl (0.2-1.3); Blood Urea Nitrogen 10 mg/dl (7-17); Calcium 9.2 mg/dl (8.4-10.2); Carbon Dioxide 28 mmol/L (22.0-30.0); Chloride 103 mmol/L (98-107); Creatinine Clearance Estimated 120 mL/min (50-200); Estimated Glomerular Filt Rate 76 ml/min (>60); GFR (African American) 92 ML/MIN (>60); Globulin 2.6 g/dL (1.3-3.2); Glucose 137 mg/dl (74-100); Magnesium 1.7 mg/dl (1.6-2.3); Potassium 3.7 mmoL/L (3.5-5.1); Sodium 136 mmol/L (136-145); Total Protein,Serum 6.3 g/dl (6.3-8.2)
[2024-05-09 07:01] LABS: MANUAL DIFFERENTIAL MANUAL DIFFERENTIAL (MANUAL DIFF)
[2024-05-09 08:00] VITALS: BP 131/84; PULSE 75; RESP 16; TEMP 36.5; O2SAT 95
[2024-05-09] MEDS: LIPASE/PROTEASE/AMYLASE 1 EACH CAPSULE.DR PO ×4 (08:09→21:01)
[2024-05-09] MEDS: ENOXAPARIN 40MG/0.4ML SYRINGE 40 MG SUBCUT (08:10)
[2024-05-09] MEDS: 0.9 % SODIUM CHLORIDE 1000ML 1,000 ML 100 ML IV (08:10)
--- NOTE | 2024-05-09 09:39 | US_ITS ---
FINAL REPORT CLINICAL HISTORY: pancreatitis, eval for gallbladder sludge, stones FINDINGS: RIGHT UPPER QUADRANT ULTRASOUND Technique: Ultrasound images of the right upper quadrant were obtained. There is fatty infiltration of the liver. The tail of the pancreas is not well-seen. There is trace sludge in the gallbladder. There are no gallstones. Common duct measures 3 mm. The right kidney is unremarkable. IMPRESSION: Fatty liver. Trace sludge in the gallbladder without evidence of gallstones. Reviewed, Interpreted and Dictated by Luis Barron MD Transcribed by Lizbeth Ayala Authenticated and . [facility]
[2024-05-09] MEDS: MORPHINE 4MG/ML SYRINGE 4 MG IV ×3 (09:59→21:05)
[2024-05-09] MEDS: LACTATED RINGERS 1000ML 1,000 ML 100 ML IV ×2 (10:00→21:06)
[2024-05-09 10:36] LABS: Eosinophils % 1 % (0-3); Lymphocytes % 27 % (10-50); Monocytes % 5 % (2-9); Neutrophils % 67 % (42-76); Platelet Estimate Normal; RBC Morphology Normal; Total Cells Counted 100
[2024-05-09 10:38] LABS: Hemoglobin 13.6 g/dL (12.2-16.2)
[2024-05-09 11:00] LABS: POC Glucose,Bedside 136 (70-110)
[2024-05-09] MEDS: MAGNESIUM SULFATE IN WATER 2 GM/50 ML PIGGYBACK IV ×2 (12:13→13:01)
--- NOTE | 2024-05-09 14:17 | EXP.ACUTE.PN ---
Subjective *Date: 05/09/24 *Time: 23:47 Interval history: Complaining of pain. Tolerating only sips of water at this time. Afebrile. No nausea or vomiting. On room air. Medical Exam Vital signs and Labs for Last 24 Hours: Vital Signs Temp Pulse Pulse Resp BP BP Pulse Ox 05/09/24 11:00 05/09/24 09:00 05/09/24 08:00 05/09/24 08:00 97.7 F 75 16 131/84 95 05/09/24 06:21 05/09/24 05:00 05/09/24 04:00 98.1 F 85 17 109/70 L 95 05/09/24 03:00 05/09/24 01:00 05/08/24 23:00 05/08/24 21:30 05/08/24 21:30 98.0 F 83 17 148/87 H 94 L 05/08/24 21:05 97.9 F 81 15 148/87 H 05/08/24 21:00 81 16 148/87 H 94 L 05/08/24 20:58 83 16 138/92 H 95 05/08/24 20:00 77 15 141/87 H 94 L 05/08/24 19:15 88 15 136/91 H 95 05/08/24 18:12 98.5 F 93 H 19 114/85 98 O2 Del Method 05/09/24 11:00 Room Air 05/09/24 09:00 Room Air 05/09/24 08:00 Room Air 05/09/24 08:00 Room Air 05/09/24 06:21 Room Air 05/09/24 05:00 Room Air 05/09/24 04:00 Room Air 05/09/24 03:00 Room Air 05/09/24 01:00 Room Air 05/08/24 23:00 Room Air 05/08/24 21:30 Room Air 05/08/24 21:30 Room Air 05/08/24 21:05 Room Air 05/08/24 21:00 05/08/24 20:58 05/08/24 20:00 05/08/24 19:15 05/08/24 18:12 Room Air Intake and Output 05/08/24 05/09/24 05/09/24 23:59 07:59 15:59 Intake Total 560 / 926 366 / 926 Output Total 0 / 0 Balance Intake: Intake, Total IV Amount / 0.9 % Sodium Chloride 1000ML 1, / 000 ml @ 100 mls/hr IV .Q10H [facility] Rx#:[id number] Output: Output, Urine Amount 0 / 0 Other: Number of Unmeasured Voids 1 Weight 90.174 kg 90.174 kg Patient Weight 05/09/24 23:59 Weight 90.174 kg Laboratory Results - last 24 hr 05/08/24 18:16: Urine Color Yellow, Urine Appearance Clear, Urine pH 7.0, Ur Specific [place] 1.015, Urine Protein Trace, Urine Glucose (UA) Negative, Urine Ketones Negative, Urine Blood 1+ A, Urine Nitrate Negative, Urine Bilirubin Negative, Urine Urobilinogen 0.2, Ur Leukocyte Esterase Negative, Urine RBC 20-50, Urine WBC 5-10, Ur Squamous Epith Cells 20-50, Urine Bacteria 2+ 05/08/24 18:33: WBC 20.4 H*, RBC 5.23, Hgb 15.5, Hct 45.7, MCV 87.4, MCH 29.6, MCHC 33.9, RDW 13.9, Plt Count 372, MPV 9.7, Neut % (Auto) 73.7, Lymph % (Auto) 18.2, [place] % (Auto) 5.4, Eos % (Auto) 1.7, Baso % (Auto) 0.6, Neut # (Auto) 15.1 H, Lymph # (Auto) 3.7, [place] # (Auto) 1.1 H, Eos # (Auto) 0.4, Baso # (Auto) 0.1, Total Counted 100, Neutrophils % (Manual) 64, Band Neutrophils % 3.0, Lymphocytes % (Manual) 27, Monocytes % (Manual) 3, Eosinophils % (Manual) 3, Platelet Estimate Normal, Anisocytosis 2+, Microcytosis 1+, Macrocytosis 1+, Stomatocytes 1+, Sodium 136, Potassium 3.8, Chloride 99, Carbon Dioxide 27, Anion Gap 13.8, BUN 10, Creatinine 0.70, Estimated Creat Clear 135, Estimated GFR 89, Est GFR ( Amer) 107, Glucose 154 H, Calcium 9.6, Magnesium 1.6, Total Bilirubin 0.5, AST 26, ALT 35, Alkaline Phosphatase 81, Troponin I < 0.01, NT-Pro-B Natriuret Pep 355 H, Total Protein 7.4, Albumin 4.4, Globulin 3.0, Albumin/Globulin Ratio 1.5, Triglycerides 197 H, Cholesterol 183, LDL Cholesterol Direct 120.03, VLDL Cholesterol 39, HDL Cholesterol 39 L, Cholesterol/HDL Ratio 4.7 H, Lipase 1126 H 05/08/24 19:18: Lactate 0.9 05/08/24 22:13: Troponin I < 0.01 05/09/24 00:53: Troponin I < 0.01 05/09/24 05:59: POC Glucose 159 H 05/09/24 06:08: WBC 18.4 H, RBC 4.64, Hgb 13.6 D, Hct 41.2, MCV 88.8, MCH 29.3, MCHC 33.0, RDW 14.1, Plt Count 303, MPV 9.7, Neut % (Auto) 78.4, Lymph % (Auto) 11.9, [place] % (Auto) 6.7, Eos % (Auto) 2.1, Baso % (Auto) 0.4, Neut # (Auto) 14.4 H, Lymph # (Auto) 2.2, [place] # (Auto) 1.2 H, Eos # (Auto) 0.4, Baso # (Auto) 0.1, Total Counted 100, Neutrophils % (Manual) 67, Lymphocytes % (Manual) 27, Monocytes % (Manual) 5, Eosinophils % (Manual) 1, Platelet Estimate Normal, RBC Morphology Normal, Sodium 136, Potassium 3.7, Chloride 103, Carbon Dioxide 28, Anion Gap 8.7, BUN 10, Creatinine 0.80, Estimated Creat Clear 120, Estimated GFR 76, Est GFR ( Amer) 92, Glucose 137 H, Calcium 9.2, Magnesium 1.7, Total Bilirubin 0.5, AST 25, ALT 26 D, Alkaline Phosphatase 71, Total Protein 6.3, Albumin 3.7 D, Globulin 2.6, Albumin/Globulin Ratio 1.4 05/09/24 10:53: POC Glucose 136 H I & O for Labs for Last 24 Hours: Intake & Output 05/06/24 05/07/24 05/08/24 05/09/24 23:59 23:59 23:59 23:59 Intake Total 6 / 926 Output Total 0 / 0 Balance 6 / 926 Weight 90.174 kg 90.174 kg Constitutional: Present no acute distress, obese, chronically ill appearing and cooperative Head: Present atraumatic and normocephalic ENT: Present normal exam Respiratory: Present normal respiratory effort; Absent rhonchi, wheezes or crackles Cardiac: Present Reg Rate and Rhythm GI: Present soft, tenderness (diffuse, worse in LUQ) and normal bowel sounds; Absent distention Extremities: Present normal inspection and full ROM Skin: Present intact; Absent erythema Neuro: Present Grossly Intact, alert, awake, oriented x 3 and moves all extremities Assessment and Plan *Assessment and plan (1) Idiopathic pancreatitis: Status: Acute Category: Medical Code(s): K85.00 - Idiopathic acute pancreatitis without necrosis or infection (2) Recurrent acute pancreatitis: Status: Acute Category: Medical Code(s): K85.90 - Acute pancreatitis without necrosis or infection, unspecified (3) Hyperlipidemia: Status: Acute Qualifiers: Hyperlipidemia type: unspecified Qualified Code(s): E78.5 - Hyperlipidemia, unspecified Category: Medical Code(s): E78.5 - Hyperlipidemia, unspecified (4) Tobacco use disorder: Status: Acute Category: Medical Code(s): F17.200 - Nicotine dependence, unspecified, uncomplicated (5) Diabetes mellitus: Status: Acute Qualifiers: Diabetes mellitus type: type 2 Diabetes mellitus detention insulin use: without longwall foreman use Diabetes mellitus complication status: without complication Qualified Code(s): E11.9 - Type 2 diabetes mellitus without complications Category: Medical Code(s): E11.9 - Type 2 diabetes mellitus without complications (6) Obesity (BMI 30-39.9): Status: Acute Category: Medical Code(s): E66.9 - Obesity, unspecified (7) COPD (chronic obstructive pulmonary disease) case management patient: Status: Chronic Category: Medical Code(s): J44.9 - Chronic obstructive pulmonary disease, unspecified (8) Mood disorder: Status: Chronic Category: Medical Code(s): F39 - Unspecified mood [affective] disorder (9) MDD (major depressive disorder), recurrent, severe, with psychosis: Problem Comment: Sarita reported, and her confirmed, that she sees things like her grandfather who tells her when family members , and shadows that move about in the room. She claims that her depression has been present most everyday for approximately 2 yrs, maybe longer. However, noted that her mood can be uplifted when the granddaughter visits and Sarita agrees. She claims that the granddaughter helps take my mind off of my problems. Status: Acute Category: Medical Code(s): F33.3 - Major depressive disorder, recurrent, severe with psychotic symptoms (10) Hypothyroidism: Status: Acute Qualifiers: Hypothyroidism type: unspecified Qualified Code(s): E03.9 - Hypothyroidism, unspecified Category: Medical Code(s): E03.9 - Hypothyroidism, unspecified (11) Hypertension: Status: Acute Category: Medical Code(s): I10 - Essential (primary) hypertension Plan Sarita Pineda is a 48-year-old female with a medical history of feeling room for recurrent idiopathic pancreatitis, diabetes, COPD/asthma syndrome, [place] without stents at age of 18, degenerative disc disease, anxiety/depression, obesity, hypertension, obstructive sleep apnea who presents for 5-day onset of nausea without emesis, and epigastric pain. She has had poor oral intake due to this. She states she has had multiple episodes of pancreatitis in the past required hospitalizations, and that no one has been able to figure out what is causing it. She has seen Dr. Collier for an EGD in March 2024 who recommended continuing Creon, no significant findings on EGD. No evidence of interstitial or chronic pancreatitis at that time. Workup in the ED significant for WBC 20.4 lipase 1126, triglycerides 197. Case discussed with ED provider and decision was made to admit patient for acute pancreatitis. Continues to require inpatient management for pain control and further workup along with advancement of diet. Problems addressed as follows: #Acute on recurrent idiopathic pancreatitis ?White count improved to 18.4. Kidney function normal with BUN 10, creatinine 0.8. Magnesium 1.7. Potassium 3.7. Triglycerides marginally elevated in the mid 100 range. Repeat CBC, CMP, magnesium ordered for the morning. ? Etiology of recurrent pancreatitis seems to be idiopathic at this time. Did not drink alcohol leading up to admission. ? Normal calcium, triglycerides, LFTs. No evidence of biliary disease on CT abdomen/pelvis to suggest gallstone pancreatitis. ? Start full liquid diet, advance as tolerated. - Discontinue normal saline, transition to 100 cc LR per hour due to mortality benefit and pancreatitis. -Resume home Creon - Ultrasound does show fatty liver, has trace sludge in gallbladder. No stones. - Discussed case with GI, recommend MRCP to evaluate pancreas - Continue hydrocodone every 4 hours for severe pain. Monitor for toxicity. Toradol also available 30 mg IV every 6 hours for moderate pain -Zofran 4 mg every 8 hours as needed for nausea #Diabetes ? Patient seems to be only taking insulin per review of home medications. She may be type 1 diabetic, will need to follow-up in the morning. ? ACHS glucose checks, LDSSI. #COPD/asthma ? Resume home inhaler once reconciled. ? DuoNebs every 6 hours as needed. #Anxiety/depression ? Resume home psych meds once reconciled. #Obesity - BMI 36.Complicates all aspects of care Full code DVT prophylaxis: Lovenox 40 mg full liquid diet
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
[2024-05-09 16:00] VITALS: BP 152/82; PULSE 100; RESP 18; TEMP 36.6; O2SAT 94
[2024-05-09] MEDS: diazePAM 10MG/2ML SYRINGE 2.5 MG IV (18:25)
--- NOTE | 2024-05-09 18:27 | PC.NURSE ---
PT IS TO BE PREMEDICATED BEFORE GOING DOWN FOR MRI. PT ATTEMPTED TO GO DOWN TONIGHT AND WAS UNABLE TO COMPLETE DUE TO ANXIETY. PT AND VERY DISGRUNTLED AT THIS. PT NO LAYING IN BED, HYPERVENTILATING AND CRYING.
--- NOTE | 2024-05-09 18:52 | PC.NURSE ---
pt resting in bed at this time with at bedside. pt has complained of pain in the epigastric area this shift and has been treated per MAR. pt has LR infusing at 100. mag replaced per electrolyte protocol this shift. pt went for MRCP but was unable to complete due to anxiety. pt had anxiety attack and was brought back to the floor. when arrived back pt was tearful and hyperventilating. medication given per jun to comfort pt. pt to have MRCP in the morning. will inform court recording monitor of pt need for premedication. no needs or complaints at this time. call light within reach.
[2024-05-09 23:27] VITALS: BP 133/83; PULSE 96; RESP 18; TEMP 37.1
[2024-05-10] MEDS: MORPHINE 4MG/ML SYRINGE 4 MG IV ×3 (02:08→16:37)
[2024-05-10 04:00] VITALS: BP 145/81; PULSE 88; RESP 16; TEMP 36.4; O2SAT 93; BMI 37.4
[2024-05-10] MEDS: KETOROLAC 30MG/ML VIAL 30 MG IV ×3 (05:42→21:00)
--- NOTE | 2024-05-10 05:50 | PC.NURSE ---
Alert and oriented. Complained of abdominal pain several times, treated per mar. Patient has been NPO since midnight for ERCP. Valium dose is waiting for this procedure due to patient anxiety, radiology is aware to call RN 30-45 minutes before they plan to come get patient. Spoke with Les about Creon dose 0600, needed to be given with snack, states to hold this dose until ERCP is done, once done, contact provider for plan to administer afterward. LR going 100ml/hr. remains at bedside. Refused to use our CPAP here. Call light in reach,
--- NOTE | 2024-05-10 06:00 | MR_ITS ---
FINAL REPORT TECHNIQUE: Multiplanar and multisequence MR imaging was performed through the abdomen with and without contrast. MRCP images were obtained. CLINICAL HISTORY: Recurrent pancreatitis-rule out P divisum/ductal. COMPARISON: 05/08/2024 FINDINGS: The liver parenchyma is homogeneous. On the out of phase images, there is decreased signal in the liver consistent with fatty infiltration. The gallbladder is present. No gallstones are identified. The spleen is unremarkable. There is peripancreatic inflammatory reaction. There is a small to moderate amount of fluid along the left para renal fascia. Small amount of fluid is seen along the right para renal fascia. There is a localized signal abnormality within the distal common duct. There is no evidence of choledocholithiasis. There appears to be an unusual, curved duct at the head of the pancreas, may represent ansa pancreatica. This is best seen on the maximum intensity projection images. There is no evidence of pseudocyst. No discrete mass is identified. IMPRESSION: Moderate changes of acute pancreatitis. No gallstones or choledocholithiasis. Questionable variant pancreatic ductal anatomy suggesting ansa pancreatica Reviewed, Interpreted and Dictated by Luis Barron MD Transcribed by Lizbeth Ayala Authenticated and [facility]
[2024-05-10 06:33] LABS: Basophils # 0.1 K/mm3 (0-0.2); Basophils % 0.5 % (0.1-2.0); Eosinophils # 0.3 K/mm3 (0.0-0.4); Eosinophils % 1.8 % (0.1-12.0); Hematocrit 39.2 % (37.0-47.0); Lymphocytes # 2.5 K/mm3 (0.7-4.5); Lymphocytes % 16.5 % (10-50); Mean Corpuscular HGB Conc 33.2 g/dL (31.8-35.4); Mean Corpuscular Hemoglobin 29.5 pg (27.0-31.2); Mean Corpuscular Volume 89.1 fl (81-99); Mean Platelet Volume 9.6 fl (7.4-10.4); Monocytes # 0.9 K/mm3 (0.1-1.0); Monocytes % 5.6 % (1.7-9.3); Neutrophils # 11.3 K/mm3 (1.8-7.8); Neutrophils % 75.3 % (37.0-80.0); Platelet Count 288 K/mm3 (142-424); Red Cell Distribution Width 13.8 % (11.5-17.5); White Blood Count 15.1 K/mm3 (4.8-10.8)
[2024-05-10 06:43] LABS: Alanine Aminotransferase 20 U/L (12-78); Albumin Level 3.4 g/dl (3.5-5.0); Albumin/Globulin Ratio 1.3 (1.1-1.8); Alkaline Phosphatase 71 U/L (38-126); Aspartate Amino Transferase 22 U/L (14-36); Bilirubin,Total 0.5 mg/dl (0.2-1.3); Blood Urea Nitrogen 9 mg/dl (7-17); Calcium 8.8 mg/dl (8.4-10.2); Carbon Dioxide 27 mmol/L (22.0-30.0); Chloride 103 mmol/L (98-107); Creatinine Clearance Estimated 140 mL/min (50-200); Estimated Glomerular Filt Rate 89 ml/min (>60); GFR (African American) 107 ML/MIN (>60); Globulin 2.7 g/dL (1.3-3.2); Glucose 124 mg/dl (74-100); Sodium 136 mmol/L (136-145); Total Protein,Serum 6.1 g/dl (6.3-8.2)
[2024-05-10] MEDS: diazePAM 10MG/2ML SYRINGE 2.5 MG IV (06:43)
[2024-05-10] MEDS: LACTATED RINGERS 1000ML 1,000 ML 100 ML IV (06:47)
[2024-05-10 07:03] LABS: MANUAL DIFFERENTIAL MANUAL DIFFERENTIAL (MANUAL DIFF)
[2024-05-10 08:00] VITALS: BP 125/78; PULSE 88; RESP 19; TEMP 36.6; O2SAT 97
[2024-05-10] MEDS: GADOTERIDOL INJ 20ML SYRINGE 18 ML IV (08:03)
[2024-05-10] MEDS: SODIUM CHLORIDE 0.9% 50ML BAG 25 ML IV (08:03)
[2024-05-10] MEDS: SODIUM CHLORIDE 0.9% 10ML SYR (RAD ONLY) 10 ML IV (08:03)
[2024-05-10 08:13] LABS: Lymphocytes % 32 % (10-50); Monocytes % 2 % (2-9); Neutrophils % 66 % (42-76); Platelet Estimate Normal; RBC Morphology Normal; Total Cells Counted 100
[2024-05-10] MEDS: ENOXAPARIN 40MG/0.4ML SYRINGE 40 MG SUBCUT (08:43)
[2024-05-10] MEDS: LIPASE/PROTEASE/AMYLASE 1 EACH CAPSULE.DR PO ×4 (08:43→20:59)
[2024-05-10] MEDS: humaLOG 100 UNITS/ML 10ML VIAL (SSI) SUBCUT ×2 (11:33→20:59)
[2024-05-10 11:37] LABS: POC Glucose,Bedside 171 (70-110)
[2024-05-10 11:40] VITALS: BMI 37.4
--- NOTE | 2024-05-10 11:41 | P.PN_ITS ---
Subjective *Date: 05/10/24 *Time: 18:18 Interval history: Still having pain but tolerating diet with no worsening of her pain. Stable on room air. No yen vomiting. Denies chest pain or shortness of breath. Medical Exam Vital signs and Labs for Last 24 Hours: Vital Signs Temp Pulse Resp BP Pulse Ox O2 Del Method 05/10/24 09:00 Room Air 05/10/24 08:30 Room Air 05/10/24 08:00 98 F 88 19 125/78 97 Room Air 05/10/24 06:51 Room Air 05/10/24 04:39 Room Air 05/10/24 04:00 97.6 F 88 16 145/81 H 93 L Room Air 05/10/24 03:00 Room Air 05/10/24 00:49 Room Air 05/09/24 23:27 98.8 F 96 H 18 133/83 05/09/24 23:00 Room Air 05/09/24 21:00 Room Air 05/09/24 20:00 Room Air 05/09/24 18:58 Room Air 05/09/24 17:00 Room Air 05/09/24 16:00 97.8 F 100 H 18 152/82 H 94 L Room Air 05/09/24 15:00 Room Air 05/09/24 13:00 Room Air Intake and Output 05/09/24 05/10/24 05/10/24 23:59 07:59 15:59 Intake Total 809 / 1735 1147 / 1147 Output Total 0 / 0 500 / 500 0 / 500 Balance 809 / 1735 647 / 647 0 / 647 Intake: Intake, Total IV Amount 809 / 1735 1147 / 1147 0.9 % Sodium Chloride 1000ML 1, 719 / 1645 000 ml @ 100 mls/hr IV .Q10H NADYA Rx#:[id number] Lactated Ringers 1000ML 1,000 1147 / 1147 ml @ 100 mls/hr IV .Q10H NADYA Rx #:[id number] Magnesium Sulfate in Water 2 gm 90 / 90 In 50 ml @ 50 mls/hr IV Q1H NADYA Rx#:[id number] Output: Output, Urine Amount 0 / 0 500 / 500 0 / 500 Other: Number of Unmeasured Voids 1 1 Weight 92.306 kg Patient Weight 05/10/24 23:59 Weight 92.306 kg Laboratory Results - last 24 hr 05/10/24 05:53: WBC 15.1 H, RBC 4.40, Hgb 13.0, Hct 39.2, MCV 89.1, MCH 29.5, MCHC 33.2, RDW 13.8, Plt Count 288, MPV 9.6, Neut % (Auto) 75.3, Lymph % (Auto) 16.5, [place] % (Auto) 5.6, Eos % (Auto) 1.8, Baso % (Auto) 0.5, Neut # (Auto) 11.3 H, Lymph # (Auto) 2.5, [place] # (Auto) 0.9, Eos # (Auto) 0.3, Baso # (Auto) 0.1, Total Counted 100, Neutrophils % (Manual) 66, Lymphocytes % (Manual) 32, Monocytes % (Manual) 2, Platelet Estimate Normal, RBC Morphology Normal, Sodium 136, Potassium 4.0, Chloride 103, Carbon Dioxide 27, Anion Gap 10.0, BUN 9, Creatinine 0.70, Estimated Creat Clear 140, Estimated GFR 89, Est GFR ( Amer) 107, Glucose 124 H, Calcium 8.8, Magnesium 2.0 D, Total Bilirubin 0.5, AST 22, ALT 20, Alkaline Phosphatase 71, Total Protein 6.1 L, Albumin 3.4 L, Globulin 2.7, Albumin/Globulin Ratio 1.3 05/10/24 11:30: POC Glucose 171 H I & O for Labs for Last 24 Hours: Intake & Output 05/07/24 05/08/24 05/09/24 05/10/24 23:59 23:59 23:59 23:59 Intake Total 1735 / 1735 1147 / 1147 Output Total 0 / 0 500 / 500 Balance 1735 / 1735 647 / 647 Weight 90.174 kg 90.174 kg 92.306 kg Microbiology Reports for the Last 24 Hours: Microbiology 05/08/24 18:16 Urine,Clean Catch Urine Culture - Final Multiple organisms, suggests contamination. Constitutional: Present no acute distress, obese, chronically ill appearing and cooperative Head: Present atraumatic and normocephalic ENT: Present normal exam Respiratory: Present normal respiratory effort; Absent rhonchi, wheezes or crackles Cardiac: Present Reg Rate and Rhythm GI: Present soft, tenderness (diffuse, worse in LUQ) and normal bowel sounds; Absent distention Extremities: Present normal inspection and full ROM Skin: Present intact; Absent erythema Neuro: Present Grossly Intact, alert, awake, oriented x 3 and moves all extremities Assessment and Plan *Assessment and plan (1) Idiopathic pancreatitis: Status: Acute Category: Medical Code(s): K85.00 - Idiopathic acute pancreatitis without necrosis or infection (2) Recurrent acute pancreatitis: Status: Acute Category: Medical Code(s): K85.90 - Acute pancreatitis without necrosis or infection, unspecified (3) Congenital anomaly of pancreas: Status: Acute Category: Medical Code(s): Q45.3 - Other congenital malformations of pancreas and pancreatic duct (4) Hyperlipidemia: Status: Acute Qualifiers: Hyperlipidemia type: unspecified Qualified Code(s): E78.5 - Hyperlipidemia, unspecified Category: Medical Code(s): E78.5 - Hyperlipidemia, unspecified (5) Tobacco use disorder: Status: Acute Category: Medical Code(s): F17.200 - Nicotine dependence, unspecified, uncomplicated (6) Diabetes mellitus: Status: Acute Qualifiers: Diabetes mellitus complication status: without complication Diabetes mellitus senior living insulin use: without senior living use Diabetes mellitus type: type 2 Qualified Code(s): E11.9 - Type 2 diabetes mellitus without complications Category: Medical Code(s): E11.9 - Type 2 diabetes mellitus without complications (7) Obesity (BMI 30-39.9): Status: Acute Category: Medical Code(s): E66.9 - Obesity, unspecified (8) COPD (chronic obstructive pulmonary disease) case management patient: Status: Chronic Category: Medical Code(s): J44.9 - Chronic obstructive pulmonary disease, unspecified (9) Mood disorder: Status: Chronic Category: Medical Code(s): F39 - Unspecified mood [affective] disorder (10) MDD (major depressive disorder), recurrent, severe, with psychosis: Problem Comment: Sarita reported, and her confirmed, that she sees things like her grandfather who tells her when family members , and shadows that move about in the room. She claims that her depression has been present most everyday for approximately 2 yrs, maybe longer. However, noted that her mood can be uplifted when the granddaughter visits and Sarita agrees. She claims that the granddaughter helps take my mind off of my problems. Status: Acute Category: Medical Code(s): F33.3 - Major depressive disorder, recurrent, severe with psychotic symptoms (11) Hypothyroidism: Status: Acute Qualifiers: Hypothyroidism type: unspecified Qualified Code(s): E03.9 - Hypothyroidism, unspecified Category: Medical Code(s): E03.9 - Hypothyroidism, unspecified (12) Hypertension: Status: Acute Category: Medical Code(s): I10 - Essential (primary) hypertension Plan Sarita Pineda is a 48-year-old female with a medical history of feeling room for recurrent idiopathic pancreatitis, diabetes, COPD/asthma syndrome, ME without stents at age of 18, degenerative disc disease, anxiety/depression, obesity, hypertension, obstructive sleep apnea who presents for 5-day onset of nausea without emesis, and epigastric pain. She has had poor oral intake due to this. She states she has had multiple episodes of pancreatitis in the past required hospitalizations, and that no one has been able to figure out what is causing it. She has seen Dr. Collier for an EGD in March 2024 who recommended continuing Creon, no significant findings on EGD. No evidence of interstitial or chronic pancreatitis at that time. Workup in the ED significant for WBC 20.4 lipase 1126, triglycerides 197. Case discussed with ED provider and decision was made to admit patient for acute pancreatitis. Continues to require inpatient management for pain control and advancement of diet. MRCP showed congenital anomaly which likely explains her recurrent pancreatitis. Anticipate discharge in the coming days if tolerates diet and pain is managed. Problems addressed as follows: #Acute on recurrent idiopathic pancreatitis ?White count improved to 15. Kidney function normal with BUN 9, creatinine 0.7. Magnesium 2.0 and potassium 4.0. Repeat CBC, CMP, magnesium ordered for the morning. ? Etiology of recurrent pancreatitis seems to be idiopathic at this time. MRCP obtained. 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 Likely explains her recurrent pancreatitis. -Advance diet to bland low-fat. - Discontinue normal saline, transition to 100 cc LR per hour due to mortality benefit and pancreatitis. -Continue home Creon -Discussed case with GI, recommend advancing diet and treating as usual. If does well, will need close follow-up to discuss treatment for ansa pancreatic. - Continue hydrocodone 10 mg every 4 hours for severe pain. Morphine 4 mg also available every 4 hours for breakthrough pain. Monitor for toxicity. Toradol also available 30 mg IV every 6 hours for moderate pain - Zofran 4 mg every 8 hours as needed for nausea #Diabetes ? A1c 7.6 1-month ago, fairly well-controlled. - ACHS glucose checks, LDSSI. Holding long-acting insulin until she is tolerating full diet #COPD/asthma ? DuoNebs every 6 hours as needed. Resume Advair daily, resume singular 10 mg nightly #Anxiety/depression ? Resume amitriptyline 25 mg daily, BuSpar 20 mg twice daily, citalopram daily #Obesity - BMI 36.Complicates all aspects of care Hypertension: Resume valsartan 160 mg daily. Will hold diuretic. Full code DVT prophylaxis: Lovenox 40 mg Plan diet, low-fat
--- NOTE | 2024-05-10 13:53 | P.PN_ITS ---
Subjective *Date: 05/10/24 *Time: 13:53 Interval history: Spoke with patient by phone. Pain is improving with less breakthrough pain. She is tolerating bland diet. Exam Data for Last 24 hours Vital signs and Labs for Last 24 Hours: Temp Pulse Resp BP Pulse Ox O2 Del Method 98 F 88 19 125/78 97 Room Air 05/10/24 08:00 05/10/24 08:00 05/10/24 08:00 05/10/24 08:00 05/10/24 08:00 05/10/24 13:00 Laboratory Results - last 24 hr 05/10/24 05:53: WBC 15.1 H, RBC 4.40, Hgb 13.0, Hct 39.2, MCV 89.1, MCH 29.5, MCHC 33.2, RDW 13.8, Plt Count 288, MPV 9.6, Neut % (Auto) 75.3, Lymph % (Auto) 16.5, [place] % (Auto) 5.6, Eos % (Auto) 1.8, Baso % (Auto) 0.5, Neut # (Auto) 11.3 H, Lymph # (Auto) 2.5, [place] # (Auto) 0.9, Eos # (Auto) 0.3, Baso # (Auto) 0.1, Total Counted 100, Neutrophils % (Manual) 66, Lymphocytes % (Manual) 32, Monocytes % (Manual) 2, Platelet Estimate Normal, RBC Morphology Normal, Sodium 136, Potassium 4.0, Chloride 103, Carbon Dioxide 27, Anion Gap 10.0, BUN 9, Creatinine 0.70, Estimated Creat Clear 140, Estimated GFR 89, Est GFR ( Amer) 107, Glucose 124 H, Calcium 8.8, Magnesium 2.0 D, Total Bilirubin 0.5, AST 22, ALT 20, Alkaline Phosphatase 71, Total Protein 6.1 L, Albumin 3.4 L, Globulin 2.7, Albumin/Globulin Ratio 1.3 05/10/24 11:30: POC Glucose 171 H I & O for Last 24 hours: Intake & Output 05/07/24 05/08/24 05/09/24 05/10/24 23:59 23:59 23:59 23:59 Intake Total 1735 / 1735 2336 / 2336 Output Total 0 / 0 500 / 500 Balance 1735 / 1735 1836 / 1836 Weight 198 lb 12.8 oz 198 lb 12.8 oz 203 lb 7.787 oz Microbiology Reports for the Last 24 Hours: Microbiology 05/08/24 18:16 Urine,Clean Catch Urine Culture - Final Multiple organisms, suggests contamination. Assessment and Plan *Assessment and plan (1) Recurrent pancreatitis: Status: Acute Category: Medical (2) Congenital anomaly of pancreas: Status: Acute Category: Medical Code(s): Q45.3 - Other congenital malformations of pancreas and pancreatic duct Plan 1. 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 I do suspect that this is a likely etiology since the remainder of her diagnostic evaluation has been unrevealing. Ansa pancreatica is a congenital pancreatic ductal variant characterized by the formation of a S shaped loop from the main pancreatic duct to the minor ampulla. As opposed to pancreatic divisum and annular pancreas, this is the least common congenital pancreatic anatomic variant. Ansa pancreatica has been implicated as a cause of recurrent acute pancreatitis. Of course, the pancreatic duct is vulnerable to developmental anomalies which lead to variations in its course and this can result in a loop shaped path. Ansa pancreatica is characterized by the obliteration of the accessory pancreatic duct at the proximal end near the junction with the main pancreatic duct and the replacement of this portion by a branch of the main pancreatic duct that forms an S shaped loop between the 2 ducts initially descending and then ascending to eventually drain into the minor ampulla. Not all patients with Ansa pancreatica will experience recurrent pancreatitis, rather it is in anatomic predisposition. In patients with recurrent acute pancreatitis, the first objective remains to rule out other causes (i.e. alcohol, gallstones, medications, etc.) which has been done thoroughly. Once ansa pancreatica is diagnosed, the patient may undergo sphincterotomy of the minor ampulla to relieve the obstruction. Cannulation of the minor ampulla can be challenging and sometimes this requires endoscopic ultrasound rendezvous guidance. In these more challenging ERCP cases, it is likely best to start with endoscopic ultrasound to confirm the diagnosis prior to subjecting a patient to ERCP. I would recommend EUS with possible tandem cannulation and minor papilla/ampulla sphincterotomy and would consider tertiary referral to tertiary center with advanced interventional ERCP and endoscopic ultrasound as an outpatient. I have discussed by phone with the patient that we would meet first and discuss this in the office. I do perform minor ampulla sphincterotomy but it does require cannulation of minor ampulla and this can be very technically difficult without endoscopic ultrasound.
[2024-05-10] MEDS: HYDROCODONE/APAP 5/325 MG TABLET 2 TAB PO (15:57)
[2024-05-10 16:00] VITALS: BP 158/98; PULSE 87; RESP 19; TEMP 36.5; O2SAT 97
[2024-05-10 16:49] LABS: POC Glucose,Bedside 131 (70-110)
--- NOTE | 2024-05-10 17:43 | PC.NURSE ---
PT HAS DONE WELL THIS SHIFT. PAIN HAS BEEN BETTER CONTROLLED TODAY WITH MORE FREQUENT CHECKS. PT REPORTS THAT HER PAIN WAS NOT ADEQUATELY CONTROLLED OVER NIGHT. VSS. ABOUT 5:30 THIS EVENING A FAMILY MEMBER CALLED AND TOLD HER THAT HER COUSIN HAD AND PT IS VERY UPSET AND TEARFUL. PT OFFERED EMOTIONAL SUPPORT.
[2024-05-10] MEDS: FLUTICASONE/SALMETEROL 500/50MCG DISKUS 1 PUFF IH (18:51)
[2024-05-10 20:00] VITALS: BP 140/82; PULSE 87; RESP 18; TEMP 36.8; O2SAT 95
[2024-05-10] MEDS: BUSPIRONE HCL 10 MG TABLET 20 MG PO (20:59)
[2024-05-10] MEDS: MONTELUKAST SODIUM 10MG TAB 10 MG PO (20:59)
[2024-05-10 21:41] LABS: POC Glucose,Bedside 209 (70-110)
[2024-05-11 04:00] VITALS: BP 134/81; PULSE 83; RESP 16; TEMP 36.8; O2SAT 95; BMI 37.3
[2024-05-11] MEDS: KETOROLAC 30MG/ML VIAL 30 MG IV (04:48)
--- NOTE | 2024-05-11 05:18 | PC.NURSE ---
Patient had a good night. Patient only complaint is that she is sore. States that she feels much better. No other complaints and the patient was able to rest.
[2024-05-11] MEDS: LIPASE/PROTEASE/AMYLASE 1 EACH CAPSULE.DR PO (06:06)
[2024-05-11] MEDS: humaLOG 100 UNITS/ML 10ML VIAL (SSI) SUBCUT (06:06)
[2024-05-11 06:10] LABS: POC Glucose,Bedside 160 (70-110)
[2024-05-11] MEDS: FLUTICASONE/SALMETEROL 500/50MCG DISKUS 1 PUFF IH (06:56)
[2024-05-11 06:57] VITALS: O2SAT 97
[2024-05-11 07:17] LABS: Basophils # 0.1 K/mm3 (0-0.2); Basophils % 0.7 % (0.1-2.0); Eosinophils # 0.4 K/mm3 (0.0-0.4); Eosinophils % 3.3 % (0.1-12.0); Hematocrit 35.6 % (37.0-47.0); Hemoglobin 11.6 g/dL (12.2-16.2); Lymphocytes # 2.3 K/mm3 (0.7-4.5); Mean Corpuscular HGB Conc 32.6 g/dL (31.8-35.4); Mean Corpuscular Hemoglobin 28.9 pg (27.0-31.2); Mean Corpuscular Volume 88.8 fl (81-99); Mean Platelet Volume 9.6 fl (7.4-10.4); Monocytes # 0.6 K/mm3 (0.1-1.0); Monocytes % 4.8 % (1.7-9.3); Neutrophils # 8.6 K/mm3 (1.8-7.8); Neutrophils % 71.9 % (37.0-80.0); Platelet Count 287 K/mm3 (142-424); Red Blood Count 4.01 M/mm3 (4.20-5.40); Red Cell Distribution Width 13.9 % (11.5-17.5)
[2024-05-11 07:29] LABS: Albumin Level 3.4 g/dl (3.5-5.0); Chloride 103 mmol/L (98-107); Sodium 134 mmol/L (136-145)
[2024-05-11 07:31] LABS: Blood Urea Nitrogen 11 mg/dl (7-17); Creatinine Clearance Estimated 140 mL/min (50-200); Estimated Glomerular Filt Rate 89 ml/min (>60); GFR (African American) 107 ML/MIN (>60)
[2024-05-11 07:32] LABS: Alanine Aminotransferase 32 U/L (12-78); Albumin/Globulin Ratio 1.2 (1.1-1.8); Alkaline Phosphatase 80 U/L (38-126); Aspartate Amino Transferase 34 U/L (14-36); Bilirubin,Total 0.5 mg/dl (0.2-1.3); Calcium 9.1 mg/dl (8.4-10.2); Carbon Dioxide 28 mmol/L (22.0-30.0); Globulin 2.8 g/dL (1.3-3.2); Glucose 153 mg/dl (74-100); Magnesium 1.9 mg/dl (1.6-2.3); Total Protein,Serum 6.2 g/dl (6.3-8.2)
[2024-05-11 08:00] VITALS: BP 127/78; PULSE 89; RESP 16; TEMP 36.6; O2SAT 94
[2024-05-11] MEDS: IRBESARTAN 150MG TAB 150 MG PO (09:03)
[2024-05-11] MEDS: ENOXAPARIN 40MG/0.4ML SYRINGE 40 MG SUBCUT (09:03)
[2024-05-11] MEDS: CITALOPRAM 40MG TABLET 40 MG PO (09:03)
[2024-05-11] MEDS: LEVOTHYROXINE 25MCG (0.025MG) TAB 25 MCG PO (09:03)
[2024-05-11] MEDS: AMITRIPTYLINE 25MG TABLET 25 MG PO (09:03)
[2024-05-11] MEDS: BUSPIRONE HCL 10 MG TABLET 20 MG PO (09:08)
[2024-05-11] MEDS: MAGNESIUM SULFATE IN WATER 2 GM/50 ML PIGGYBACK IV (09:13)
--- NOTE | 2024-05-11 10:28 | EXP.DC.SUM ---
General Admission date:: 05/08/24 Discharge date: 05/11/24 HPI HPI HPI: Mrs. Pineda is a 48-year-old female with recurrent idiopathic pancreatitis. She was last admitted in March 2024. CAT scan at that time and showed no evidence of any interstitial pancreatitis. She presented again yesterday with acute abdominal pain and 5-day onset of nausea and epigastric/periumbilical pain. The patient was placed on Creon and had noted some improvement of her abdominal pain. Her CAT scan at the ED yesterday showed subtle peripancreatic fat stranding consistent with pancreatitis. There was hepatic steatosis. There was no evidence of any gallstones or bile duct dilation. The patient did have an ultrasound of the gallbladder/right upper quadrant today showing trace sludge without evidence of gallstones. The patient has normal liver chemistries (ALT 26, AST 25 and alkaline phosphatase 71). The patient did have an MRI in January 2024 that showed no evidence of pancreatic mass or pancreatic enhancement. This was not an MRCP. Hospital Course Hospital Course Hospital Course: Sarita Pineda is a 48-year-old female with a medical history of feeling room for recurrent idiopathic pancreatitis, diabetes, COPD/asthma syndrome, MA without stents at age of 18, degenerative disc disease, anxiety/depression, obesity, hypertension, obstructive sleep apnea who presents for 5-day onset of nausea without emesis, and epigastric pain. She has had poor oral intake due to this. She states she has had multiple episodes of pancreatitis in the past required hospitalizations, and that no one has been able to figure out what is causing it. She has seen Dr. Collier for an EGD in March 2024 who recommended continuing Creon, no significant findings on EGD. No evidence of interstitial or chronic pancreatitis at that time. Workup in the ED significant for WBC 20.4 lipase 1126, triglycerides 197. Case discussed with ED provider and decision was made to admit patient for acute pancreatitis. Patient showed gradual improvement in pain and tolerance of diet advancement. Workup during admission with MRCP showed congenital anomaly (ansa pancreatic). This is a likely cause for recurrent pancreatitis. Stable discharge home follow-up with GI as an outpatient to talk further management after acute condition resolves. Problems addressed as follows: #Acute on recurrent idiopathic pancreatitis ? White count initially elevated, normalized without antibiotics. Suspect secondary to inflammation and reactive process. Electrolytes normal during admission. Did not require significant IV fluids. Etiology deemed to be idiopathic. MRCP showed ansa pancreatic up. GI was consulted, recommend follow-up as an outpatient. Able to advance to bland diet with low-fat without significant increase in pain. Continue home Creon at discharge. Continue pain medication, discharged on short course of opiate therapy. Encouraged Tylenol or ibuprofen for moderate pain. She is tolerating oral nutrition without any further emesis or flare of pain, stable to discharge home. #Diabetes ? A1c 7.6 1-month ago, fairly well-controlled. Treated with sliding scale insulin during admission. Resume home regimen at discharge. Triglycerides not elevated on admission. Not on any GLP-1's. #COPD/asthma ? DuoNebs every 6 hours as needed during admission. Resume Advair daily, resume singular 10 mg nightly #Anxiety/depression ? Resume amitriptyline 25 mg daily, BuSpar 20 mg twice daily, citalopram daily #Hypertension: Resume valsartan-HCTZ combo at discharge. Blood pressure well-controlled. Total time spent on discharge 37 minutes in counseling, documentation, chart review, and direct care with patient. Exam Data for Last 24 hours Vital signs and Labs for Last 24 Hours: Temp Pulse Resp BP Pulse Ox O2 Del Method 97.8 F 89 16 127/78 94 L Room Air 05/11/24 08:00 05/11/24 08:00 05/11/24 08:00 05/11/24 08:00 05/11/24 08:00 05/11/24 09:00 Laboratory Results - last 24 hr 05/10/24 11:30: POC Glucose 171 H 05/10/24 16:42: POC Glucose 131 H 05/10/24 20:55: POC Glucose 209 H 05/11/24 06:03: POC Glucose 160 H 05/11/24 06:42: WBC 12.0 H, RBC 4.01 L, Hgb 11.6 L, Hct 35.6 L, MCV 88.8, MCH 28.9, MCHC 32.6, RDW 13.9, Plt Count 287, MPV 9.6, Neut % (Auto) 71.9, Lymph % (Auto) 19.0, [place] % (Auto) 4.8, Eos % (Auto) 3.3, Baso % (Auto) 0.7, Neut # (Auto) 8.6 H, Lymph # (Auto) 2.3, [place] # (Auto) 0.6, Eos # (Auto) 0.4, Baso # (Auto) 0.1, Sodium 134 L, Potassium 4.0, Chloride 103, Carbon Dioxide 28, Anion Gap 7.0, BUN 11, Creatinine 0.70, Estimated Creat Clear 140, Estimated GFR 89, Est GFR ( Amer) 107, Glucose 153 H, Calcium 9.1, Magnesium 1.9, Total Bilirubin 0.5, AST 34 D, ALT 32 D, Alkaline Phosphatase 80, Total Protein 6.2 L, Albumin 3.4 L, Globulin 2.8, Albumin/Globulin Ratio 1.2 I & O for Last 24 hours: Intake & Output 05/08/24 05/09/24 05/10/24 05/11/24 23:59 23:59 23:59 23:59 Intake Total 1735 / 1735 2726 / 2976 610 / 610 Output Total 0 / 0 500 / 500 0 / 0 Balance 1735 / 1735 2226 / 2476 610 / 610 Weight 90.174 kg 90.174 kg 92.3 kg 92.034 kg Microbiology Reports for the Last 24 Hours: Microbiology 05/08/24 18:16 Urine,Clean Catch Urine Culture - Final Multiple organisms, suggests contamination. Constitutional Constitutional: no acute distress, obese and cooperative *Routine HEENT Exam Head: Present normocephalic Eye: Present EOMI and PERRL ENT: Present mucous membranes moist *Routine Neck Exam Neck: Present supple; Absent lymphadenopathy *Routine Respiratory Exam Respiratory: Present CTA bilaterally; Absent rhonchi, wheezes or crackles *Routine Cardiovascular Exam Cardiovascular: Present RRR *Routine Abdominal Exam Abdominal: Present soft, normoactive bowel sounds and tenderness (improving LUQ); Absent distended *Routine Rectal Exam Patient deferred: visual exam *Routine Exam Patient deferred: external exam *Routine Extremities Exam Extremities: Absent cyanosis, clubbing or edema *Routine Skin Exam Skin: Present warm; Absent rash *Routine Neurological Exam Neurological: Present alert, oriented X3 and moving all extremities; Absent altered mental status Results Data Completed and Pending Labs on day of discharge: Labs from last 24 hours 05/11/24 05/11/24 05/10/24 06:42 06:03 20:55 WBC 12.0 H RBC 4.01 L Hgb 11.6 L Hct 35.6 L MCV 88.8 MCH 28.9 MCHC 32.6 RDW 13.9 Plt Count 287 MPV 9.6 Neut % (Auto) 71.9 Lymph % (Auto) 19.0 [place] % (Auto) 4.8 Eos % (Auto) 3.3 Baso % (Auto) 0.7 Neut # (Auto) 8.6 H Lymph # (Auto) 2.3 [place] # (Auto) 0.6 Eos # (Auto) 0.4 Baso # (Auto) 0.1 Sodium 134 L Potassium 4.0 Chloride 103 Carbon Dioxide 28 Anion Gap 7.0 BUN 11 Creatinine 0.70 Estimated Creat Clear 140 Estimated GFR 89 Est GFR ( Amer) 107 Glucose 153 H POC Glucose 160 H 209 H Calcium 9.1 Magnesium 1.9 Total Bilirubin 0.5 AST 34 D ALT 32 D Alkaline Phosphatase 80 Total Protein 6.2 L Albumin 3.4 L Globulin 2.8 Albumin/Globulin Ratio 1.2 05/10/24 05/10/24 16:42 11:30 WBC RBC Hgb Hct MCV MCH MCHC RDW Plt Count MPV Neut % (Auto) Lymph % (Auto) [place] % (Auto) Eos % (Auto) Baso % (Auto) Neut # (Auto) Lymph # (Auto) [place] # (Auto) Eos # (Auto) Baso # (Auto) Sodium Potassium Chloride Carbon Dioxide Anion Gap BUN Creatinine Estimated Creat Clear Estimated GFR Est GFR ( Amer) Glucose POC Glucose 131 H 171 H Calcium Magnesium Total Bilirubin AST ALT Alkaline Phosphatase Total Protein Albumin Globulin Albumin/Globulin Ratio DS: Diagnosis Discharge Diagnosis (1) Idiopathic pancreatitis: Status: Acute Code(s): K85.00 - Idiopathic acute pancreatitis without necrosis or infection (2) Recurrent acute pancreatitis: Status: Acute Code(s): K85.90 - Acute pancreatitis without necrosis or infection, unspecified (3) Congenital anomaly of pancreas: Status: Acute Code(s): Q45.3 - Other congenital malformations of pancreas and pancreatic duct (4) Hyperlipidemia: Status: Acute Code(s): E78.5 - Hyperlipidemia, unspecified Qualifiers: Hyperlipidemia type: unspecified Qualified Code(s): E78.5 - Hyperlipidemia, unspecified (5) Tobacco use disorder: Status: Acute Code(s): F17.200 - Nicotine dependence, unspecified, uncomplicated (6) Diabetes mellitus: Status: Acute Code(s): E11.9 - Type 2 diabetes mellitus without complications Qualifiers: Diabetes mellitus complication status: without complication Diabetes mellitus vermin exterminator insulin use: without vermin exterminator use Diabetes mellitus type: type 2 Qualified Code(s): E11.9 - Type 2 diabetes mellitus without complications (7) Obesity (BMI 30-39.9): Status: Acute Code(s): E66.9 - Obesity, unspecified (8) COPD (chronic obstructive pulmonary disease) case management patient: Status: Chronic Code(s): J44.9 - Chronic obstructive pulmonary disease, unspecified (9) Mood disorder: Status: Chronic Code(s): F39 - Unspecified mood [affective] disorder (10) MDD (major depressive disorder), recurrent, severe, with psychosis: Status: Acute Code(s): F33.3 - Major depressive disorder, recurrent, severe with psychotic symptoms Problem details: Sarita reported, and her confirmed, that she sees things like her grandfather who tells her when family members , and shadows that move about in the room. She claims that her depression has been present most everyday for approximately 2 yrs, maybe longer. However, noted that her mood can be uplifted when the granddaughter visits and Sarita agrees. She claims that the granddaughter helps take my mind off of my problems. (11) Hypothyroidism: Status: Acute Code(s): E03.9 - Hypothyroidism, unspecified Qualifiers: Hypothyroidism type: unspecified Qualified Code(s): E03.9 - Hypothyroidism, unspecified (12) Hypertension: Status: Acute Code(s): I10 - Essential (primary) hypertension Meds Home Medications and Allergies Home Medications ?Medication ?Instructions ?Recorded ?Confirmed ?Type fluticasone 500 mcg-salmeterol 50 1 inh inhalation BID #180 ea 09/12/23 05/09/24 Rx mcg/dose blistr powdr for inhalation (Advair Diskus) [id number] 1 cap PO QID #360 caps 01/18/24 05/09/24 Rx 12,000-38,000-60,000 unit capsule,delayed rel (Creon) cetirizine 10 mg tablet 10 mg PO DAILYP PRN ALLERGIES 01/29/24 05/09/24 History montelukast 10 mg tablet 10 mg PO HS 01/29/24 05/09/24 History levothyroxine 25 mcg tablet 25 mcg PO DAILYDM 03/05/24 05/09/24 History pantoprazole 40 mg tablet,delayed 40 mg PO DAILY #30 tabs 03/05/24 05/09/24 Rx release propranolol 60 mg capsule,24 60 mg PO DAILY 03/05/24 05/09/24 History hr,extended release amantadine HCl 100 mg tablet 100 mg PO DAILY 03/12/24 05/09/24 History valsartan 160 1 tab PO DAILY High blood pressure 03/12/24 05/09/24 Rx mg-hydrochlorothiazide 12.5 mg #90 tabs tablet azelastine 137 mcg (0.1 %) nasal 2 spray intranasal HS 90 days #30 03/21/24 05/09/24 Rx spray mL fluticasone propionate 50 2 spray intranasal DAILY 90 days 03/21/24 05/09/24 Rx mcg/actuation nasal #16 grams spray,suspension (Flonase Allergy Relief) buspirone 10 mg tablet 20 mg (2 x 10 mg) PO BID #120 tabs 03/25/24 05/09/24 Rx insulin glargine 100 unit/mL (3 10 unit (0.1 mL) SQ HS #3 mL 04/12/24 05/09/24 Rx mL) subcutaneous pen (Lantus Solostar U-100 Insulin) pen needle, diabetic 32 gauge x #100 ea 04/12/24 05/09/24 Rx 1/4 escitalopram oxalate 20 mg tablet 20 mg PO DAILY #30 tabs 04/30/24 05/09/24 Rx (Lexapro) amitriptyline 25 mg tablet 25 mg PO DAILY 05/09/24 05/09/24 History hydrocodone 5 mg-acetaminophen 325 See Rx Instructions .Route 05/11/24 Rx mg tablet .COMPLEX PRN Moderate Pain (4-6) 3 days #17 tabs ketorolac 10 mg tablet 10 mg PO Q8H PRN pain #10 tabs 05/11/24 Rx New Prescriptions to Start Prescriptions: hydrocodone-acetaminophen Kartik Escobar ketorolac Luz,Kartik Allergies Allergy/AdvReac Type Severity Reaction Status Date / Time glimepiride (From Amaryl) AdvReac Severe Unknown Verified 04/12/24 12:11 allergy reaction Discharge Plan Disposition Patient Disposition: Home, Self-Care Condition: Good Discharge Order Discharge Orders: Discharge Order (Routine); Ordered 05/11/24 Ordered By: Kartik Escobar Follow up Plan Follow up with: Isidro Roberts MD [Primary Care Provider] - Enter time for follow up (PLEASE CALL OFFICE FOR FOLLOW UP.) Prescriptions/Medication Reconciliation: New hydrocodone-acetaminophen 5-325 mg Tablet See Rx Instructions .ROUTE .COMPLEX PRN (Reason: Moderate Pain (4-6)) 3 Days Qty: 17 0RF Rx Instructions: 1-2 tabs q6h as needed for severe pain ketorolac 10 mg tablet 10 mg PO Q8H PRN (Reason: pain) Qty: 10 0RF Rx Instructions: maximum total duration of 5 days from all oral, intranasal, or parenteral formulations Continued fluticasone propion-salmeterol [Advair Diskus] 500-50 mcg/dose blister with device 1 inh inhalation BID Qty: 180 2RF cetirizine 10 mg tablet 10 mg PO DAILYP PRN (Reason: ALLERGIES) Patient Comments: TAKE 1 TABLET BY MOUTH ONCE DAILY NEEDED FOR ALLERGIES montelukast 10 mg tablet 10 mg PO HS Patient Comments: TAKE 1 TABLET BY MOUTH ONCE DAILY escitalopram oxalate [Lexapro] 20 mg tablet 20 mg PO DAILY Qty: 30 2RF azelastine 137 mcg (0.1 %) spray,non-aerosol 2 spray intranasal HS 90 Days Qty: 30 3RF Rx Instructions: administer into each nostril fluticasone propionate [Flonase Allergy Relief] 50 mcg/actuation spray,suspension 2 spray intranasal DAILY 90 Days Qty: 16 2RF Rx Instructions: administer into each nostril Creon 12,000-38,000 -60,000 unit capsule,delayed release(DR/EC) 1 cap PO QID Qty: 360 3RF Rx Instructions: administer with meals and/or snacks amantadine HCl 100 mg tablet 100 mg PO DAILY valsartan-hydrochlorothiazide 160-12.5 mg tablet 1 tab PO DAILY Qty: 90 3RF insulin glargine [Lantus Solostar U-100 Insulin] 100 unit/mL (3 mL) insulin pen 10 unit SQ HS Qty: 3 12RF (DME) pen needle, diabetic 32 gauge x 1/4 needle See Rx Instructions .Route Qty: 100 2RF Rx Instructions: As directed propranolol 60 mg capsule,extended release 24 hr 60 mg PO DAILY Patient Comments: TAKE 1 CAPSULE BY MOUTH ONCE DAILY levothyroxine 25 mcg tablet 25 mcg PO DAILYDM Patient Comments: TAKE 1 TABLET BY MOUTH ONCE DAILY FOR THYROID pantoprazole 40 mg tablet,delayed release (DR/EC) 40 mg PO DAILY Qty: 30 0RF buspirone 10 mg tablet 20 mg PO BID Qty: 120 12RF Rx Instructions: Please take 2 tablets p.o. twice daily amitriptyline 25 mg tablet 25 mg PO DAILY Patient Comments: TAKE 1 TABLET BY MOUTH ONCE DAILY FOR MIGRAINE HEADACHE Problem Reconciliation Problems Reviewed?: Yes Patient Discharge Instructions DIET: continue same diet Patient Instructions: DI for Pancreatitis Print Language: Turkish Providers Primary Care Provider: Isidro Roberts Provider: Tang Obrien Attending Provider: Tang Obrien
--- NOTE | 2024-05-14 10:24 | SW/DCPLANNER ---
Spoke with patient on the phone. Patient stated that she is doing good. Patient stated that she hasnt made her follow up appointment yet with her primary care provider but plans to do that today. Patient stated that she was able to get her new medicine picked up from [facility]. Patient stated that she has no concerns or questions at this time. Federico Hale
== END 2024-05-11 13:00 | disposition home or self-care (01) | DRG 439 ==
LOC: ER 20:49 → 2ND 22:42
PROVIDERS: Physician Assistant; Admitting Provider Student in an Organized Health Care Education/Training Program; Emergency Provider Emergency Medicine; PCP Family Medicine; Visit Provider Student in an Organized Health Care Education/Training Program
DX: K85.00 Idiopathic acute pancreatitis without necrosis or infection (principal); F33.3 Major depressive disorder, recurrent, severe with psychotic symptoms; Q45.3 Other congenital malformations of pancreas and pancreatic duct; F17.210 Nicotine dependence, cigarettes, uncomplicated; I10 Essential (primary) hypertension; E11.9 Type 2 diabetes mellitus without complications; K76.0 Fatty (change of) liver, not elsewhere classified; I25.2 Old myocardial infarction; K86.81 Exocrine pancreatic insufficiency; F43.12 Post-traumatic stress disorder, chronic; E66.9 Obesity, unspecified; F40.11 Social phobia, generalized; G47.00 Insomnia, unspecified; F51.9 Sleep disorder not due to a substance or known physiological condition, unspecified; J44.9 Chronic obstructive pulmonary disease, unspecified; Z79.51 Long term (current) use of inhaled steroids; Z79.899 Other long term (current) drug therapy; Z68.37 Body mass index [BMI] 37.0-37.9, adult; Z79.4 Long term (current) use of insulin
CPT/HCPCS: 36415; 71045; 74177; 74183; 76376; 76705; 80053; 80061; 81001; 82962; 83605; 83690; 83735; 83880; 84484; 85007; 85025; 87086; 93005; 94640; 99285; A9576; J1650; J1885; J2270; J2405; J3360; J3475; J7030; J7120; Q9967

== ENCOUNTER 2024-07-12 12:09 | Day surgery (SDC) | payer MEDICAID, SELFPAY ==
[2024-07-12 12:28] VITALS: BP 153/98; PULSE 82; RESP 16; TEMP 36.4; O2SAT 97; BMI 39.3
[2024-07-12] MEDS: CEFAZOLIN SODIUM 1 GM in 0.9 % SODIUM CHLORIDE 50 ML IV (13:46)
[2024-07-12 13:47] VITALS: BP 137/82; PULSE 94; RESP 18; O2SAT 95
[2024-07-12 13:48] VITALS: BP 137/82; PULSE 94; RESP 18; O2SAT 95
[2024-07-12 13:50] VITALS: BP 134/86; PULSE 86; RESP 16; O2SAT 93
[2024-07-12] MEDS: diphenhydrAMINE 25MG CAPSULE 25 MG PO (14:05)
[2024-07-12] MEDS: LIDOCAINE 1% 30ML PF VIAL 30 ML (14:08)
[2024-07-12] MEDS: FENTANYL 100MCG/2ML VIAL 100 MCG (14:08)
--- NOTE | 2024-07-12 14:19 | EXP.PAIN.PRO ---
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 She has increasing pain in her back rating down to both legs. She has failed all previous conservative treatments including injections, oral medications, physical therapy and she is not a candidate for surgery. She has a successful psychological evaluation. She presents for intrathecal pump trial today. Procedure Details:: Pain pump trial Informed consent was obtained and the risk and benefits of the procedure was explained to the patient. The patient was taken to the procedure room and placed prone on the procedure table. Patient was prepped and draped in sterile fashion. C-arm fluoroscopy was used to view the lumbar spine. The skin and subcutaneous tissues were anesthetized using lidocaine. I placed a 18-gauge spinal needle into the L4-5 interspace and advanced until clear CSF was obtained. After this intrathecal catheter was inserted and advanced very easily to the L1 vertebral body. The needle was withdrawn. We were able to freely withdraw clear CSF through the catheter. We then injected intrathecal opioid single shot bolus of 25 mcg followed by saline and followed by the previous CSF that was withdrawn. The needle and catheter were then removed and a Band-Aid was placed. Patient tolerated the procedure well with no complications. We reevaluated the patient after 30 minutes to 1 hour. She was also reassessed by physical therapy. Patient had 80 to 90% relief in pain symptoms. She was standing better and walking better. By all indications this did seem to be a successful intrathecal pump trial. Patient was discharged home neurologic intact with good relief of pain symptoms. Plan and Disposition:: We will follow-up with this patient in 1 week to evaluate efficacy of this trial. If successful we will plan on permanent placement with intrathecal morphine 1 mg/mL to start at 100 mcg/day. Catheter tip will be at the T8 vertebral body.
[2024-07-12 14:53] VITALS: BP 114/97; PULSE 89; RESP 16; O2SAT 94
== END 2024-07-12 14:53 | disposition home or self-care (01) ==
PROVIDERS: PCP Family Medicine; Visit Provider Anesthesiology
DX: M51.16 Intervertebral disc disorders with radiculopathy, lumbar region (principal)
CPT/HCPCS: 62323; J0690; J3010

== ENCOUNTER 2024-07-16 08:32 | Outpatient (CLI) | payer MEDICAID, SELFPAY ==
--- NOTE | 2024-07-16 08:49 | US_ITS ---
FINAL REPORT TECHNIQUE: Real-time grayscale and color ultrasound of the thyroid was performed. CLINICAL HISTORY: 1 year repeat hx thyroid nodules COMPARISON: 07/12/2023 FINDINGS: The thyroid gland is normal in size measuring 47 x 15 x 14 mm on the right and 46 x 18 x 16 mm on the left. The isthmus measures 3 mm. The parenchyma is unremarkable . Nodules: There are few small cysts noted. The largest nodule is a TR 3 isoechoic nodule in the mid left thyroid lobe measuring 10 mm, previously measuring 9 mm. No new lesions are evident. IMPRESSION: Stable to minimally enlarged dominant solid nodule left lobe of the thyroid. No new abnormality. Recommend 12-month follow-up per TI-RADS criteria. Reviewed, Interpreted and Dictated by Sharon Preston MD Transcribed by Kassandra Bryan Authenticated and [facility]
[2024-07-16 09:04] LABS: Blood Urea Nitrogen 13 mg/dl (7-17); Estimated Glomerular Filt Rate 88 ml/min (>60); GFR (African American) 107 ML/MIN (>60)
== END 2024-07-16 23:59 | disposition home or self-care (01) ==
LOC: RAD 08:34
PROVIDERS: PCP Family Medicine; Visit Provider Nurse Practitioner
DX: E04.1 Nontoxic single thyroid nodule (principal)
CPT/HCPCS: 36415; 76536; 82565; 84520

== ENCOUNTER 2024-07-16 09:45 | Emergency (ER) | payer MEDICAID, SELFPAY ==
[2024-07-16 09:53] VITALS: BP 157/90; PULSE 72; RESP 16; TEMP 36.5; O2SAT 96; BMI 39.3
[2024-07-16 10:17] LABS: Basophils # 0.1 K/mm3 (0-0.2); Eosinophils # 0.3 K/mm3 (0.0-0.4); Eosinophils % 2.7 % (0.1-12.0); Hematocrit 44.1 % (37.0-47.0); Hemoglobin 14.5 g/dL (12.2-16.2); Lymphocytes # 3.2 K/mm3 (0.7-4.5); Lymphocytes % 27.2 % (10-50); Mean Corpuscular HGB Conc 32.9 g/dL (31.8-35.4); Mean Corpuscular Hemoglobin 29.2 pg (27.0-31.2); Mean Corpuscular Volume 88.9 fl (81-99); Mean Platelet Volume 9.5 fl (7.4-10.4); Monocytes # 0.5 K/mm3 (0.1-1.0); Monocytes % 4.4 % (1.7-9.3); Neutrophils # 7.5 K/mm3 (1.8-7.8); Neutrophils % 64.4 % (37.0-80.0); Platelet Count 324 K/mm3 (142-424); Red Blood Count 4.96 M/mm3 (4.20-5.40); Red Cell Distribution Width 13.3 % (11.5-17.5); White Blood Count 11.7 K/mm3 (4.8-10.8)
[2024-07-16] MEDS: MAGNESIUM SULFATE IN WATER 2 GM/50 ML PIGGYBACK IV (10:19)
[2024-07-16] MEDS: DEXAMETHASONE 4MG/ML 1ML VIAL 10 MG IV (10:19)
[2024-07-16] MEDS: METHOCARBAMOL 500MG TABLET 1500 MG PO (10:19)
[2024-07-16] MEDS: ACETAMINOPHEN 500MG TAB 1000 MG PO (10:19)
[2024-07-16 10:20] LABS: Albumin Level 4.4 g/dl (3.5-5.0); Chloride 103 mmol/L (98-107); Potassium 4.3 mmoL/L (3.5-5.1); Sodium 137 mmol/L (136-145)
[2024-07-16] MEDS: METOCLOPRAMIDE HCL 10MG/2ML VIAL 10 MG IVP (10:20)
[2024-07-16] MEDS: KETOROLAC 30MG/ML VIAL 15 MG IV (10:20)
[2024-07-16] MEDS: 0.9 % SODIUM CHLORIDE 1000ML 1,000 ML 999 ML IV (10:20)
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
[2024-07-16 10:22] LABS: Blood Urea Nitrogen 12 mg/dl (7-17); Creatinine Clearance Estimated 146 mL/min (50-200); Estimated Glomerular Filt Rate 88 ml/min (>60); GFR (African American) 107 ML/MIN (>60)
[2024-07-16 10:23] LABS: Alanine Aminotransferase 33 U/L (12-78); Albumin/Globulin Ratio 1.8 (1.1-1.8); Alkaline Phosphatase 75 U/L (38-126); Anion Gap 9.3 mEq/L (5-15); Aspartate Amino Transferase 32 U/L (14-36); Calcium 9.5 mg/dl (8.4-10.2); Carbon Dioxide 29 mmol/L (22.0-30.0); Globulin 2.5 g/dL (1.3-3.2); Glucose 193 mg/dl (74-100); Total Protein,Serum 6.9 g/dl (6.3-8.2)
[2024-07-16 10:29] LABS: Bilirubin,Total < 0.1 mg/dl (0.2-1.3); C-Reactive Protein 6.3 mg/L (0-4)
[2024-07-16 10:30] VITALS: BP 145/103; PULSE 71; RESP 17; O2SAT 97
[2024-07-16 10:34] LABS: Activated Partial Thrombo Time 26.9 seconds (22.8-30.6); Prothrombin Time 10.2 seconds (10.1-12.5)
[2024-07-16 11:00] VITALS: BP 145/94; PULSE 74; RESP 14; O2SAT 94
[2024-07-16 11:30] VITALS: BP 134/85; PULSE 68; RESP 17; O2SAT 94
[2024-07-16 11:39] LABS: Procalcitonin 0.064 ng/mL (0.0-2.0)
--- NOTE | 2024-07-16 12:21 | PC.NURSE ---
rounded on pt, no needs at this time.
[2024-07-16 12:36] VITALS: BP 157/93; PULSE 69; RESP 15; TEMP 36.6; O2SAT 94
== END 2024-07-16 12:40 | disposition home or self-care (01) ==
PROVIDERS: Emergency Provider Emergency Medicine; PCP Family Medicine
DX: G43.909 Migraine, unspecified, not intractable, without status migrainosus (principal); M54.2 Cervicalgia; R05.9 Cough, unspecified; F17.210 Nicotine dependence, cigarettes, uncomplicated
CPT/HCPCS: 80053; 84145; 85025; 85610; 85730; 86140; 96361; 96365; 96374; 96375; 99284; J1100; J1885; J2765; J3475; J7030

== ENCOUNTER 2024-07-19 13:19 | Outpatient (POV) | payer MEDICAID, SELFPAY ==
[2024-07-19 13:47] VITALS: BP 135/93; PULSE 81; RESP 16; TEMP 36.8; O2SAT 95; BMI 39.3
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
== END 2024-07-19 23:59 | disposition home or self-care (01) ==
LOC: SC.PAIN 13:19
PROVIDERS: PCP Family Medicine; Visit Provider Nurse Practitioner Family
DX: M51.369 Other intervertebral disc degeneration, lumbar region without mention of lumbar back pain or lower extremity pain (principal); G89.4 Chronic pain syndrome; F17.210 Nicotine dependence, cigarettes, uncomplicated; Z79.899 Other long term (current) drug therapy
CPT/HCPCS: 99212; G0463

== ENCOUNTER 2024-07-23 11:21 | Outpatient (CLI) | payer MEDICAID, SELFPAY ==
[2024-07-23 12:35] LABS: Free T4 (Free Thyroxine) 1.28 ng/dl (0.78-2.19)
[2024-07-23 12:51] LABS: Thyroid Stimulating Hormone 1.73 uIU/mL (0.465-4.68)
== END 2024-07-23 23:59 | disposition home or self-care (01) ==
LOC: LAB 11:21
PROVIDERS: PCP Family Medicine; Visit Provider Nurse Practitioner
DX: E04.1 Nontoxic single thyroid nodule (principal)
CPT/HCPCS: 36415; 84439; 84443

== ENCOUNTER 2024-09-05 11:32 | Day surgery (SDC) | payer MEDICAID, SELFPAY ==
[2024-09-03 13:15] VITALS: BMI 39.3
[2024-09-05] VITALS (8 sets, daily range): BP systolic 114–165; BP diastolic 65–97; PULSE 94–116; RESP 16–18; TEMP 36.4–36.6; O2SAT 93–98
[2024-09-05 12:25] LABS: POC Glucose,Bedside 201 (70-110)
--- NOTE | 2024-09-05 12:35 | P.PNANES_ITS ---
[facility] Disclaimer: The information contained in this section may have been updated after the patient was seen, as this information can be updated by other users. Medical History CARMEN (obstructive sleep apnea) Breast cancer screening by mammogram History of OK (myocardial infarction) History of stroke Bulging lumbar disc Abdominal hernia Insomnia, unspecified Social anxiety disorder Chronic post-traumatic stress disorder (PTSD) MDD (major depressive disorder), recurrent, severe, with psychosis Generalized anxiety disorder with panic attacks Hypothyroidism Asthma Witnessed episode of apnea Headache Daytime somnolence Skin lesion of back Sebaceous cyst of breast Cough syncope Pancreatitis Chronic cough Hypertension Hyperlipidemia Arthritis CVA (cerebral vascular accident) History of myocardial infarction Syncope Allergic rhinitis Cough syncope History of smoking 30 or more pack years History of COPD Dyspnea on exertion Surgical History History of ERCP History of carpal tunnel surgery History of section Family History Other Asthma Diabetes Emphysema of lung Family history of CVA Family history of cancer Family history of myocardial infarction Hypertension Social History Smoking Status: Light tobacco smoker tobacco type: cigarettes packs per day: 1 alcohol intake: never substance use type: denies use current occupational status: other Travel in the last 8 weeks?: None household members: spouse number of children: 2 caffeine: Yes Have you lived/traveled outside US in past 30 days?: No Contact w/someone who lives/traveled outside US past 30 days?: No Exposure to someone with infectious disease in past 14 days?: No Do you have a fever (greater than 100.4 F or 38 C)?: No Have you tested positive for COVID-19?: No Exposed to someone with COVID-19 in past 14 days?: No Do you have a sore throat?: No Do you have a cough?: No Do you have any weakness?: No Do you have any diarrhea?: No Are you experiencing any unusual bleeding?: No Do you have any muscle aches/pain?: No Do you have any abdominal pain?: No Are you experiencing loss of taste or smell?: No [facility] Anesthesia Checklist Patient Identification Patient Identification: Arm Band and Verbal (Name & ) Structural Data Admitted From: Home Planned Operative Procedure/s: ERCP Consent for Planned Operative Procedure(s) Verified: Yes Verified Documents: Surgical Consent NPO Status Verified Time NPO: 00:00 Chart Verification Results Verified: ECG Additional verifications Fingerstick Blood Glucose: 201 Anesthesia Reactions: No Hx Blood Transfusions: No Blood Transfusion Reaction: No Airway Assessment Mallampati Score:: Class II C-Spine Mobility Assessed: Yes TMJ Mobility Assessed: Yes Dentition: Dentures-good fit Neurological Assessment Level of Consciousness: Awake, Alert and Appropriate Hx Seizures: No Numbness or tingling in extremities: No Anesthesia Plan Anesthesia Risk discussed: Yes Anesthesia Plan: Verified ASA Class: III Anesthesia Type: General
--- NOTE | 2024-09-05 14:16 | P.PCN_ITS ---
[facility] Procedure Note Date: 09/05/24 Time: 14:50 Procedure Note:: ERCP procedure Report: Endoscopic retrograde cholangiopancreatography with biliary/pancreatic sphincterotomy Endoscopist: Chin Collier II, MD Referring Physician: Daryl Roberts MD Date of Procedure: September 05, 2024 Equipment: Olympus 180 side viewing endoscope duodenoscope Sedation: MAC sedation Indication: Mrs. Pineda is a 49-year-old female with recurrent idiopathic pancreatitis. The patient was admitted in March 2024 and the patient was admitted again on May 09. 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 She has been to the ED at [facility] over 6 times with acute pancreatitis since 2020 with other hospitals as well. She was referred to the [facility] and patient states that the pancreatic specialist was uncertain of what constitutes Ansa pancreatica. She did see 2 pancreatic GI specialists at the [facility] and one of them confirmed Ansa pancreatica another 1 did not. The patient continues to have some abdominal pain. She has had extensive testing excluding other potential etiologies (i.e. hypercalcemia, hypertriglyceridemia, autoimmune pancreatitis, etc.). Procedure: Prior to the procedure, a history and physical exam was performed, and patient's medications and allergies were reviewed. The risks (including pancreatitis), benefits and alternatives of the sedation and procedure were discussed with the patient. All questions were answered and informed consent was obtained. The patient was brought to the fluoroscopic radiology room. Patient identification and proposed procedure were verified by the physician and the nurse. The patient was placed in a swimmer's position between left lateral decubitus and prone position and the scope was passed under direct vision. Throughout the procedure, the patient's blood pressure, pulse, and oxygen saturations were monitored continuously. The ERCP was accomplished without difficulty. The patient tolerated the procedure well. Findings: The duodenoscope was passed directly into the upper esophagus and advanced to the second portion of the duodenum. The esophagus, stomach and duodenum were normal. The ampulla was normal in appearance. The minor ampulla was identified but had a very tiny ampullary orifice. The fluoroscopic C arm was then placed into position prior to cannulation with the duodenoscope was centered in a L-shaped position fluoroscopically in the second portion of duodenum. The entire endoscopic exam was done in conjunction with fluoroscopy. The cannula was then inserted through the duodenoscope channel and preloaded with low osmolar contrast. The common bile duct was selectively cannulated. The cholangiogram did show a 6 mm common bile duct with normal filling of the intrahepatic biliary system and normal filling of the cystic duct and portions of the gallbladder. Because of the potential for minor choledocholithiasis or sphincter of Oddi causing her recurrent pancreatitis, a biliary sphincterotomy was performed. There did appear to be not only bile but some minor sludge that exuded. Next, the pancreatic ductal orifice was identified and the pancreatic duct was cannulated with a guidewire. The guidewire went in without S shaped loop and the genu of the pancreas was not significantly angulated. This would not be consistent with Ansa pancreatica. A pancreatic gram was performed. The pancreatic duct was 2 to 3 mm with normal filling of the head body and tail of the gland. There was no ductal strictures or ductular ectasias. A very small pancreatic ampullary sphincterotomy was performed. Because there was excellent extravasation of contrast and not much contrast was utilized, a pancreatic ductal stent was not placed. Impression: 1. Normal pancreatogram and normal cholangiogram without evidence of Ansa pancreatica or chronic pancreatitis?suspect possible minor choledocholithiasis or sphincter of Oddi dysfunction as possible causes of her recurrent relapsing pancreatitis?status post biliary/pancreatic sphincterotomy Plan: I will discuss the findings with the patient and family. Fortunately, there is no evidence of Ansa pancreatica. I was able to do biliary/pancreatic sphi ncterotomy for presumed minor choledocholithiasis or sphincter of Oddi dysfunction as a cause of her recurrent pancreatitis. I will obtain IgG4 subclass today.
--- NOTE | 2024-09-05 14:21 | P.HP_ITS ---
History of Present Illness *Admission Date: 09/05/24 *Reason for visit:: Recurrent pancreatitis *History of present illness: Mrs. 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 The examination is deemed medically necessary for ERCP. The patient has been seen, interviewed and examined prior to the procedure by both myself and the anesthesia provider. [facility] Disclaimer: The information contained in this section may have been updated after the patient was seen, as this information can be updated by other users. Medical History CARMEN (obstructive sleep apnea) Breast cancer screening by mammogram History of [place] (myocardial infarction) History of stroke Bulging lumbar disc Abdominal hernia Insomnia, unspecified Social anxiety disorder Chronic post-traumatic stress disorder (PTSD) MDD (major depressive disorder), recurrent, severe, with psychosis Generalized anxiety disorder with panic attacks Hypothyroidism Asthma Witnessed episode of apnea Headache Daytime somnolence Skin lesion of back Sebaceous cyst of breast Cough syncope Pancreatitis Chronic cough Hypertension Hyperlipidemia Arthritis CVA (cerebral vascular accident) History of myocardial infarction Syncope Allergic rhinitis Cough syncope History of smoking 30 or more pack years History of COPD Dyspnea on exertion Surgical History History of ERCP History of carpal tunnel surgery History of section Family History Other Asthma Diabetes Emphysema of lung Family history of CVA Family history of cancer Family history of myocardial infarction Hypertension Social History Smoking Status: Light tobacco smoker tobacco type: cigarettes packs per day: 1 alcohol intake: never substance use type: denies use current occupational status: other Travel in the last 8 weeks?: None household members: spouse number of children: 2 caffeine: Yes Have you lived/traveled outside [place] in past 30 days?: No Contact w/someone who lives/traveled outside [place] past 30 days?: No Exposure to someone with infectious disease in past 14 days?: No Do you have a fever (greater than 100.4 F or 38 C)?: No Have you tested positive for COVID-19?: No Exposed to someone with COVID-19 in past 14 days?: No Do you have a sore throat?: No Do you have a cough?: No Do you have any weakness?: No Do you have any diarrhea?: No Are you experiencing any unusual bleeding?: No Do you have any muscle aches/pain?: No Do you have any abdominal pain?: No Are you experiencing loss of taste or smell?: No Other Medical History Have you received the Flu Vaccine for this season: No Have you received the Pneumonia Vaccine: No Review of Systems Review of Systems Review of systems (narrative): Negative *Cardiovascular Comments: Negative *Gastrointestinal Comments: Negative *Genitourinary Comments: Negative *Musculoskeletal Comments: Negative *Neurologic Comments: Negative Meds Home Medications and Allergies Home Medications ?Medication ?Instructions ?Recorded ?Confirmed ?Type fluticasone 500 mcg-salmeterol 50 1 inh inhalation BID #180 ea 09/12/23 09/05/24 Rx mcg/dose blistr powdr for inhalation (Advair Diskus) montelukast 10 mg tablet 10 mg PO HS 01/29/24 09/05/24 History levothyroxine 25 mcg tablet 25 mcg PO DAILYDM 03/05/24 09/05/24 History pantoprazole 40 mg tablet,delayed 40 mg PO DAILY #30 tabs 03/05/24 09/05/24 Rx release amantadine HCl 100 mg tablet 100 mg PO DAILY 03/12/24 09/05/24 History valsartan 160 1 tab PO DAILY High blood pressure 03/12/24 09/05/24 Rx mg-hydrochlorothiazide 12.5 mg #90 tabs tablet azelastine 137 mcg (0.1 %) nasal 2 spray intranasal HS 90 days #30 03/21/24 09/05/24 Rx spray mL fluticasone propionate 50 2 spray intranasal DAILY 90 days 03/21/24 09/05/24 Rx mcg/actuation nasal #16 grams spray,suspension (Flonase Allergy Relief) buspirone 10 mg tablet 20 mg (2 x 10 mg) PO BID #120 tabs 03/25/24 09/05/24 Rx pen needle, diabetic 32 gauge x #100 ea 04/12/24 09/05/24 Rx 1/4 hydrocodone 5 mg-acetaminophen 325 See Rx Instructions .Route 05/17/24 09/05/24 Rx mg tablet .COMPLEX PRN Moderate Pain (4-6) #45 tabs pen needle, diabetic 32 gauge x #1,200 ea 05/17/24 09/05/24 History (BD Frida 2nd Gen Pen Needle) propranolol 60 mg capsule,24 60 mg PO DAILY #90 caps 05/17/24 09/05/24 Rx hr,extended release [id number]-jznughmu-yjfkoyc 2 cap PO 5XD #240 caps 05/21/24 09/05/24 Rx 12,000-38,000-60,000 unit capsule,delayed rel (Creon) blood-glucose sensor (Dexcom G6 #1 ea 06/27/24 09/05/24 Rx Sensor device) blood-glucose transmitter (Dexcom #1 ea 06/28/24 09/05/24 Rx G6 Transmitter device) cetirizine 10 mg capsule (All Day 10 mg PO DAILY PRN allergy 07/01/24 09/05/24 Rx Allergy (cetirizine)) symptoms #30 caps methocarbamol 750 mg tablet 1,500 mg (2 x 750 mg) PO TID 5 07/16/24 09/05/24 Rx days #30 tabs amitriptyline 25 mg tablet 25 mg PO DAILY #30 tabs 07/23/24 09/05/24 Rx nicotine 21 mg/24 hr daily 1 patch transdermal DAILY #28 ea 07/31/24 09/05/24 Rx transdermal patch bupropion HCl 150 mg 24 hr tablet, 150 mg PO DAILY #30 tabs 08/13/24 09/05/24 Rx extended release (Wellbutrin XL) escitalopram oxalate 20 mg tablet 20 mg PO DAILY #30 tabs 08/13/24 09/05/24 Rx (Lexapro) insulin NPH-regular 70-30 U-100 50 unit SQ BID 09/05/24 09/05/24 History insulin 100 unit/mL subcutaneous pen (Humulin 70/30 U-100 KwikPen) New Prescriptions to Start Prescriptions: Allergies Allergy/AdvReac Type Severity Reaction Status Date / Time glimepiride (From Amaryl) AdvReac Severe Unknown Verified 09/05/24 12:07 allergy reaction varenicline (From Chantix) AdvReac Severe Gastrointestinal Verified 09/05/24 12:07 Upset Exam Data for Last 24 hours Vital signs and Labs for Last 24 Hours: Temp Pulse Resp BP Pulse Ox O2 Del Method 97.5 F L 105 H 18 138/65 96 Room Air 09/05/24 12:16 09/05/24 12:16 09/05/24 12:16 09/05/24 12:16 09/05/24 12:16 09/05/24 12:16 Laboratory Results - last 24 hr 09/05/24 12:15: POC Glucose 201 H I & O for Last 24 hours: Intake & Output 09/02/24 09/03/24 09/04/24 09/05/24 23:59 23:59 23:59 23:59 Weight 215 lb *Routine HEENT Exam Head: Present normocephalic Eye: Present EOMI and PERRL ENT: Present mucous membranes moist *Routine Neck Exam Neck: Present supple *Routine Respiratory Exam Respiratory: Present CTA bilaterally *Routine Cardiovascular Exam Cardiovascular: Present RRR *Routine Abdominal Exam Abdominal: Present soft and normoactive bowel sounds; Absent tenderness *Routine Rectal Exam Rectal:: deferred *Routine Genitalia Exam Genitalia:: deferred *Routine Extremities Exam Extremities: Absent cyanosis, clubbing or edema *Routine Skin Exam Skin: Present warm; Absent rash *Routine Neurological Exam Neurological: Present alert and oriented X3 Assessment and Plan *Assessment and plan (1) Recurrent pancreatitis: Status: Acute Category: Medical (2) Congenital anomaly of pancreas: Status: Acute Category: Medical Code(s): Q45.3 - Other congenital malformations of pancreas and pancreatic duct Plan A/P: 1. Recurrent pancreatitis with Ansa pancreatica (congenital anomaly of pancreas) is the preprocedural diagnosis. The patient will be anesthetized/sedated using MAC sedation. The patient has been seen and examined. Cardiac and lung assessment prior to the examination is stable. Proceed with planned ERCP.
[2024-09-05] MEDS: INDOMETHACIN 50MG SUPPOSITORY 100 MG RC (14:49)
--- NOTE | 2024-09-05 15:07 | FL_ITS ---
FINAL REPORT CLINICAL HISTORY: ERCP 1.0 NICOL 47.58 mGy FINDINGS: FLUOROSCOPY LESS THAN 1 HOUR HISTORY: Fluoroscopy guidance. Fluoroscopic guidance was provided for ERCP. Two spot films were obtained. A total of 1.0 minutes of fluoroscopy time were used. Total DAP: 47.58 mGy IMPRESSION: As above. Reviewed, Interpreted and Dictated by Lisa Morgan MD Transcribed by Kassandra Bryan Authenticated and [facility]
[2024-09-05 15:14] LABS: POC Glucose,Bedside 152 (70-110)
[2024-09-05] MEDS: IOPAMIDOL-370 (76%);100ML BOTTLE IV (15:16)
--- NOTE | 2024-09-06 07:41 | P.PNANES_ITS ---
[facility] Anesthesia Record Part II Anesthesia Record Part II Discharge Time: 15:30 Destination: Surgical Day Care (OP Surgery) PACU nurse assessment reviewed?: Yes Patient Condition:: Good Anesthesia Complications:: None Swallowing reflex intact?: Yes Airway Patency: Patent Cyanosis?: No Blood Pressure: 130/84 SaO2: 93 Respiratory Rate: 16 Pulse Rate: 96 Temperature: 97.9 F Mental Status: Alert & Oriented Pain level:: 0 Nausea and/or vomitting:: None Intake, IV Amount: 0 Hydration: Adequate
[2024-09-06 07:44] VITALS: BP 130/84; PULSE 96; RESP 16; TEMP 36.6; O2SAT 93
--- NOTE | 2024-09-06 10:53 | P.PNANES_ITS ---
[facility] Anesthesia Record Part I Anesthesia Record I Intake, IV Amount: 300 Hydration: Adequate Estimated blood loss (mL): 0 Urine output (mL): 0 Blood Products used (#): none Blood Pressure: 165/97 SaO2: 92 Pulse Rate: 116 Airway Patency: Patent Respiratory Rate: 24 Temperature: 97.8 F Patient is:: Drowsy and Stable Stable to PACU at:: 15:01
[2024-09-06 10:55] VITALS: BP 165/97; PULSE 116; RESP 24; TEMP 36.6; O2SAT 92
[2024-09-06 17:10] LABS: IgG, Subclass 4 10 mg/dL (2-96)
== END 2024-09-05 15:59 | disposition home or self-care (01) ==
PROVIDERS: PCP Family Medicine; Visit Provider Internal Medicine Gastroenterology
PROC: (CPT 43260; principal; 2024-09-05 14:30)
DX: Q45.3 Other congenital malformations of pancreas and pancreatic duct (principal); R10.84 Generalized abdominal pain
CPT/HCPCS: 43262; 43273; 36415; 74330; 82787; 82962; C1769; J1100; J2250; J2405; J3010; Q9967

== ENCOUNTER 2024-09-05 20:19 | Emergency (ER) | payer MEDICAID, SELFPAY ==
[2024-09-05] VITALS (9 sets, daily range): BP systolic 128–167; BP diastolic 72–105; PULSE 72–205; RESP 12–18; TEMP 36.6; O2SAT 93–98; BMI 37.5
--- NOTE | 2024-09-05 20:23 | ECG_ITS ---
APPROVED REPORT Exam: Resting ECG HR:108 bpm ECG Measurements Heart Rate 108 AXES IL 141 P 69 QRSd 91 QRS 93 QT 365 T 22 QTc 429 Conclusion SINUS TACHYCARDIA BORDERLINE RIGHT AXIS DEVIATION [QRS AXIS > 90] NONSPECIFIC ST & T-WAVE ABNORMALITY ABNORMAL RHYTHM ECG UNCONFIRMED REPORT Electronically signed by : SHAHZAD CHAVIRA, 09/08/2024 23:45:58
--- NOTE | 2024-09-05 20:24 | CT_ITS ---
PROCEDURE INFORMATION: Exam: CT Head Without Contrast Exam date and time: 09/05/2024 8:29 PM Age: 49 years old Clinical indication: Stroke-like symptoms; Altered mental status/memory loss; Additional info: Possible stroke TECHNIQUE: Imaging protocol: Computed tomography of the head without contrast. Radiation optimization: All CT scans at this facility use at least one of these dose optimization techniques: automated exposure control; mA and/or kV adjustment per patient size (includes targeted exams where dose is matched to clinical indication); or iterative reconstruction. Other technique: STROKE PROTOCOL was implemented. COMPARISON: CT HEAD/BRAIN WO CON 03/15/2022 4:34 PM FINDINGS: Brain: Right cerebellar hemisphere encephalomalacia likely related to prior ischemic event. There is mild diffuse cerebral volume loss present. Multiple subcortical and deep hypoattenuating white matter foci are present, likely related to small vessel senescent changes and can also be seen with prior infectious / inflammatory insult, or prior traumatic events. No hyperattenuating foci are identified to suggest acute intracranial hemorrhage. Cerebral ventricles: No ventriculomegaly. Paranasal sinuses: Visualized sinuses are unremarkable. No fluid levels. Mastoid air cells: Visualized mastoid air cells are well aerated. Bones: Unremarkable. No acute fracture. Soft tissues: Unremarkable. IMPRESSION: 1. Multiple subcortical and deep hypoattenuating white matter foci are present, likely related to small vessel senescent changes and can also be seen with prior infectious / inflammatory insult, or prior traumatic events. 2. No hyperattenuating foci are identified to suggest acute intracranial hemorrhage. ASSESSMENT: ASPECTS ([place] Stroke Program Early CT Score) is 10.
--- NOTE | 2024-09-05 20:24 | CT_ITS ---
PROCEDURE INFORMATION: Exam: CTA Head With Contrast, Arteriography Exam date and time: 09/05/2024 8:31 PM Age: 49 years old Clinical indication: Stroke-like symptoms; Altered mental status/memory loss; Additional info: Possible stroke TECHNIQUE: Imaging protocol: Computed tomographic angiography of the head with contrast. Exam focused on the arteries. 3D rendering (Not supervised by radiologist): MIP and/or 3D reconstructed images were created by the technologist. Radiation optimization: All CT scans at this facility use at least one of these dose optimization techniques: automated exposure control; mA and/or kV adjustment per patient size (includes targeted exams where dose is matched to clinical indication); or iterative reconstruction. Contrast material: ISOVUE; Contrast volume: 80 ml; Contrast route: INTRAVENOUS (IV); COMPARISON: CT HEAD/BRAIN WO CON 09/05/2024 8:29 PM FINDINGS: ANTERIOR CIRCULATION: Right internal carotid artery: Intracranial segment is patent with no significant stenosis. No aneurysm. Right middle cerebral artery: No occlusion or significant stenosis. No aneurysm. Right anterior cerebral artery: No occlusion or significant stenosis. No aneurysm. Left internal carotid artery: Intracranial segment is patent with no significant stenosis. No aneurysm. Left middle cerebral artery: No occlusion or significant stenosis. No aneurysm. Left anterior cerebral artery: No occlusion or significant stenosis. No aneurysm. POSTERIOR CIRCULATION: Right vertebral artery: No occlusion or significant stenosis. No aneurysm. Left vertebral artery: No occlusion or significant stenosis. No aneurysm. Basilar artery: No occlusion or significant stenosis. No aneurysm. Right posterior cerebral artery: No occlusion or significant stenosis. No aneurysm. Left posterior cerebral artery: No occlusion or significant stenosis. No aneurysm. Brain: No definite mass, mass effect, or midline shift. Cerebral ventricles: No ventriculomegaly. Bones/joints: Unremarkable. No acute fracture. Soft tissues: Unremarkable. IMPRESSION: No large vessel stenosis or occlusion.
--- NOTE | 2024-09-05 20:24 | CT_ITS ---
PROCEDURE INFORMATION: Exam: CTA Neck With Contrast Exam date and time: 09/05/2024 8:31 PM Age: 49 years old Clinical indication: Stroke-like symptoms; Altered mental status/memory loss; Additional info: Possible stroke TECHNIQUE: Imaging protocol: Computed tomographic angiography of the neck with contrast. Exam focused on the cervical segments of the vasculature. 3D rendering (Not supervised by radiologist): MIP and/or 3D reconstructed images were created by the technologist. Radiation optimization: All CT scans at this facility use at least one of these dose optimization techniques: automated exposure control; mA and/or kV adjustment per patient size (includes targeted exams where dose is matched to clinical indication); or iterative reconstruction. Contrast material: ISOVUE; Contrast volume: 80 ml; Contrast route: INTRAVENOUS (IV); COMPARISON: CT CERVICAL SPINE WO CON 03/15/2022 4:39 PM FINDINGS: Right common carotid artery: No stenosis. No dissection or occlusion. Right internal carotid artery: No stenosis of the extracranial segment. No dissection or occlusion. Right external carotid artery: No occlusion or stenosis of the origin. Left common carotid artery: Mild calcific atherosclerotic disease of the left carotid bulb. Left internal carotid artery: No stenosis of the extracranial segment. No dissection or occlusion. Left external carotid artery: No occlusion or stenosis of the origin. Right vertebral artery: No stenosis. No dissection or occlusion. Left vertebral artery: No stenosis. No dissection or occlusion. Soft tissues: Normal. No significant soft tissue swelling. Bones/joints: Mild loss of intervertebral disc space with degenerative changes involving C4 through C6. Lungs: Moderate paraseptal emphysematous changes of the upper lobes. IMPRESSION: No stenosis or occlusion. REFERENCES: NASCET CRITERIA. The degree of stenosis in the cervical segment of the internal carotid artery is based on NASCET criteria. Normal is no stenosis. Mild is less than 50% stenosis. Moderate is 50-69% stenosis. Severe is 70% to 99% stenosis. Total occlusion is no detectable patent lumen.
--- NOTE | 2024-09-05 20:30 | ED_ITS ---
Discharge Plan Disposition Patient Disposition: Home, Self-Care Condition: Good Prescriptions Prescriptions: New atorvastatin 40 mg tablet 40 mg PO DAILY Qty: 14 0RF No Action fluticasone propion-salmeterol [Advair Diskus] 500-50 mcg/dose blister with device 1 inh inhalation BID Qty: 180 2RF montelukast 10 mg tablet 10 mg PO HS Patient Comments: TAKE 1 TABLET BY MOUTH ONCE DAILY Creon 12,000-38,000 -60,000 unit capsule,delayed release(DR/EC) 2 cap PO 5XD Qty: 240 11RF Rx Instructions: administer 2 capsules with meals and 1 capsule with snacks (DME) pen needle, diabetic [BD Frida 2nd Gen Pen Needle] 32 gauge x 5/ needle See Rx Instructions .ROUTE .MEDSUPPLY Qty: 1200 Rx Instructions: As directed hydrocodone-acetaminophen 5-325 mg tablet See Rx Instructions .ROUTE .COMPLEX PRN (Reason: Moderate Pain (4-6)) Qty: 45 0RF Rx Instructions: 1-2 tabs q6h as needed for severe pain propranolol 60 mg capsule,extended release 24 hr 60 mg PO DAILY Qty: 90 3RF escitalopram oxalate [Lexapro] 20 mg tablet 20 mg PO DAILY Qty: 30 2RF bupropion HCl [Wellbutrin XL] 150 mg tablet extended release 24 hr 150 mg PO DAILY Qty: 30 2RF azelastine 137 mcg (0.1 %) spray,non-aerosol 2 spray intranasal HS 90 Days Qty: 30 3RF Rx Instructions: administer into each nostril fluticasone propionate [Flonase Allergy Relief] 50 mcg/actuation spray,suspension 2 spray intranasal DAILY 90 Days Qty: 16 2RF Rx Instructions: administer into each nostril amantadine HCl 100 mg tablet 100 mg PO DAILY valsartan-hydrochlorothiazide 160-12.5 mg tablet 1 tab PO DAILY Qty: 90 3RF (DME) pen needle, diabetic 32 gauge x 1/4 needle See Rx Instructions .Route Qty: 100 2RF Rx Instructions: As directed (DME) Dexcom G6 Sensor Device See Rx Instructions .ROUTE .MEDSUPPLY Qty: 1 0RF Patient Comments: USE DIRECTED TO MONITOR BLOOD SUGAR. CHANGE EVERY 10 DAYS Rx Instructions: As directed (DME) Dexcom G6 Transmitter Device See Rx Instructions .Route Qty: 1 5RF Rx Instructions: As directed for blood sugar monitoring All Day Allergy (cetirizine) 10 mg capsule 10 mg PO DAILY PRN (Reason: allergy symptoms) Qty: 30 0RF amitriptyline 25 mg tablet 25 mg PO DAILY Qty: 30 3RF Patient Comments: TAKE 1 TABLET BY MOUTH ONCE DAILY FOR MIGRAINE HEADACHE nicotine 21 mg/24 hr patch 24 hour 1 patch transdermal DAILY Qty: 28 2RF levothyroxine 25 mcg tablet 25 mcg PO DAILYDM Patient Comments: TAKE 1 TABLET BY MOUTH ONCE DAILY FOR THYROID pantoprazole 40 mg tablet,delayed release (DR/EC) 40 mg PO DAILY Qty: 30 0RF buspirone 10 mg tablet 20 mg PO BID Qty: 120 12RF Rx Instructions: Please take 2 tablets p.o. 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 Instructions Additional Instructions/Restrictions: Contact the neurology office tomorrow to schedule an appointment. It is recommended that she start taking a daily aspirin and statin which has been prescribed. Please return to ED if your symptoms worsen, change in location, change in severity, new symptoms develop or if you become concerned for your health. Clinical Impressions Clinical Impression: TIA (transient ischemic attack) Instructions Patient Instructions: DI for Transient Ischemic Attack Print Language Print Language: Montserratian Discharge ED Provider: Rere Jc General Adult HPI General Chief complaint: Neuro Symptoms/Deficit Stated complaint: stroke Time Seen by Provider: 09/05/24 20:23 Mode of Arrival: Ambulatory Source of Information: Patient Description of Symptoms (Recalled from ER Triage Doc. by RN): patient had a scope today and her states he noticed her having symptoms approximately one hour ago. BS 269. History of Present Illness HPI narrative: Sarita Pineda is a 49 y/o female presenting with stroke like symptoms. Pt presents with her spouse who states her symptoms started 1 hour ago. Patient noted right mouth drooping and difficulty with word finding. Patient has a history of prior stroke that resulted in speech abnormality and right-sided deficits. Patient had no residual deficits. Patient was placed under anesthesia and intubated today for a scope of her pancreas. Patient reports waking up without difficulties and having no symptoms after the scope. Patient denies headache, blurred vision, shortness of breath, chest pain. Patient complains of right-sided facial droop, decreased sensation in the right upper and lower extremities. Patient ambulatory in the department. Related Data Home Medications ?Medication ?Instructions ?Recorded ?Confirmed montelukast 10 mg tablet 10 mg PO HS 01/29/24 09/05/24 levothyroxine 25 mcg tablet 25 mcg PO DAILYDM 03/05/24 09/05/24 amantadine HCl 100 mg tablet 100 mg PO DAILY 03/12/24 09/05/24 pen needle, diabetic 32 gauge x #1,200 ea 05/17/24 09/05/24 (BD Frida 2nd Gen Pen Needle) insulin NPH-regular 70-30 U-100 50 unit SQ BID 09/05/24 09/05/24 insulin 100 unit/mL subcutaneous pen (Humulin 70/30 U-100 KwikPen) Previous Rx's ?Medication ?Instructions ?Recorded fluticasone 500 mcg-salmeterol 50 1 inh inhalation BID #180 ea 09/12/23 mcg/dose blistr powdr for inhalation (Advair Diskus) pantoprazole 40 mg tablet,delayed 40 mg PO DAILY #30 tabs 03/05/24 release valsartan 160 1 tab PO DAILY High blood pressure 03/12/24 mg-hydrochlorothiazide 12.5 mg #90 tabs tablet azelastine 137 mcg (0.1 %) nasal 2 spray intranasal HS 90 days #30 03/21/24 spray mL fluticasone propionate 50 2 spray intranasal DAILY 90 days 03/21/24 mcg/actuation nasal #16 grams spray,suspension (Flonase Allergy Relief) buspirone 10 mg tablet 20 mg (2 x 10 mg) PO BID #120 tabs 03/25/24 pen needle, diabetic 32 gauge x #100 ea 04/12/24 1/4 hydrocodone 5 mg-acetaminophen 325 See Rx Instructions .Route 05/17/24 mg tablet .COMPLEX PRN Moderate Pain (4-6) #45 tabs propranolol 60 mg capsule,24 60 mg PO DAILY #90 caps 05/17/24 hr,extended release [id number] 2 cap PO 5XD #240 caps 05/21/24 12,000-38,000-60,000 unit capsule,delayed rel (Creon) blood-glucose sensor (Dexcom G6 #1 ea 06/27/24 Sensor device) blood-glucose transmitter (Dexcom #1 ea 06/28/24 G6 Transmitter device) cetirizine 10 mg capsule (All Day 10 mg PO DAILY PRN allergy 07/01/24 Allergy (cetirizine)) symptoms #30 caps methocarbamol 750 mg tablet 1,500 mg (2 x 750 mg) PO TID 5 07/16/24 days #30 tabs amitriptyline 25 mg tablet 25 mg PO DAILY #30 tabs 07/23/24 nicotine 21 mg/24 hr daily 1 patch transdermal DAILY #28 ea 07/31/24 transdermal patch bupropion HCl 150 mg 24 hr tablet, 150 mg PO DAILY #30 tabs 08/13/24 extended release (Wellbutrin XL) escitalopram oxalate 20 mg tablet 20 mg PO DAILY #30 tabs 08/13/24 (Lexapro) atorvastatin 40 mg tablet 40 mg PO DAILY #14 tabs 09/05/24 Allergies Allergy/AdvReac Type Severity Reaction Status Date / Time glimepiride (From Amaryl) AdvReac Severe Unknown Verified 09/05/24 12:07 allergy reaction varenicline (From Chantix) AdvReac Severe Gastrointestinal Verified 09/05/24 12:07 [address] [facility] Disclaimer: The information contained in this section may have been updated after the patient was seen, as this information can be updated by other users. Medical History (Updated 09/05/24 @ 23:14 by Rere Jc MD) CARMEN (obstructive sleep apnea) Breast cancer screening by mammogram History of NV (myocardial infarction) History of stroke Bulging lumbar disc Abdominal hernia Insomnia, unspecified Social anxiety disorder Chronic post-traumatic stress disorder (PTSD) MDD (major depressive disorder), recurrent, severe, with psychosis Generalized anxiety disorder with panic attacks Hypothyroidism Asthma Witnessed episode of apnea Headache Daytime somnolence Skin lesion of back Sebaceous cyst of breast Cough syncope Pancreatitis Chronic cough Hypertension Hyperlipidemia Arthritis CVA (cerebral vascular accident) History of myocardial infarction Syncope Allergic rhinitis Cough syncope History of smoking 30 or more pack years History of COPD Dyspnea on exertion Surgical History History of ERCP History of carpal tunnel surgery History of section Family History Other Asthma Diabetes Emphysema of lung Family history of CVA Family history of cancer Family history of myocardial infarction Hypertension Social History Smoking Status: Never smoker alcohol intake: never substance use type: denies use current occupational status: other Travel in the last 8 weeks?: None household members: spouse number of children: 2 caffeine: Yes Have you lived/traveled outside [place] in past 30 days?: No Contact w/someone who lives/traveled outside US past 30 days?: No Exposure to someone with infectious disease in past 14 days?: No Do you have a fever (greater than 100.4 F or 38 C)?: No Have you tested positive for COVID-19?: No Exposed to someone with COVID-19 in past 14 days?: No Do you have a sore throat?: No Do you have a cough?: No Do you have any weakness?: No Do you have any diarrhea?: No Are you experiencing any unusual bleeding?: No Do you have any muscle aches/pain?: No Do you have any abdominal pain?: No Are you experiencing loss of taste or smell?: No Other Medical History Have you received the Flu Vaccine for this season: No Have you received the Pneumonia Vaccine: No ROS Obtained: Yes All systems reviewed & no additional complaints except as documented Physical Exam General General appearance: alert and in distress Head Head exam: atraumatic Eye Eye exam: Present PERRL and EOMI; Absent scleral icterus Neck Neck exam: Present full ROM Chest Chest inspection: Present normal inspection Respiratory Respiratory exam: Present normal lung sounds bilaterally Cardiovascular Cardiovascular exam: Present regular rate and normal rhythm Abdominal Exam Abdominal exam: Present soft; Absent distention or tenderness Extremities Exam Extremities exam: Present full ROM; Absent tenderness or edema Back Exam Back exam: Present full ROM Neurological Exam Neurological exam: Present alert, oriented X3 and motor sensory deficit Expanded Neurological Exam Patient oriented to: Present person, place and time Speech: Present expressive aphasia Cranial nerves: Normal: EOM function (II, III, IV, ), gag reflex (IX), spinal accessory function (XI) and tongue deviation (XII) and Abnormal Right: facial sensation (V) and facial palsy (VII) Upper motor neuron exam: Normal: pronator drift Sensory exam upper extremity: Abnormal Right: light touch Psychiatric Psychiatric exam: Present normal mood Skin Skin exam: Present warm and dry Medical Decision Making Medical Records Medical records reviewed: Yes I reviewed the patient's medical records. Screening: Per USPSTF and CDC recommendations, given the prevalence of disease in our region, it is our hospital?s policy to screen for HIV and viral Hepatitis for all patients aged 18 and over and those with ongoing risk factors. Adalberto Inquiry Pt receiving controlled substance: No Vital Signs: 09/05/24 20:23 09/05/24 20:36 09/05/24 20:45 Temperature 98 F Temperature Source Oral Pulse Rate 103 H 99 H Pulse Rate [Left] 205 H Respiratory Rate 18 14 Blood Pressure 165/105 H 156/89 H Blood Pressure [Right Arm] 167/98 H Blood Pressure Mean [Right Arm] 121 Blood Pressure Source Blood Pressure Source [Right Arm] Automatic Cuff Blood Pressure Position Blood Pressure Position [Right Arm] Supine 02 Sat by Pulse Oximetry 95 97 95 Oxygen Delivery Method Room Air Room Air Room Air 09/05/24 21:00 09/05/24 21:15 09/05/24 21:30 Temperature Temperature Source Pulse Rate 97 H 95 H 97 H Pulse Rate [Left] Respiratory Rate 15 14 13 Blood Pressure 149/95 H 146/93 H 151/96 H Blood Pressure [Right Arm] Blood Pressure Mean [Right Arm] Blood Pressure Source Blood Pressure Source [Right Arm] Blood Pressure Position Blood Pressure Position [Right Arm] 02 Sat by Pulse Oximetry 95 95 94 L Oxygen Delivery Method 09/05/24 21:45 09/05/24 22:00 09/05/24 23:20 Temperature 97.9 F Temperature Source Oral Pulse Rate 90 93 H 72 Pulse Rate [Left] Respiratory Rate 12 13 16 Blood Pressure 146/91 H 138/91 H 128/72 Blood Pressure [Right Arm] Blood Pressure Mean [Right Arm] Blood Pressure Source Automatic Cuff Blood Pressure Source [Right Arm] Blood Pressure Position Supine Blood Pressure Position [Right Arm] 02 Sat by Pulse Oximetry 93 L 94 L Oxygen Delivery Method Room Air Lab Data Lab results reviewed: Yes I reviewed the patient's lab results. Lab Results 09/05/24 20:24: WBC 14.0 H, RBC 4.93, Hgb 14.7, Hct 43.3, MCV 87.8, MCH 29.8, MCHC 33.9, RDW 13.2, Plt Count 299, MPV 9.7, Neut % (Auto) 88.0 H, Lymph % (Auto) 10.3, [place] % (Auto) 0.9 L, Eos % (Auto) 0.1, Baso % (Auto) 0.5, Neut # (Auto) 12.3 H, Lymph # (Auto) 1.5, [place] # (Auto) 0.1, Eos # (Auto) 0.0, Baso # (Auto) 0.1, PT 10.3, INR 0.91, APTT 28.5, Sodium 135 L, Potassium 4.4, Chloride 104, Carbon Dioxide 25, Anion Gap 10.4, BUN 15, Creatinine 0.90, Estimated Creat Clear 109, Estimated GFR 66, Est GFR ( Amer) 80, Glucose 258 H, Calcium 9.6, Total Bilirubin 0.4, AST 59 H, ALT 71, Alkaline Phosphatase 91, Troponin I < 0.01, Total Protein 7.0, Albumin 4.4, Globulin 2.6, Albumin/Globulin Ratio 1.7, Triglycerides 269 H, Cholesterol 211 H, LDL Cholesterol Direct 124.29, VLDL Cholesterol 54 H, HDL Cholesterol 42, Cholesterol/HDL Ratio 5.0 H, Plasma/Serum Alcohol < 10 09/05/24 20:24 09/05/24 20:24 Orders (Tests/Meds): ED MEDICATIONS Generic Name Dose Route Start Last Admin Trade Name Freq PRN Reason Stop Dose Admin Sodium Chloride 10 ml 09/05/24 20:23 Sodium Chloride 0.9% 10ml Flush Syringe IV 10/05/24 20:22 NEEDED PRN Maintain IV Site Sodium Chloride 10 ml 09/05/24 20:33 09/05/24 20:33 Sodium Chloride 0.9% 10ml Syr (Rad Only) IV 10/05/24 20:32 10 ml NEEDED PRN Administration Maintain IV Site Discontinued Medications Generic Name Dose Route Start Last Admin Trade Name Freq PRN Reason Stop Dose Admin Diphenhydramine HCl 12.5 mg 09/05/24 21:43 09/05/24 21:54 Diphenhydramine 50mg/Ml Vial IM 09/05/24 21:44 12.5 mg ONCE ONE Administration Lactated Ringer's 500 mls @ 999 mls/hr 09/05/24 21:44 09/05/24 21:54 Lactated Ringer's 500ml IV 09/05/24 22:14 999 mls/hr .Q31M ONE Administration Iopamidol 80 ml 09/05/24 20:33 09/05/24 20:33 Iopamidol-370 (76%);100ml Bottle IV 09/05/24 20:34 80 ml ONCE ONE Administration Ketorolac Tromethamine 15 mg 09/05/24 21:43 09/05/24 21:54 Ketorolac 30mg/Ml Vial IV 09/05/24 21:44 15 mg ONCE ONE Administration Prochlorperazine Edisylate 10 mg 09/05/24 21:43 09/05/24 21:54 Prochlorperazine 10mg/2ml Vial IV 09/05/24 21:44 10 mg ONCE ONE Administration Sodium Chloride 50 ml 09/05/24 20:33 09/05/24 20:33 0.9 % Sodium Chloride 50 Ml Vial IV 09/05/24 20:34 50 ml ONCE ONE Administration ORDERS Category Date Time Status CT angio head Stat Cat Scan 09/05/24 20:[address] angio neck Stat Cat Scan 09/05/24 20:[address] head/brain wo con Stat Cat Scan 09/05/24 20:24 Completed Activated Partial Thrombo Time Stat Lab 09/05/24 20:24 Completed Complete Blood Count Auto Diff Stat Lab 09/05/24 20:24 Completed Comprehensive Metabolic Panel Stat Lab 09/05/24 20:24 Completed Drug Screen,Urine Stat Lab 09/05/24 20:24 Ordered Ethyl Alcohol Stat Lab 09/05/24 20:24 Completed Lipid Panel Stat Lab 09/05/24 20:24 Completed Prothrombin Time INR Stat Lab 09/05/24 20:24 Completed Troponin I Q3H Lab 09/05/24 23:30 Ordered Troponin I Q3H Lab 09/06/24 02:30 Ordered Troponin I Stat Lab 09/05/24 20:24 Completed Urinalysis and Microscopic Stat Lab 09/05/24 20:24 Ordered ECG Data Tracing #1: I reviewed this ECG and interpreted as documented below: Sinus tachycardia with a rate of 108. No QTc prolongation, no significant ST elevation/depression or evidence of acute ischemia. Medical Decision Narrative: In summary, this is a 49-year-old female presenting with strokelike symptoms. Differential diagnosis includes but is not limited to acute infarct, intracranial hemorrhage, mass, seizure, recrudescence of prior stroke, among others. Patient's exam is mostly significant for right-sided facial droop. Patient had an ERCP performed earlier today in which she underwent general anesthesia with intubation for the procedure. Patient was made a stroke alert due to being in the tPA window. Patient emergently scanned with the CT head, CTA head/neck. Patient also had labs performed and an EKG. Initial NIH 2 for speech and right mouth droop. CT head negative for intracranial hemorrhage or evidence of acute infarct. Final radiologic read does note multiple subcortical and deep hypoattenuating white matter foci likely related to small vessel senescent changes. CTA head/neck evaluated by me and negative for occlusion, dissection or aneurysm. Patient's laboratory evaluation significant for slight leukocytosis of 14 which may be secondary to ERCP earlier today. Patient has no anemia or thrombocytopenia. Patient's PT/INR, APTT within normal limits. Patient CMP notable for hyperglycemia. Initial troponin <0.01. Triglycerides elevated at 269, cholesterol elevated at 211. On re-evaluation, patient's symptoms had largely resolved. Bruising was noted to the medial aspect of the patient's right eye as well as slight increased swelling at the lateral aspect of the right lower eye. Patient's reports seeing the bruise appear slightly before the stroke symptoms. Patient had been placed in a position between prone and left lateral decubitus based on ERCP procedure note. Patient also now complaining of a headache across the front of her head. As patient's symptoms had resolved without intervention, will treat migraine headache and reevaluate. Patient's migraine ultimately resolved and she had no further symptoms. Patient's C[place]ay TIA score is 6 which gives her a medium risk of stroke in the next 7 days. Due to this, patient was given the option of admission for MRI versus outpatient follow-up with neurology and initiation of aspirin/statin. Patient declined admission at this time. Patient advised to start aspirin and a daily statin for stroke risk reduction. Patient and family in agreement with this plan. Patient discharged in stable condition. Rere Jc MD Critical Care Critical Care Time Critical Care Time: No
[2024-09-05 20:33] LABS: Basophils # 0.1 K/mm3 (0-0.2); Basophils % 0.5 % (0.1-2.0); Eosinophils % 0.1 % (0.1-12.0); Hematocrit 43.3 % (37.0-47.0); Hemoglobin 14.7 g/dL (12.2-16.2); Immature Granulocytes # 0.03 10^3uL; Immature Granulocytes % 0.2 %; Lymphocytes # 1.5 K/mm3 (0.7-4.5); Lymphocytes % 10.3 % (10-50); Mean Corpuscular HGB Conc 33.9 g/dL (31.8-35.4); Mean Corpuscular Hemoglobin 29.8 pg (27.0-31.2); Mean Corpuscular Volume 87.8 fl (81-99); Mean Platelet Volume 9.7 fl (7.4-10.4); Monocytes # 0.1 K/mm3 (0.1-1.0); Monocytes % 0.9 % (1.7-9.3); Neutrophils # 12.3 K/mm3 (1.8-7.8); Nucleated Red Blood Cells # 0 10^3/uL; Nucleated Red Blood Cells % 0 %; Platelet Count 299 K/mm3 (142-424); Red Blood Count 4.93 M/mm3 (4.20-5.40); Red Cell Distribution Width 13.2 % (11.5-17.5); Red Cell Distribution Width-SD 42.4 fL
[2024-09-05] MEDS: 0.9 % SODIUM CHLORIDE 50 ML VIAL IV (20:33)
[2024-09-05] MEDS: IOPAMIDOL-370 (76%);100ML BOTTLE 80 ML IV (20:33)
[2024-09-05] MEDS: SODIUM CHLORIDE 0.9% 10ML SYR (RAD ONLY) 10 ML IV (20:33)
[2024-09-05 20:43] LABS: Albumin Level 4.4 g/dl (3.5-5.0); Chloride 104 mmol/L (98-107); Potassium 4.4 mmoL/L (3.5-5.1); Sodium 135 mmol/L (136-145)
[2024-09-05 20:45] LABS: Alanine Aminotransferase 71 U/L (12-78); Aspartate Amino Transferase 59 U/L (14-36); Blood Urea Nitrogen 15 mg/dl (7-17); Creatinine Clearance Estimated 109 mL/min (50-200); Estimated Glomerular Filt Rate 66 ml/min (>60); GFR (African American) 80 ML/MIN (>60)
[2024-09-05 20:46] LABS: Albumin/Globulin Ratio 1.7 (1.1-1.8); Alkaline Phosphatase 91 U/L (38-126); Anion Gap 10.4 mEq/L (5-15); Bilirubin,Total 0.4 mg/dl (0.2-1.3); Calcium 9.6 mg/dl (8.4-10.2); Carbon Dioxide 25 mmol/L (22.0-30.0); Cholesterol 211 mg/dl (140-200); Globulin 2.6 g/dL (1.3-3.2); Glucose 258 mg/dl (74-100); Triglycerides 269 mg/dl (30-150); VLDL Cholesterol 54 mg/dL (0-40)
[2024-09-05 20:52] LABS: Activated Partial Thrombo Time 28.5 seconds (22.8-30.6); INR 0.91 (0.9-1.1); Prothrombin Time 10.3 seconds (10.1-12.5)
[2024-09-05 20:57] LABS: Direct LDL Cholesterol 124.29 mg/dL (100-129); Ethyl Alcohol < 10 mg/dl (0-10)
[2024-09-05 20:58] LABS: Troponin I < 0.01 ng/ml (0.00-0.034)
[2024-09-05 21:39] LABS: HDL Cholesterol 42 mg/dl (40-60)
[2024-09-05] MEDS: PROCHLORPERAZINE 10MG/2ML VIAL 10 MG IV (21:54)
[2024-09-05] MEDS: RINGERS SOLUTION,LACTATED 500 ML 999 ML IV (21:54)
[2024-09-05] MEDS: diphenhydrAMINE 50MG/ML VIAL 12.5 MG IM (21:54)
[2024-09-05] MEDS: KETOROLAC 30MG/ML VIAL 15 MG IV (21:54)
== END 2024-09-05 23:23 | disposition home or self-care (01) ==
PROVIDERS: Emergency Provider Student in an Organized Health Care Education/Training Program; PCP Family Medicine
DX: G45.9 Transient cerebral ischemic attack, unspecified (principal); R29.810 Facial weakness; R00.0 Tachycardia, unspecified; R51.9 Headache, unspecified; I10 Essential (primary) hypertension; Z86.73 Personal history of transient ischemic attack (TIA), and cerebral infarction without residual deficits
CPT/HCPCS: 70450; 70496; 70498; 80053; 80061; 80320; 84484; 85025; 85610; 85730; 93005; 96372; 96374; 96375; 99285; J0780; J1200; J1885; J7120; Q9967

== ENCOUNTER 2024-09-20 12:34 | Outpatient (CLI) | payer MEDICAID, SELFPAY ==
--- NOTE | 2024-09-20 13:00 | MR_ITS ---
FINAL REPORT TECHNIQUE: Multiplanar MR, without and with gadolinium enhancement CLINICAL HISTORY: TIA; Hx 3 CVA. RIGHT SIDED FACIAL DROOP X1WEEK AGO. FINDINGS: Diffusion sequences show no signal abnormality to indicate acute infarct. There are chronic lacunar infarcts seen in the cerebellum, right greater than left. There is an old right occipital cortical infarct noted. No mass, hemorrhage or edema is seen. Ventricles are normal. Major vascular flow voids are intact. Following contrast administration, no mass or abnormal enhancement is seen. IMPRESSION: No acute infarct. Chronic infarcts within the posterior circulation. No enhancing mass. Reviewed, Interpreted and Dictated by Sharon Preston MD Transcribed by Lizbeth Ayala Authenticated and [facility]
[2024-09-20] MEDS: SODIUM CHLORIDE 0.9% 10ML SYR (RAD ONLY) 10 ML IV (13:37)
[2024-09-20] MEDS: GADOTERIDOL INJ 20ML SYRINGE 19 ML IV (13:37)
== END 2024-09-20 23:59 | disposition home or self-care (01) ==
LOC: RAD 12:35
PROVIDERS: PCP Family Medicine; Visit Provider Family Medicine
DX: I69.392 Facial weakness following cerebral infarction (principal)
CPT/HCPCS: 70553; A9576

== ENCOUNTER 2024-10-07 11:15 | Outpatient (CLI) | payer MEDICAID, SELFPAY ==
[2024-10-07 18:48] LABS: Creatinine,Urine Random 36 mg/dL (Not Estab.)
[2024-10-07 18:55] LABS: Microalbumin < 6.000 mg/L (0-16.7)
--- OUTSIDE RECORDS SUMMARY | 2024-10-08 15:23 | XMS_ITS | Clinical Summary ---
Author Organization [facility] Address [address] [place] [address] Care Team Providers Care Trade Show Coordinator Name Role Phone Isidro Roberts MD Primary Care Provider [phone] Allergies Active Allergy Reactions Criticality Noted Date Comments Metformin Other - please docum ent in the comment field Low 08/12/2022 Very low blood glucose Medications valsartan-hydro CHLOROthiazide (Diovan-HCT) 160-12.5 MG tablet Take 1 tablet by mouth 1 (one) time each day. Active sertraline (Zoloft) 100 MG tablet Take 100 mg by mouth 2 (two) times a day. Active amitriptyline (Elavil) 25 MG tablet Take by mouth 1 (one) time each day. Active montelukast (Singulair) 10 MG tablet Take 10 mg by mouth 1 (one) time each day. Active pantoprazole (Protonix) 40 MG EC tablet Take 40 mg by mouth 1 (one) time each day. Do not crush, chew, or split. Active fluticasone-gonzalo meterol (Advair Diskus) 250-50 MCG/ACT diskus inhaler Inhale 1 puff 2 (two) times a day. Rinse mouth with water after use to reduce aftertaste and incidence of candidiasis. Do not swallow. Active fluticasone (Flonase) 50 MCG/ACT nasal spray Administer 1 spray into each nostril 1 (one) time each day. Shake gently. Before first use, prime pump. After use, clean tip and replace cap. Active AZELASTINE HCL NA Administer into affected nostril(s) every night. Active HYDROcodone-hyun taminophen ([place]) 5-325 MG tablet if needed. Active meloxicam (Mobic) 15 MG tablet Take 15 mg by mouth if needed. Active torsemide (Demadex) 20 MG tablet Take 20 mg by mouth if needed. Active propranolol LA (Inderal LA) 60 MG 24 hr capsule Take 60 mg by mouth 1 (one) time each day. Do not crush, chew, or split. Active insulin detemir (Levemir) 100 UNIT/ML injection vialIndications :Type 2 Diabetes Mellitus Inject 30 Units under the skin every night. Active Active Problems Problem Noted Date Diagnosed Date Chronic recurrent pancreatitis 08/12/2022 Family History Medical History Relation Name Comments Anesthesia problems Neg Hx Malig Hyperthermia Neg Hx Social History Tobacco Use Types Packs/Day Years Used Date Smoking Tobacco: Every Day Cigarettes 1 30 Smokeless Tobacco: Never Tobacco Cessation:Ready to Q uit: Not Asked; Counseling Given: Not Answered Alcohol Use Standard Drinks/Week Comments Never 0 (1 standard drink = 0.6 oz pur e alcohol) Comments No Sex and Gender Information Value Date Recorded Sex Assigned at Not on file Legal Sex Female 8:39 PM EDT Gender Identity Not on file Sexual Orientation Not on file Last Filed Vital Signs Vital Sign Reading Time Taken Comments Blood Pressure 136/81 08/24/2022 10:25 AM EDT Pulse 101 08/24/2022 10:25 AM EDT Temperature 36.2 C (97.2 F) 08/24/2022 8:16 AM EDT Respiratory Rate 17 08/24/2022 10:2 5 AM EDT Oxygen Saturation 96% 08/24/2022 10: 25 AM EDT Inhaled Oxygen Concentration - - Weight 99.3 kg (218 lb 14.7 oz) 08/24/2022 8:16 AM EDT Height 157.5 cm (5' 2 ) 08/24/2022 8:16 AM EDT Body Mass Index 40.04 08/24/2022 8:16 AM EDT Plan of Treatment Health Maintenance Due Date Last Done Comments [facility]-Depression Screening 1973 [facility]-HIV Screening 1973 [facility]-Hepatitis C Screening 1973 [facility]-/Child/Adol SDOH Screenings 1973 [facility]-Obesity Intervention 07/08/1979 [facility]- SDOH Screenings 07/08/1991 [facility]-Adult SDOH Screenings 07/08/1991 [facility]-DTaP,Tdap,and Td Vaccine s (1 - Tdap) 1992 [facility]-Hepatitis B Vaccines (1 of 3 - 19+ 3-dose series) 1992 [facility]-Pap Smear 1994 [facility]-Cervical Cancer Screening 07/08/2003 [facility]-HPV/Cotest 07/08/2003 CT Colonography 2018 Colonoscopy 2018 FIT-DNA 2018 FIT 2018 FOBT 2018 Sigmoidoscopy 2018 [facility]-Colorectal Cancer Screening 2018 [facility]-Breast Cancer Screening 07/08/202306/2015, 03/05/2015, 03/03/2014 [facility]-Pneumococcal Vaccine: 50 + Years (1 of 1 - PCV) 07/08/2023 [facility]-Zoster Vaccines (1 of 2) 07/08/2023 [id number] Vaccine (1 - 2023-25 season) 2023 [facility]-Influenza Vaccine ([place] n Ended) 2024 HPV Vaccines Aged Out No longer eligi ble based on patient's age to complete this topic [facility]-HIB Vaccines Aged Out No longer e ligible based on patient's age to complete this topic [facility]-Hepatitis A Vaccines Aged Out No longer eligible based on patient's age to complete this topic [facility]-IPV Vaccines Aged Out No longer e ligible based on patient's age to complete this topic [facility]-Rotavirus Vaccines Aged Out No lo nger eligible based on patient's age to complete this topic Insurance Care Teams Trade Show Coordinator Relationship Specialty Start Date End Date Isidro Roberts MD PCP - General 06/21/22
--- OUTSIDE RECORDS SUMMARY | 2024-10-08 15:23 | XMS_ITS | Data Portability ---
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 67276 0009 M47.462 [id number] Dano Evans MD [place] [address] [place] [address] 08/30/2023 08:50:07 08/30/2023 09:16:48 Lumbar spondylosis 094201388 M47.953 [id number] MD Azam Zimmerman [address] [place] [address] 09/01/2023 09:57:48 09/01/2023 10:24:29 Mental health screening assessment [id number] Z13.39 [id number] Dano Evans MD [place] [address] [place] [address] 09/12/2023 08:30:11 09/12/2023 08:47:36 Lumbar spondylosis 306036117 M47.816 Degenerati on of lumbar intervertebral disc 04619547 M51.36 Long-term drug therapy 678414366 Z79.639 [id number] Dano Evans MD [place] [address] [place] [address] 09/26/2023 08:44:37 09/26/2023 08:59:56 Lumbar spondylosis 115860340 M47.180 [id number] Dano Evans MD [place] [address] [place] [address] 10/03/2023 15:08:49 10/03/2023 15:30:19 Lumbar spondylosis 965838496 M47.816 Long-term drug therapy [id number] Z79.744 [id number] MD Azam Zimmerman [address] [place] [address] 10/20/2023 12:08:55 10/20/2023 16:00:50 Pain disorder with psychological factor [id number] 07 F45.42 [id number] Dano Evans MD [place] [address] [place] [address] 10/30/2023 09:42:48 10/30/2023 10:33:17 Lumbar spondylosis 638335440 M47.999 [id number] Dano Evans MD [place] [address] [place] [address] 6 11/29/2023 07:59:00 11/29/2023 08:29:39 Lumbar spondylosis 154979287 M47.816 Long-term drug therapy 151959454 Z79.842 [id number] Dano Evans MD [place] [address] [place] [address] 12/01/2023 13:31:11 12/01/2023 15:00:48 Pain disorder with psychological factor 3520565726 07 F45.42 [id number] Dano Evans MD [place] [address] [place] [address] 6 12/14/2023 13:22:55 12/14/2023 14:14:12 Pain disorder with psychological factor 5077298070 07 F45.42 [id number] Dano Evans MD [place] [address] [place] [address] 6 01/19/2024 14:46:00 01/22/2024 16:44:29 Pain disorder with psychological factor [id number] 07 F45.42 Health Concerns Section Related Observation LastModified by Organization Detai ls LastModified Time None Recorded Concern Status LastModified by Organization Details LastModified Time None Recorded Advance Directives Directive Y: Payers Insurance Date Sequence Insurance Name Policy Number Policy Michael Covered Member ID Michael Member ID Guarantor Name 02/09/2024 1 [facility] (MEDICAID REPLACEMENT - HMO) Sarita Pineda [id number] Sarita Pineda Notes Date Note Type Note Provider Name and Address Organization Details Recorded Time 10/30/2023 text/html BILATERAL LUMBAR RFA [id number] Dano Evans MD [address] [place] [address], [address], [facility] 10/30/2023 11:52:58 11/29/2023 text/html Low back pain (2)*Reported bypatient.Onset:date of onset: (1983) Location:paraspinal: bilateral; pain is not radiating Duration:constant Context:overuse Quality:aching; throbbing; sharp Pain IntensitySevere; current pain level: 5/10; average pain level: 7/10; worst pain level: 10/10 Aggravating Factors:standing; walking; carrying; twisting; bending/squatting Alleviating Factors:lying down; changing positions; heat; opioids Associated Symptoms:no numbness; no tingling; no weakness Functional Assessment of 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 Prior Imaging:no recent studies Physical Therapy:Facility: ([facility]); currently in PT: temporary pain/symptoms improvement; dates: (06/2023- PRESENT) Current Analgesics:Tramadol effective; Gabapentin effective; Reported pain relief- 40% for 4 hours; Last dose of medication: (10/03/2023); 11/29/23 - LAST DOSE WAS THIS AM Past Medication History:opioid pain medications: (TRAMADOL-HELPFUL OXYCODONE-HELPFUL) Adverse Reactions:No nausea; No vomiting; No constipation Other Conservative Treatments:heat: effective; ice: not effective; TENS Unit: not effective Prior Pain Management:no Oswestry Disability Index (ALEXANDREA)Score/Date Competed: (07/10/2023--54) For Female Patients:Are you ? No Laura Morris APRN [address] [facility], [place], [address], [facility] 11/29/2023 09:09:44 OBGyn Episode No OBEpisode recorded.
--- OUTSIDE RECORDS SUMMARY | 2024-10-08 15:23 | XMS_ITS | Clinical Summary ---
Author Organization [facility] Address [address] [facility] [address] Care Team Providers Care Lace Burn Out Tender Name Role Phone Isidro Roberts MD Primary Care Provider [phone] Allergies No known active allergies Medications BUPROPION HBR ER PO Take by mouth. Active SERTRALINE HCL PO Take by mouth. Active clopidogrel (PLAVIX) 75 MG TABS Take 75 mg by mouth daily. Active Active Problems Problem Noted Date Diagnosed Date Carpal tunnel syndrome of left wrist - LT OCTR ( 04-06-17) 02/13/2017 Carpal tunnel syndrome of right wrist - RT OCTR (01-03-17) 12/20/2016 Social History Tobacco Use Types Packs/Day Years Used Date Smoking Tobacco: Every Day Cigarettes 0.5 18 Smokeless Tobacco: Never Alcohol Use Standard Drinks/Week Comments Yes 0 (1 standard drink = 0.6 oz pur e alcohol) social Comments Unknown Sex and Gender Information Value Date Recorded Sex Assigned at Not on file Legal Sex Female 9:05 PM EDT Gender Identity Female 04/06/2017 8:47 AM EST Sexual Orientation Not on file 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 Not on file Not on file Last Filed Vital Signs Vital Sign Reading Time Taken Comments Blood Pressure 145/95 04/06/2017 12:48 PM EST Pulse 93 04/06/2017 12:48 PM EST Temperature 36.8 C (98.3 F) 04/06/2017 11:10 AM EST Respiratory Rate 20 04/06/2017 12:48 PM EST Oxygen Saturation 100% 04/06/2017 12:48 PM EST Inhaled Oxygen Concentration - - Weight 88.9 kg (196 lb) 05/15/2017 8:49 AM EST Height 157.5 cm (5' 2 ) 05/15/2017 8:49 AM EST Body Mass Index 35.85 05/15/2017 8:49 AM EST Plan of Treatment Health Maintenance Due Date Last Done Comments DTap,Tdap,and Td (1 - Tdap) 1984 Pap Screening 1994 Mammogram Screening 2013 Colonoscopy 2018 Pneumococcal 50+ (1 of 1 - PCV) 07/08/2023 Shingrix (#1) 07/08/2023 Influenza Vaccine (Season Ended) 2024 RSV Vaccine (60+ or ) (1 - 1-dose 75+ series) 2048 HPV Aged Out No longer eligi ble based on patient's age to complete this topic Meningococcal conjugate naida nt 4 (MCV4) Aged Out No longer eligible b ased on patient's age to complete this topic RSV Immunization (<20 months) Aged Out No longer eligible based on patient's age to complete this topic Care Teams Lace Burn Out Tender Relationship Specialty Start Date End Date Isidro Roberts MD PCP - General Family Medicine 12/19/16
--- OUTSIDE RECORDS SUMMARY | 2024-10-08 15:23 | XMS_ITS | Referral Summary ---
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 Answer Date of Assessment Author No 04/04/2017 1:42 PM Ayla Brewer Registered Nurse * Are you blind or do you have serious difficulty seeing, even when wearing glasses? Answer Date of Assessment Author No 04/04/2017 1:42 PM Ayla Brewer Registered Nurse * Do you have serious difficulty walking or climbing stairs? (5 years old or older) Answer Date of Assessment Author No 04/04/2017 1:42 PM Ayla Brewer Registered Nurse * Do you have difficulty dressing or bathing? (5 years old or older) Answer Date of Assessment Author No 04/04/2017 1:42 PM Ayla Brewer Registered Nurse * Because of a physical, mental, or emotional condition, do you have difficulty doing errands alone such as visiting a doctor???s office or shopping? (15 years old or older) Answer Date of Assessment Author No 04/04/2017 1:42 PM Ayla Brewer Registered Nurse Mental Status * Because of a physical, mental, or emotional condition, do you have serious difficulty concentrating, remembering, or making decisions? (5 years old or older) Answer Entry Date Author No 04/04/2017 1:42 PM Ayla Brewer Registered Nurse Plan of Treatment Not on file Care Teams Medical Delivery Technician Relationship Specialty Start Date End Date Isidro Roberts MD PCP - General Family Medicine 12/19/16
--- OUTSIDE RECORDS SUMMARY | 2024-10-08 15:23 | XMS_ITS | Clinical Summary ---
Author Organization [facility] Address [address] [place] [address] Phone Care Team Providers Care Direct Care Worker Name Role Phone Isidro Roberts MD Primary Care Provider [phone] Allergies No known active allergies Medications sertraline (ZOLOFT) 100 mg Oral Tablet Take 100 mg by mouth daily. 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 Headache Anxiety Social History Tobacco Use Types Packs/Day Years Used Date Smoking Tobacco: Former Cigarettes 1 30 0 01/28/1989 - 01/14/2019 Smokeless Tobacco: Never Alcohol Use Standard Drinks/Week Comments No 0 (1 standard drink = 0.6 oz pur e alcohol) Comments No Sex and Gender Information Value Date Recorded Sex Assigned at Not on file Legal Sex Female 7:54 PM EDT Gender Identity Not on file Sexual Orientation Not on file Obstetrics History Last Filed Vital Signs Vital Sign Reading Time Taken Comments Blood Pressure 121/75 01/30/2019 7:57 AM EDT Pulse 91 01/30/2019 7:57 AM EDT Temperature 36.7 C (98 F) 01/30/2019 7:57 AM EDT Respiratory Rate 16 01/30/2019 7:57 AM EDT Oxygen Saturation 94% 01/30/2019 7:57 AM EDT Inhaled Oxygen Concentration - - Weight 94.4 kg (208 lb 2 oz) 01/28/2019 10:59 PM EDT Height 157.5 cm (5' 2 ) 01/28/2019 10:59 PM EDT Body Mass Index 38.07 01/28/2019 10:59 PM EDT Plan of Treatment Health Maintenance Due Date Last Done Comments Annual Wellness Exam 1976 DTaP/TDaP/Td (1 - Tdap) 1992 Hepatitis B Vaccine (1 of 3 - 19+ 3-dose series) 1992 Cervical Cancer Screening 1994 Pap Smear 1994 HPV/Pap Cotest 07/08/2003 Breast Cancer Screening 03/02/2018 03/02/20 16, 03/05/2015, 03/10/2014, Additional history exists Cologuard 2018 FIT 2018 Sigmoidoscopy 2018 Virtual Colonography 2018 Low Dose Lung Cancer Screening 07/08/2023 Pneumococcal Vaccine 50+ (1 of 1 - PCV) 07/08/2023 Zoster (1 of 2) 07/08/2023 COVID-19 Vaccine (1 - 2023- season) 2023 Influenza Vaccine (Season Ended) 2024 Colon Cancer Screening 01/12/2026 Colonoscopy 01/12/2026 01/12/2021 Meningococcal B Vaccine Aged Out No l onger eligible based on patient's age to complete this topic Procedures Procedure Name Priority Date/Time Associated Diagnosis Comments MM MOBILE MAMMO DIGITAL SCREEN W CAD SUDEEP Routine 03/02/2016 12:40 PM EDT Visit for screening mammogram from Last 3 Months or Most Recently Relevant to Health Maintenance Results * MM MOBILE MAMMO DIGITAL SCREEN W CAD SUDEEP (03/02/2016 12:40 PM EDT) Anatomical Region Laterality Modality Breast Mammography 03/06/2016 2:53 PM EST Impressions 03/07/2016 12:19 PM EST : Negative ([id number]) ~ RECOMMENDATION: Routine screening mammogram in 1 year. ~ * The patient with a palpable abnormality, unexplained by breast imaging, should be managed on clinical basis by the attending physician. * Breast imaging has a false negative rate of 15%. * The patient was notified by mail of the results of this examination. *The patient's information was entered into a reminder system with a target due date for the next mammogram. The mammogram was reviewed by a Radiologist and CAD. Narrative 03/07/2016 12:19 PM EST Procedure:MM MOBILE MAMMO DIGITAL SCREEN W CAD SUDEEP ~ Reason for exam: screening (asymptomatic). ~ MM MOBILE MAMMO DIGITAL SCREEN W CAD SUDEEP Bilateral CC and MLO view(s) were taken. The breast tissue is heterogeneously dense. This may lower the sensitivity of mammography. No suspicious calcifications. Compared to the most recent studies of 03-05-15. ~ Isidro Roberts MD IM MAMMOGRAPHY ORDERABLES Final Result from Last 3 Months or Most Recently Relevant to Health Maintenance Insurance [employer] OPEN ACCESS PLUS [facility] Advance Directives For more information, please contact: [phone] * Full Code (Latest Code Status on File) Date Activated Date Inactivated Comments 01/29/2019 8:50 AM 01/30/2019 5:26 PM Care Teams Direct Care Worker Relationship Specialty Start Date End Date Isidro Roberts MD PCP - General 12/04/09
== END 2024-10-07 23:59 | disposition home or self-care (01) ==
LOC: LAB.DROPOF 10-08 15:16
PROVIDERS: PCP Family Medicine; Visit Provider Family Medicine
DX: E11.9 Type 2 diabetes mellitus without complications (principal)
CPT/HCPCS: 82043; 82570

== ENCOUNTER 2024-12-10 10:39 | Outpatient (CLI) | payer MEDICAID, SELFPAY ==
--- OUTSIDE RECORDS SUMMARY | 2024-12-10 10:48 | XMS_ITS | Clinical Summary ---
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
--- OUTSIDE RECORDS SUMMARY | 2024-12-10 10:48 | XMS_ITS | Clinical Summary ---
Author Organization [facility] Address [address] [place] [address] Phone Care Team Providers Care Materials Tech Name Role Phone Isidro Roberts MD Primary Care Provider [phone] Allergies No known active allergies Medications sertraline [...] (1 - 2023- season) 2023 Influenza Vaccine (#1) 2024 Colon Cancer Screening 01/12/2026 Colonoscopy 01/12/2026 [...] Impressions 03/07/2016 12:19 PM EST : Negative ([id number]) ~ RECOMMENDATION: Routine screening mammogram in 1 [...] Most Recently Relevant to Health Maintenance Insurance [employer] OPEN ACCESS PLUS [facility] Advance Directives For more information, please contact: [phone] * Full Code (Latest Code Status on File) Date Activated Date Inactivated Comments 01/29/2019 8:50 AM 01/30/2019 5:26 PM Care Teams Materials Tech Relationship Specialty Start Date End Date Isidro Roberts MD PCP - General 12/04/09
--- OUTSIDE RECORDS SUMMARY | 2024-12-10 10:48 | XMS_ITS | Referral Summary ---
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
--- OUTSIDE RECORDS SUMMARY | 2024-12-10 10:48 | XMS_ITS | Clinical Summary ---
Author Organization [facility] Address [address] [place] [address] Care Team Providers Care Upholstery Estimator Name Role Phone Isidro Roberts MD Primary Care Provider [phone] Source Comments This information has been disclosed to you from confidential records protectedfrom disclosure by state law. You shall make no further disclosure of thisinformation without the specific, written, and informed release of theindividual to whom it pertains, or as otherwise permitted by law. A generalauthorization for the release of medical or other information is not sufficientfor the purposes of therelease of HIV test results or diagnoses. [id number] Allergies Active Allergy Reactions Criticality Noted Date Comments Metformin Shortness Of Breath High 08/12/2022 Very low blood glucose Active Problems Problem Noted Date Diagnosed Date Pain disorder associated with psychological fact ors 10/20/2023 Degeneration of lumbar intervertebral disc 07/09 Lumbar spondylosis 07/10/2023 Muscle pain 07/10/2023 Chronic recurrent pancreatitis 08/12/2022 Acute pancreatitis 01/29/2019 Depression 01/29/2019 Hypertension 01/29/2019 Carpal tunnel syndrome of left wrist 02/13/2017 Carpal tunnel syndrome of right wrist 12/20/2016 Social History Tobacco Use Types Packs/Day Years Used Date Smoking Tobacco: Every Day Cigarettes 1 35 Smokeless Tobacco: Never Tobacco Cessation:Ready to Q uit: Yes; Counseling Given: Not Answered Alcohol Use Standard Drinks/Week Comments Never 0 (1 standard drink = 0.6 oz pur e alcohol) PHQ-2 Answer Date Recorded PHQ-2 Total Score 0 07/03/2024 Yearly Questionnaire Answer Date Record ed Do you need any assistance w ith obtaining housing, meals, medication, transportation or medical equipment? No 07/03 Assistance needed for: Not on file 5 Yearly Questionnaire Answer Date Record ed Do you need any assistance w ith obtaining housing, meals, medication, transportation or medical equipment? No 07/03 Assistance needed for: Not on file 5 Yearly Questionnaire Answer Date Record ed Do you need any assistance w ith obtaining housing, meals, medication, transportation or medical equipment? No 07/03 Assistance needed for: Not on file 5 Comments Unknown Sex and Gender Information Value Date Recorded Sex Assigned at Not on file Legal Sex Female 4:56 PM EST Gender Identity Female 06/04/2024 9:21 AM EST Sexual Orientation Not on file Last Filed Vital Signs Vital Sign Reading Time Taken Comments Blood Pressure 128/94 07/03/2024 8:19 AM EST Pulse 75 07/03/2024 8:19 AM EST Temperature 36.1 C (97 F) 07/03/2024 8:19 AM EST Respiratory Rate 16 07/03/2024 8:19 AM EST Oxygen Saturation 95% 07/03/2024 8:19 AM EST Inhaled Oxygen Concentration 95% 07/03/2024 8 :19 AM EST Weight 96.2 kg (212 lb) 07/03/2024 8:19 AM EST Height 157.5 cm (5' 2 ) 07/03/2024 8:19 AM EST Body Mass Index 38.78 07/03/2024 8:19 AM EST Plan of Treatment Health Maintenance Due Date Last Done Comments ASCVD Assessment 1973 Abnormal Colonoscopy Follow Up 1973 Depression Monitoring (PHQ-9) 1973 Diabetes Screening 1973 Hepatitis C Screening (IDOMOTICShart) 1973 Renal Function/GFR 1973 Tobacco Cessation Readiness 1973 HIV Screening 07/08/1991 Immunization: DTaP/Tdap/Td (1 - Tdap) 1992 Immunization: Hepatitis B (1 of 3 - 19+ 3-dose series) 1992 Immunization: Pneumococcal (1 of 2 - PCV) 1992 Cervical Cancer Screening/Pap Smear (MyChart) 07/08/19 04 Mammogram (MyChart) 2013 Cologuard (FIT-DNA) 2018 Colonoscopy 2018 Colorectal Cancer Screening (MyChart) 2018 Stool Testing (gFOBT) 2018 Immunization: Zoster (1 of 2) 07/08/2023 Lung Cancer Screening 07/08/2023 Immunization: COVID-19 ( season) 2023 Immunization: Influenza (MyChart) (#1) 2024 Insurance [facility] MEDICAID Care Teams Upholstery Estimator Relationship Specialty Start Date End Date Isidro Roberts MD [address] [place] [address] PCP - General Family Medicine 06/26/24
--- OUTSIDE RECORDS SUMMARY | 2024-12-10 10:48 | XMS_ITS | Clinical Summary ---
Author Organization [facility] Address [address] [place] [address] Care Team Providers Care Director Medical Name Role Phone Isidro Roberts MD Primary Care Provider [phone] Allergies Active Allergy Reactions Criticality Noted Date [...] affected nostril(s) every night. Active HYDROcodone-hyun taminophen ([place]) 5-325 MG tablet if needed. Active meloxicam [...] [facility]-HIV Screening 1973 [facility]-Hepatitis C Screening 1973 [facility]-Infant/Child/Adol SDOH Screenings 1973 [facility]-Obesity Intervention 07/08/1979 [facility]- [...] 07/08/2023 [facility]-Zoster Vaccines (1 of 2) 07/08/2023 [id number] Vaccine (1 - 2023- season) 2023 [facility]-Influenza Vaccine (#1) 2024 HPV Vaccines Aged Out No longer [...] patient's age to complete this topic Insurance ([place]) [id number] [employer] [facility] MEDICAID Care Teams Director Medical Relationship Specialty Start Date End Date Isidro Roberts MD PCP - General 06/21/22
== END 2024-12-10 23:59 | disposition home or self-care (01) ==
LOC: RT 10:40
PROVIDERS: PCP Family Medicine; Visit Provider Specialist
DX: I47.19 Other supraventricular tachycardia (principal); I49.1 Atrial premature depolarization; I49.3 Ventricular premature depolarization; G45.9 Transient cerebral ischemic attack, unspecified
CPT/HCPCS: 93225; 93227

== ENCOUNTER 2024-12-13 10:00 | Outpatient (POV) | payer MEDICAID, SELFPAY ==
--- OUTSIDE RECORDS SUMMARY | 2024-12-13 10:04 | XMS_ITS | Referral Summary ---
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
--- OUTSIDE RECORDS SUMMARY | 2024-12-13 10:04 | XMS_ITS | Clinical Summary ---
Author Organization [facility] Address [address] [place] [address] Care Team Providers Care Interactive Web Developer Name Role Phone Isidro Roberts MD Primary Care Provider [phone] Allergies Active Allergy Reactions Criticality Noted Date [...] affected nostril(s) every night. Active HYDROcodone-hyun taminophen ([place]) 5-325 MG tablet if needed. Active meloxicam [...] 07/08/2023 [facility]-Zoster Vaccines (1 of 2) 07/08/2023 [id number] Vaccine (1 - 2023- season) 2023 [facility]-Influenza [...] patient's age to complete this topic Insurance ([place]) [id number] [employer] [facility] MEDICAID Care Teams Interactive Web Developer Relationship Specialty Start Date End Date Isidro Roberts MD PCP - General 06/21/22
--- OUTSIDE RECORDS SUMMARY | 2024-12-13 10:04 | XMS_ITS | Clinical Summary ---
Author Organization [facility] Address [address] [place] [address] Phone Care Team Providers Care Electromedical Equipment Technician Name Role Phone Isidro Roberts MD Primary Care Provider [phone] Allergies No known active allergies Medications sertraline [...] Impressions 03/07/2016 12:19 PM EST : Negative ([id number]) ~ RECOMMENDATION: Routine screening mammogram in 1 [...] Most Recently Relevant to Health Maintenance Insurance [employer] OPEN ACCESS PLUS [facility] Advance Directives For more information, please contact: [phone] * Full Code (Latest Code Status on File) Date Activated Date Inactivated Comments 01/29/2019 8:50 AM 01/30/2019 5:26 PM Care Teams Electromedical Equipment Technician Relationship Specialty Start Date End Date Isidro Roberts MD PCP - General 12/04/09
--- OUTSIDE RECORDS SUMMARY | 2024-12-13 10:04 | XMS_ITS | Clinical Summary ---
Author Organization [facility] Address [address] [place] [address] Care Team Providers Care Co Founder And Cto Name Role Phone Isidro Roberts MD Primary Care Provider [phone] Source Comments This information has been disclosed [...] therelease of HIV test results or diagnoses. [id number] Health Allergies Active Allergy Reactions Criticality Noted [...] 1973 Diabetes Screening 1973 Hepatitis C Screening ([employer]) 1973 Renal Function/GFR 1973 Tobacco Cessation Readiness [...] 2023 Immunization: Influenza (MyChart) (#1) 2024 Insurance [facility] MEDICAID [facility] care Address: [address] [address] Care Teams Co Founder And Cto Relationship Specialty Start Date End Date Isidro Roberts MD [address] [place] [address] PCP - General Family Medicine 06/26/24
--- OUTSIDE RECORDS SUMMARY | 2024-12-13 10:04 | XMS_ITS | Clinical Summary ---
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
[2024-12-13 10:23] VITALS: BP 144/84; PULSE 84; RESP 18; O2SAT 93; BMI 39.6
--- NOTE | 2024-12-13 10:41 | EXP.PAIN.SOA ---
[facility] Disclaimer: The information contained in this section may have been updated after the patient was seen, as this information can be updated by other users. Medical History Nocturnal hypoxemia History of TIA (transient ischemic attack) History of neuropathy History of hypertension History of diabetes as a child CARMEN (obstructive sleep apnea) Breast cancer screening by mammogram History of OR (myocardial infarction) History of stroke Bulging lumbar disc Abdominal hernia Insomnia, unspecified Social anxiety disorder Chronic post-traumatic stress disorder (PTSD) MDD (major depressive disorder), recurrent, severe, with psychosis Generalized anxiety disorder with panic attacks Hypothyroidism Asthma Witnessed episode of apnea Headache Daytime somnolence Skin lesion of back Sebaceous cyst of breast Cough syncope Pancreatitis Chronic cough Hypertension Hyperlipidemia Arthritis CVA (cerebral vascular accident) History of myocardial infarction Syncope Allergic rhinitis Cough syncope History of smoking 30 or more pack years History of COPD Dyspnea on exertion Surgical History History of ERCP History of carpal tunnel surgery History of section Family History Other Asthma Diabetes Emphysema of lung Family history of CVA Family history of cancer Family history of myocardial infarction Heart attack Hypertension Stroke Social History Smoking Status: Current every day smoker tobacco type: cigarettes packs per day: 1 alcohol intake: never substance use type: denies use current occupational status: other Travel in the last 8 weeks?: None household members: spouse marital status: number of children: 2 caffeine: Yes Have you lived/traveled outside US in past 30 days?: No Contact w/someone who lives/traveled outside US past 30 days?: No Exposure to someone with infectious disease in past 14 days?: No Do you have a fever (greater than 100.4 F or 38 C)?: No Have you tested positive for COVID-19?: No Exposed to someone with COVID-19 in past 14 days?: No Do you have a sore throat?: No Do you have a cough?: No Do you have shortness of breath?: No Do you have a headache?: No Do you have any weakness?: No Are you experiencing any nausea/vomitting?: No Do you have any diarrhea?: No Are you experiencing any unusual bleeding?: No Do you have any muscle aches/pain?: No Do you have any abdominal pain?: No Are you experiencing loss of taste or smell?: No PM Subjective & Objective Subjective Subjective:: Patient is a pleasant 49-year-old female who presents today for follow-up. She rates her pain today an 8 out of 10. Patient was previously scheduled for an intrathecal pump implant however had ended up having a stroke and has since followed up with neurology. She rates her pain today an 8 out of 10. She denies any new trauma or injury. She states she is still having a chronic back pain and does still want to proceed forward with the pump implant. Patient states the pain is constant and does interfere with her ability perform activities of daily living such as cooking and cleaning. Her Adalberto has been reviewed and is appropriate. She is prescribed compounded cream from our office. Review of Systems: General: No recent weight changes, no fever, no sleep disturbances Respiratory: No cough, no shortness of air, no recurring pulmonary infections Cardiovascular/peripheral vascular: No chest pain, no palpitations, no edema, no shortness of breath Gastrointestinal: No new onset incontinence, normal bowel movements reported Genitourinary: No new onset incontinence Musculoskeletal: Chronic back pain Psychiatric: [Normal mood/affect] Neurological: [Denies weakness in extremities], [denies balance issues] Pain at rest (0-10 scale): 8 Objective Objective:: Physical Exam: General: Alert and oriented x3, no acute distress, pleasant and cooperative Lungs: Respirations even and unlabored, symmetrical chest expansion Eyes: PERRL Musculoskeletal: Flexion and extension of lumbar [spine] somewhat guarded secondary to pain, [antalgic gait noted] Neurological: Speech clear, no gross sensory deficit Has patient had previous pain injection?: No Conservative treatment options previously tried: Home exercise plan Length of treatment: Longer than 12 weeks Meds Home Medications and Allergies Home Medications ?Medication ?Instructions ?Recorded ?Confirmed ?Type fluticasone 500 mcg-salmeterol 50 1 inh inhalation BID #180 ea 09/12/23 12/13/24 Rx mcg/dose blistr powdr for inhalation (Advair Diskus) levothyroxine 25 mcg tablet 25 mcg PO DAILYDM 03/05/24 12/13/24 History pen needle, diabetic 32 gauge x #100 ea 04/12/24 12/13/24 Rx 1/4 pen needle, diabetic 32 gauge x #1,200 ea 05/17/24 12/13/24 History (BD Frida 2nd Gen Pen Needle) propranolol 60 mg capsule,24 60 mg PO DAILY #90 caps 05/17/24 12/13/24 Rx hr,extended release ocvszc-jwqtvvxj-lflrsvn 2 cap PO 5XD #240 caps 05/21/24 12/13/24 Rx 12,000-38,000-60,000 unit capsule,delayed rel (Creon) blood-glucose sensor (Dexcom G6 #1 ea 06/27/24 12/13/24 Rx Sensor device) blood-glucose transmitter (Dexcom #1 ea 06/28/24 12/13/24 Rx G6 Transmitter device) escitalopram oxalate 20 mg tablet 20 mg PO DAILY #30 tabs 08/13/24 12/13/24 Rx (Lexapro) alprazolam 1 mg tablet 1 mg PO DAILY #1 tab 09/09/24 12/13/24 Rx insulin aspart U-100 100 unit/mL See Rx Instructions .Route 09/09/24 12/13/24 Rx (3 mL) subcutaneous pen (Novolog .COMPLEX #15 mL FlexPen U-100 Insulin aspart) furosemide 20 mg tablet (Lasix) 20 mg PO DAILY PRN edema #30 tabs 10/07/24 12/13/24 Rx insulin glargine 100 unit/mL (3 70 unit (0.7 mL) SQ HS #15 mL 10/07/24 12/13/24 Rx mL) subcutaneous pen (Lantus Solostar U-100 Insulin) hyoscyamine sulfate 0.125 mg 0.125 mg PO QID PRN abdominal pain 10/10/24 12/13/24 Rx disintegrating tablet #120 tabs bupropion HCl 150 mg 24 hr tablet, 150 mg PO DAILY #30 tabs 11/05/24 12/13/24 Rx extended release (Wellbutrin XL) amitriptyline 25 mg tablet 25 mg PO DAILY #30 tabs 11/06/24 12/13/24 Rx valsartan 160 1 tab PO DAILY High blood pressure 11/06/24 12/13/24 Rx mg-hydrochlorothiazide 12.5 mg #90 tabs tablet New Prescriptions to Start Prescriptions: Allergies Allergy/AdvReac Type Severity Reaction Status Date / Time glimepiride (From Amaryl) AdvReac Severe Unknown Verified 12/10/24 08:02 allergy reaction varenicline (From Chantix) AdvReac Severe Gastrointestinal Verified 12/10/24 08:02 Upset Assessment and Plan *Assessment and plan (1) Degenerative disc disease, lumbar: Status: Acute Category: Medical Code(s): M51.369 - Other intervertebral disc degeneration, lumbar region without mention of lumbar back pain or lower extremity pain (2) Chronic pain syndrome: Status: Acute Category: Medical Code(s): G89.4 - Chronic pain syndrome Plan .I did discuss with the patient regarding neurology's notes and the recommendations and she was counseled that we would follow-up when she had completed these specifically following up with pulmonology and cardiology. Patient acknowledged understanding. She will return to clinic in 2 months for reevaluation of symptoms and plan of care. Patient has been instructed to contact the clinic with any concerns before the next appointment. Dr. Stephenson has reviewed this note and agrees with this plan of care. This note was dictated using voice recognition software and make contain errors or omissions. All injections are used with Lidocaine, Bupivacaine and dexamethasone. Occasionally urine drug screen is needed to verify patient's compliance with our office pain contract. This is ordered based off specific treatments related to chronic pain with the potential to abuse certain medications.
== END 2024-12-13 23:59 | disposition home or self-care (01) ==
PROVIDERS: PCP Family Medicine; Visit Provider Nurse Practitioner Family
DX: M51.360 Other intervertebral disc degeneration, lumbar region with discogenic back pain only (principal); G89.4 Chronic pain syndrome
CPT/HCPCS: 93270; 93272; 99212; G0463

== ENCOUNTER 2024-12-16 09:13 | Outpatient (CLI) | payer MEDICAID, SELFPAY ==
--- OUTSIDE RECORDS SUMMARY | 2024-12-16 09:18 | XMS_ITS | Clinical Summary ---
Author Organization [facility] Address [address] [place] [address] Phone Care Team Providers Care Tobacco Drier Operator Name Role Phone Isidro Roberts MD Primary Care Provider [phone] Allergies No known active allergies Medications sertraline [...] Impressions 03/07/2016 12:19 PM EST : Negative ([id number]) ~ RECOMMENDATION: Routine screening mammogram in 1 [...] Most Recently Relevant to Health Maintenance Insurance [employer] OPEN ACCESS PLUS [facility] Advance Directives For more information, please contact: [phone] * Full Code (Latest Code Status on File) Date Activated Date Inactivated Comments 01/29/2019 8:50 AM 01/30/2019 5:26 PM Care Teams Tobacco Drier Operator Relationship Specialty Start Date End Date Isidro Roberts MD PCP - General 12/04/09
--- OUTSIDE RECORDS SUMMARY | 2024-12-16 09:18 | XMS_ITS | Clinical Summary ---
Author Organization [facility] Address [address] [place] [address] Care Team Providers Care Private Mortgage Banker Safe Name Role Phone Isidro Roberts MD Primary Care Provider [phone] Allergies Active Allergy Reactions Criticality Noted Date [...] affected nostril(s) every night. Active HYDROcodone-hyun taminophen ([place]) 5-325 MG tablet if needed. Active meloxicam [...] 07/08/2023 UKY-Zoster Vaccines (1 of 2) 07/08/2023 [id number] Vaccine (1 - 2023- season) 2023 UKY-Influenza [...] patient's age to complete this topic Insurance ([place]) [id number] Xiaoi Robert [facility] MEDICAID Care Teams Private Mortgage Banker Safe Relationship Specialty Start Date End Date Isidro Roberts MD PCP - General 06/21/22
--- OUTSIDE RECORDS SUMMARY | 2024-12-16 09:18 | XMS_ITS | Clinical Summary ---
Author Organization [facility] Address [address] [place] [address] Care Team Providers Care Fittings Finisher Name Role Phone Isidro Roberts MD Primary Care Provider [phone] Source Comments This information has been disclosed [...] therelease of HIV test results or diagnoses. [id number] [facility] Allergies Active Allergy Reactions Criticality Noted [...] 1973 Diabetes Screening 1973 Hepatitis C Screening ([employer]) 1973 Renal Function/GFR 1973 Tobacco Cessation Readiness [...] 2023 Immunization: Influenza (MyChart) (#1) 2024 Insurance [facility] MEDICAID [facility] care Address: [address] [address] Care Teams Fittings Finisher Relationship Specialty Start Date End Date Isidro Roberts MD [address] [place] [address] PCP - General Family Medicine 06/26/24
--- OUTSIDE RECORDS SUMMARY | 2024-12-16 09:18 | XMS_ITS | Referral Summary ---
Author Organization [facility] Address [address] [facility] 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
--- OUTSIDE RECORDS SUMMARY | 2024-12-16 09:18 | XMS_ITS | Clinical Summary ---
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
--- NOTE | 2024-12-16 09:30 | CA_ITS ---
APPROVED REPORT EXAM: Comprehensive 2D, Doppler, and color-flow Echocardiogram Engine Dynamometer Tester: Tori Gallardo CRT Ht: 5 ft 2 in Wt: 213lbs BSA: 1.96 BP: 136/94 mmHg Indications: CVA/TIA Echo Enhancing Agent Indication: Rule out Shunt Agent(s) / Amount(s) Used: Agitated Saline 5 cc Comments: B/S ordered. 2D Dimensions LA Volume 29.30 mL LA Volume Index 14.60 mL/m2 (M/F) 16-34 M-Mode Dimensions RVDd 1.89 cm (0.9-2.6) LA Diam 2.92 cm (1.9-4.0) LVDd 4.88 cm (3.5-5.7) LVDs 3.29 cm (3.5-5.7) IVSd 1.74 cm (0.6-1.1) PWd 0.98 cm (0.6-1.1) EF (Teich) 60.80% FS 32.60% EDV (Teich) 111.70 mL TAPSE 1.94 (<1.7) ESV (Teich) 43.80 mL LV Diastology E Decel Time 230 (160-240 msec) E/A Ratio 0.50 MED A' 9.40 cm/s LAT A' 11.60 cm/s Aortic Valve AO Peak GR. 9.10 mmHg Mitral Valve MV E Max Shahram. 57.0 (40-130 cm/s) MV A Velocity 114.0 (40-130 cm/s) E/A Ratio 0.50 MV PHT 67.0 ms Pulmonary Valve PV Peak Velocity 134.0 (50-150 cm/s) Tricuspid Valve TR P. Velocity 86.00 cm/s RAP Estimate 10.00 mmHg RVSP 13.00 mmHg Left Ventricle The left ventricle is normal size. Left ventricular systolic function is normal. The left ventricular ejection fraction is within the normal range. There is increased left ventricular wall thickness. There is normal LV segmental wall motion. Transmitral Doppler flow pattern suggests impaired LV relaxation. LVEF is 55% Right Ventricle The right ventricle is normal size. The right ventricular systolic function is normal. Atria The left atrium size is normal. The right atrium size is normal. There is no color Doppler evidence of interatrial shunt. Agitated saline administration demonstrates no evidence of interatrial shunt. Aortic Valve The aortic valve is mildly thickened. There is no hemodynamically significant aortic valvular stenosis. No aortic regurgitation is present. Mitral Valve The mitral valve is normal in structure. No evidence of mitral valve stenosis. Mild mitral regurgitation is present. Tricuspid Valve The tricuspid valve leaflets are thin and pliable. Mild tricuspid regurgitation. RVSP is 20-25 mmHg. Pulmonic Valve The pulmonary valve is grossly normal in structure. Mild pulmonic valve regurgitation is present. Great Vessels The aortic root is normal in size. IVC is normal in size and collapses >50% with inspiration. Pericardium There is no pericardial effusion. Other Information Study Quality: Fair Conclusion Normal biventricular systolic function. Mild MR, mild TR, mild PI. There is no color Doppler evidence of interatrial shunt. Agitated saline administration demonstrates no evidence of interatrial shunt. Electronically signed by : Barbra Muhammad MD 12/18/2024 01:04:54
== END 2024-12-16 23:59 | disposition home or self-care (01) ==
LOC: RT 09:13
PROVIDERS: PCP Family Medicine; Visit Provider Specialist
DX: I08.8 Other rheumatic multiple valve diseases (principal); I63.9 Cerebral infarction, unspecified; G45.9 Transient cerebral ischemic attack, unspecified; F17.200 Nicotine dependence, unspecified, uncomplicated; E78.5 Hyperlipidemia, unspecified; I10 Essential (primary) hypertension
CPT/HCPCS: 93306

== ENCOUNTER → 2025-01-07 12:01 | Outpatient (CLI) | payer MEDICAID, SELFPAY ==
--- OUTSIDE RECORDS SUMMARY | 2025-01-07 12:04 | XMS_ITS | Clinical Summary ---
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
--- OUTSIDE RECORDS SUMMARY | 2025-01-07 12:04 | XMS_ITS | Clinical Summary ---
Author Organization [facility] Address [address] [place] [address] Care Team Providers Care Weight Trainer Name Role Phone Isidro Roberts MD Primary Care Provider [phone] Allergies Active Allergy Reactions Criticality Noted Date [...] affected nostril(s) every night. Active HYDROcodone-hyun taminophen ([place]) 5-325 MG tablet if needed. Active meloxicam [...] 07/08/2023 UKY-Zoster Vaccines (1 of 2) 07/08/2023 [id number] Vaccine (1 - 2023- season) 2024 UKY-Influenza Vaccine (#1) 2024 HPV Vaccines Aged [...] patient's age to complete this topic Insurance ([place]) [id number] [facility] MEDICAID Care Teams Weight Trainer Relationship Specialty Start Date End Date Isidro Roberts MD PCP - General 06/21/22
--- OUTSIDE RECORDS SUMMARY | 2025-01-07 12:04 | XMS_ITS | Clinical Summary ---
Author Organization [facility] Address [address] [place] [address] Care Team Providers Care Master Welder Name Role Phone Isidro Roberts MD Primary Care Provider [phone] Source Comments This information has been disclosed [...] therelease of HIV test results or diagnoses. [id number] Allergies Active Allergy Reactions Criticality Noted [...] 1973 Diabetes Screening 1973 Hepatitis C Screening ([employer]) 1973 Renal Function/GFR 1973 Tobacco Cessation Readiness [...] Cancer Screening 07/08/2023 Immunization: COVID-19 ( season) 2024 Immunization: Influenza (MyChart) (#1) 2024 Insurance [facility] MEDICAID [facility] care Address: [address] [address] Care Teams Master Welder Relationship Specialty Start Date End Date Isidro Roberts MD [address] [place] [address] PCP - General Family Medicine 06/26/24
--- OUTSIDE RECORDS SUMMARY | 2025-01-07 12:04 | XMS_ITS | Referral Summary ---
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
--- OUTSIDE RECORDS SUMMARY | 2025-01-07 12:04 | XMS_ITS | Clinical Summary ---
Author Organization [facility] Address [address] [place] [address] Phone Care Team Providers Care Welfare Specialist Name Role Phone Isidro Roberts MD Primary Care Provider [phone] Allergies No known active allergies Medications sertraline [...] 07/08/2023 COVID-19 Vaccine (1 - 2023- season) 2024 Influenza Vaccine (#1) 2024 Colon Cancer Screening [...] Impressions 03/07/2016 12:19 PM EST : Negative ([id number]) ~ RECOMMENDATION: Routine screening mammogram in 1 [...] Most Recently Relevant to Health Maintenance Insurance [employer] OPEN ACCESS PLUS [facility] Advance Directives For more information, please contact: [phone] * Full Code (Latest Code Status on File) Date Activated Date Inactivated Comments 01/29/2019 8:50 AM 01/30/2019 5:26 PM Care Teams Welfare Specialist Relationship Specialty Start Date End Date Isidro Roberts MD PCP - General 12/04/09
== END ==
LOC: SL 12:02
PROVIDERS: PCP Family Medicine; Visit Provider Specialist
DX: G47.36 Sleep related hypoventilation in conditions classified elsewhere; G47.33 Obstructive sleep apnea (adult) (pediatric)
CPT/HCPCS: 94762

== ENCOUNTER 2025-01-14 08:49 | Outpatient (CLI) | payer MEDICAID, SELFPAY ==
[2025-01-14 09:02] VITALS: BMI 38.4
[2025-01-14 09:16] VITALS: BP 144/100; PULSE 83; RESP 18; TEMP 36.1; O2SAT 98
--- OUTSIDE RECORDS SUMMARY | 2025-01-14 09:20 | XMS_ITS | Clinical Summary ---
Author Organization [facility] Address [address] 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
--- OUTSIDE RECORDS SUMMARY | 2025-01-14 09:22 | XMS_ITS | Clinical Summary ---
Author Organization [facility] Address [address] [place] [address] Care Team Providers Care Correction Lieutenant Name Role Phone Isidro Roberts MD Primary Care Provider [phone] Allergies Active Allergy Reactions Criticality Noted Date [...] affected nostril(s) every night. Active HYDROcodone-hyun taminophen ([place]) 5-325 MG tablet if needed. Active meloxicam [...] 07/08/2023 UKY-Zoster Vaccines (1 of 2) 07/08/2023 [id number] Vaccine (1 - 2023- season) 2024 UKY-Influenza [...] patient's age to complete this topic Insurance ([place]) [id number] [email or web address] [facility] MEDICAID Care Teams Correction Lieutenant Relationship Specialty Start Date End Date Isidro Roberts MD PCP - General 06/21/22
--- OUTSIDE RECORDS SUMMARY | 2025-01-14 09:22 | XMS_ITS | Referral Summary ---
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
--- OUTSIDE RECORDS SUMMARY | 2025-01-14 09:22 | XMS_ITS | Clinical Summary ---
Author Organization [facility] Address [address] [place] [address] Phone Care Team Providers Care Fingerprint Clerk Name Role Phone Isidro Roberts MD Primary Care Provider [phone] Allergies No known active allergies Medications sertraline [...] Impressions 03/07/2016 12:19 PM EST : Negative ([id number]) ~ RECOMMENDATION: Routine screening mammogram in 1 [...] Most Recently Relevant to Health Maintenance Insurance [employer] OPEN ACCESS PLUS [facility] Advance Directives For more information, please contact: [phone] * Full Code (Latest Code Status on File) Date Activated Date Inactivated Comments 01/29/2019 8:50 AM 01/30/2019 5:26 PM Care Teams Fingerprint Clerk Relationship Specialty Start Date End Date Isidro Roberts MD PCP - General 12/04/09
[2025-01-14] MEDS: METOPROLOL TARTRATE 50MG TABLET PO (09:31)
[2025-01-14] MEDS: IVABRADINE HCL 7.5MG TABLET PO (09:32)
[2025-01-14 09:36] LABS: Anion Gap 12.0 mEq/L (5-15); Blood Urea Nitrogen 11 mg/dl (7-17); Calcium 9.3 mg/dl (8.4-10.2); Carbon Dioxide 26 mmol/L (22.0-30.0); Chloride 103 mmol/L (98-107); Creatinine Clearance Estimated 125 mL/min (50-200); Creatinine,Serum 0.80 mg/dl (0.52-1.04); Estimated Glomerular Filt Rate 76 ml/min (>60); GFR (African American) 92 ML/MIN (>60); Glucose 138 mg/dl (74-100); Potassium 4.0 mmoL/L (3.5-5.1); Sodium 137 mmol/L (136-145)
--- NOTE | 2025-01-14 10:00 | CT_ITS ---
APPROVED REPORT Photo Checker: CLINICAL INDICATION Chest Pain TECHNIQUE Image Acquisition: A 128 slice MDCT scanner (pbsia View) was used for data acquisition. A noncontrast coronary calcium scan was performed. A CT attenuation threshold of 130 Hounsfield units (HU) was used for the detection of calcium in contiguous voxels of 1 sq mm in area to be counted as individual lesions. Bolus tracking in the ascending aorta with a threshold of 180 HU was performed. Immediately afterwards, ECG synchronized cardiac CT was then performed from the cardiac base to apex using retrospective gating with ECG tube current modulation. A total of 85 mL of Isovue 370 mg/mL contrast medium was administered at 5 mL/sec followed by a saline flush using a biphasic injection protocol. A tube voltage of 120 KVp was used. The patient received the following medications prior to the cardiac CT. 75 mg of oral metoprolol 15 mg of oral ivabradine 0.8 mg of sublingual nitroglycerin The average heart rate at the time of acquisition was 68 bpm and regular. Image Reconstruction Transaxial images were reconstructed at 0.67 mm slide thickness. Data was reviewed interactively on an advanced workstation capable of 2 and 3-dimensional displays in all conventional reconstruction formats, including multiplanar reformations, maximum intensity projections, curved multiplanar reformations, and volume rendered reconstructions. When applicable, selected routine images describing the relevant coronary anatomy and pathology were saved and sent to PACS. Complications None Technical Quality Overall image quality was good. Coronary artery opacification was adequate. Total DLP (Dose-Length Product) is 2844.5 mGy-cm. The reported value represents the total of one or more individual components during the CT acquisition of this date and at this time, and as such, the same value may appear in more than one CT report depending on the interpreting/reporting physicians. COMPARISON None FINDINGS CT Coronary Calcium Scoring LMA (Left Main Artery) = 0 LAD (Left Anterior Descending) = 0 LCX (Left Coronary Circumflex) = 0 RCA (Right Coronary Artery) = 0 Total Calcium Score = 0 using the AJ-130 method. The interpretation of the calcium heart score is based on the following continuum*: 0 = no calcified plaque detected (risk of coronary artery disease is very low ??? less than 5%) 1-10 = calcium detected in extremely minimal levels (risk of coronary diseases is still low ??? less than 10%) 11-100 = mild levels of plaque detected with certainty (mild or minimal narrowing of heart arteries is likely) 101-400 = definite,at least moderate levels of plaque detected (relatively high risk of a heart attack within 3-5 years) >401-999 = extensive levels of plaque detected (high risk of heart attack, high levels of vascular disease are present, high likelihood of at least one significant coronary narrowing) *The calcium heart score quantifies the burden of coronary calcification/plaque in the coronary arteries. The calcium heart score is not able to evaluate the presence or burden of non-calcified (i.e. soft) plaque. There is no identifiable calcification in the aortic valve, mitral annulus or mitral valve, pericardium, or myocardium. Coronary CT Angiography The coronary arterial system is right dominant. Quantitative Stenosis Grading: Left Main (LM): The left main originates normally from the left sinus of Valsalva. The LM bifurcates into the left anterior descending artery and left circumflex artery. The LM is patent with no evidence of atherosclerosis. Left Anterior Descending (LAD) and Diagonal Branches: The LAD gives off 2 diagonal branch(es). The LAD and its branches are patent with no evidence of atherosclerosis. There is no evidence of LAD-myocardial bridge. Left Circumflex (LCX) and Obtuse Marginals (OM): The LCX gives off 1 Obtuse Marginal (OM) branch(es). The LCX and its branches are patent with no evidence of atherosclerosis. Right Coronary Artery (RCA): The RCA originates normally from the right sinus of Valsalva. The RCA gives off a posterior descending artery (PDA) and posterolateral (PL) branches. The RCA and its branches are patent with no evidence of atherosclerosis. Non-Coronary Cardiac Findings: Analysis of the left ventricular (LV) structure and function was performed after 3-D reconstruction of the LV from axial images, with user-corrected automatic contouring for assessment of LV volumes and user-defined reconstruction from oblique planes for measurement of 3-D cardiac structure and function. -The left ventricle systolic function is normal. -There is no left atrial appendage filling defect. Two right pulmonary veins and two left pulmonary veins drain normally into the left atrium. -No pericardial thickening or calcification. -Central and branch pulmonary arteries in the ezlol-vb-rtwp are unremarkable. -Thoracic aorta within the visualized thoracic aortic-branches in the xdtjr-hz-xusw is unremarkable. Extracardiac Structures No significant extra-cardiac findings. Note, however, that this study is focused on the cardiac findings. IMPRESSION -Absence of coronary calcification with an Agatston score = 0 using the AJ-130 method. -No evidence of significant flow-limiting atherosclerosis of the coronary arteries. -CAD-RADS 0. Management recommendations per ACC/AHA guidelines*, as clinically appropriate. *Recommendations: CAD RADS 0: Reassurance. Consider non-atherosclerotic causes of chest pain. CAD RADS 1: Consider non-atherosclerotic causes of chest pain. Consider preventive therapy and risk factor modification. CAD RADS 2: Consider non-atherosclerotic causes of chest pain. Consider preventive therapy and risk factor modification, particularly for patients with nonobstructive plaque in multiple segments. CAD RADS 3: Consider further functional testing. Consider symptom-guided anti-ischemic and preventive pharmacotherapy as well as risk factor modification per published guideline statements. CAD RADS 4A: Consider further functional testing or invasive coronary angiography with revascularization per published guideline statements. Consider symptom-guided anti-ischemic and preventive pharmacotherapy as well as risk factor modification per published guideline statements. CAD RADS 4B: Invasive coronary angiography recommended with revascularization per published guideline statements. Consider symptom-guided anti-ischemic and preventive pharmacotherapy as well as risk factor modification per published guideline statements. CAD RADS 5: Consider invasive angiography and/or viability assessment with revascularization per published guideline statements. Consider symptom-guided anti-ischemic and preventive pharmacotherapy as well as risk factor modification per published guideline statements. CRITICAL RESULT None COMMUNICATION Per this written report The coronary and cardiac findings of this CCTA were reviewed, reported, and signed by Justin Muhammad MD ([facility] N[employer]er) Conclusion Electronically signed by : Barbra Muhammad MD 01/14/2025 13:24:37
[2025-01-14 10:53] VITALS: BP 140/84; PULSE 63; RESP 18; O2SAT 95
[2025-01-14] MEDS: NITROGLYCERIN 0.4MG SL TABLET SL (10:53)
[2025-01-14 10:56] VITALS: BP 157/86; PULSE 65; RESP 18; O2SAT 97
[2025-01-14] MEDS: 0.9 % SODIUM CHLORIDE 50 ML VIAL IV (10:56)
[2025-01-14] MEDS: SODIUM CHLORIDE 0.9% 10ML SYR (RAD ONLY) 10 ML IV (10:57)
[2025-01-14] MEDS: IOPAMIDOL-370 (76%);100ML BOTTLE 85 ML IV (10:57)
[2025-01-14 11:00] VITALS: BP 128/84; PULSE 71; RESP 18; O2SAT 96
== END 2025-01-14 11:10 | disposition home or self-care (01) ==
PROVIDERS: PCP Family Medicine; Visit Provider Physician Assistant
DX: G45.9 Transient cerebral ischemic attack, unspecified (principal); E78.5 Hyperlipidemia, unspecified; R94.31 Abnormal electrocardiogram [ECG] [EKG]; R07.89 Other chest pain
CPT/HCPCS: 75574; 80048; Q9967

== ENCOUNTER 2025-02-26 07:03 | Day surgery (SDC) | payer MEDICAID, SELFPAY ==
[2025-02-26 07:10] VITALS: BMI 38.5
[2025-02-26 07:28] VITALS: BP 140/93; PULSE 92; RESP 20; O2SAT 95
[2025-02-26] MEDS: LIDOCAINE 2% W/EPI 1:100,000 20ML VIAL 20 ML SUBCUT (07:41)
[2025-02-26 07:45] VITALS: BP 137/80; PULSE 91; RESP 20; O2SAT 96
[2025-02-26 08:00] VITALS: BP 165/78; PULSE 101; RESP 20; O2SAT 96
[2025-02-26 08:13] VITALS: BP 144/79; PULSE 99; RESP 20; O2SAT 95
--- NOTE | 2025-02-26 08:35 | EXP.LOOP ---
[facility] Loop Recorder Date: 02/26/25 Time: 08:00 Procedure Performed:: Implantation of loop recorder Indication:: Recurrent cryptogenic strokes Technique:: Patient was brought to the cardiac Forensic Specialist. After informed consent obtained, 1% lidocaine with epinephrine was used to anesthetize the site along the left anterior aspect of the chest near the sternal border. Using the preformed scalpel, an incision was made and using the supplied preloaded apparatus, the loop recorder was placed subcutaneously without difficulty. Following the deployment of the loop recorder interrogation of the device was performed to ensure appropriate voltage was being detected. Once this was verified, Steri-Strips were placed over the incision and the patient was prepped to discharge home. Patient tolerated the procedure well with minimal discomfort. Impression:: Successful implantation of loop recorder Serial Number:: i-Neumaticost-IQ EL plus Model number [id number] Serial #[id number] Plan:: Routine postop care
== END 2025-02-26 09:03 | disposition home or self-care (01) ==
PROVIDERS: PCP Family Medicine; Visit Provider Internal Medicine
DX: R94.31 Abnormal electrocardiogram [ECG] [EKG] (principal); R00.0 Tachycardia, unspecified; E11.9 Type 2 diabetes mellitus without complications; I10 Essential (primary) hypertension; E78.5 Hyperlipidemia, unspecified; J44.9 Chronic obstructive pulmonary disease, unspecified; E03.9 Hypothyroidism, unspecified; E66.9 Obesity, unspecified; Z68.38 Body mass index [BMI] 38.0-38.9, adult; I25.2 Old myocardial infarction; G47.33 Obstructive sleep apnea (adult) (pediatric); Z86.73 Personal history of transient ischemic attack (TIA), and cerebral infarction without residual deficits; F17.210 Nicotine dependence, cigarettes, uncomplicated; Z79.82 Long term (current) use of aspirin; Z79.890 Hormone replacement therapy; Z79.4 Long term (current) use of insulin; Z79.51 Long term (current) use of inhaled steroids; Z79.899 Other long term (current) drug therapy; Z88.8 Allergy status to other drugs, medicaments and biological substances; Z82.49 Family history of ischemic heart disease and other diseases of the circulatory system
CPT/HCPCS: 33285; C1764; J0690; J2004

== ENCOUNTER 2025-03-17 07:53 | Outpatient (CLI) | payer MEDICAID, SELFPAY ==
--- OUTSIDE RECORDS SUMMARY | 2025-03-17 07:56 | XMS_ITS | Data Portability ---
Author Organization [facility] Address [address] [place] [address] Care Team Providers Care Advertising Executive Name Role Phone PREET WANG Primary Care Provider PREET WANG Referring Provider [phone] Assessment Encounter Date Assessment Date Assessment LastModified by Organization Details LastModified Time 11/28/2023 11/28/2023 Care management services and General Behavioral Health Integration (CPT 30858) was provided for at least 20 minutes [...] No suicidal ideation was endorsed. Patient answered n o to all questions related to self-harm. Through the sharon, the patient was assigned the Reoccurring Assessment activity template, which includes informational videos, journals, and EAN-2 / EAN-7, PHQ-9*, PDUQp, Oswestry - Lower Back, ORT-OUD. . Patient was not contacted by our clinical support team but provided resources through the sharon. The patient s next visit is on 02/12/2024 . [email or web address] Not available 12/01/2023 13:32:10 11/29/2023 11/29/2023 Ms. Pineda is a 48-year-old female who is here today for evaluation of her ongoing lower back pain. The pain is nonradiating, axial in nature and extends into bilateral paraspinal regions. 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 Her symptoms have improved tremendously since recently [...] she had MRI performed last week at [facility] but we do not have the results. We have sent away for this. PMHx: History of prior CVA, pancreatitis, asthma, COPD, migraines, coronary artery disease with RI, syncope Prior PM: DENIES Smoker: 1/2 PACK PER DAY Employed: DENIES Diabetic: TYPE 2 Anticoagulated: DENIES PERTINENT IMAGING: We have requested MRI results from [facility] OTHER TREATMENTS: Conservative: She reports previously [...] services and General Behavioral Health Integration (CPT 51541) was provided for at least 20 minutes [...] No suicidal ideation was endorsed. Patient answered n o to all questions related to self-harm. Through the sharon, the patient was assigned the Reoccurring Assessment activity template, which includes informational videos, journals, and EAN-2 / EAN-7, PHQ-9*, PDUQp, Oswestry - Lower Back, ORT-OUD. . Patient was not contacted by our clinical support team but provided resources through the sharon. The patient s next visit is on 02/12/2024 . [email or web address] Not available 12/14/2023 13:24:46 01/17/2024 01/17/2024 Care management services and General Behavioral Health Integration (CPT 50831) was provided for at least 20 minutes [...] No suicidal ideation was endorsed. Patient answered n o to all questions related to self-harm. Through the sharon, the patient was assigned the Reoccurring Assessments activity template, which includes informational videos and EAN-2 / EAN-7, PHQ-9, PDUQp, Oswestry - Lower Back, ORT-OUD. Patient was not contacted by our clinical support team but provided resources through the sharon. The patient s next visit is on 02/12/2024 . [email or web address] Not available 01/19/2024 14:47:12 Plan of Treatment Reminders Order Date Submit Date Provider Last Modified By Organization Details Last Modified Time Details Appointments None recorded. Lab None recorded. Referral None recorded. Procedures None recorded. Surgeries None recorded. Imaging None recorded. Medication Orders tramadol 50 mg tablet 2023 [facility], [address] [place], [address], 4 09:09:54 gabapentin 300 mg capsule 2023 024 [facility] [address], [address] [place], [address], 09:09:53 Patient TargetsNo targets recorded. Patient InstructionsNo [...] Organization Details Recorded Time Lumbar spondylosi s 428176673 Active [address] [facility] 4 08:12:07 Muscle pain 84913908 Active 2023 Dano Evans MD [address] [place] [address], [phone] , [facility] 4 08:21:46 Degenerati on of lumbar interverte bral disc 16303471 Active 2023 Dano Evans MD [address] [place] [address], [phone] , [facility] 4 08:22:39 Pain disorder with psychologi michelle factor 470148349255 [facility] 12:09:37 Problem Notes None recorded. Procedures Surgical History Date Name Laterality Status Provider Name and Address Organization Details Recorded Time 4 Lumbar RFA (2 Level Bilateral) completed Antonia Ramos [facility] 10/30/2023 11:49:48 4 Diagnostic Lumbar MBB (2 Level Bilateral) completed Dano Evans MD [address] [place] [address], [phone], [facility] 09/26/2023 09:52:49 4 Diagnostic Lumbar MBB (2 Level Bilateral) completed Dano Evans MD [address] [place] [address], [phone], [facility] 08/30/2023 09:44:05 section completed Ai Lurdes [facility] 07/10/2023 07:44:29 Carpal tunnel surgery completed Ai Lurdes [facility] 07/10/2023 07:44:38 Imaging Results None recorded. Procedure Notes None recorded. Medical Equipment None Reported. 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 active Not Available [...] Not Available No t Available Dexcom G6 Training Program Developer USE DIRECTED active Not Available Not Available No t Available Dexcom G6 Transmitter device USE DIRECTED active Not Available Not Available No t Available BD Frida 2nd Gen Pen Needle 32 gauge x USE DIRECTED active Not Available Not Available No t Available OneTouch Ultra2 Meter USE DIRECTED active Not Available Not Available No t Available OneTouch Delica Plus Lancet 33 gauge USE DIRECTED active Not Available Not Available No t Available Vitals Date Recorded Body height Provider Name an d Address Organization Details Last Updated DateTime 11/29/2023 157.48 cm steve delarosa [facility] 11/29/2023 08:06:24 Social History Question Answer Notes LastModified by Organizat ion Details LastModified Time Tobacco Smoking Status Current Every Day Smoker Ai Chatman janine [facility] 07/10/2023 07:44:15 Do You Have An Advance Directive? Yes Information not available 07/10/2023 What Type Of Diet Are You Following? REGULAR Information not available 07/10/2023 What Is The Highest Grade Or Level Of School You Have Completed Or The Highest Degree You Have Received? [id number] Information not available 07/10/2023 Do You Have A Medical Power Of Paleologist? Yes Information not available 07/10/2023 What Was The Date Of Your Most Recent Tobacco Screening? 08/14/2023 [email or web address] Information not available 08/14/2023 What Is Your Relationship Status? Information not available 07/10/2023 How Much Tobacco Do You Smoke? 0.5 PPD Information not available 07/10/2023 How Many Years Have You Smoked Tobacco? 35 [email or web address] Information not available 08/14/2023 Sex: Unknown Functional Status Question Answer Note LastModified by Organizat [employer] Details LastModified Time Do you use any illicit or recreational drugs? No Information not available 07/10/2023 What is your level of alcohol consumption? None Information not available 07/10/2023 Are you currently employed? No [email or web address] Information not available 08/14/2023 Are you able to walk independently without assistance or assistive devices? YESWOREST Information not available 07/10/2023 What is [...] Bipolar Disease N Coronary Artery Disease N Seizure Disorder N Gout N Atrial Fibrillation N Thyroid Disease Y Hernia N Head Trauma/Injury N COPD N Depression N Anxiety Disorder N Acid Reflux (GERD) N Cancer N Stroke Y Skin Disorder N High Cholesterol Y Liver Disease N Rheumatoid Arthritis N Headaches N Fibromyalgia N Kidney Disease N Autoimmune Disease N Osteoarthritis N Neurosurgery N DVT N Peptic Ulcer Disease N Anemia N Heart Attack (RI) Y Diabetes Y Cardiomyopathy N Bleeding Disorder [...] Diagnosis SNOMED-CT Code Diagnosis ICD10 Code Diagnosis IMO Codes Diagnosis Note [id number] MD [place] [address] [place] [address] 07/10/2023 07:23:58 07/10/2023 08:17:59 Long-term drug therapy 893710941 Z79.899 Up to date Informed Consent and Opioid Agreement have been signed and incorporat ed into the chart. 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 Lumbar spondylosis 62222 0009 M47.816 Muscle pain 54560202 M79 .18 Degenerati on of lumbar intervertebral disc 02156323 M51.36 [id number] MD Betty Zimmerman [address] [place] [address] 08/04/2023 09:00:00 08/04/2023 09:03:50 Mental health screening assessment 017435988 Z13.39 [id number] Dano Evans MD [place] [address] [place] [address] 08/14/2023 07:54:38 08/14/2023 08:42:15 Long-term drug therapy 219672293 Z79.899 Lumbar spondylosis 43403 0009 M47.579 [id number] Dano Evans MD [place] [address] [place] [address] 08/30/2023 08:50:07 08/30/2023 09:16:48 Lumbar spondylosis 195354600 M47.154 [id number] MD Betty Zimmerman [address] [facility] [address] [place] [address] 09/01/2023 09:57:48 09/01/2023 10:24:29 Mental health screening assessment 141015036 Z13.39 [id number] Dano Evans MD [place] [address] [place] [address] 09/12/2023 08:30:11 09/12/2023 08:47:36 Lumbar spondylosis 825993362 M47.816 Degenerati on of lumbar intervertebral disc 10877268 M51.36 Long-term drug therapy 061090542 Z79.720 [id number] Dano Evans MD [place] [address] [place] [address] 09/26/2023 08:44:37 09/26/2023 08:59:56 Lumbar spondylosis 805873406 M47.020 [id number] Dano Evans MD [place] [address] [place] [address] 10/03/2023 15:08:49 10/03/2023 15:30:19 Lumbar spondylosis 457024019 M47.816 Long-term drug therapy 839209878 Z79.979 [id number] MD Betty Zimmerman [address] [place] [address] 10/20/2023 12:08:55 10/20/2023 16:00:50 Pain disorder with psychological factor 0689180665 07 F45.42 [id number] Dano Evans MD [place] [address] [place] [address] 10/30/2023 09:42:48 10/30/2023 10:33:17 Lumbar spondylosis 966568663 M47.645 [id number] Dano Evans MD [place] [address] [address] 11/29/2023 07:59:00 11/29/2023 08:29:39 Lumbar spondylosis 333303808 M47.816 Long-term drug therapy 919890967 Z79.569 [id number] Dano Evans MD [place] [address] [place] [address] 12/01/2023 13:31:11 12/01/2023 15:00:48 Pain disorder with psychological factor 6692732504 07 F45.42 [id number] Dano Evans MD [place] [address] [place] [address] 12/14/2023 13:22:55 12/14/2023 14:14:12 Pain disorder with psychological factor 3703791582 07 F45.42 [id number] Dano Evans MD [place] [address] [place] [address] 01/19/2024 14:46:00 01/22/2024 16:44:29 Pain disorder with psychological factor 7869710542 07 F45.42 Health Concerns Section Related Observation LastModified by Organization Detai ls LastModified Time None Recorded Concern Status LastModified by Organization Details LastModified Time None Recorded Advance Directives Directive Y: Payers Insurance Date Sequence Insurance Name Policy Number Policy Michael Covered Member ID Michael Member ID Guarantor Name 02/09/2024 1 [facility] (MEDICAID REPLACEMENT - HMO) Sarita Pineda [id number] Sarita Pineda Notes Date Note Type Note Provider Name and Address Organization Details Recorded Time 10/30/2023 text/html BILATERAL LUMBAR RFA [id number] Dano Evans MD [address] [place] [address], [phone], [facility] 10/30/2023 11:52:58 11/29/2023 text/html Low back pain (2)*Reported by PatientHPIFor functional assessment of adls, 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 For onset, patient reportsdate of onset: (1983). For location, patient reportsparaspinal: bilateralandpain is not radiating. For duration, patient reportsconstant. For context, patient reportsoveruse. For quality, patient reportsaching,throbbin g, andsharp. For pain intensity, patient reportssevere,current pain level: 5/10,average pain level: 7/10, andworst pain level: 10/10. For aggravating factors, patient reportsstanding,walkin g,carrying,twisting, andbending/squatting. For alleviating factors, patient reportslying down,changing positions,heat, andopioids. For associated symptoms, patient reportsno numbness,no tingling, andno weakness. For prior imaging, patient reportsno recent studies. For physical therapy, patient reportscurrently in pt: temporary pain/symptoms improvement,facility: (psychiatric), anddates: (06/2023- present). For current analgesics, patient reportstramadol effective,gabapentin effective,reported pain relief- 40% for 4 hours, andlast dose of medication: (10/03/2023)(11/29/23 - last dose was this am). For past medication history, patient reportsopioid pain medications: (tramadol-helpfuloxyco done-helpful). For adverse reactions, patient reportsno nausea,no vomiting, andno constipation. For other conservative treatments, patient reportsheat: effective,ice: not effective, andtens unit: not effective. For prior pain management, patient reportsno. For oswestry disability index (alexandrea), patient reportsscore/date competed: (07/10/2023--54). For for female patients, patient reportsare you ? no. Laura Morris, CSR [address] [place], [address], [facility] 11/29/2023 09:09:44 OBGyn Episode No OBEpisode recorded.
--- NOTE | 2025-03-17 08:45 | CT_ITS ---
FINAL REPORT TECHNIQUE: Thin section axial images were obtained from the lung apices to the upper abdomen by computed tomography. Reformatted images were obtained and reviewed. This study was performed with techniques to keep radiation doses al low as reasonably achievable (ALARA). Individualized dose reduction techniques using automated exposure control or adjustment of mA and/or kV according to the patient's size were employed. CLINICAL HISTORY: lung cancer screening current smoker 1ppd x 35 years COMPARISON: 03/14/2024 FINDINGS: CHEST CT LOW DOSE 49-year-old female, current smoker, 94-ixak-jwuv history. CTDI vol (mGy): 2.90 DLP (mGy-cm): 103.68 There is no axillary adenopathy. There is no mediastinal or hilar mass or adenopathy. There is a calcification in the right hilum consistent with a calcified node. There is a calcified granuloma present in the right midlung field. The heart is normal in size. There is no pericardial or pleural effusion. There are advanced changes of centrilobular emphysema. Lung window images demonstrate a stable 3 mm nodule adjacent to the minor fissure, also seen on the prior CT examination, best seen on image #51 of series 4. Limited images of the upper abdomen are unremarkable. IMPRESSION: Lung-RADS category 2S, the S designation for advanced centrilobular emphysema. Recommend 12 month follow up low dose chest CT. Reviewed, Interpreted and Dictated by Luis Barron MD Transcribed by Gisselle Gibson Authenticated and [facility]
== END 2025-03-17 23:59 ==
LOC: RAD 07:54
PROVIDERS: PCP Family Medicine; Visit Provider Internal Medicine Pulmonary Disease
DX: Z12.2 Encounter for screening for malignant neoplasm of respiratory organs (principal); F17.210 Nicotine dependence, cigarettes, uncomplicated; R91.1 Solitary pulmonary nodule; J43.2 Centrilobular emphysema; J98.4 Other disorders of lung
CPT/HCPCS: 71271

== ENCOUNTER 2025-04-14 08:20 | Outpatient (CLI) | payer MEDICAID, SELFPAY ==
[2025-04-14 20:51] LABS: Hematocrit 45.5 % (37.0-47.0); Hemoglobin 14.8 g/dL (12.2-16.2); Immature Granulocytes % 0.3 %; Mean Corpuscular HGB Conc 32.5 g/dL (31.8-35.4); Mean Corpuscular Hemoglobin 29.0 pg (27.0-31.2); Mean Corpuscular Volume 89.0 fl (81-99); Nucleated Red Blood Cells % 0 %; Platelet Count 353 K/mm3 (142-424); Red Blood Count 5.11 M/mm3 (4.20-5.40); Red Cell Distribution Width-SD 46.1 fL; White Blood Count 11.9 K/mm3 (4.8-10.8)
[2025-04-14 21:47] LABS: Alanine Aminotransferase 31 U/L (12-78); Albumin Level 4.1 g/dl (3.5-5.0); Albumin/Globulin Ratio 1.6 (1.1-1.8); Alkaline Phosphatase 96 U/L (38-126); Anion Gap 14.2 mEq/L (5-15); Aspartate Amino Transferase 25 U/L (14-36); Bilirubin,Total 0.5 mg/dl (0.2-1.3); Blood Urea Nitrogen 16 mg/dl (7-17); Calcium 9.5 mg/dl (8.4-10.2); Carbon Dioxide 26 mmol/L (22.0-30.0); Chloride 99 mmol/L (98-107); Creatinine,Serum 0.90 mg/dl (0.52-1.04); Estimated Glomerular Filt Rate 66 ml/min (>60); GFR (African American) 80 ML/MIN (>60); Globulin 2.5 g/dL (1.3-3.2); Glucose 368 mg/dl (74-100); Potassium 4.2 mmoL/L (3.5-5.1); Sodium 135 mmol/L (136-145); Total Protein,Serum 6.6 g/dl (6.3-8.2)
[2025-04-14 22:17] LABS: Thyroid Stimulating Hormone 1.19 uIU/mL (0.465-4.68)
[2025-04-15 03:51] LABS: Hepatitis C Ab Qual. W/ RFX NEGATIVE (Negative)
[2025-04-16 03:41] LABS: Hepatitis B Surface Antigen Negative (Negative)
--- OUTSIDE RECORDS SUMMARY | 2025-04-16 08:24 | XMS_ITS | Clinical Summary ---
Author Organization [facility] Address [address] [place] [address] Phone Care Team Providers Care Assistant Sales Center Manager Name Role Phone Isidro Roberts MD Primary Care Provider [phone] Allergies No known active allergies Medications sertraline [...] of 2) 07/08/2023 COVID-19 Vaccine (1 - season) 2024 Influenza Vaccine (#1) 2024 Colon [...] Impressions 03/07/2016 12:19 PM EST : Negative ([id number]) ~ RECOMMENDATION: Routine screening mammogram in 1 [...] Most Recently Relevant to Health Maintenance Insurance [employer] [facility] Advance Directives For more information, please contact: [phone] * Full Code (Latest Code Status on File) Date Activated Date Inactivated Comments 01/29/2019 8:50 AM 01/30/2019 5:26 PM Care Teams Assistant Sales Center Manager Relationship Specialty Start Date End Date Isidro Roberts MD PCP - General 12/04/09
--- OUTSIDE RECORDS SUMMARY | 2025-04-16 08:24 | XMS_ITS | Clinical Summary ---
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
--- OUTSIDE RECORDS SUMMARY | 2025-04-16 08:24 | XMS_ITS | Data Portability ---
Author Organization [facility] Address [address] [place] [address] Care Team Providers Care Hardwood Finisher Name Role Phone PREET WANG Primary Care Provider [phone] PREET WANG Referring Provider Assessment Encounter Date Assessment Date Assessment LastModified by Organization Details LastModified Time 11/28/2023 11/28/2023 Care management services and General Behavioral Health Integration (CPT 47359) was provided for at least 20 minutes [...] s next visit is on 02/12/2024 . [email or web address] Not available 12/01/2023 13:32:10 11/29/2023 11/29/2023 Ms. Pineda is a 48-year-old female who is here today for evaluation of her ongoing lower back pain. The pain is nonradiating, axial in nature and extends into bilateral paraspinal regions. 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 Her symptoms have improved tremendously since recently [...] she had MRI performed last week at [facility] but we do not have the results. We have sent away for this. PMHx: History of prior CVA, pancreatitis, asthma, COPD, migraines, coronary artery disease with [place], syncope Prior PM: DENIES Smoker: 1/2 PACK PER DAY Employed: DENIES Diabetic: TYPE 2 Anticoagulated: DENIES PERTINENT IMAGING: We have requested MRI results from [facility] OTHER TREATMENTS: Conservative: She reports previously 6 [...] services and General Behavioral Health Integration (CPT 07170) was provided for at least 20 minutes [...] s next visit is on 02/12/2024 . [email or web address] Not available 12/14/2023 13:24:46 01/17/2024 01/17/2024 Care management services and General Behavioral Health Integration (CPT 93591) was provided for at least 20 minutes [...] s next visit is on 02/12/2024 . [email or web address] Not available 01/19/2024 14:47:12 Plan of Treatment Reminders Order Date Submit Date Provider Last Modified By Organization Details Last Modified Time Details Appointments None recorded. Lab None recorded. Referral None recorded. Procedures None recorded. Surgeries None recorded. Imaging None recorded. Medication Orders tramadol 50 mg tablet 2023 [facility] [address] [place], [address], 4 09:09:54 gabapentin 300 mg capsule 2023 024 [facility] [address] [place], [address], 09:09:53 Patient TargetsNo targets recorded. Patient InstructionsNo [...] Organization Details Recorded Time Lumbar spondylosi s 041855950 Active 2023 [facility] 4 08:12:07 Muscle pain 79713713 Active 2023 Dano Evans MD [address] [place] [address], [address] , [facility] 4 08:21:46 Degenerati on of lumbar interverte bral disc 43916621 Active 2023 Dano Evans MD [address] [place] [address], [address] , [facility] 4 08:22:39 Pain disorder with psychologi michelle factor 048246547789 [facility] 12:09:37 Problem Notes None recorded. Procedures Surgical History Date Name Laterality Status Provider Name and Address Organization Details Recorded Time 4 Lumbar RFA (2 Level Bilateral) completed Antonia Ramos [facility] 10/30/2023 11:49:48 4 Diagnostic Lumbar MBB (2 Level Bilateral) completed Dano Evans MD [address] [place] [address], [phone], [facility] 09/26/2023 09:52:49 4 Diagnostic Lumbar MBB (2 Level Bilateral) completed Dano Evans MD [address] [place] [address], [address], [facility] 08/30/2023 09:44:05 section completed Ai Lurdes [facility] 07/10/2023 07:44:29 Carpal tunnel surgery completed Ai Lurdes [facility] 07/10/2023 07:44:38 Imaging Results None recorded. Procedure Notes None recorded. Medical Equipment None Reported. 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 active Not Available [...] Not Available No t Available Dexcom G6 Magazine Worker USE DIRECTED active Not Available Not Available [...] Updated DateTime 11/29/2023 157.48 cm steve delarosa [facility] 11/29/2023 08:06:24 Social History Question Answer Notes LastModified by Organizat ion Details LastModified Time Tobacco Smoking Status Current Every Day Smoker Ai Chatman janine [facility] 07/10/2023 07:44:15 Do You Have An Advance Directive? Yes Information not available 07/10/2023 What Type Of Diet Are You Following? REGULAR Information not available 07/10/2023 What Is The Highest Grade Or Level Of School You Have Completed Or The Highest Degree You Have Received? HR44252-2 Information not available 07/10/2023 Do You Have A Medical Power Of Pilot Boat Deckhand? Yes Information not available 07/10/2023 What Was The Date Of Your Most Recent Tobacco Screening? 08/14/2023 [email or web address] Information not available 08/14/2023 What Is Your Relationship Status? Information not available 07/10/2023 How Much Tobacco Do You Smoke? 0.5 PPD Information not available 07/10/2023 How Many Years Have You Smoked Tobacco? 35 [email or web address] Information not available 08/14/2023 Sex: Unknown Functional Status Question Answer Note LastModified by Organizat [employer] Details LastModified Time Do you use any illicit or recreational drugs? No Information not available 07/10/2023 What is your level of alcohol consumption? None Information not available 07/10/2023 Are you currently employed? No [email or web address] Information not available 08/14/2023 Are you able [...] N Acid Reflux (GERD) N Cancer N Skin Disorder N Stroke Y High Cholesterol Y Liver Disease N Rheumatoid Arthritis N Headaches N Fibromyalgia N Autoimmune Disease N Kidney Disease N Osteoarthritis N Neurosurgery N DVT N Peptic Ulcer Disease N Anemia N Heart Attack ([place]) Y Diabetes Y Cardiomyopathy N Bleeding Disorder [...] ICD10 Code Diagnosis IMO Codes Diagnosis Note [id number] MD [place] [address] [place] [address] 07/10/2023 07:23:58 07/10/2023 08:17:59 Long-term drug therapy 995076313 Z79.899 Up to date Informed Consent and Opioid Agreement have been signed and incorporat ed into the chart. Patient has been provided written educationa l materials regarding potential adverse effects of emt intermediate opioid therapy MEDICAL INDICATION S: Pain has [...] IS BENEFITING FROM OPIOID THERAPY. Lumbar spondylosis 22005 0009 M47.816 Muscle pain 37929635 M79 .18 Degenerati on of lumbar intervertebral disc 57886362 M51.36 [id number] MD Betty Zimmerman [address] [place] [address] 08/04/2023 09:00:00 08/04/2023 09:03:50 Mental health screening assessment 067567381 Z13.39 [id number] Dano Evans MD [place] [address] [place] [address] 08/14/2023 07:54:38 08/14/2023 08:42:15 Long-term drug therapy 262103495 Z79.899 Lumbar spondylosis 37981 0009 M47.514 [id number] Dano Evans MD [place] [address] [place] [address] 08/30/2023 08:50:07 08/30/2023 09:16:48 Lumbar spondylosis 299575236 M47.915 [id number] MD Betty Zimmerman [address] [facility] [address] [place] [address] 09/01/2023 09:57:48 09/01/2023 10:24:29 Mental health screening assessment 580035907 Z13.39 [id number] Dano Evans MD [place] [address] [place] [address] 09/12/2023 08:30:11 09/12/2023 08:47:36 Lumbar spondylosis 818934947 M47.816 Degenerati on of lumbar intervertebral disc 65062204 M51.36 Long-term drug therapy 109699188 Z79.155 [id number] Dano Evans MD [place] [address] [place] [address] 09/26/2023 08:44:37 09/26/2023 08:59:56 Lumbar spondylosis 086186797 M47.752 [id number] Dano Evans MD [place] [address] [place] [address] 10/03/2023 15:08:49 10/03/2023 15:30:19 Lumbar spondylosis 064478624 M47.816 Long-term drug therapy 462485176 Z79.126 [id number] MD Betty Zimmerman [address] [place] [address] 10/20/2023 12:08:55 10/20/2023 16:00:50 Pain disorder with psychological factor 4880020652 07 F45.42 [id number] Dano Evans MD [place] [address] [place] [address] 10/30/2023 09:42:48 10/30/2023 10:33:17 Lumbar spondylosis 576801610 M47.347 [id number] Dano Evans MD [place] [address] [address] 11/29/2023 07:59:00 11/29/2023 08:29:39 Lumbar spondylosis 336223833 M47.816 Long-term drug therapy 425316262 Z79.439 [id number] Dano Evans MD [place] [address] [place] [address] 12/01/2023 13:31:11 12/01/2023 15:00:48 Pain disorder with psychological factor 9778341851 07 F45.42 [id number] Dano Evans MD [place] [address] [place] [address] 12/14/2023 13:22:55 12/14/2023 14:14:12 Pain disorder with psychological factor 6533675981 07 F45.42 [id number] Dano Evans MD [place] [address] [place] [address] 01/19/2024 14:46:00 01/22/2024 16:44:29 Pain disorder with psychological factor 0680918023 07 F45.42 Health Concerns Section Related Observation LastModified by Organization Detai ls LastModified Time None Recorded Concern Status LastModified by Organization Details LastModified Time None Recorded Advance Directives Directive Y: Payers Insurance Date Sequence Insurance Name Policy Number Policy Michael Covered Member ID Michael Member ID Guarantor Name 02/09/2024 1 [facility] (MEDICAID REPLACEMENT - HMO) Sarita Pineda [id number] Sarita Pineda Notes Date Note Type Note Provider Name and Address Organization Details Recorded Time 10/30/2023 text/html BILATERAL LUMBAR RFA L3-L5 Dano Evans MD [address] [place] [address], [address], [facility] 10/30/2023 11:52:58 11/29/2023 text/html Low back pain (2)*Reported by PatientHPIFor functional assessment of adls, 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 For current analgesics, patient [...] patient reportsare you ? no. Laura Morris, SUPERVISOR MENDING [address] [place], [address], [facility] 11/29/2023 09:09:44 OBGyn Episode No OBEpisode recorded.
--- OUTSIDE RECORDS SUMMARY | 2025-04-16 08:24 | XMS_ITS | Clinical Summary ---
Author Organization [facility] Address [address] [place] [address] Care Team Providers Care Senior Mechanical Project Engineer Name Role Phone Isidro Roberts MD Primary Care Provider Source Comments This information has been disclosed [...] therelease of HIV test results or diagnoses. [id number] Allergies Active Allergy Reactions Criticality Noted [...] 1973 Diabetes Screening 1973 Hepatitis C Screening ([facility]) 1973 Renal Function/GFR 1973 Tobacco Cessation Readiness [...] 2024 Immunization: Influenza (MyChart) (#1) 2024 Insurance [facility] MEDICAID Care Teams Senior Mechanical Project Engineer Relationship Specialty Start Date End Date Isidro Roberts MD [address] [place] [address] PCP - General Family Medicine 06/26/24
--- OUTSIDE RECORDS SUMMARY | 2025-04-16 08:24 | XMS_ITS | Clinical Summary ---
Author Organization [facility] Address [address] [place] [address] Care Team Providers Care Concrete Mixing Plant Laborer Name Role Phone Isidro Roberts MD Primary Care Provider [phone] Allergies Active Allergy Reactions Criticality Noted Date [...] affected nostril(s) every night. Active HYDROcodone-hyun taminophen (Romney) 5-325 MG tablet if needed. Active meloxicam [...] 07/08/2023 [facility]-Zoster Vaccines (1 of 2) 07/08/2023 [id number] Vaccine (1 - 2024- season) 2024 [facility]-Influenza Vaccine (#1) 2024 HPV Vaccines (No Doses Required) Completed [facility]-HIB Vaccines Aged Out No longer e [...] to complete this topic Insurance Care Teams Concrete Mixing Plant Laborer Relationship Specialty Start Date End Date Isidro Roberts MD PCP - General 06/21/22
== END 2025-04-14 23:59 | disposition home or self-care (01) ==
LOC: LAB.DROPOF 04-16 08:21
PROVIDERS: PCP Family Medicine; Visit Provider Family Medicine
DX: E03.9 Hypothyroidism, unspecified (principal); E11.9 Type 2 diabetes mellitus without complications; E66.9 Obesity, unspecified; R00.0 Tachycardia, unspecified; E04.1 Nontoxic single thyroid nodule; Z11.59 Encounter for screening for other viral diseases
CPT/HCPCS: 80053; 84443; 85025; 86803; 87340; 87389